=== PATIENT | female | born 1935 ===

== ENCOUNTER 2018-05-12 12:08 | Inpatient (IN) | payer MEDICARE, OTHER ==
[2018-05-12 12:21] VITALS: BMI 42.3
[2018-05-12 13:46] LABS: BASO # 0.1 K/uL (0.0-0.2); BASO % 0.9 % (0.0-2.0); EOS # 0.1 K/uL (0.0-0.7); EOS % 0.6 % (0.0-4.0); LYMPH # 1.5 K/uL (1.0-4.3); LYMPH % 14.3 % (20.0-40.0); MEAN CELL VOLUME 92.8 fL (81.0-99.0); MEAN CORPUSCULAR HEMOGLOBIN 31.5 pg (27.0-31.0); MEAN PLATELET VOLUME 7.6 fL (7.2-11.7); MONO # 0.8 K/uL (0.0-0.8); MONO % 7.9 % (0.0-10.0); NEUT # 7.8 K/uL (1.8-7.0); NEUT % 76.3 % (50.0-75.0); RBC 3.17 Mil/uL (3.80-5.20); RED CELL DISTRIBUTION WIDTH 16.7 % (11.5-14.5); WHITE BLOOD COUNT 10.3 K/uL (4.8-10.8)
[2018-05-12 14:08] LABS: B-TYPE NATRIURETIC PEPTIDE 803 pg/mL (0-900); CK-MB 1.58 ng/mL (0.0-3.38)
[2018-05-12 14:21] LABS: ALB/GLOB RATIO 1.4 (1.0-2.1); ALBUMIN 4.3 g/dL (3.5-5.0); ALT/SGPT 25 U/L (9-52); AST/SGOT 23 U/L (14-36); BLOOD UREA NITROGEN 62 mg/dL (7-17); CALCIUM 10.1 mg/dl (8.6-10.4); GFR NON-AFRICAN AMERICAN 21
[2018-05-12] MEDS ORDERED: Calcium Gluconate 4.65 MEQ in Dextrose 5% In Water 100 ML IV ONE (14:22)
[2018-05-12] MEDS ORDERED: (Novolin R) Insulin Human Regular 100 units/ml vial IVP ONE (14:23)
[2018-05-12] MEDS ORDERED: Sodium Chloride 0.9% 500 ML IV ONE (14:23)
[2018-05-12] MEDS ORDERED: Dextrose 50% SYRINGE Inj (50 ml) IVP STA (14:23)
--- NOTE | 2018-05-12 14:28 | C.PDOC ---
History Of Present Illness Patient presents to ED c/o feeling generalized weakness for the past 2 weeks. She states her blood pressure and blood sugars have been labile as well. Patient admits to occasional SOB, but denies chest pain, palpitations, cough, fever, abdominal pain, nausea/vomiting/diarrhea, dysuria. PMD Dr. Bee Time Seen by Provider: 05/12/18 12:23 Chief Complaint (Nursing): Weakness/Neurological Deficit History Per: Patient History/Exam Limitations: no limitations Onset/Duration Of Symptoms: Days (2 weeks) Current Symptoms Are (Timing): Still Present Past Medical History Reviewed: Historical Data, Nursing Documentation, Vital Signs Vital Signs: Last Vital Signs Temp 98.3 F 05/14/18 15:00 Pulse 93 H 05/14/18 16:00 Resp 18 05/14/18 15:00 BP 155/78 H 05/14/18 17:27 Pulse Ox 100 05/14/18 15:00 - Medical History PMH: Diabetes, HTN Surgical History: No Surg Hx Family History: States: No Known Family Hx - Social History Hx Alcohol Use: No Hx Substance Use: No - Immunization History Hx Tetanus Toxoid Vaccination: No Hx Influenza Vaccination: No Hx Pneumococcal Vaccination: No Review Of Systems Constitutional: Positive for: Weakness, Malaise. Negative for: Fever, Chills Cardiovascular: Negative for: Chest Pain, Palpitations Respiratory: Positive for: Shortness of Breath Gastrointestinal: Negative for: Nausea, Vomiting, Abdominal Pain, Diarrhea Genitourinary: Negative for: Dysuria Neurological: Negative for: Weakness, Numbness, Headache, Dizziness Physical Exam - Physical Exam Appears: Non-toxic, In Acute Distress (uncomfortable appearing ) Skin: Normal Color, Warm, Dry Eye(s): bilateral: Normal Inspection Oral Mucosa: Moist Cardiovascular: Rhythm Regular, Murmur (3/6 holosystolic murmur) Respiratory: Normal Breath Sounds, No Rales, No Rhonchi, No Wheezing Gastrointestinal/Abdominal: Normal Exam, Bowel Sounds, Soft, No Tenderness, Other (obese) Neurological/Psych: Oriented x3 ED Course And Treatment - Laboratory Results Result Diagrams: 05/14/18 07:40 05/14/18 07:40 ECG: Interpreted By Me, Viewed By Me (sinus rhythm 84 bpm, first degree AV block , left axis deviation, Q waves III, aVF, no acute ST changes) ECG Interpretation: Abnormal O2 Sat by Pulse Oximetry: 99 (RA) Pulse Ox Interpretation: Normal - Radiology CXR: Interpreted by Me, Viewed By Me CXR Interpretation: Yes: No Acute Disease, Cardiomegaly. No: Infiltrates Progress Note: Blood work, EKG, UA ordered and reviewed. Patient given IV NS bolus. Blood work shows hyperkalemia, nonhemolyzed specimen. Hyperkalemia cocktail ordered. - Physician Consult Information Physician Contacted: Júnior Bee Outcome Of Conversation: Discussed patient with PMD, agrees with obs telemetry for hyperkalemia, generalized weakness, CRF. Disposition - Disposition Disposition: HOSPITALIZED Disposition Time: 14:37 Condition: STABLE - Clinical Impression Clinical Impression: Hyperkalemia, Generalized weakness, CRF (chronic renal failure)
[2018-05-12] MEDS ORDERED: (Novolin R) Insulin Human Regular 100 units/ml vial ONE (14:53)
[2018-05-12] MEDS ORDERED: Calcium Gluconate 4.65 mEq/10 ml Inj ONE (14:53)
[2018-05-12] MEDS ORDERED: Dextrose 50% SYRINGE Inj (50 ml) ONE (14:54)
[2018-05-12] MEDS ORDERED: Sodium Chloride 0.9% 1,000 ML ONE (14:54)
[2018-05-12] MEDS ORDERED: Sod Polystyrene Sulf 15 gm/60 ml Susp PO ONE (17:35)
[2018-05-12 20:54] LABS: IRON 51 ug/dL (37-170)
[2018-05-12 21:04] LABS: % IRON SATURATION 16 (20-55); TOTAL IRON BINDING CAPACITY 320 ug/dL (250-450)
[2018-05-12 21:25] LABS: CREATININE, RANDOM URINE 40.3 mg/dL
--- NOTE | 2018-05-12 22:12 | CP.PCM.HP ---
Present on Admission - Present on Admission Any Indicators Present on Admission: No Past Patient History - Past Social History Smoking Status: Never Smoked - CARDIAC Hx Hypertension: Yes - ENDOCRINE/METABOLIC Hx Endocrine Disorders: Yes Hx Diabetes Mellitus Type 2: Yes - PSYCHIATRIC Hx Substance Use: No - SURGICAL HISTORY Hx Surgeries: No Meds Allergies/Adverse Reactions: Allergies Allergy/AdvReac Type Severity Reaction Status Date / Time EGG Allergy PAIN Verified 05/13/18 11:15 Results - Vital Signs Recent Vital Signs: Last Vital Signs Temp 98.4 F 05/12/18 16:45 Pulse 98 H 05/12/18 16:45 Resp 20 05/12/18 16:45 BP 163/74 H 05/12/18 16:45 Pulse Ox 98 05/12/18 16:45 - Labs Result Diagrams: 05/16/18 09:01 05/17/18 07:49 Labs: Laboratory Results - last 24 hr 05/12/18 05/12/18 05/12/18 12:33 13:40 13:40 WBC 10.3 RBC 3.17 L Hgb 10.0 L Hct 29.4 L MCV 92.8 MCH 31.5 H MCHC 34.0 RDW 16.7 H Plt Count 326 MPV 7.6 Neut % (Auto) 76.3 H Lymph % (Auto) 14.3 L [place] % (Auto) 7.9 Eos % (Auto) 0.6 Baso % (Auto) 0.9 Neut # (Auto) 7.8 H Lymph # (Auto) 1.5 [place] # (Auto) 0.8 Eos # (Auto) 0.1 Baso # (Auto) 0.1 Sodium 130 L Potassium 6.2 H* Chloride 97 L Carbon Dioxide 20 L Anion Gap 20 BUN 62 H Creatinine 2.2 H Est GFR ( Amer) 26 Est GFR (Non-Af Amer) 21 POC Glucose (mg/dL) 148 H Random Glucose 145 H Calcium 10.1 Iron TIBC % Saturation Total Bilirubin 0.4 AST 23 ALT 25 Alkaline Phosphatase 50 Total Creatine Kinase 102 CK-MB (Mass) 1.58 Troponin I < 0.0120 NT-Pro-B Natriuret Pep 803 Total Protein 7.4 Albumin 4.3 Globulin 3.1 Albumin/Globulin Ratio 1.4 Ur Random Creatinine Ur Random Sodium 09/20/18 09/20/18 09/20/18 18:11 20:36 20:36 WBC RBC Hgb Hct MCV MCH MCHC RDW Plt Count MPV Neut % (Auto) Lymph % (Auto) [place] % (Auto) Eos % (Auto) Baso % (Auto) Neut # (Auto) Lymph # (Auto) [place] # (Auto) Eos # (Auto) Baso # (Auto) Sodium Potassium Chloride Carbon Dioxide Anion Gap BUN Creatinine Est GFR ( Amer) Est GFR (Non-Af Amer) POC Glucose (mg/dL) 192 H Random Glucose Calcium Iron 51 53 TIBC 320 % Saturation 16 L Total Bilirubin AST ALT Alkaline Phosphatase Total Creatine Kinase CK-MB (Mass) Troponin I NT-Pro-B Natriuret Pep Total Protein Albumin Globulin Albumin/Globulin Ratio Ur Random Creatinine Ur Random Sodium 05/12/18 05/12/18 21:08 22:00 WBC RBC Hgb Hct MCV MCH MCHC RDW Plt Count MPV Neut % (Auto) Lymph % (Auto) [place] % (Auto) Eos % (Auto) Baso % (Auto) Neut # (Auto) Lymph # (Auto) [place] # (Auto) Eos # (Auto) Baso # (Auto) Sodium Potassium Chloride Carbon Dioxide Anion Gap BUN Creatinine Est GFR ( Amer) Est GFR (Non-Af Amer) POC Glucose (mg/dL) 122 H Random Glucose Calcium Iron TIBC % Saturation Total Bilirubin AST ALT Alkaline Phosphatase Total Creatine Kinase CK-MB (Mass) Troponin I NT-Pro-B Natriuret Pep Total Protein Albumin Globulin Albumin/Globulin Ratio Ur Random Creatinine 40.3 Ur Random Sodium 47
[2018-05-12 22:31] LABS: SQUAMOUS EPITHIAL 20 /hpf (0-5); URINE BACTERIA MOD (<OCC); URINE BILIRUBIN NEGATIVE (NEGATIVE); URINE BLOOD 1+ (NEGATIVE); URINE CLARITY Hazy (Clear); URINE COLOR Yellow (YELLOW); URINE GLUCOSE (UA) NORMAL (Normal); URINE LEUKOCYTE ESTERASE 3+ Leu/uL (Negative); URINE PROTEIN NEGATIVE (NEGATIVE); URINE UROBILINOGEN NORMAL mg/dL (0.2-1.0)
[2018-05-12] MEDS: (Novolin R) Insulin Human Regular 100 units/ml vial SC SCH (22:53)
[2018-05-12] MEDS: Rosuvastatin Calcium 2.5 mg Tab PO SCH (22:55)
[2018-05-13 07:40] LABS: CALCIUM 9.5 mg/dl (8.6-10.4)
[2018-05-13] MEDS: (Novolin R) Insulin Human Regular 100 units/ml vial SC SCH ×4 (07:42→21:10)
[2018-05-13] MEDS: Levothyroxine 50 MCG TAB PO SCH (07:55)
--- NOTE | 2018-05-13 08:09 | RAD ---
Date of service: 05/12/2018 HISTORY: Shortness of breath COMPARISON: No prior. FINDINGS: LUNGS: The lungs are well inflated and clear. PLEURA: No significant pleural effusion identified, no pneumothorax apparent. CARDIOVASCULAR: There is mild cardiomegaly. OSSEOUS STRUCTURES: No significant abnormalities. VISUALIZED UPPER ABDOMEN: Normal. OTHER FINDINGS: None. IMPRESSION: No active pulmonary disease.
--- NOTE | 2018-05-13 08:39 | US ---
Date of service: 05/12/2018 PROCEDURE: Ultrasound of the Kidneys HISTORY: renal failure COMPARISON: None available. TECHNIQUE: Sonogram of the kidneys. FINDINGS: RIGHT KIDNEY: Measures: 9.4 x 4.4 x 4.3 cm. Echogenic parenchyma. No obstructing calculus, hydronephrosis, or renal cyst identified. LEFT KIDNEY: Measures: 9.4 x 4.9 x 4.9 cm. Echogenic parenchyma. No obstructing calculus, hydronephrosis, or renal cyst identified. OTHER FINDINGS: Under distended urinary bladder limits evaluation. IMPRESSION: Echogenic renal parenchyma may be seen in the setting of medical renal disease.
--- NOTE | 2018-05-13 10:33 | HP ---
CHIEF COMPLAINT: Weakness for the last one week. HISTORY OF PRESENT ILLNESS: This is an 82-year-old female well known to me with history of obesity, diabetes, hypertension, hyperlipidemia, CKD, not on hemodialysis. She is compliant with her diet, medication, and followup. She has chronic osteoarthritis, low back pain and diabetic neuropathy. The patient has been seen by me and she was evaluated. The patient's medications were adjusted and the patient had a workup done which showed mild CKD stage 3, and the patient was not doing fine. She was feeling generalized weakness, tiredness, anorexia, malaise and fatigue. She denies any chest pain, shortness of breath, palpitations. She had no nausea, vomiting or diarrhea. She denies any history of dysuria, hematuria, pyuria. She has knee pain, hip pain, bilateral foot pain. She has tingling, numbness and burning in the feet. There is no history of trauma, fall, loss of consciousness. No history of seizure disorder. The patient denies any abdominal pain. She denies any rectal bleed. PAST MEDICAL HISTORY: CKD, diabetes, hypertension, hyperlipidemia, osteoarthritis. SOCIAL HISTORY: Nonsmoker, non-ETOH user. CURRENT MEDICATIONS: She is on Prevacid, Plavix, Pravachol, Jentadueto, Levoxyl, Actos. PHYSICAL EXAMINATION: GENERAL: An elderly female in no acute distress. VITAL SIGNS: Blood pressure 163/74, pulse 98, respiratory rate 20, temperature 98.4. SKIN: Pale. No bruises. No purpura, no petechiae. HEENT: Atraumatic. Normocephalic. Positive pallor. Negative jaundice. Extraocular movements are intact. NECK: Supple. No JVD. No lymph node. No thyromegaly. No carotid bruits. CHEST WALL: Bilateral symmetrical expansion. LUNGS: Clear. No rale, no rhonchi. CVS: S1, S2 regular. No heave. No thrill. ABDOMEN: Soft, nontender. Bowel sounds are positive. RECTAL: No masses. No bleed. EXTREMITIES: No clubbing, cyanosis or edema. 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 Cranial nerves II through XII were normal. Power 5/5 x4. ASSESSMENT: 1. Hyperkalemia. 2. Chronic kidney disease, dehydration. 3. Urinary tract infection. 4. Hypertension. 5. Diabetes. PLAN: Admit. Detailed orders written. Seen and examined. Júnior Bee MD
[2018-05-13] MEDS: Brimonidine 0.2% Opth Sol (5ml) OU SCH (19:14)
--- NOTE | 2018-05-13 19:43 | CP.PCM.CON ---
History of Present Illness - History of Present Illness History of Present Illness: pt is seen and examined, full consult is dictated #[id number] Past Patient History - Past Social History Smoking Status: Never Smoked - CARDIAC Hx Hypertension: Yes - ENDOCRINE/METABOLIC Hx Endocrine Disorders: Yes Hx Diabetes Mellitus Type 2: Yes - PSYCHIATRIC Hx Substance Use: No - SURGICAL HISTORY Hx Surgeries: No Meds Allergies/Adverse Reactions: Allergies Allergy/AdvReac Type Severity Reaction Status Date / Time EGG Allergy PAIN Verified 05/13/18 11:15 - Medications Medications: Current Medications Alprazolam (Xanax) 0.5 mg PO HS [facility] Brimonidine Tartrate (Alphagan 0.2% Opht) 1 ml OU BID [facility] Last Admin: 05/13/18 19:14 Dose: 1 drop Clopidogrel Bisulfate (Plavix) 75 mg PO DAILY [facility] Last Admin: 05/13/18 10:00 Dose: 75 mg Heparin Sodium (Porcine) (Heparin) 5,000 units SC Q8 [facility] Last Admin: 05/13/18 13:31 Dose: 5,000 units Hydralazine HCl (Apresoline) 25 mg PO Q8 [facility] Last Admin: 05/13/18 13:31 Dose: 25 mg Ceftriaxone Sodium 1 gm/ (Sodium Chloride) 100 mls @ 100 mls/hr IVPB Q24H [facility] PRN Reason: Protocol Last Admin: 05/13/18 00:11 Dose: 100 mls/hr Insulin Human Regular (Novolin R) 0 unit SC ACHS [facility] PRN Reason: Protocol Last Admin: 05/13/18 19:14 Dose: 1 unit Levothyroxine Sodium (Synthroid) 50 mcg PO DAILY@0630 [facility] Last Admin: 05/13/18 07:55 Dose: 50 mcg Metformin HCl (Glucophage) 850 mg PO BID [facility] Last Admin: 05/12/18 18:44 Dose: Not Given Pioglitazone HCl (Actos) 15 mg PO DAILY [facility] Last Admin: 05/13/18 10:00 Dose: 15 mg Rosuvastatin Calcium (Crestor) 2.5 mg PO HS [facility] Last Admin: 05/12/18 22:55 Dose: 2.5 mg Results - Vital Signs Recent Vital Signs: Last Vital Signs Temp 98.2 F 05/13/18 16:00 Pulse 95 H 05/13/18 16:00 Resp 20 05/13/18 16:00 BP 138/75 05/13/18 16:00 Pulse Ox 97 05/13/18 16:00 - Labs Result Diagrams: 05/12/18 13:40 05/13/18 07:01 Labs: Laboratory Results - last 24 hr 05/12/18 05/12/18 05/12/18 20:36 20:36 21:08 Sodium Potassium Chloride Carbon Dioxide Anion Gap BUN Creatinine Est GFR ( Amer) Est GFR (Non-Af Amer) POC Glucose (mg/dL) Random Glucose Calcium Iron 51 53 TIBC 320 % Saturation 16 L 25-OH Vitamin D Total Urine Color Urine Clarity Urine pH Ur Specific [place] Urine Protein Urine Glucose (UA) Urine Ketones Urine Blood Urine Nitrate Urine Bilirubin Urine Urobilinogen Ur Leukocyte Esterase Urine WBC (Auto) Urine RBC (Auto) Ur Squamous Epith Cells Ur Transition Epith Cell Urine Bacteria Urine Osmolality Ur Random Creatinine 40.3 Ur Random Sodium 47 Ur Random Urea Nitrogn 05/12/18 05/12/18 05/12/18 22:00 22:22 22:22 Sodium Potassium Chloride Carbon Dioxide Anion Gap BUN Creatinine Est GFR ( Amer) Est GFR (Non-Af Amer) POC Glucose (mg/dL) 122 H Random Glucose Calcium Iron TIBC % Saturation 25-OH Vitamin D Total Urine Color Yellow Urine Clarity Hazy Urine pH 7.0 Ur Specific [place] 1.006 Urine Protein Negative Urine Glucose (UA) Normal Urine Ketones Negative Urine Blood 1+ H Urine Nitrate Negative Urine Bilirubin Negative Urine Urobilinogen Normal Ur Leukocyte Esterase 3+ H Urine WBC (Auto) 60 H Urine RBC (Auto) 5 H Ur Squamous Epith Cells 20 H Ur Transition Epith Cell < 1 Urine Bacteria Mod H Urine Osmolality Ur Random Creatinine Ur Random Sodium Ur Random Urea Nitrogn 381 05/13/18 05/13/18 05/13/18 06:07 07:01 07:01 Sodium 135 Potassium 5.4 H Chloride 104 Carbon Dioxide 20 L Anion Gap 17 BUN 57 H Creatinine 2.0 H Est GFR ( Amer) 29 Est GFR (Non-Af Amer) 24 POC Glucose (mg/dL) 114 H Random Glucose 111 H Calcium 9.5 Iron TIBC % Saturation 25-OH Vitamin D Total 48.0 Urine Color Urine Clarity Urine pH Ur Specific [place] Urine Protein Urine Glucose (UA) Urine Ketones Urine Blood Urine Nitrate Urine Bilirubin Urine Urobilinogen Ur Leukocyte Esterase Urine WBC (Auto) Urine RBC (Auto) Ur Squamous Epith Cells Ur Transition Epith Cell Urine Bacteria Urine Osmolality Ur Random Creatinine Ur Random Sodium Ur Random Urea Nitrogn 05/13/18 05/13/18 05/13/18 11:40 11:57 17:27 Sodium Potassium Chloride Carbon Dioxide Anion Gap BUN Creatinine Est GFR ( Amer) Est GFR (Non-Af Amer) POC Glucose (mg/dL) 208 H 184 H Random Glucose Calcium Iron TIBC % Saturation 25-OH Vitamin D Total Urine Color Urine Clarity Urine pH Ur Specific [place] Urine Protein Urine Glucose (UA) Urine Ketones Urine Blood Urine Nitrate Urine Bilirubin Urine Urobilinogen Ur Leukocyte Esterase Urine WBC (Auto) Urine RBC (Auto) Ur Squamous Epith Cells Ur Transition Epith Cell Urine Bacteria Urine Osmolality 289 L Ur Random Creatinine Ur Random Sodium Ur Random Urea Nitrogn
[2018-05-13] MEDS: Rosuvastatin Calcium 2.5 mg Tab PO SCH (22:18)
--- NOTE | 2018-05-13 23:04 | CP.PCM.PN ---
Objective - Vital Signs/Intake and Output Vital Signs (last 24 hours): Temp Pulse Resp BP Pulse Ox 98.2 F 95 H 20 138/75 97 05/13/18 16:00 05/13/18 16:00 05/13/18 16:00 05/13/18 16:00 05/13/18 16:00 - Medications Medications: Current Medications Alprazolam (Xanax) 0.5 mg PO HS [facility] Last Admin: 05/13/18 22:21 Dose: 0.5 mg Brimonidine Tartrate (Alphagan 0.2% Opht) 1 ml OU BID [facility] Last Admin: 05/13/18 19:14 Dose: 1 drop Clopidogrel Bisulfate (Plavix) 75 mg PO DAILY [facility] Last Admin: 05/13/18 10:00 Dose: 75 mg Heparin Sodium (Porcine) (Heparin) 5,000 units SC Q8 [facility] Last Admin: 05/13/18 22:23 Dose: 5,000 units Hydralazine HCl (Apresoline) 25 mg PO Q8 [facility] Last Admin: 05/13/18 22:19 Dose: 25 mg Ceftriaxone Sodium 1 gm/ (Sodium Chloride) 100 mls @ 100 mls/hr IVPB Q24H [facility] PRN Reason: Protocol Last Admin: 05/13/18 22:44 Dose: 100 mls/hr Insulin Human Regular (Novolin R) 0 unit SC ACHS [facility] PRN Reason: Protocol Last Admin: 05/13/18 21:10 Dose: Not Given Levothyroxine Sodium (Synthroid) 50 mcg PO DAILY@0630 [facility] Last Admin: 05/13/18 07:55 Dose: 50 mcg Metformin HCl (Glucophage) 850 mg PO BID [facility] Last Admin: 05/12/18 18:44 Dose: Not Given Pioglitazone HCl (Actos) 15 mg PO DAILY [facility] Last Admin: 05/13/18 10:00 Dose: 15 mg Rosuvastatin Calcium (Crestor) 2.5 mg PO HS [facility] Last Admin: 05/13/18 22:18 Dose: 2.5 mg - Labs Labs: 05/12/18 13:40 05/13/18 07:01
--- NOTE | 2018-05-14 03:15 | PN ---
DATE: 05/13/2018 SUBJECTIVE: The patient, Ce, is feeling chills, rigors, body aches. PHYSICAL EXAMINATION: VITAL SIGNS: She is afebrile. Blood pressure 138/75, pulse 99, respiratory rate 20, temperature 98.2. LUNGS: Clear. CARDIOVASCULAR SYSTEM: S1 and S2 are regular. ABDOMEN: Soft. ASSESSMENT: 1. Urinary tract infection, rule out sepsis. 2. Chronic kidney disease, hyperkalemia. 3. Hypertension. 4. Osteoarthritis. PLAN: Medical management. Monitor the patient. Júnior Bee MD
[2018-05-14] MEDS: Levothyroxine 50 MCG TAB PO SCH (06:51)
[2018-05-14 07:55] LABS: BASO # 0.1 K/uL (0.0-0.2); BASO % 0.5 % (0.0-2.0); EOS # 0.2 K/uL (0.0-0.7); EOS % 1.8 % (0.0-4.0); HEMOGLOBIN 9.5 g/dL (11.0-16.0); LYMPH # 2.2 K/uL (1.0-4.3); LYMPH % 20.3 % (20.0-40.0); MEAN CELL VOLUME 93.2 fL (81.0-99.0); MEAN CORPUSCULAR HEMOGLOBIN 32.2 pg (27.0-31.0); MEAN CORPUSCULAR HGB CONC 34.5 g/dL (33.0-37.0); MEAN PLATELET VOLUME 7.8 fL (7.2-11.7); MONO # 1.1 K/uL (0.0-0.8); MONO % 10.1 % (0.0-10.0); NEUT # 7.4 K/uL (1.8-7.0); NEUT % 67.3 % (50.0-75.0); RBC 2.96 Mil/uL (3.80-5.20); RED CELL DISTRIBUTION WIDTH 17.1 % (11.5-14.5); WHITE BLOOD COUNT 10.9 K/uL (4.8-10.8)
[2018-05-14] MEDS: (Novolin R) Insulin Human Regular 100 units/ml vial SC SCH ×4 (08:05→21:16)
[2018-05-14 08:19] LABS: ALB/GLOB RATIO 1.2 (1.0-2.1); ALBUMIN 3.5 g/dL (3.5-5.0); CALCIUM 9.3 mg/dl (8.6-10.4)
--- NOTE | 2018-05-14 09:17 | CON ---
DATE: 05/13/2018 LOCATION: The patient is located in room 564, bed A. REQUESTED BY: Júnior Bee MD The patient is seen and dictated for Rubens Graves MD REASON FOR EVALUATION: Increased BUN and creatinine, hyperkalemia, and anemia. HISTORY OF PRESENT ILLNESS: Mrs. Encinas is about 82-year-old female with a past medical history significant for hypertension, diabetes, and glaucoma who was admitted with chief complaints of generalized weakness for the last 2 weeks and also complains of lower abdominal discomfort and occasional dysuria. Denies any chest pain, palpitation. Denies any fever or cough. Denies any nausea, vomiting, diarrhea. Denies any skin rash. Denies any bleeding per rectum. The patient has complains of occasional shortness of breath. PAST MEDICAL HISTORY: Her past medical history is significant for longstanding hypertension, diabetes, and glaucoma. PAST SURGICAL HISTORY: Hysterectomy long time ago. ALLERGIES: ALLERGIC TO EGG. SOCIAL HISTORY: Denies any smoking, alcohol, or drugs. PERSONAL HISTORY: She is . She has one child. FAMILY HISTORY: Nonsignificant. MEDICATIONS: Her current medications include as follows: Actos 50 mg p.o. daily; Alphagan eyedrops 2 times daily; hydralazine 25 mg p.o. every 8 hours; Rocephin 1 g every 24 hours; Crestor 2.5 mg at bedtime; metformin 850 mg p.o. 2 times daily, on hold; subcu heparin 5000 units every 8 hours; Plavix 75 mg daily; levothyroxine 50 mcg p.o. daily; Xanax 0.5 mg at bedtime. REVIEW OF SYSTEMS: Significant for generalized weakness and occasional shortness of breath and lower abdominal discomfort and occasional dysuria. All other review of systems are reviewed and are negative. PHYSICAL EXAMINATION: VITAL SIGNS: As follows: Blood pressure 138/75, pulse 99, respirations 20, temperature 98.2, saturation 97%. Height 5 feet 1 inch and weight is 224 pounds. GENERAL: Mrs. Encinas is an 82-year-old elderly female, moderately built, moderately nourished, not in acute distress. HEENT: Pupils normal and reactive to light and accommodation. Conjunctivae pink. Sclerae anicteric. Tongue is moist. Trachea is midline. LUNGS: Symmetric on both sides. Bilateral breath sounds present. Clear to auscultation. CVS: [place]wagen at the fifth intercostal space, half inch medial to midclavicular line. S1, S2 audible. No murmur or gallop. ABDOMEN: Normal in appearance, soft, tympanitic. No guarding. No rigidity. No hepatosplenomegaly. 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 Nonfocal neuro examination. Cranial nerves II through XII grossly intact. Sensory and motor system is within normal limits. EXTREMITIES: No cyanosis, no clubbing, no edema. LABORATORY DATA: Include as follows: As of 05/13/2018, sodium 135, potassium 5.4, chloride 104, CO2 of 20, BUN 57, creatinine 2, glucose 111, calcium 9.5, vitamin D total is 48, and urine osmolality 289. Other laboratory data as of 05/12/2018, urine yellow, hazy, pH 7, specific gravity 1.006, protein negative, glucose normal, ketones negative, blood 1+, nitrites negative, bilirubin negative, urobilinogen normal, leukocyte esterase 3+, wbc 60, rbc 5, squamous epithelial 20 bacteria moderate. Urine creatinine 40.3, urine sodium 47, urea nitrogen 381. Iron 53 and TIBC 320 and saturation 16. As of 05/12/2018, WBC 10.3, hemoglobin 10, hematocrit is 29.4, platelets 326. Sodium 130, potassium 6.2, chloride 97, CO2 of 20, BUN 62, creatinine 2.2, glucose 145, calcium 10.1. Total bili 0.4, AST 23, ALT 25, alkaline phosphatase 50, CPK 102 and CK-MB of 1.58. Troponin 0.012, proBNP 803, total protein 7.4, albumin is 4.3. No cultures are available at this time. Ultrasound of the kidneys as of 05/12/2018, right kidney 9.4 x 4.4 x 4.3 cm, left kidney 9.4 x 4.9 x 4.9 cm, echogenic parenchyma, no obstructing calculus, hydronephrosis or renal cyst identified. IMPRESSION: In summary, Mrs. Encinas is an 82-year-old elderly female with a history of hypertension, diabetes, hypothyroidism, hyperlipidemia, glaucoma who was admitted with generalized weakness and occasional shortness of breath and lower abdominal discomfort with increased BUN and creatinine, hyperkalemia. 1. Renal failure, most likely acute on chronic kidney disease, cannot rule out acute renal failure. 2. Hyperkalemia, rule out type 4 renal tubular acidosis secondary to diabetes. 3. Rule out urinary tract infection. 4. Hypertension. 5. Diabetes. 6. Hypothyroidism. PLAN: Continue current medication. Continue IV antibiotics as per Dr. Bee, and followup culture reports and suggest antibiotics as per the cultures. Continue DVT prophylaxis. Continue eyedrops for glaucoma. The patient is seen and examined. Dictated for Dr. Graves. Covering Dr. Graves, today. Zi Roach MD
--- NOTE | 2018-05-14 09:34 | CP.PCM.PN ---
Subjective - Date & Time of Evaluation Date of Evaluation: 05/14/18 Time of Evaluation: 09:00 - Subjective Subjective: chronic kidney dis. Objective - Vital Signs/Intake and Output Vital Signs (last 24 hours): Temp Pulse Resp BP Pulse Ox 98.1 F 89 20 149/74 98 05/14/18 07:00 05/14/18 07:00 05/14/18 07:00 05/14/18 07:00 05/14/18 07:00 Intake and Output: 05/14/18 05/14/18 06:59 18:59 Output Total 600 Balance -600 - Medications Medications: Current Medications Alprazolam (Xanax) 0.5 mg PO HS [facility] Last Admin: 05/13/18 22:21 Dose: 0.5 mg Brimonidine Tartrate (Alphagan 0.2% Opht) 1 ml OU BID [facility] Last Admin: 05/13/18 19:14 Dose: 1 drop Clopidogrel Bisulfate (Plavix) 75 mg PO DAILY [facility] Last Admin: 05/13/18 10:00 Dose: 75 mg Heparin Sodium (Porcine) (Heparin) 5,000 units SC Q8 [facility] Last Admin: 05/14/18 06:51 Dose: 5,000 units Hydralazine HCl (Apresoline) 25 mg PO Q8 [facility] Last Admin: 05/14/18 06:51 Dose: 25 mg Ceftriaxone Sodium 1 gm/ (Sodium Chloride) 100 mls @ 100 mls/hr IVPB Q24H [facility] PRN Reason: Protocol Last Admin: 05/13/18 22:44 Dose: 100 mls/hr Insulin Human Regular (Novolin R) 0 unit SC ACHS [facility] PRN Reason: Protocol Last Admin: 05/14/18 08:05 Dose: Not Given Levothyroxine Sodium (Synthroid) 50 mcg PO DAILY@0630 [facility] Last Admin: 05/14/18 06:51 Dose: 50 mcg Metformin HCl (Glucophage) 850 mg PO BID [facility] Last Admin: 05/12/18 18:44 Dose: Not Given Pioglitazone HCl (Actos) 15 mg PO DAILY [facility] Last Admin: 05/13/18 10:00 Dose: 15 mg Rosuvastatin Calcium (Crestor) 2.5 mg PO HS [facility] Last Admin: 05/13/18 22:18 Dose: 2.5 mg - Labs Labs: 05/14/18 07:40 05/14/18 07:40 Assessment and Plan - Assessment and Plan (Free Text) Assessment: I was notified of renal consult yesteday afternoon. Pt is already evaluated by Dr Carlos in renal consultation Plan: Per Dr Glass
[2018-05-14] MEDS: Brimonidine 0.2% Opth Sol (5ml) OU SCH ×2 (10:14→17:27)
[2018-05-14] MEDS ORDERED: POLYETHYLENE GLYCOL 3350 17 GM/Dose PACKET PO ONE (12:40)
[2018-05-14] MEDS: Metoprolol Succinate 50 mg XL Tab PO SCH (17:28)
[2018-05-14] MEDS: Rosuvastatin Calcium 2.5 mg Tab PO SCH (21:17)
--- NOTE | 2018-05-14 23:06 | CP.PCM.PN ---
Objective - Vital Signs/Intake and Output Vital Signs (last 24 hours): Temp Pulse Resp BP Pulse Ox 98.3 F 74 18 139/77 99 05/14/18 15:00 05/14/18 21:16 05/14/18 15:00 05/14/18 21:16 05/14/18 18:58 Intake and Output: 05/14/18 05/15/18 18:59 06:59 Intake Total 500 Output Total 2000 250 Balance -1500 -250 - Medications Medications: Current Medications Alprazolam (Xanax) 0.5 mg PO HS [facility] Last Admin: 05/14/18 21:17 Dose: 0.5 mg Brimonidine Tartrate (Alphagan 0.2% Opht) 1 ml OU BID [facility] Last Admin: 05/14/18 17:27 Dose: 1 drop Clopidogrel Bisulfate (Plavix) 75 mg PO DAILY [facility] Last Admin: 05/14/18 10:13 Dose: 75 mg Docusate Sodium (Colace) 100 mg PO BID [facility] Last Admin: 05/14/18 17:28 Dose: 100 mg Furosemide (Lasix) 20 mg PO DAILY [facility] Last Admin: 05/14/18 17:27 Dose: 20 mg Heparin Sodium (Porcine) (Heparin) 5,000 units SC Q12H [facility] Last Admin: 05/14/18 21:17 Dose: 5,000 units Hydralazine HCl (Apresoline) 25 mg PO Q8 [facility] Last Admin: 05/14/18 21:17 Dose: 25 mg Ceftriaxone Sodium 1 gm/ (Sodium Chloride) 100 mls @ 100 mls/hr IVPB Q24H [facility] PRN Reason: Protocol Last Admin: 05/13/18 22:44 Dose: 100 mls/hr Insulin Human Regular (Novolin R) 0 unit SC ACHS [facility] PRN Reason: Protocol Last Admin: 05/14/18 21:16 Dose: Not Given Levothyroxine Sodium (Synthroid) 50 mcg PO DAILY@0630 [facility] Last Admin: 05/14/18 06:51 Dose: 50 mcg Metformin HCl (Glucophage) 850 mg PO BID [facility] Last Admin: 05/12/18 18:44 Dose: Not Given Metoprolol Succinate (Toprol Xl) 50 mg PO DAILY [facility] Last Admin: 05/14/18 17:28 Dose: 50 mg Pioglitazone HCl (Actos) 15 mg PO DAILY [facility] Last Admin: 05/14/18 10:13 Dose: 15 mg Rosuvastatin Calcium (Crestor) 2.5 mg PO HS [facility] Last Admin: 05/14/18 21:17 Dose: 2.5 mg - Labs Labs: 05/14/18 07:40 05/14/18 07:40
[2018-05-15 01:37] VITALS: RESP 20
--- NOTE | 2018-05-15 02:13 | PN ---
DATE: 05/14/2018 SUBJECTIVE: The patient is feeling better. No shortness of breath. No chest pain. PHYSICAL EXAMINATION: VITAL SIGNS: BP 139/77, pulse 74, respiratory rate is 18, temperature 98.3. LUNGS: Bilateral basal rales. CVS: S1 and S2 are regular. ABDOMEN: Soft. ASSESSMENT: 1. 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 2. Hypertension. 3. Urinary tract infection. PLAN: Continue current medication. Monitor the patient. Júnior Bee MD
[2018-05-15] MEDS: Levothyroxine 50 MCG TAB PO SCH (05:32)
--- NOTE | 2018-05-15 07:24 | CP.PCM.PN ---
Subjective - Date & Time of Evaluation Date of Evaluation: 05/14/18 Time of Evaluation: 15:00 - Subjective Subjective: Patient without BM since several days; no nausea/vomiting; intermittent dyspnea and leg swelling; ambulates with assistance; Objective - Vital Signs/Intake and Output Vital Signs (last 24 hours): Temp Pulse Resp BP Pulse Ox 98.1 F 69 20 143/72 98 05/14/18 23:40 05/14/18 23:40 05/14/18 23:40 05/15/18 05:32 05/14/18 23:40 Intake and Output: 05/15/18 05/15/18 06:59 18:59 Output Total 950 Balance -950 - Medications Medications: Current Medications Alprazolam (Xanax) 0.5 mg PO HS [facility] Last Admin: 05/14/18 21:17 Dose: 0.5 mg Brimonidine Tartrate (Alphagan 0.2% Opht) 1 ml OU BID [facility] Last Admin: 05/14/18 17:27 Dose: 1 drop Clopidogrel Bisulfate (Plavix) 75 mg PO DAILY [facility] Last Admin: 05/14/18 10:13 Dose: 75 mg Docusate Sodium (Colace) 100 mg PO BID [facility] Last Admin: 05/14/18 17:28 Dose: 100 mg Furosemide (Lasix) 20 mg PO DAILY [facility] Last Admin: 05/14/18 17:27 Dose: 20 mg Heparin Sodium (Porcine) (Heparin) 5,000 units SC Q12H [facility] Last Admin: 05/14/18 21:17 Dose: 5,000 units Hydralazine HCl (Apresoline) 25 mg PO Q8 [facility] Last Admin: 05/15/18 05:32 Dose: 25 mg Ceftriaxone Sodium 1 gm/ (Sodium Chloride) 100 mls @ 100 mls/hr IVPB Q24H [facility] PRN Reason: Protocol Last Admin: 05/14/18 23:53 Dose: 100 mls/hr Insulin Human Regular (Novolin R) 0 unit SC ACHS [facility] PRN Reason: Protocol Last Admin: 05/14/18 21:16 Dose: Not Given Levothyroxine Sodium (Synthroid) 50 mcg PO DAILY@0630 [facility] Last Admin: 05/15/18 05:32 Dose: 50 mcg Metformin HCl (Glucophage) 850 mg PO BID [facility] Last Admin: 09/20/18 18:44 Dose: Not Given Metoprolol Succinate (Toprol Xl) 50 mg PO DAILY [facility] Last Admin: 05/14/18 17:28 Dose: 50 mg Pioglitazone HCl (Actos) 15 mg PO DAILY [facility] Last Admin: 05/14/18 10:13 Dose: 15 mg Rosuvastatin Calcium (Crestor) 2.5 mg PO HS [facility] Last Admin: 05/14/18 21:17 Dose: 2.5 mg - Labs Labs: 05/14/18 07:40 05/14/18 07:40 - Constitutional Appears: Non-toxic, No Acute Distress - Eye Exam Eye Exam: Normal appearance - ENT Exam ENT Exam: Mucous Membranes Moist - Respiratory Exam Respiratory Exam: Clear to Ausculation Bilateral. absent: Respiratory Distress - Cardiovascular Exam Cardiovascular Exam: JVD, RRR, +S1, +S2 - GI/Abdominal Exam GI & Abdominal Exam: Soft, Hyperactive Bowel Sounds. absent: Distended, Tenderness - Extremities Exam Additional comments: trace lower leg edema b/l - Neurological Exam Neurological Exam: Alert, Awake - Psychiatric Exam Psychiatric exam: Normal Mood. absent: Agitated - Skin Skin Exam: Warm. absent: Cyanosis Assessment and Plan (1) CKD (chronic kidney disease) Assessment & Plan: Exact baseline renal function unclear; serum creatinine stable since last 2 days ; mild microalbuminuria, awaiting random urine for total protein/creatinine; high BUN/creat ratio indicative of pre-renal/cardiorenal etiology of CKD; only received 1L IVF but appears volume replete on exam; -avoid nephrotoxic agents (use mineral enema instead of phosphate enema if needed) -obtain echo to look for evidence of cardiorenal etiology of CKD (pulmonary htn/ CHF?) -starting lasix 20 mg daily, will help with hyperkalemia; -low K diet; Status: Chronic (2) Hyperkalemia Assessment & Plan: Persistent, see above; would avoid any more kayexalate as patient with hyperactive BS and without BM since several days; decreasing subcu heparin to q12h; Status: Acute (3) Anemia Assessment & Plan: Likely due to CKD; hgb slightly below goal (10-11g); low iron sat; will obtain ferritin level; may need IV iron/EPO; Status: Chronic
[2018-05-15] MEDS: (Novolin R) Insulin Human Regular 100 units/ml vial SC SCH ×4 (07:59→21:36)
[2018-05-15] MEDS: Brimonidine 0.2% Opth Sol (5ml) OU SCH ×2 (09:33→17:28)
[2018-05-15] MEDS: Metoprolol Succinate 50 mg XL Tab PO SCH (09:39)
[2018-05-15] MEDS ORDERED: Magnesium Hydroxide Susp 30 ml UD PO ONE (10:37)
[2018-05-15] MEDS ORDERED: Sod Polystyrene Sulf 15 gm/60 ml Susp PO ONE (10:38)
[2018-05-15 11:07] LABS: BASO # 0.1 K/uL (0.0-0.2); BASO % 1.1 % (0.0-2.0); EOS # 0.1 K/uL (0.0-0.7); EOS % 1.4 % (0.0-4.0); HEMOGLOBIN 9.1 g/dL (11.0-16.0); LYMPH % 11.2 % (20.0-40.0); MEAN CELL VOLUME 93.1 fL (81.0-99.0); MEAN CORPUSCULAR HEMOGLOBIN 31.7 pg (27.0-31.0); MEAN CORPUSCULAR HGB CONC 34.1 g/dL (33.0-37.0); MEAN PLATELET VOLUME 7.8 fL (7.2-11.7); MONO # 0.8 K/uL (0.0-0.8); MONO % 8.4 % (0.0-10.0); NEUT # 7.1 K/uL (1.8-7.0); NEUT % 77.9 % (50.0-75.0); RBC 2.87 Mil/uL (3.80-5.20); RED CELL DISTRIBUTION WIDTH 16.5 % (11.5-14.5); WHITE BLOOD COUNT 9.1 K/uL (4.8-10.8)
[2018-05-15 11:26] LABS: ALB/GLOB RATIO 1.1 (1.0-2.1); ALBUMIN 3.5 g/dL (3.5-5.0); CALCIUM 8.5 mg/dl (8.6-10.4)
[2018-05-15] MEDS: Albuterol-Ipratrop 3 mg / 0.5 (3 ml) UD INH SCH ×2 (18:24→19:49)
[2018-05-15] MEDS ORDERED: Albuterol-Ipratrop 3 mg / 0.5 (3 ml) UD ONE (18:26)
--- NOTE | 2018-05-15 19:51 | CP.PCM.PN ---
Objective - Vital Signs/Intake and Output Vital Signs (last 24 hours): Temp Pulse Resp BP Pulse Ox 98.5 F 85 20 160/67 H 99 05/15/18 15:00 05/15/18 16:02 05/15/18 15:00 05/15/18 15:00 05/15/18 15:00 Intake and Output: 05/15/18 05/16/18 18:59 06:59 Intake Total 400 Output Total 700 Balance -300 - Medications Medications: Current Medications Albuterol/Ipratropium (Duoneb 3 Mg/0.5 Mg (3 Ml) Ud) 3 ml INH RQ6 [facility] Last Admin: 05/15/18 19:49 Dose: 3 ml Alprazolam (Xanax) 0.5 mg PO HS [facility] Last Admin: 05/14/18 21:17 Dose: 0.5 mg Brimonidine Tartrate (Alphagan 0.2% Opht) 1 ml OU BID [facility] Last Admin: 05/15/18 17:28 Dose: 1 drop Clopidogrel Bisulfate (Plavix) 75 mg PO DAILY [facility] Last Admin: 05/15/18 09:34 Dose: 75 mg Docusate Sodium (Colace) 100 mg PO BID [facility] Last Admin: 05/15/18 19:16 Dose: Not Given Furosemide (Lasix) 20 mg PO DAILY [facility] Last Admin: 05/15/18 09:39 Dose: 20 mg Heparin Sodium (Porcine) (Heparin) 5,000 units SC Q12H [facility] Last Admin: 05/15/18 09:34 Dose: 5,000 units Hydralazine HCl (Apresoline) 25 mg PO Q8 [facility] Last Admin: 05/15/18 13:51 Dose: 25 mg Ceftriaxone Sodium 1 gm/ (Sodium Chloride) 100 mls @ 100 mls/hr IVPB Q24H [facility] PRN Reason: Protocol Last Admin: 05/14/18 23:53 Dose: 100 mls/hr Insulin Human Regular (Novolin R) 0 unit SC ACHS [facility] PRN Reason: Protocol Last Admin: 05/15/18 17:28 Dose: 1 unit Levothyroxine Sodium (Synthroid) 50 mcg PO DAILY@0630 [facility] Last Admin: 05/15/18 05:32 Dose: 50 mcg Metformin HCl (Glucophage) 850 mg PO BID [facility] Last Admin: 05/12/18 18:44 Dose: Not Given Metoprolol Succinate (Toprol Xl) 50 mg PO DAILY [facility] Last Admin: 05/15/18 09:39 Dose: 50 mg Pioglitazone HCl (Actos) 15 mg PO DAILY [facility] Last Admin: 05/15/18 09:34 Dose: 15 mg Rosuvastatin Calcium (Crestor) 2.5 mg PO [facility] Last Admin: 05/14/18 21:17 Dose: 2.5 mg - Labs Labs: 05/15/18 11:04 05/15/18 11:04
[2018-05-15] MEDS ORDERED: Magnesium Sulfate 1 gm in D5W 1 GM/100 ML BAG IVPB ONE (22:00)
[2018-05-15] MEDS: Rosuvastatin Calcium 2.5 mg Tab PO SCH (22:09)
[2018-05-16] MEDS: Albuterol-Ipratrop 3 mg / 0.5 (3 ml) UD INH SCH ×3 (01:47→19:31)
[2018-05-16] MEDS: Levothyroxine 50 MCG TAB PO SCH (06:16)
[2018-05-16] MEDS: (Novolin R) Insulin Human Regular 100 units/ml vial SC SCH ×3 (08:01→17:52)
--- NOTE | 2018-05-16 08:33 | CP.PCM.PN ---
<Eagle Gerard - Last Filed: 05/16/18 14:07> Subjective - Date & Time of Evaluation Date of Evaluation: 05/16/18 Time of Evaluation: 08:33 - Subjective Subjective: Eagle Gerard DO, PGY-2: Nephrology Progress Note for Dr. Graves Patient was seen and examined at bedside. She denies any nausea, vomiting, diarrhea, lower extremity swelling, anorexia, or changes in taste. Chart review indicates no adverse overnight. Objective - Vital Signs/Intake and Output Vital Signs (last 24 hours): Temp Pulse Resp BP Pulse Ox 98.1 F 87 20 137/67 97 05/16/18 07:00 05/16/18 07:00 05/16/18 07:00 05/16/18 07:00 05/16/18 07:00 Intake and Output: 05/16/18 05/16/18 06:59 18:59 Intake Total 500 Output Total 500 Balance 0 - Medications Medications: Current Medications Albuterol/Ipratropium (Duoneb 3 Mg/0.5 Mg (3 Ml) Ud) 3 ml INH RQ6 [facility] Last Admin: 05/16/18 07:16 Dose: Not Given Alprazolam (Xanax) 0.5 mg PO HS [facility] Last Admin: 05/15/18 22:09 Dose: 0.5 mg Brimonidine Tartrate (Alphagan 0.2% Opht) 1 ml OU BID [facility] Last Admin: 05/15/18 17:28 Dose: 1 drop Clopidogrel Bisulfate (Plavix) 75 mg PO DAILY [facility] Last Admin: 05/15/18 09:34 Dose: 75 mg Docusate Sodium (Colace) 100 mg PO BID [facility] Last Admin: 05/15/18 19:16 Dose: Not Given Furosemide (Lasix) 20 mg PO DAILY [facility] Last Admin: 05/15/18 09:39 Dose: 20 mg Heparin Sodium (Porcine) (Heparin) 5,000 units SC Q12H [facility] Last Admin: 05/15/18 22:09 Dose: 5,000 units Hydralazine HCl (Apresoline) 25 mg PO Q8 [facility] Last Admin: 05/16/18 06:16 Dose: 25 mg Ceftriaxone Sodium 1 gm/ (Sodium Chloride) 100 mls @ 100 mls/hr IVPB Q24H [facility] PRN Reason: Protocol Last Admin: 05/15/18 23:47 Dose: 100 mls/hr Insulin Human Regular (Novolin R) 0 unit SC ACHS [facility] PRN Reason: Protocol Last Admin: 05/16/18 08:01 Dose: Not Given Levothyroxine Sodium (Synthroid) 50 mcg PO DAILY@0630 [facility] Last Admin: 05/16/18 06:16 Dose: 50 mcg Metformin HCl (Glucophage) 850 mg PO BID [facility] Last Admin: 05/12/18 18:44 Dose: Not Given Metoprolol Succinate (Toprol Xl) 50 mg PO DAILY [facility] Last Admin: 05/15/18 09:39 Dose: 50 mg Pioglitazone HCl (Actos) 15 mg PO DAILY [facility] Last Admin: 05/15/18 09:34 Dose: 15 mg Rosuvastatin Calcium (Crestor) 2.5 mg PO HS [facility] Last Admin: 05/15/18 22:09 Dose: 2.5 mg - Labs Labs: 05/15/18 11:04 05/15/18 11:04 - Constitutional Appears: Well, Non-toxic - Head Exam Head Exam: ATRAUMATIC, NORMOCEPHALIC - Eye Exam Eye Exam: EOMI, Normal appearance - ENT Exam ENT Exam: Mucous Membranes Moist - Neck Exam Neck Exam: Normal Inspection - Respiratory Exam Respiratory Exam: NORMAL BREATHING PATTERN. absent: Accessory Muscle Use - Cardiovascular Exam Cardiovascular Exam: RRR, +S1, +S2. absent: Tachycardia - GI/Abdominal Exam GI & Abdominal Exam: Soft, Normal Bowel Sounds - Extremities Exam Extremities Exam: Normal Inspection. absent: Calf Tenderness - Neurological Exam Neurological Exam: Alert, Awake, Oriented x3 - Psychiatric Exam Psychiatric exam: Normal Affect, Normal Mood - Skin Skin Exam: Dry, Intact, Normal Color, Warm Assessment and Plan - Assessment and Plan (Free Text) Assessment: Assessment and Plan (1) CKD (chronic kidney disease) Assessment & Plan: Exact baseline renal function unclear; serum creatinine stable since last 2 days ; mild microalbuminuria, random urine for total protein/creatinine is ; high BUN/creat ratio indicative of pre-renal/cardiorenal etiology of CKD; only received 1L IVF but appears volume replete on exam; -avoid nephrotoxic agents (use mineral enema instead of phosphate enema if needed) -obtain echo to look for evidence of cardiorenal etiology of CKD (pulmonary htn/ CHF?) - Starting Torsemide will help with hyperkalemia as well -low K diet Status: Chronic (2) Hyperkalemia Assessment & Plan: Persistent, see above; would avoid any more kayexalate as patient with hyperactive BS and without BM since several days; decreasing subcu heparin to q12h; Status: Acute (3) Anemia Assessment & Plan: Likely due to CKD; hgb slightly below goal (10-11g); low iron sat; ferritin level 103; may need IV iron/EPO; Status: Chronic Case was reviewed and discussed with attending physician, Dr. Graves <Rubens Graves - Last Filed: 05/17/18 01:27> Objective - Vital Signs/Intake and Output Vital Signs (last 24 hours): Temp Pulse Resp BP Pulse Ox 98.4 F 74 20 128/62 97 05/16/18 15:00 05/16/18 16:01 05/16/18 15:00 05/16/18 15:00 05/16/18 15:00 Intake and Output: 05/16/18 05/17/18 18:59 06:59 Output Total 400 Balance -400 - Medications Medications: Current Medications Acetaminophen (Tylenol 325mg Tab) 650 mg PO Q6 [facility] PRN Reason: Pain, Mild (1-3) Albuterol/Ipratropium (Duoneb 3 Mg/0.5 Mg (3 Ml) Ud) 3 ml INH RQ6 [facility] Last Admin: 05/17/18 01:17 Dose: Not Given Alprazolam (Xanax) 0.5 mg PO HS [facility] Last Admin: 05/16/18 22:35 Dose: 0.5 mg Brimonidine Tartrate (Alphagan 0.2% Opht) 1 ml OU BID [facility] Last Admin: 05/16/18 17:53 Dose: 1 drop Clopidogrel Bisulfate (Plavix) 75 mg PO DAILY [facility] Last Admin: 05/16/18 11:42 Dose: 75 mg Docusate Sodium (Colace) 100 mg PO BID [facility] Last Admin: 05/16/18 17:53 Dose: 100 mg Epoetin Monico (Procrit) 10,000 unit SC ONCE ONE Stop: 05/17/18 10:01 Guaifenesin/Dextromethorphan (Robitussin Dm) 10 ml PO Q4H PRN PRN Reason: Cough and congestion Last Admin: 05/16/18 22:08 Dose: 10 ml Heparin Sodium (Porcine) (Heparin) 5,000 units SC Q12H [facility] Last Admin: 05/16/18 22:08 Dose: 5,000 units Hydralazine HCl (Apresoline) 25 mg PO Q8 [facility] Last Admin: 05/16/18 22:08 Dose: 25 mg Ceftriaxone Sodium 1 gm/ (Sodium Chloride) 100 mls @ 100 mls/hr IVPB Q24H [facility] PRN Reason: Protocol Last Admin: 05/16/18 22:33 Dose: 100 mls/hr Ferric Sodium Gluconate Complex 125 mg/ Sodium Chloride 110 mls @ 110 mls/hr IVPB Q24H [facility] Stop: 05/25/18 10:01 Insulin Human Regular (Novolin R) 0 unit SC ACHS [facility] PRN Reason: Protocol Last Admin: 05/16/18 17:52 Dose: 1 unit Levothyroxine Sodium (Synthroid) 50 mcg PO DAILY@0630 [facility] Last Admin: 05/16/18 06:16 Dose: 50 mcg Metformin HCl (Glucophage) 850 mg PO BID [facility] Last Admin: 05/12/18 18:44 Dose: Not Given Metoprolol Succinate (Toprol Xl) 50 mg PO DAILY [facility] Last Admin: 05/16/18 11:42 Dose: 50 mg Pioglitazone HCl (Actos) 15 mg PO DAILY [facility] Last Admin: 05/16/18 11:42 Dose: 15 mg Rosuvastatin Calcium (Crestor) 2.5 mg PO HS [facility] Last Admin: 05/16/18 22:08 Dose: 2.5 mg Torsemide (Demadex) 5 mg PO DAILY [facility] Last Admin: 05/16/18 13:12 Dose: 5 mg - Labs Labs: 05/16/18 09:01 05/16/18 09:01 Assessment and Plan (1) CKD (chronic kidney disease) Status: Chronic (2) Hyperkalemia Status: Acute (3) Anemia Status: Chronic Attending/Attestation - Attestation I have personally seen and examined this patient.: Yes I have fully participated in the care of the patient.: Yes I have reviewed all pertinent clinical information, including history, physical exam and plan: Yes Notes (Text): Patient seen and examined; I agree with the resident's note as above with the following additions/edits: Patient with htn, dm, ashtma, CKD, admitted with AMS likely secondary to UTI, mental status improved; CKD IIIB/IV with renal function stable but has persistent, mild hyperkalemia; family gives history of being instructed regarding low K diet previously; Echo report reviewed; mild pulm htn noted, possibly secondary to underlying lung condition; may explain mild leg edema (currently resolved); -changing lasix 20 mg to torsemide 5 mg daily (longer lasting effect), and giving single dose of florinef 0.1 mg, will help with potassium excretion; -will arrange for veltassa as outpatient (potassium exchange resin; has benefit of avoiding sodium load from kayexalate); continue low potassium diet; -should consider discontinuing metformin altogether (eGFR already just under 30 ml/min, increased risk of lactic acidosis); -anemia of CKD, may have iron deficiency component; will give IV iron and dose of EPO; -BP controlled, continue current meds;
[2018-05-16 09:12] LABS: CREATININE, RANDOM URINE 50.6 mg/dL
[2018-05-16 09:15] LABS: BASO % 0.5 % (0.0-2.0); EOS # 0.1 K/uL (0.0-0.7); HEMOGLOBIN 9.3 g/dL (11.0-16.0); LYMPH % 11.2 % (20.0-40.0); MEAN CELL VOLUME 92.6 fL (81.0-99.0); MEAN CORPUSCULAR HEMOGLOBIN 31.3 pg (27.0-31.0); MEAN CORPUSCULAR HGB CONC 33.8 g/dL (33.0-37.0); MONO # 0.9 K/uL (0.0-0.8); MONO % 10.3 % (0.0-10.0); NEUT # 6.6 K/uL (1.8-7.0); NRBC % 0.1 % (0.0-2.0); RBC 2.97 Mil/uL (3.80-5.20); RED CELL DISTRIBUTION WIDTH 16.6 % (11.5-14.5); WHITE BLOOD COUNT 8.5 K/uL (4.8-10.8)
[2018-05-16 09:38] LABS: ALB/GLOB RATIO 1.2 (1.0-2.1); ALBUMIN 3.7 g/dL (3.5-5.0); CALCIUM 9.1 mg/dl (8.6-10.4)
[2018-05-16 10:35] LABS: FOLATE 8.7 ng/mL
[2018-05-16] MEDS: Metoprolol Succinate 50 mg XL Tab PO SCH (11:42)
[2018-05-16] MEDS: guaiFENesin DM 200 mg-20 mg/10 ml UD PO PRN ×3 (11:42→22:08)
[2018-05-16] MEDS: Brimonidine 0.2% Opth Sol (5ml) OU SCH ×2 (11:42→17:53)
--- NOTE | 2018-05-16 11:43 | CARD ---
APPROVED REPORT Date of service: 05/12/2018 EKG Measurement Heart [id number] <Conclusion> Sinus rhythm with 1st degree AV block Left axis deviation Minimal voltage criteria for LVH, may be normal variant Inferior infarct, age undetermined Possible Anterior infarct, age undetermined Abnormal ECG
[2018-05-16] MEDS ORDERED: Oxycodone/Acetaminophen 5/325 mg Tab PO ONE (14:00)
--- NOTE | 2018-05-16 15:59 | CARD ---
APPROVED REPORT Date of service: 05/16/2018 EXAM: Two-dimensional and M-mode echocardiogram with Doppler and color Doppler. Other Information Quality : GoodRhythm : INDICATION Dyspnea CRF RISK FACTORS Hypertension Diabetes 2D DIMENSIONS IVSd1.1 (0.7-1.1cm)LVDd3.4 (3.9-5.9cm) LVOT Diameter2.1 (1.8-2.4cm)PWd1.1 (0.7-1.1cm) LVDs2.2 (2.5-4.0cm)FS (%) 37.1 % LVEF (%)68.2 (>50%) M-Mode DIMENSIONS Left Atrium (MM)3.90 (2.5-4.0cm)Aortic Root3.11 (2.2-3.7cm) Aortic Cusp Exc.1.09 (1.5-2.0cm) Aortic Valve AoV Peak Hxhoaiqe547.7cm/sAoV VTI40.7cmAO Peak GR.23mmHg LVOT Peak Kfokjwut071.6cm/sLVOT VTI23.26cmAO Mean GR.15mmHg LUPE (VMAX)1.93jj8HLQ (VTI)2.01cm2 Mitral Valve MV E Tkdqyvzf651.6cm/sE/A ratio0.0 TDI E/Lateral E'0.0E/Medial E'0.0 Tricuspid Valve TR Peak Femtenit693wz/sTR Peak Gr.85vxBjOMNJ74dbJx LEFT VENTRICLE The left ventricle is normal size. There is normal left ventricular wall thickness. The left ventricular systolic function is normal. The left ventricular ejection fraction is within the normal range. There is normal LV segmental wall motion. The left ventricular diastolic function is normal. Normal left atrial pressure. RIGHT VENTRICLE The right ventricle is normal size. The right ventricular systolic function is normal. ATRIA The left atrium size is normal. The right atrium size is normal. The interatrial septum is intact with no evidence for an atrial septal defect. AORTIC VALVE The aortic valve is slightly calcified with slightly decreased systolic excursion. No aortic regurgitation is present. Aortic valve sclerosis to marginal stenosis MITRAL VALVE The mitral valve is normal in structure. There is no mitral valve regurgitation noted. TRICUSPID VALVE The tricuspid valve is normal in structure. There is mild to moderate tricuspid regurgitation. Right ventricular systolic pressure is estimated at - 35 mmHg. PULMONIC VALVE The pulmonary valve is normal in structure. GREAT VESSELS The aortic root displays mild sclerocalcific changes The IVC is normal in size and collapses >50% with inspiration. PERICARDIAL EFFUSION There is no pericardial effusion. <Conclusion> The left ventricular systolic function is normal. There is normal LV segmental wall motion. The left ventricular diastolic function is normal. Normal left atrial pressure. The right ventricular systolic function is normal. The aortic valve is slightly calcified with slightly decreased systolic excursion compatible with aortic valve sclerosis to borderline stenosis There is mild to moderate tricuspid regurgitation. Right ventricular systolic pressure is estimated at - 35 mmHg compatible with mild pulmonary hypertension. The aortic root displays mild sclerocalcific changes There is no pericardial effusion.
[2018-05-16] MEDS: Rosuvastatin Calcium 2.5 mg Tab PO SCH (22:08)
--- NOTE | 2018-05-16 22:39 | CP.PCM.PN ---
Objective - Vital Signs/Intake and Output Vital Signs (last 24 hours): Temp Pulse Resp BP Pulse Ox 98.4 F 74 20 128/62 97 05/16/18 15:00 05/16/18 16:01 05/16/18 15:00 05/16/18 15:00 05/16/18 15:00 - Medications Medications: Current Medications Acetaminophen (Tylenol 325mg Tab) 650 mg PO Q6 PRN PRN Reason: Pain, Mild (1-3) Albuterol/Ipratropium (Duoneb 3 Mg/0.5 Mg (3 Ml) Ud) 3 ml INH RQ6 [facility] Last Admin: 05/16/18 19:31 Dose: 3 ml Alprazolam (Xanax) 0.5 mg PO HS [facility] Last Admin: 05/16/18 22:35 Dose: 0.5 mg Brimonidine Tartrate (Alphagan 0.2% Opht) 1 ml OU BID [facility] Last Admin: 05/16/18 17:53 Dose: 1 drop Clopidogrel Bisulfate (Plavix) 75 mg PO DAILY [facility] Last Admin: 05/16/18 11:42 Dose: 75 mg Docusate Sodium (Colace) 100 mg PO BID [facility] Last Admin: 05/16/18 17:53 Dose: 100 mg Guaifenesin/Dextromethorphan (Robitussin Dm) 10 ml PO Q4H PRN PRN Reason: Cough and congestion Last Admin: 05/16/18 22:08 Dose: 10 ml Heparin Sodium (Porcine) (Heparin) 5,000 units SC Q12H [facility] Last Admin: 05/16/18 22:08 Dose: 5,000 units Hydralazine HCl (Apresoline) 25 mg PO Q8 [facility] Last Admin: 05/16/18 22:08 Dose: 25 mg Ceftriaxone Sodium 1 gm/ (Sodium Chloride) 100 mls @ 100 mls/hr IVPB Q24H [facility] PRN Reason: Protocol Last Admin: 05/16/18 22:33 Dose: 100 mls/hr Insulin Human Regular (Novolin R) 0 unit SC ACHS [facility] PRN Reason: Protocol Last Admin: 05/16/18 17:52 Dose: 1 unit Levothyroxine Sodium (Synthroid) 50 mcg PO DAILY@0630 [facility] Last Admin: 05/16/18 06:16 Dose: 50 mcg Metformin HCl (Glucophage) 850 mg PO BID [facility] Last Admin: 05/12/18 18:44 Dose: Not Given Metoprolol Succinate (Toprol Xl) 50 mg PO DAILY [facility] Last Admin: 05/16/18 11:42 Dose: 50 mg Pioglitazone HCl (Actos) 15 mg PO DAILY [facility] Last Admin: 05/16/18 11:42 Dose: 15 mg Rosuvastatin Calcium (Crestor) 2.5 mg PO HS [facility] Last Admin: 05/16/18 22:08 Dose: 2.5 mg Torsemide (Demadex) 5 mg PO DAILY [facility] Last Admin: 05/16/18 13:12 Dose: 5 mg - Labs Labs: 05/16/18 09:01 05/16/18 09:01
[2018-05-17] MEDS: Albuterol-Ipratrop 3 mg / 0.5 (3 ml) UD INH SCH ×3 (01:17→20:55)
[2018-05-17] MEDS: Levothyroxine 50 MCG TAB PO SCH (06:32)
[2018-05-17 08:15] LABS: ALB/GLOB RATIO 1.2 (1.0-2.1); ALBUMIN 3.6 g/dL (3.5-5.0); CALCIUM 8.9 mg/dl (8.6-10.4)
[2018-05-17] MEDS: (Novolin R) Insulin Human Regular 100 units/ml vial SC SCH ×4 (08:21→21:45)
[2018-05-17] MEDS ORDERED: Ferric Sodium Gluconat Complex 62.5 mg/5 ml Vial IVPB SCH (10:00)
[2018-05-17] MEDS ORDERED: Epoetin Alfa 10,000 unit/ml Dialysis SC ONE (10:00)
[2018-05-17] MEDS ORDERED: Sod Polystyrene Sulf 15 gm/60 ml Susp PO ONE (10:15)
--- NOTE | 2018-05-17 11:44 | PN ---
DATE: 05/16/2018 SUBJECTIVE: The patient is afebrile. Decreased potassium. No nausea or vomiting. Her urinary symptoms not improved, but she feels much better. PHYSICAL EXAMINATION: VITAL SIGNS: BP 128/62, pulse 70, respiratory rate 20, temperature 98.4. LUNGS: Clear. No rales. No rhonchi. CVS: S1 and S2 regular. ABDOMEN: Soft. ASSESSMENT: 1. Hyperkalemia. 2. Urinary tract infection. 3. Hypertension. 4. Chronic kidney disease stage IV. PLAN: Medical management. Low potassium diet. Kayexalate as needed. Antibiotics were given. Repeat urinalysis. Júnior Bee MD
[2018-05-17] MEDS: Metoprolol Succinate 50 mg XL Tab PO SCH (11:45)
[2018-05-17] MEDS: Ferric Sodium Gluconat Complex 125 MG in Sodium Chloride 0.9% 100 ML IVPB SCH (11:45)
[2018-05-17] MEDS ORDERED: Sod Polystyrene Sulf 15 gm/60 ml Susp ONE (12:21)
[2018-05-17] MEDS: Brimonidine 0.2% Opth Sol (5ml) OU SCH ×2 (12:50→18:11)
[2018-05-17] MEDS: Magnesium Sulfate 1 gm in D5W 1 GM/100 ML BAG IVPB SCH ×2 (12:50→14:10)
--- NOTE | 2018-05-17 14:37 | CP.PCM.PN ---
Subjective - Date & Time of Evaluation Date of Evaluation: 05/17/18 Time of Evaluation: 09:35 - Subjective Subjective: Eagle Gerard DO, PGY-2: Nephrology Progress Note for Dr. Graves Patient seen and examined at bedside. Daughter was present on second encounter. Patient participated in physical therapy. Patient denied any dyspnea with exertion, chest pain, or urinary changes. Objective - Vital Signs/Intake and Output Vital Signs (last 24 hours): Temp Pulse Resp BP Pulse Ox 98.2 F 71 20 145/71 99 05/17/18 00:00 05/17/18 00:00 05/17/18 00:00 05/17/18 06:31 05/17/18 00:00 Intake and Output: 05/17/18 05/17/18 06:59 18:59 Output Total 450 Balance -450 - Medications Medications: Current Medications Acetaminophen (Tylenol 325mg Tab) 650 mg PO Q6 PRN PRN Reason: Pain, Mild (1-3) Albuterol/Ipratropium (Duoneb 3 Mg/0.5 Mg (3 Ml) Ud) 3 ml INH RQ6 [facility] Last Admin: 05/17/18 13:30 Dose: Not Given Alprazolam (Xanax) 0.5 mg PO HS [facility] Last Admin: 05/16/18 22:35 Dose: 0.5 mg Brimonidine Tartrate (Alphagan 0.2% Opht) 1 ml OU BID [facility] Last Admin: 05/17/18 12:50 Dose: 1 drop Clopidogrel Bisulfate (Plavix) 75 mg PO DAILY [facility] Last Admin: 05/16/18 11:42 Dose: 75 mg Docusate Sodium (Colace) 100 mg PO BID [facility] Last Admin: 05/16/18 17:53 Dose: 100 mg Guaifenesin/Dextromethorphan (Robitussin Dm) 10 ml PO Q4H PRN PRN Reason: Cough and congestion Last Admin: 05/16/18 22:08 Dose: 10 ml Heparin Sodium (Porcine) (Heparin) 5,000 units SC Q12H [facility] Last Admin: 05/16/18 22:08 Dose: 5,000 units Hydralazine HCl (Apresoline) 25 mg PO Q8 [facility] Last Admin: 05/17/18 14:09 Dose: 25 mg Ceftriaxone Sodium 1 gm/ (Sodium Chloride) 100 mls @ 100 mls/hr IVPB Q24H [facility]; Protocol Last Admin: 05/16/18 22:33 Dose: 100 mls/hr Ferric Sodium Gluconate Complex 125 mg/ Sodium Chloride 110 mls @ 110 mls/hr IVPB Q24H [facility] Stop: 05/25/18 10:01 Insulin Human Regular (Novolin R) 0 unit SC ACHS [facility]; Protocol Last Admin: 05/17/18 12:57 Dose: 1 unit Levothyroxine Sodium (Synthroid) 50 mcg PO DAILY@0630 [facility] Last Admin: 05/17/18 06:32 Dose: 50 mcg Metformin HCl (Glucophage) 850 mg PO BID [facility] Last Admin: 05/12/18 18:44 Dose: Not Given Metoprolol Succinate (Toprol Xl) 50 mg PO DAILY [facility] Last Admin: 05/16/18 11:42 Dose: 50 mg Pioglitazone HCl (Actos) 15 mg PO DAILY [facility] Last Admin: 05/16/18 11:42 Dose: 15 mg Rosuvastatin Calcium (Crestor) 2.5 mg PO HS [facility] Last Admin: 05/16/18 22:08 Dose: 2.5 mg Torsemide (Demadex) 5 mg PO DAILY [facility] Last Admin: 05/16/18 13:12 Dose: 5 mg - Labs Labs: 05/16/18 09:01 05/17/18 07:49 - Constitutional Appears: Well, Non-toxic - Head Exam Head Exam: ATRAUMATIC, NORMOCEPHALIC - Eye Exam Eye Exam: EOMI, Normal appearance - ENT Exam ENT Exam: Mucous Membranes Moist - Neck Exam Additional comments: JVD 4 cm above sternal notch - Respiratory Exam Respiratory Exam: Wheezes (expiratory) - Cardiovascular Exam Additional comments: Systolic Ejection Murmur 2/6 in right, 2nd intercostal space - GI/Abdominal Exam GI & Abdominal Exam: Soft, Normal Bowel Sounds - Extremities Exam Extremities Exam: Normal Inspection. absent: Calf Tenderness - Neurological Exam Neurological Exam: Alert, Awake, Oriented x3 - Psychiatric Exam Psychiatric exam: Normal Affect, Normal Mood - Skin Skin Exam: Dry, Intact, Normal Color, Warm Assessment and Plan (1) CKD (chronic kidney disease) Assessment & Plan: - Torsemide 5 mg daily - Fludrocortisone 0.1 administered today and yesterday to promote renal excretion of K - Kayexelate 15 - Discontinue Metformin altogether given patient's GFR is already below 30 and is at increased risk for lactic acidosis - As an outpatient, patient should take Veltassa every other day- script provided in chart Status: Chronic (2) Hyperkalemia Status: Chronic (3) Anemia Assessment & Plan: - IV Ferric Gluconate given - EPO Status: Chronic (4) Hypertension Assessment & Plan: Continue with current regiment Status: Chronic - Assessment and Plan (Free Text) Plan: Case reviewed and discussed with attending physician, Dr. Graves
[2018-05-17 15:27] LABS: SQUAMOUS EPITHIAL 1 /hpf (0-5); URINE BACTERIA RARE (<OCC); URINE BILIRUBIN NEGATIVE (NEGATIVE); URINE BLOOD NEGATIVE (NEGATIVE); URINE CLARITY Clear (Clear); URINE COLOR Straw (YELLOW); URINE GLUCOSE (UA) NORMAL (Normal); URINE LEUKOCYTE ESTERASE 2+ Leu/uL (Negative); URINE PROTEIN NEGATIVE (NEGATIVE); URINE UROBILINOGEN NORMAL mg/dL (0.2-1.0)
[2018-05-17] MEDS: Rosuvastatin Calcium 2.5 mg Tab PO SCH (21:44)
[2018-05-18] MEDS: guaiFENesin DM 200 mg-20 mg/10 ml UD PO PRN ×3 (00:36→22:32)
[2018-05-18] MEDS: Albuterol-Ipratrop 3 mg / 0.5 (3 ml) UD INH SCH ×4 (01:56→19:47)
[2018-05-18] MEDS: Levothyroxine 50 MCG TAB PO SCH (06:15)
[2018-05-18] MEDS: (Novolin R) Insulin Human Regular 100 units/ml vial SC SCH ×4 (08:34→22:15)
[2018-05-18] MEDS: Brimonidine 0.2% Opth Sol (5ml) OU SCH ×2 (11:04→17:42)
[2018-05-18] MEDS: Metoprolol Succinate 50 mg XL Tab PO SCH (11:04)
[2018-05-18] MEDS: Ferric Sodium Gluconat Complex 125 MG in Sodium Chloride 0.9% 100 ML IVPB SCH (12:14)
[2018-05-18 13:29] LABS: CALCIUM 9.3 mg/dl (8.6-10.4)
[2018-05-18] MEDS ORDERED: Oxycodone/Acetaminophen 5/325 mg Tab PO PRN (18:41)
--- NOTE | 2018-05-18 19:25 | CP.PCM.PN ---
Subjective - Date & Time of Evaluation Date of Evaluation: 05/18/18 Time of Evaluation: 13:00 - Subjective Subjective: Patient tolerating diet; no sob; no nausea/vomiting; constipated; Objective - Vital Signs/Intake and Output Vital Signs (last 24 hours): Temp Pulse Resp BP Pulse Ox 98.2 F 85 20 150/76 98 05/18/18 15:58 05/18/18 15:58 05/18/18 15:58 05/18/18 15:58 05/18/18 15:58 Intake and Output: 05/18/18 05/19/18 18:59 06:59 Intake Total 580 Output Total 450 Balance 130 - Medications Medications: Current Medications Acetaminophen (Tylenol 325mg Tab) 650 mg PO Q6 PRN PRN Reason: Pain, Mild (1-3) Albuterol/Ipratropium (Duoneb 3 Mg/0.5 Mg (3 Ml) Ud) 3 ml INH RQ6 [facility] Last Admin: 05/18/18 13:15 Dose: 3 ml Alprazolam (Xanax) 0.5 mg PO HS [facility] Last Admin: 05/17/18 21:02 Dose: 0.5 mg Brimonidine Tartrate (Alphagan 0.2% Opht) 1 ml OU BID [facility] Last Admin: 05/18/18 17:42 Dose: 1 drop Clopidogrel Bisulfate (Plavix) 75 mg PO DAILY [facility] Last Admin: 05/18/18 11:04 Dose: 75 mg Docusate Sodium (Colace) 100 mg PO BID [facility] Last Admin: 05/18/18 17:42 Dose: 100 mg Guaifenesin/Dextromethorphan (Robitussin Dm) 10 ml PO Q4H PRN PRN Reason: Cough and congestion Last Admin: 05/18/18 12:53 Dose: 10 ml Heparin Sodium (Porcine) (Heparin) 5,000 units SC Q12H [facility] Last Admin: 05/18/18 11:04 Dose: 5,000 units Hydralazine HCl (Apresoline) 25 mg PO Q8 [facility] Last Admin: 05/18/18 14:26 Dose: 25 mg Ceftriaxone Sodium 1 gm/ (Sodium Chloride) 100 mls @ 100 mls/hr IVPB Q24H [facility]; Protocol Last Admin: 05/17/18 23:59 Dose: 100 mls/hr Ferric Sodium Gluconate Complex 125 mg/ Sodium Chloride 110 mls @ 110 mls/hr IVPB Q24H [facility] Stop: 05/25/18 10:01 Last Admin: 05/18/18 12:14 Dose: 110 mls/hr Insulin Human Regular (Novolin R) 0 unit SC ACHS [facility]; Protocol Last Admin: 05/18/18 17:42 Dose: 2 unit Lactulose (Enulose) 20 gm PO [facility] Levothyroxine Sodium (Synthroid) 50 mcg PO DAILY@0630 [facility] Last Admin: 05/18/18 06:15 Dose: 50 mcg Metformin HCl (Glucophage) 850 mg PO BID [facility] Last Admin: 05/12/18 18:44 Dose: Not Given Metoprolol Succinate (Toprol Xl) 50 mg PO DAILY [facility] Last Admin: 05/18/18 11:04 Dose: 50 mg Oxycodone/Acetaminophen (Percocet 5/325 Mg Tab) 1 tab PO Q4H PRN PRN Reason: Pain, moderate (4-7) Stop: 05/21/18 18:42 Pioglitazone HCl (Actos) 15 mg PO DAILY [facility] Last Admin: 05/18/18 11:03 Dose: 15 mg Rosuvastatin Calcium (Crestor) 2.5 mg PO [facility] Last Admin: 05/17/18 21:44 Dose: 2.5 mg Torsemide (Demadex) 10 mg PO DAILY [facility] Last Admin: 05/18/18 11:02 Dose: 10 mg - Labs Labs: 05/16/18 09:01 05/18/18 13:11 - Constitutional Appears: Non-toxic, No Acute Distress - Eye Exam Eye Exam: Normal appearance - Respiratory Exam Respiratory Exam: Clear to Ausculation Bilateral. absent: Respiratory Distress - Cardiovascular Exam Cardiovascular Exam: RRR, +S1, +S2 - GI/Abdominal Exam GI & Abdominal Exam: Soft. absent: Distended, Tenderness - Extremities Exam Additional comments: no leg edema; - Neurological Exam Neurological Exam: Alert, Awake - Psychiatric Exam Psychiatric exam: Normal Mood. absent: Agitated - Skin Skin Exam: Warm. absent: Cyanosis Assessment and Plan (1) CKD (chronic kidney disease) Assessment & Plan: CKD IIIB; renal function improved on diuretics indicating cardiorenal etiology in the setting of mild pulm htn; hyperkalemia also improved; -continue diuretics with torsemide 10 mg daily; -avoid nephrotoxic agents; Status: Chronic (2) Hyperkalemia Assessment & Plan: See above; should continue low K diet; Status: Chronic (3) Anemia Assessment & Plan: Hgb below goal for CKD; giving IV iron, will give dose of EPO as well; Status: Chronic (4) Diabetes Assessment & Plan: On metformin combination pill at home; renal function improved but need to monitor GFR periodically and discontinue if less than 30 ml/min due to risk for lactic acidosis; Status: Chronic
[2018-05-18] MEDS: Rosuvastatin Calcium 2.5 mg Tab PO SCH (22:30)
--- NOTE | 2018-05-18 22:33 | CP.PCM.PN ---
Subjective - Date & Time of Evaluation Date of Evaluation: 05/18/18 Objective - Vital Signs/Intake and Output Vital Signs (last 24 hours): Temp Pulse Resp BP Pulse Ox 98.2 F 76 20 150/76 98 05/18/18 15:58 05/18/18 18:00 05/18/18 15:58 05/18/18 15:58 05/18/18 15:58 Intake and Output: 05/18/18 05/19/18 18:59 06:59 Intake Total 580 Output Total 450 500 Balance 130 -500 - Medications Medications: Current Medications Acetaminophen (Tylenol 325mg Tab) 650 mg PO Q6 PRN PRN Reason: Pain, Mild (1-3) Albuterol/Ipratropium (Duoneb 3 Mg/0.5 Mg (3 Ml) Ud) 3 ml INH RQ6 [facility] Last Admin: 05/18/18 19:47 Dose: 3 ml Alprazolam (Xanax) 0.5 mg PO HS [facility] Last Admin: 05/18/18 22:30 Dose: 0.5 mg Brimonidine Tartrate (Alphagan 0.2% Opht) 1 ml OU BID [facility] Last Admin: 05/18/18 17:42 Dose: 1 drop Clopidogrel Bisulfate (Plavix) 75 mg PO DAILY [facility] Last Admin: 05/18/18 11:04 Dose: 75 mg Docusate Sodium (Colace) 100 mg PO BID [facility] Last Admin: 05/18/18 17:42 Dose: 100 mg Guaifenesin/Dextromethorphan (Robitussin Dm) 10 ml PO Q4H PRN PRN Reason: Cough and congestion Last Admin: 05/18/18 22:32 Dose: 10 ml Heparin Sodium (Porcine) (Heparin) 5,000 units SC Q12H [facility] Last Admin: 05/18/18 22:14 Dose: Not Given Hydralazine HCl (Apresoline) 25 mg PO Q8 [facility] Last Admin: 05/18/18 22:30 Dose: 25 mg Ceftriaxone Sodium 1 gm/ (Sodium Chloride) 100 mls @ 100 mls/hr IVPB Q24H [facility]; Protocol Last Admin: 05/18/18 22:29 Dose: 100 mls/hr Ferric Sodium Gluconate Complex 125 mg/ Sodium Chloride 110 mls @ 110 mls/hr IVPB Q24H [facility] Stop: 05/25/18 10:01 Last Admin: 05/18/18 12:14 Dose: 110 mls/hr Insulin Human Regular (Novolin R) 0 unit SC [facility]; Protocol Last Admin: 05/18/18 22:15 Dose: Not Given Lactulose (Enulose) 20 gm PO HS [facility] Last Admin: 05/18/18 22:30 Dose: 20 gm Levothyroxine Sodium (Synthroid) 50 mcg PO DAILY@0630 [facility] Last Admin: 05/18/18 06:15 Dose: 50 mcg Metformin HCl (Glucophage) 850 mg PO BID [facility] Last Admin: 05/12/18 18:44 Dose: Not Given Metoprolol Succinate (Toprol Xl) 50 mg PO DAILY [facility] Last Admin: 05/18/18 11:04 Dose: 50 mg Oxycodone/Acetaminophen (Percocet 5/325 Mg Tab) 1 tab PO Q4H PRN PRN Reason: Pain, moderate (4-7) Stop: 05/21/18 18:42 Pioglitazone HCl (Actos) 15 mg PO DAILY [facility] Last Admin: 05/18/18 11:03 Dose: 15 mg Rosuvastatin Calcium (Crestor) 2.5 mg PO HS [facility] Last Admin: 05/18/18 22:30 Dose: 2.5 mg Torsemide (Demadex) 10 mg PO DAILY [facility] Last Admin: 05/18/18 11:02 Dose: 10 mg - Labs Labs: 05/16/18 09:01 05/18/18 13:11
[2018-05-19] MEDS: Albuterol-Ipratrop 3 mg / 0.5 (3 ml) UD INH SCH ×2 (01:30→08:17)
[2018-05-19] MEDS: Levothyroxine 50 MCG TAB PO SCH (05:48)
[2018-05-19] MEDS: (Novolin R) Insulin Human Regular 100 units/ml vial SC SCH ×3 (07:35→16:16)
[2018-05-19 07:42] LABS: CALCIUM 8.9 mg/dl (8.6-10.4)
[2018-05-19 07:44] VITALS: TEMP 98; O2SAT 97
[2018-05-19] MEDS ORDERED: Epoetin Alfa 10,000 unit/ml Dialysis SC ONE (09:00)
--- NOTE | 2018-05-19 09:07 | PN ---
DATE: 05/18/2018 SUBJECTIVE: The patient is less short of breath, less cough, less breathing. She is afebrile. Her H and H are stable. Her sodium is down. She denies any chest pain. PHYSICAL EXAMINATION: VITAL SIGNS: BP 150/76, pulse 55, respiratory rate 20, temperature 98.2. LUNGS: Bilateral scattered rhonchi, rales. CVS: S1 and S2, regular. ABDOMEN: Soft. ASSESSMENT: 1. Hyperkalemia, resolved. 2. Chronic kidney disease, stage 4. 3. Diabetes with renal failure. 4. Hypertension. PLAN: Continue current medication. The patient is waiting for a disposition. The patient is stable for now. Kidney ultrasound is negative. She is afebrile. Júnior Bee MD
[2018-05-19] MEDS: Ferric Sodium Gluconat Complex 125 MG in Sodium Chloride 0.9% 100 ML IVPB SCH (09:53)
[2018-05-19] MEDS: Brimonidine 0.2% Opth Sol (5ml) OU SCH (09:53)
[2018-05-19] MEDS: Metoprolol Succinate 50 mg XL Tab PO SCH (09:54)
[2018-05-19] MEDS: guaiFENesin DM 200 mg-20 mg/10 ml UD PO PRN (10:55)
[2018-05-19] MEDS ORDERED: EPOETIN ALFA 10,000 UNIT/ML ML SC ONE ×2 (13:04→13:30)
--- NOTE | 2018-05-19 13:44 | CP.PCM.PN ---
Subjective - Date & Time of Evaluation Date of Evaluation: 05/19/18 Time of Evaluation: 13:44 Objective - Vital Signs/Intake and Output Vital Signs (last 24 hours): Temp Pulse Resp BP Pulse Ox 98.0 F 96 H 20 159/74 H 97 05/19/18 07:00 05/19/18 08:25 05/19/18 07:00 05/19/18 07:00 05/19/18 07:00 Intake and Output: 05/19/18 05/19/18 06:59 18:59 Output Total 1150 Balance -1150 - Medications Medications: Current Medications Acetaminophen (Tylenol 325mg Tab) 650 mg PO Q6 PRN PRN Reason: Pain, Mild (1-3) Albuterol/Ipratropium (Duoneb 3 Mg/0.5 Mg (3 Ml) Ud) 3 ml INH RQ6 [facility] Last Admin: 05/19/18 08:17 Dose: 3 ml Alprazolam (Xanax) 0.5 mg PO HS [facility] Last Admin: 05/18/18 22:30 Dose: 0.5 mg Brimonidine Tartrate (Alphagan 0.2% Opht) 1 ml OU BID [facility] Last Admin: 05/19/18 09:53 Dose: 1 drop Clopidogrel Bisulfate (Plavix) 75 mg PO DAILY [facility] Last Admin: 05/19/18 09:55 Dose: 75 mg Docusate Sodium (Colace) 100 mg PO BID [facility] Last Admin: 05/19/18 09:54 Dose: 100 mg Guaifenesin/Dextromethorphan (Robitussin Dm) 10 ml PO Q4H PRN PRN Reason: Cough and congestion Last Admin: 05/19/18 10:55 Dose: 10 ml Heparin Sodium (Porcine) (Heparin) 5,000 units SC Q12H [facility] Last Admin: 05/19/18 09:55 Dose: 5,000 units Hydralazine HCl (Apresoline) 25 mg PO Q8 [facility] Last Admin: 05/19/18 13:41 Dose: 25 mg Ceftriaxone Sodium 1 gm/ (Sodium Chloride) 100 mls @ 100 mls/hr IVPB Q24H [facility]; Protocol Last Admin: 05/18/18 22:29 Dose: 100 mls/hr Ferric Sodium Gluconate Complex 125 mg/ Sodium Chloride 110 mls @ 110 mls/hr I VPB Q24H [facility] Stop: 05/25/18 10:01 Last Admin: 05/19/18 09:53 Dose: 110 mls/hr Insulin Human Regular (Novolin R) 0 unit SC ACHS [facility]; Protocol Last Admin: 05/19/18 12:54 Dose: 2 unit Lactulose (Enulose) 20 gm PO HS [facility] Last Admin: 05/18/18 22:30 Dose: 20 gm Levothyroxine Sodium (Synthroid) 50 mcg PO DAILY@0630 [facility] Last Admin: 05/19/18 05:48 Dose: 50 mcg Metformin HCl (Glucophage) 850 mg PO BID [facility] Last Admin: 05/12/18 18:44 Dose: Not Given Metoprolol Succinate (Toprol Xl) 50 mg PO DAILY [facility] Last Admin: 05/19/18 09:54 Dose: 50 mg Oxycodone/Acetaminophen (Percocet 5/325 Mg Tab) 1 tab PO Q4H PRN PRN Reason: Pain, moderate (4-7) Stop: 05/21/18 18:42 Pioglitazone HCl (Actos) 15 mg PO DAILY [facility] Last Admin: 05/19/18 09:55 Dose: 15 mg Rosuvastatin Calcium (Crestor) 2.5 mg PO [facility] Last Admin: 05/18/18 22:30 Dose: 2.5 mg Torsemide (Demadex) 10 mg PO DAILY [facility] Last Admin: 05/19/18 09:57 Dose: 10 mg - Labs Labs: 05/16/18 09:01 05/19/18 07:20 Assessment and Plan - Assessment and Plan (Free Text) Assessment: FOLLOW UP WITH DR RAMIREZ AT HIS OFFICE IN 1-2 WEEK ----CALL FOR APPOINTMENT FOLLOW UP WITH DR BERMUDEZ AT HIS OFFICE IN 1-2 WEEK ---CALL FOR APPOINTMENT ADDRESS BLOOD WORK AT YOUR VISIT TO MONITOR YOUR KIDNEY FUNCTION AND POTASSIUM LEVEL CONTINUE HOME MEDICATION NEW PRESCRIPTION GIVEN TORSEMIDE 10 MG PO DAILY COLACE 100 MG PO TID HYDRALAZINE 25 MG PO Q8H TOPROL XL 50 MG PO DAILY ACTIVITY TOLERATED AND HOME PHYSICAL THERAPY CALL DR DONG OR GO TO THE EMERGENCY ROOM IF SYMPTOM RETURN OR WORSENING
[2018-05-19 15:46] VITALS: BP 160/79
[2018-05-19 16:24] VITALS: PULSE 78
--- NOTE | 2018-05-19 23:51 | CP.PCM.DIS ---
Provider - Provider Date of Admission: 05/14/18 13:41 Attending physician: Júnior Bee MD Hospital Course - Lab Results Lab Results: Micro Results 05/13/18 20:15 Urine,Clean Catch Urine Culture - Final <10,000 CFU/ML. MULTIPLE SPECIES. PROBABLE CONTAMINATION. Most Recent Lab Values WBC 8.5 K/uL (4.8-10.8) 05/16/18 09:01 RBC 2.97 Mil/uL (3.80-5.20) L 05/16/18 09:01 Hgb 9.3 g/dL (11.0-16.0) L 05/16/18 09:01 Hct 27.5 % (34.0-47.0) L 05/16/18 09:01 MCV 92.6 fL (81.0-99.0) 05/16/18 09:01 MCH 31.3 pg (27.0-31.0) H 05/16/18 09:01 MCHC 33.8 g/dL (33.0-37.0) 05/16/18 09:01 RDW 16.6 % (11.5-14.5) H 05/16/18 09:01 Plt Count 302 K/uL (130-400) 05/16/18 09:01 MPV 8.0 fL (7.2-11.7) 05/16/18 09:01 Neut % (Auto) 77.0 % (50.0-75.0) H 05/16/18 09:01 Lymph % (Auto) 11.2 % (20.0-40.0) L 05/16/18 09:01 Randall % (Auto) 10.3 % (0.0-10.0) H 05/16/18 09:01 Eos % (Auto) 1.0 % (0.0-4.0) 05/16/18 09:01 Baso % (Auto) 0.5 % (0.0-2.0) 05/16/18 09:01 Neut # (Auto) 6.6 K/uL (1.8-7.0) 05/16/18 09:01 Lymph # (Auto) 1.0 K/uL (1.0-4.3) 05/16/18 09:01 Randall # (Auto) 0.9 K/uL (0.0-0.8) H 05/16/18 09:01 Eos # (Auto) 0.1 K/uL (0.0-0.7) 05/16/18 09:01 Baso # (Auto) 0.0 K/uL (0.0-0.2) 05/16/18 09:01 Sodium 130 mmol/L (132-148) L 05/19/18 07:20 Potassium 4.9 mmol/L (3.6-5.2) 05/19/18 07:20 Chloride 97 mmol/L (98-107) L 05/19/18 07:20 Carbon Dioxide 24 mmol/L (22-30) 05/19/18 07:20 Anion Gap 14 (10-20) 05/19/18 07:20 BUN 47 mg/dL (7-17) H 05/19/18 07:20 Creatinine 1.6 mg/dL (0.7-1.2) H 05/19/18 07:20 Est GFR ( Amer) 37 05/19/18 07:20 Est GFR (Non-Af Amer) 31 05/19/18 07:20 POC Glucose (mg/dL) 132 mg/dL (65-110) H 05/19/18 16:06 Random Glucose 137 mg/dL (65-105) H 05/19/18 07:20 Calcium 8.9 mg/dl (8.6-10.4) 05/19/18 07:20 Phosphorus 3.9 mg/dL (2.5-4.5) 05/17/18 07:49 Magnesium 1.5 mg/dL (1.6-2.3) L 05/17/18 07:49 Iron 53 ug/dL (37-170) 05/12/18 20:36 TIBC 320 ug/dL (250-450) 05/12/18 20:36 % Saturation 16 (20-55) L 05/12/18 20:36 Ferritin 103.0 ng/mL 05/15/18 11:04 Total Bilirubin 0.3 mg/dL (0.2-1.3) 05/17/18 07:49 AST 16 U/L (14-36) 05/17/18 07:49 ALT 19 U/L (9-52) 05/17/18 07:49 Alkaline Phosphatase 48 U/L (38-126) 05/17/18 07:49 Total Creatine Kinase 102 U/L (30-135) 05/12/18 13:40 CK-MB (Mass) 1.58 ng/mL (0.0-3.38) 05/12/18 13:40 Troponin I < 0.0120 ng/mL (0.00-0.120) 05/12/18 13:40 NT-Pro-B Natriuret Pep 803 pg/mL (0-900) 05/12/18 13:40 Total Protein 6.8 g/dL (6.3-8.3) 05/17/18 07:49 Albumin 3.6 g/dL (3.5-5.0) 05/17/18 07:49 Globulin 3.2 gm/dL (2.2-3.9) 05/17/18 07:49 Albumin/Globulin Ratio 1.2 (1.0-2.1) 05/17/18 07:49 Vitamin B12 711 pg/mL (239-931) 05/16/18 09:01 25-OH Vitamin D Total 48.0 NG/ML (30.0-100.0) 05/13/18 07:01 Folate 8.7 ng/mL 05/16/18 09:01 PTH Intact Whole Molec 41 pg/mL (14-64) 05/13/18 07:01 Urine Color Straw (YELLOW) 05/17/18 15:17 Urine Clarity Clear (Clear) 05/17/18 15:17 Urine pH 5.0 (5.0-8.0) 05/17/18 15:17 Ur Specific [place] 1.006 (1.003-1.030) 05/17/18 15:17 Urine Protein Negative mg/dL (NEGATIVE) 05/17/18 15:17 Urine Glucose (UA) Normal mg/dL (Normal) 05/17/18 15:17 Urine Ketones Negative mg/dL (NEGATIVE) 05/17/18 15:17 Urine Blood Negative (NEGATIVE) 05/17/18 15:17 Urine Nitrate Negative (NEGATIVE) 05/17/18 15:17 Urine Bilirubin Negative (NEGATIVE) 05/17/18 15:17 Urine Urobilinogen Normal mg/dL (0.2-1.0) 05/17/18 15:17 Ur Leukocyte Esterase 2+ Lotus/uL (Negative) H 05/17/18 15:17 Urine WBC (Auto) 16 /hpf (0-5) H 05/17/18 15:17 Urine RBC (Auto) 1 /hpf (0-3) 05/17/18 15:17 Ur Squamous Epith Cells 1 /hpf (0-5) 05/17/18 15:17 Ur Transition Epith Cell < 1 /hpf (0-3) 05/12/18 22:22 Urine Bacteria Rare (<OCC) 05/17/18 15:17 Urine Osmolality 251 mosm/kg (300-1000) L 05/15/18 08:28 Ur Random Creatinine 50.6 mg/dL 05/15/18 08:28 U Random Total Protein 186 mg/g creat (21-161) H 05/15/18 16:30 Ur Random Sodium 29 mmol/L 05/15/18 08:28 Ur Random Potassium 17.0 mmol/L 05/15/18 08:28 Ur Random Urea Nitrogn 381 mg/dL 05/12/18 22:22 Urine Creatinine 63 mg/dL (20-320) 05/13/18 11:57 Urine Total Volume 2.1 mg/dL 05/13/18 21:26 Urine Microalbumin 3.0 mg/dL 05/13/18 11:57 Microalb/Creat Ratio 27 (<30) 05/13/18 21:26 Discharge Exam - Head Exam Head Exam: ATRAUMATIC, NORMOCEPHALIC Discharge Plan - Discharge Medications Prescriptions: hydrALAZINE [Apresoline] 25 mg PO Q8 30 Days tab Docusate [Colace] 100 mg PO BID 15 Days cap Torsemide [Demadex] 10 mg PO DAILY 30 Days tab Metoprolol Succinate XL [Toprol XL] 50 mg PO DAILY 30 Days tab - Follow Up Plan Condition: STABLE Disposition: HOME/ ROUTINE Instructions: High Blood Pressure (DC), Hyperkalemia (DC), Kidney Disease Diet (For People Not on Dialysis), Diabetes Type 2 (DC), Hydralazine, Metoprolol, Torsemide, Chronic Kidney Disease (DC) Additional Instructions: FOLLOW UP WITH DR RAMIREZ AT HIS OFFICE IN 1-2 WEEK ----CALL FOR APPOINTMENT FOLLOW UP WITH DR GRAVES AT HIS OFFICE IN 1-2 WEEK ---CALL FOR APPOINTMENT ADDRESS BLOOD WORK AT YOUR VISIT TO MONITOR YOUR KIDNEY FUNCTION AND POTASSIUM LEVEL PLEASE DO NOT TAKE VELTASSA UNTIL YOU FOLLOW UP WITH DR GRAVES CONTINUE HOME MEDICATION NEW PRESCRIPTION GIVEN TORSEMIDE 10 MG PO DAILY COLACE 100 MG PO TID HYDRALAZINE 25 MG PO Q8H TOPROL XL 50 MG PO DAILY ACTIVITY TOLERATED AND HOME PHYSICAL THERAPY CALL DR BEE OR GO TO THE EMERGENCY ROOM IF SYMPTOM RETURN OR WORSENING SEGUIMIENTO CON DR RAMIREZ EN [place] EN 1-2 SEMANAS ---- [place] PARA ASUNCION SEGUIR CON EL DR GRAVES EN KERNS OFICINA EN 1-2 SEMANAS --- [place]AM[place] PARA ASUNCION DIRIGE EL TRABAJO DE CHARITY EN KERNS VISITA PARA MONITOREAR KERNS FUNCIN RENAL Y KERNS NIVEL DE POTASIO POR FAVOR NO LLEVES VELTASSA HASTA QUE SIGAS CON DR GRAVES CONTINUAR MEDICAMENTOS EN EL HOGAR NUEVA PRESCRIPCIN RADHA TORSEMIDE 10 MG PO DAILY COLACE 100 MG PO TID HYDRALAZINE 25 MG PO Q8H TOPROL XL 50 MG PO DAILY ACTIVIDAD TOLERADA Y TERAPIA FSICA HOGAREA LLAME AL DR. BEE O DIRJASE A LA IVA DE EMERGENCIAS SI EL SNTOMA REGRESA O EMPEORA Referrals: Júnior Bee MD [Staff Provider] - Rubens Graves MD [Staff Provider] -
--- NOTE | 2018-05-20 07:29 | CP.PCM.PN ---
Subjective - Date & Time of Evaluation Date of Evaluation: 05/19/18 Time of Evaluation: 13:00 - Subjective Subjective: Patient with no sob; had BM last night; Objective - Vital Signs/Intake and Output Vital Signs (last 24 hours): Temp Pulse Resp BP Pulse Ox 98.0 F 78 20 160/79 H 97 05/19/18 15:00 05/19/18 16:19 05/19/18 15:00 05/19/18 15:00 05/19/18 15:00 - Labs Labs: 05/16/18 09:01 05/19/18 07:20 - Constitutional Appears: Non-toxic, No Acute Distress - Eye Exam Eye Exam: Normal appearance - Respiratory Exam Respiratory Exam: Clear to Ausculation Bilateral. absent: Respiratory Distress - Cardiovascular Exam Cardiovascular Exam: RRR, +S1, +S2 - GI/Abdominal Exam GI & Abdominal Exam: Soft. absent: Distended, Tenderness - Extremities Exam Additional comments: no leg edema; - Neurological Exam Neurological Exam: Alert, Awake - Psychiatric Exam Psychiatric exam: Normal Mood. absent: Agitated - Skin Skin Exam: Warm. absent: Cyanosis Assessment and Plan (1) CKD (chronic kidney disease) Assessment & Plan: Stable volume and electrolyte status; renal function and hyperkalemia improved on diuretics, indicative of possible cardiorenal etiology; should continue torsemide 10 mg daily at home; should have f/u bmp in 1 week to assess need for potassium binding resin (kayexalate or veltassa); Status: Chronic (2) Hyperkalemia Status: Chronic (3) Anemia Assessment & Plan: Hgb stable, gave dose of EPO and got IV iron; monitor as outpatient for need for further EPO in CKD; Status: Chronic (4) Diabetes Assessment & Plan: Ok to continue metformin for now but need to monitor renal function carefully; Status: Chronic
== END 2018-05-19 17:59 | disposition home or self-care (01) | DRG 682 ==
LOC: C.ER 12:08 → C.9E 14:37 → C.5S 15:34 → OBSVTOIN 05-14 13:41
PROVIDERS: ADMIT Internal Medicine; ATTEND Internal Medicine
DX: I12.9 Hypertensive chronic kidney disease with stage 1 through stage 4 chronic kidney disease, or unspecified chronic kidney disease (principal); A41.9 Sepsis, unspecified organism; N39.0 Urinary tract infection, site not specified; N17.9 Acute kidney failure, unspecified; Z68.41 Body mass index [BMI] 40.0-44.9, adult; E11.22 Type 2 diabetes mellitus with diabetic chronic kidney disease; E86.0 Dehydration; E87.5 Hyperkalemia; N18.3 Chronic kidney disease, stage 3 (moderate); E11.40 Type 2 diabetes mellitus with diabetic neuropathy, unspecified; N25.89 Other disorders resulting from impaired renal tubular function; E03.9 Hypothyroidism, unspecified; D63.1 Anemia in chronic kidney disease; E66.9 Obesity, unspecified; M19.90 Unspecified osteoarthritis, unspecified site; Z90.710 Acquired absence of both cervix and uterus; I27.20 Pulmonary hypertension, unspecified; H40.9 Unspecified glaucoma; E78.5 Hyperlipidemia, unspecified

== ENCOUNTER 2018-05-26 02:06 | Inpatient (IN) | payer MEDICARE, OTHER ==
[2018-05-26 02:06] VITALS: BMI 42.3
[2018-05-26] MEDS ORDERED: Dextrose 50% SYRINGE Inj (50 ml) IV STA ×5 (02:41→21:44)
[2018-05-26] MEDS ORDERED: Dextrose 50% SYRINGE Inj (50 ml) ONE ×4 (02:45→21:20)
[2018-05-26 03:05] LABS: BASO % 0.4 % (0.0-2.0); EOS % 0.4 % (0.0-4.0); HEMOGLOBIN 10.3 g/dL (11.0-16.0); LYMPH # 0.7 K/uL (1.0-4.3); LYMPH % 5.8 % (20.0-40.0); MEAN CELL VOLUME 94.1 fL (81.0-99.0); MEAN CORPUSCULAR HEMOGLOBIN 30.1 pg (27.0-31.0); MEAN PLATELET VOLUME 7.4 fL (7.2-11.7); MONO # 0.9 K/uL (0.0-0.8); MONO % 7.3 % (0.0-10.0); NEUT # 10.9 K/uL (1.8-7.0); NEUT % 86.1 % (50.0-75.0); PLATELET COUNT 382 K/uL (130-400); RBC 3.42 Mil/uL (3.80-5.20); RED CELL DISTRIBUTION WIDTH 17.2 % (11.5-14.5); WHITE BLOOD COUNT 12.6 K/uL (4.8-10.8)
--- NOTE | 2018-05-26 03:19 | C.PDOC ---
Addendum entered and electronically signed by Shanthi Figueroa PA 05/26/18 06:39: Addendum Addendum: 05/26/18 06:36 Prior to discharge the blood sugar was rechecked and was 41. Another Amp of D50 ordered. Case was discussed with dr. Bee and patient was placed on tele obs Original Note: History Of Present Illness 82 year old female with PMHx of DM is brought to the ED by EMS for evaluation after she sustained a fall at home today [employer]. Patient's daughter states patient was complaining about her blood pressure and blood sugar being high at home. Patient's daughter reports patient took her diabetes medication at home, felt dizzy and fell. Contrary to triage patient denies shoulder pain, only complains of feet and abdominal pain. Patient denies fever, chills, nausea, vomit, rash, weakness, numbness. - HPI Time Seen by Provider: 05/26/18 02:28 Chief Complaint (Nursing): Trauma History Per: Patient History/Exam Limitations: no limitations Onset/Duration Of Symptoms: Hrs Injury Occurred (Timing): Just Before Arrival Location Of Injury: Anterior: Abdomen Recent travel outside of the [facility]: No Additional History Per: Patient - Fall Fall:Prior To Injury: [place] Lightheaded Past Medical History Reviewed: Historical Data, Nursing Documentation, Vital Signs Vital Signs: Last Vital Signs Temp 97.8 F 05/26/18 02:21 Pulse 20 L 05/26/18 02:21 Resp 18 05/26/18 02:21 BP 163/80 H 05/26/18 02:21 Pulse Ox 98 05/26/18 02:21 - Medical History PMH: Arthritis (chronic osteoarthritis, low back pain), Diabetes, HTN Surgical History: No Surg Hx Family History: States: Unknown Family Hx - Social History Hx Alcohol Use: No Hx Substance Use: No - Immunization History Hx Tetanus Toxoid Vaccination: No Hx Influenza Vaccination: No Hx Pneumococcal Vaccination: No Review Of Systems Constitutional: Negative for: Fever, Chills Cardiovascular: Negative for: Chest Pain, Palpitations Respiratory: Negative for: Shortness of Breath Gastrointestinal: Negative for: Nausea, Vomiting Skin: Negative for: Rash Neurological: Negative for: Weakness, Numbness, Dizziness Physical Exam - Physical Exam Appears: Non-toxic, No Acute Distress Skin: Normal Color, Warm, Dry, No Rash Head: Atraumatic, Normacephalic Eye(s): bilateral: Normal Inspection, PERRL, EOMI Oral Mucosa: Moist Neck: Normal ROM, Supple Chest: Symmetrical Cardiovascular: Rhythm Regular, No Friction Rub, No Murmur Respiratory: Normal Breath Sounds, No Rales, No Rhonchi, No Wheezing Gastrointestinal/Abdominal: Soft, No Tenderness, No Guarding, No Rebound Back: Normal Inspection, No CVA Tenderness Extremity: Normal ROM, No Tenderness, No Swelling Neurological/Psych: Oriented x3, Normal Speech, Normal Cognition, Normal Motor, Normal Sensation Gait: Steady ED Course And Treatment - Laboratory Results Result Diagrams: 05/26/18 02:52 05/26/18 04:15 O2 Sat by Pulse Oximetry: 98 (ON RA) Pulse Ox Interpretation: Normal Medical Decision Making Medical Decision Making: Plan: * EKG * Labs * Dextrose 50 ml IV labs are WNL's. The case was discussed with Dr. Bee (PMD) who states that the patient does not require admission at this time. Disposition - Disposition Referrals: Júnior Bee MD [Staff Provider] - Disposition: HOME/ ROUTINE Disposition Time: 05:20 Condition: STABLE Additional Instructions: Follow up with the medical doctor within 1-2 days. Return if worsened. Instructions: Low Blood Sugar in People With Diabetes Forms: [facility] (Arabic) - Clinical Impression Clinical Impression: Hypoglycemia - PA / UTILITY PERSON / Resident Statement MD/DO has reviewed & agrees with the documentation as recorded. - Scribe Statement The provider has reviewed the documentation as recorded by the Scribe [employer] All medical record entries made by the Scribe were at my direction and personally dictated by me. I have reviewed the chart and agree that the record accurately reflects my personal performance of the history, physical exam, medical decision making, and the department course for this patient. I have also personally directed, reviewed, and agree with the discharge instructions and disposition.
[2018-05-26 03:56] LABS: LYMPHOCYTE 7 % (20-40); MONOCYTE 1 % (0-10); NEUTROPHIL 92 % (50-75); PLATELET ESTIMATE NORMAL (NORMAL); TOTAL CELLS COUNTED 100
[2018-05-26 03:57] LABS: ANISOCYTOSIS MODERATE; OVALOCYTES SLIGHT; POLYCHROMIC SLIGHT
[2018-05-26 03:58] LABS: SCHISTOCYTES SLIGHT; TEARDROP CELLS SLIGHT
[2018-05-26 04:27] LABS: ALB/GLOB RATIO 1.3 (1.0-2.1); CALCIUM 8.8 mg/dl (8.6-10.4)
[2018-05-26] MEDS: (Novolin R) Insulin Human Regular 100 units/ml vial SC SCH ×4 (08:08→21:38)
[2018-05-26 08:38] LABS: CALCIUM 8.9 mg/dl (8.6-10.4)
[2018-05-26] MEDS ORDERED: Levothyroxine 50 MCG TAB PO SCH (10:00)
[2018-05-26] MEDS ORDERED: Home Med 1 UNIT (Brimonidine 0.15% [Alphagan P 0.15% Opht] 1 DROP) OU SCH (10:00)
[2018-05-26] MEDS: Metoprolol Succinate 50 mg XL Tab PO SCH (11:00)
--- NOTE | 2018-05-26 13:44 | RAD ---
Date of service: 05/26/2018 PROCEDURE: Right Knee Radiographs. HISTORY: pain COMPARISON: None. FINDINGS: BONES: No fracture or dislocation. JOINTS: Tricompartmental osteoarthrosis JOINT EFFUSION: Not suspect OTHER FINDINGS: There is limited contrast anterior to the patella and inferior to the patella to optimally assess this area Atherosclerotic vascular calcifications present. IMPRESSION: Tricompartmental osteoarthrosis. No fracture or lytic lesion appreciated
[2018-05-26] MEDS: Brimonidine 0.2% Opth Sol (5ml) OU SCH (17:07)
[2018-05-26] MEDS: Oxycodone/Acetaminophen 5/325 mg Tab PO PRN (18:48)
[2018-05-26] MEDS: Rosuvastatin Calcium 2.5 mg Tab PO SCH (21:40)
--- NOTE | 2018-05-26 22:08 | CP.PCM.HP ---
Past Patient History - Past Medical History & Family History Past Medical History?: Yes - Past Social History Smoking Status: Never Smoked - CARDIAC Hx Hypertension: Yes - RENAL Hx Chronic Kidney Disease: Yes - ENDOCRINE/METABOLIC Hx Diabetes Mellitus Type 2: Yes - MUSCULOSKELETAL/RHEUMATOLOGICAL Hx Arthritis: Yes (chronic osteoarthritis, low back pain) Hx Falls: Yes - PSYCHIATRIC Hx Substance Use: No - SURGICAL HISTORY Hx Surgeries: No - ANESTHESIA Hx Anesthesia: No Hx Anesthesia Reactions: No Hx Malignant Hyperthermia: No Meds Allergies/Adverse Reactions: Allergies Allergy/AdvReac Type Severity Reaction Status Date / Time EGG Allergy PAIN Verified 05/26/18 02:26 Results - Vital Signs Recent Vital Signs: Last Vital Signs Temp 98.9 F 05/26/18 12:00 Pulse 86 05/26/18 18:00 Resp 20 05/26/18 18:00 BP 140/64 05/26/18 18:00 Pulse Ox 97 05/26/18 18:00 - Labs Result Diagrams: 05/26/18 02:52 05/26/18 08:03 Labs: Laboratory Results - last 24 hr 05/26/18 05/26/18 05/26/18 02:24 02:27 02:39 WBC RBC Hgb Hct MCV MCH MCHC RDW Plt Count MPV Neut % (Auto) Lymph % (Auto) [place] % (Auto) Eos % (Auto) Baso % (Auto) Neut # (Auto) Lymph # (Auto) [place] # (Auto) Eos # (Auto) Baso # (Auto) Neutrophils % (Manual) Lymphocytes % (Manual) Monocytes % (Manual) Platelet Estimate Polychromasia Basophilic Stippling Anisocytosis (manual) Tear Drop Cells Ovalocytes Schistocytes Sodium Potassium Chloride Carbon Dioxide Anion Gap BUN Creatinine Est GFR ( Amer) Est GFR (Non-Af Amer) POC Glucose (mg/dL) 49 L 46 L 49 L Random Glucose Calcium Total Bilirubin AST ALT Alkaline Phosphatase Total Protein Albumin Globulin Albumin/Globulin Ratio 05/26/18 05/26/18 05/26/18 02:52 03:14 04:15 WBC 12.6 H RBC 3.42 L Hgb 10.3 L Hct 32.2 L MCV 94.1 MCH 30.1 MCHC 32.0 L RDW 17.2 H Plt Count 382 MPV 7.4 Neut % (Auto) 86.1 H Lymph % (Auto) 5.8 L [place] % (Auto) 7.3 Eos % (Auto) 0.4 Baso % (Auto) 0.4 Neut # (Auto) 10.9 H Lymph # (Auto) 0.7 L [place] # (Auto) 0.9 H Eos # (Auto) 0.0 Baso # (Auto) 0.0 Neutrophils % (Manual) 92 H Lymphocytes % (Manual) 7 L Monocytes % (Manual) 1 Platelet Estimate Normal Polychromasia Slight Basophilic Stippling Slight Anisocytosis (manual) Moderate Tear Drop Cells Slight Ovalocytes Slight Schistocytes Slight Sodium 129 L Potassium 4.9 Chloride 92 L Carbon Dioxide 22 Anion Gap 20 BUN 49 H Creatinine 2.3 H Est GFR ( Amer) 25 Est GFR (Non-Af Amer) 20 POC Glucose (mg/dL) 196 H Random Glucose 150 H Calcium 8.8 Total Bilirubin 0.3 AST 41 H D ALT 27 Alkaline Phosphatase 46 Total Protein 7.0 Albumin 4.0 Globulin 3.0 Albumin/Globulin Ratio 1.3 05/26/18 05/26/18 05/26/18 06:26 06:30 07:44 WBC RBC Hgb Hct MCV MCH MCHC RDW Plt Count MPV Neut % (Auto) Lymph % (Auto) [place] % (Auto) Eos % (Auto) Baso % (Auto) Neut # (Auto) Lymph # (Auto) [place] # (Auto) Eos # (Auto) Baso # (Auto) Neutrophils % (Manual) Lymphocytes % (Manual) Monocytes % (Manual) Platelet Estimate Polychromasia Basophilic Stippling Anisocytosis (manual) Tear Drop Cells Ovalocytes Schistocytes Sodium Potassium Chloride Carbon Dioxide Anion Gap BUN Creatinine Est GFR ( Amer) Est GFR (Non-Af Amer) POC Glucose (mg/dL) 52 L 41 L 64 L Random Glucose Calcium Total Bilirubin AST ALT Alkaline Phosphatase Total Protein Albumin Globulin Albumin/Globulin Ratio 05/26/18 05/26/18 05/26/18 07:46 08:03 08:32 WBC RBC Hgb Hct MCV MCH MCHC RDW Plt Count MPV Neut % (Auto) Lymph % (Auto) [place] % (Auto) Eos % (Auto) Baso % (Auto) Neut # (Auto) Lymph # (Auto) [place] # (Auto) Eos # (Auto) Baso # (Auto) Neutrophils % (Manual) Lymphocytes % (Manual) Monocytes % (Manual) Platelet Estimate Polychromasia Basophilic Stippling Anisocytosis (manual) Tear Drop Cells Ovalocytes Schistocytes Sodium 130 L Potassium 4.7 Chloride 95 L Carbon Dioxide 24 Anion Gap 16 BUN 51 H Creatinine 2.3 H Est GFR ( Amer) 25 Est GFR (Non-Af Amer) 20 POC Glucose (mg/dL) 53 L 122 H Random Glucose 45 L Calcium 8.9 Total Bilirubin AST ALT Alkaline Phosphatase Total Protein Albumin Globulin Albumin/Globulin Ratio 05/26/18 05/26/18 05/26/18 12:38 16:01 21:15 WBC RBC Hgb Hct MCV MCH MCHC RDW Plt Count MPV Neut % (Auto) Lymph % (Auto) [place] % (Auto) Eos % (Auto) Baso % (Auto) Neut # (Auto) Lymph # (Auto) [place] # (Auto) Eos # (Auto) Baso # (Auto) Neutrophils % (Manual) Lymphocytes % (Manual) Monocytes % (Manual) Platelet Estimate Polychromasia Basophilic Stippling Anisocytosis (manual) Tear Drop Cells Ovalocytes Schistocytes Sodium Potassium Chloride Carbon Dioxide Anion Gap BUN Creatinine Est GFR ( Amer) Est GFR (Non-Af Amer) POC Glucose (mg/dL) 88 107 30 L* Random Glucose Calcium Total Bilirubin AST ALT Alkaline Phosphatase Total Protein Albumin Globulin Albumin/Globulin Ratio 05/26/18 05/26/18 21:18 21:52 WBC RBC Hgb Hct MCV MCH MCHC RDW Plt Count MPV Neut % (Auto) Lymph % (Auto) [place] % (Auto) Eos % (Auto) Baso % (Auto) Neut # (Auto) Lymph # (Auto) [place] # (Auto) Eos # (Auto) Baso # (Auto) Neutrophils % (Manual) Lymphocytes % (Manual) Monocytes % (Manual) Platelet Estimate Polychromasia Basophilic Stippling Anisocytosis (manual) Tear Drop Cells Ovalocytes Schistocytes Sodium Potassium Chloride Carbon Dioxide Anion Gap BUN Creatinine Est GFR ( Amer) Est GFR (Non-Af Amer) POC Glucose (mg/dL) 28 L* 140 H Random Glucose Calcium Total Bilirubin AST ALT Alkaline Phosphatase Total Protein Albumin Globulin Albumin/Globulin Ratio
[2018-05-27] MEDS ORDERED: Dextrose 50% SYRINGE Inj (50 ml) IV STA ×2 (02:11→05:46)
[2018-05-27] MEDS: Oxycodone/Acetaminophen 5/325 mg Tab PO PRN ×3 (02:22→17:32)
[2018-05-27 04:10] LABS: BASO % 0.3 % (0.0-2.0); EOS # 0.1 K/uL (0.0-0.7); LYMPH # 1.1 K/uL (1.0-4.3); LYMPH % 10.3 % (20.0-40.0); MEAN CELL VOLUME 93.5 fL (81.0-99.0); MEAN CORPUSCULAR HEMOGLOBIN 31.6 pg (27.0-31.0); MEAN CORPUSCULAR HGB CONC 33.8 g/dL (33.0-37.0); MEAN PLATELET VOLUME 7.2 fL (7.2-11.7); MONO # 1.2 K/uL (0.0-0.8); MONO % 10.9 % (0.0-10.0); NEUT # 8.5 K/uL (1.8-7.0); NEUT % 77.5 % (50.0-75.0); NRBC % 0.1 % (0.0-2.0); RBC 2.84 Mil/uL (3.80-5.20); RED CELL DISTRIBUTION WIDTH 17.1 % (11.5-14.5)
[2018-05-27 04:20] LABS: CALCIUM 8.5 mg/dl (8.6-10.4)
[2018-05-27] MEDS: Levothyroxine 50 MCG TAB PO SCH ×2 (05:54)
--- NOTE | 2018-05-27 06:53 | HP ---
CHIEF COMPLAINT: Weakness. HISTORY OF PRESENT ILLNESS: This is an 82-year-old female with a history of diabetes, hypertension, hyperlipidemia, chronic kidney disease with hyperkalemia who is compliant with her diet, medication, and followup. The patient also has a history of bronchial asthma, anxiety, and insomnia and in her usual status of health, the patient is mostly homebound. She is wheelchair bound. She is able to ambulate with some assistance with wheelchair and walker. The patient was recently at [facility] where she was treated, stabilized, and discharged home. The patient at that time was admitted because of hyperkalemia. Later on, her medicines were adjusted and her hyperkalemia was resolved. The patient went home. The patient has been assisted by her daughter for activities of daily living. She has been compliant with diet and medications. The patient developed low sugar on the day of admission this morning. She was brought into the emergency room. She was hypoglycemic and she received D50, and she was hospitalized. Upon asking further questions, she complained of a fall with right knee injury with pain in the right knee and bruises. She denies any shortness of breath. She has some cough and nasal congestion. She denies any chest pain. She has palpitations and weakness. She denies any history of vertigo. No nausea. No vomiting. She denies any dysuria, hematuria, or pyuria. She used to have sneezing, but she denies any itchy eyes or itchy nose. She has cough. She has no history of fever, chills, rigors. She denies any abdominal pain. She is anxious. She has insomnia. PAST MEDICAL HISTORY: Hypertension, CKD, hyperlipidemia, bronchial asthma, allergic rhinitis, insomnia, anxiety. SOCIAL HISTORY: She is nonsmoker and non-EtOH user. CURRENT MEDICATIONS: At home, she is on hydralazine . ALLERGIES: UNKNOWN. PHYSICAL EXAMINATION: GENERAL: An elderly female, complaining of right knee pain, but she denies any cardiorespiratory distress. VITAL SIGNS: Blood pressure is 140/70, pulse 79, respiratory rate 20, temperature 99. SKIN: No turgor. No bruises. No purpura. No petechiae. HEENT EXAM: Atraumatic and normocephalic. Positive pallor. Negative jaundice. Extraocular movements are intact. NECK: Supple. Flat neck veins. No JVD. No lymph node. No thyromegaly. No carotid bruits. CHEST WALL: Bilateral symmetrical expansion. No breast mass. LUNGS: Bilateral scattered rhonchi. No crackles. CARDIOVASCULAR SYSTEM: S1 and S2, regular. ABDOMEN: Soft and nontender. Bowel sounds are positive. RECTAL: Refused. PELVIC: Refused. EXTREMITIES: She has right knee bruising and tenderness and crepitation. She has chronic changes on bilateral knees. CENTRAL NERVOUS SYSTEM: The patient is awake, alert, and oriented x3. Cranial nerves II through XII are normal. Power 5/5 x4. Plantars are downgoing. ASSESSMENT: 1. Fall with right knee injury. 2. Branchial asthma, stable. 3. Type 2 diabetes with persistent hypoglycemia. 4. Hypertension. PLAN: Admit. Neuro check. The patient will need right knee x-ray. Physical therapy. Rehab. Júnior Bee MD
[2018-05-27] MEDS: (Novolin R) Insulin Human Regular 100 units/ml vial SC SCH ×4 (07:50→21:00)
[2018-05-27] MEDS ORDERED: Dextrose 50% SYRINGE Inj (50 ml) IV PRN (07:52)
[2018-05-27] MEDS ORDERED: Glucagon Recombinant 1 mg Inj IM PRN (07:52)
[2018-05-27] MEDS ORDERED: Glucagon Recombinant 1 mg Inj IV ONE (08:00)
[2018-05-27] MEDS: Metoprolol Succinate 50 mg XL Tab PO SCH (10:16)
[2018-05-27] MEDS ORDERED: Dextrose 5%/0.9% NS 1,000 ML IV SCH (10:45)
[2018-05-27] MEDS: Brimonidine 0.2% Opth Sol (5ml) OU SCH ×2 (10:55→17:28)
--- NOTE | 2018-05-27 16:04 | CP.PCM.CON ---
<MikeydonnamichaelVignesh - Last Filed: 05/27/18 16:04> History of Present Illness - History of Present Illness History of Present Illness: CCU Consult Note HPI 82 yo female witha PMHx of DM, HTN, HLD CKD and chronic hyperkalemia. wheelchair bound and recent Tibia fracture. Pt admitted to ICU for hypoglycemia and complete 3rd degree heart block seen on EKG. Pt Recieved d50. Pt denies and CP, SOB, Dizziness, dysuria, fever chills. Pt admits to palpitations, fatigue and a cough. PMH: HTN, CKD, HLD, Asthma, DM Social: denies smoking or drinking ETOH FH: Home Meds: Adviar 250/50 pred 20mg 5 days metoprolol xl 50mg qd hydralazine 25 TID Demedex 10 jentadueto 2.12/999 percocet 5/325 alprazolam .5mg isidro synthroid 50mc Past Patient History - Past Medical History & Family History Past Medical History?: Yes - Past Social History Smoking Status: Never Smoked - CARDIAC Hx Hypertension: Yes - RENAL Hx Chronic Kidney Disease: Yes - ENDOCRINE/METABOLIC Hx Diabetes Mellitus Type 2: Yes - MUSCULOSKELETAL/RHEUMATOLOGICAL Hx Arthritis: Yes (chronic osteoarthritis, low back pain) Hx Falls: Yes - PSYCHIATRIC Hx Substance Use: No - SURGICAL HISTORY Hx Surgeries: No - ANESTHESIA Hx Anesthesia: No Hx Anesthesia Reactions: No Hx Malignant Hyperthermia: No Meds Allergies/Adverse Reactions: Allergies Allergy/AdvReac Type Severity Reaction Status Date / Time EGG Allergy PAIN Verified 05/26/18 02:26 - Medications Medications: Current Medications Alprazolam (Xanax) 0.5 mg PO DAILY [facility] Last Admin: 05/27/18 10:16 Dose: 0.5 mg Brimonidine Tartrate (Alphagan 0.2% Opht) 0.05 ml OU BID [facility] Last Admin: 05/27/18 10:55 Dose: 1 drop Clopidogrel Bisulfate (Plavix) 75 mg PO DAILY [facility] Last Admin: 05/27/18 10:16 Dose: 75 mg Dextrose (Dextrose 50% Inj) 0 ml IV STAT PRN; Protocol PRN Reason: Hypoglycemia Protocol Dextrose (Glutose 15) 0 gm PO ONCE PRN; Protocol PRN Reason: Hypoglycemia Protocol Docusate Sodium (Colace) 100 mg PO BID [facility] Last Admin: 05/27/18 10:16 Dose: 100 mg Glucagon (Glucagen Diagnostic Kit) 0 mg IM STAT PRN; Protocol PRN Reason: Hypoglycemia Protocol Heparin Sodium (Porcine) (Heparin) 5,000 units SC Q8 [facility] Last Admin: 05/27/18 06:18 Dose: 5,000 units Hydralazine HCl (Apresoline) 25 mg PO Q8 [facility] Last Admin: 05/27/18 13:35 Dose: Not Given Dextrose (Dextrose 5% In Water 1000 Ml) 1,000 mls @ 0 mls/hr IV .Q0M PRN; Protocol PRN Reason: Hypoglycemia Protocol Dextrose/Sodium Chloride (Dextrose 5%/0.9% Ns 1000 Ml) 1,000 mls @ 50 mls/hr IV .Q20H [facility] Last Admin: 05/27/18 13:19 Dose: 50 mls/hr Insulin Human Regular (Novolin R) 0 unit SC ACHS [facility]; Protocol Last Admin: 05/27/18 13:26 Dose: Not Given Levothyroxine Sodium (Synthroid) 50 mcg PO DAILY@0630 [facility] Last Admin: 05/27/18 05:54 Dose: 50 mcg Metoprolol Succinate (Toprol Xl) 50 mg PO DAILY [facility] Last Admin: 05/27/18 10:16 Dose: 50 mg Oxycodone/Acetaminophen (Percocet 5/325 Mg Tab) 1 tab PO Q4H PRN PRN Reason: Pain, moderate (4-7) Stop: 05/29/18 10:51 Last Admin: 05/27/18 10:16 Dose: 1 tab Rosuvastatin Calcium (Crestor) 2.5 mg PO HS [facility] Last Admin: 05/26/18 21:40 Dose: 2.5 mg Torsemide (Demadex) 10 mg PO DAILY [facility] Last Admin: 05/27/18 10:15 Dose: 10 mg Zolpidem Tartrate (Ambien) 5 mg PO HS PRN PRN Reason: Insomnia Last Admin: 05/26/18 21:40 Dose: 5 mg Results - Vital Signs Recent Vital Signs: Last Vital Signs Temp 97.6 F 05/27/18 12:00 Pulse 71 05/27/18 15:07 Resp 20 05/27/18 15:07 BP 129/65 05/27/18 15:07 Pulse Ox 99 10/05/18 15:07 - Labs Result Diagrams: 05/27/18 04:05 05/27/18 04:05 Labs: Laboratory Results - last 24 hr 05/26/18 05/26/18 05/26/18 16:01 21:15 21:18 WBC RBC Hgb Hct MCV MCH MCHC RDW Plt Count MPV Neut % (Auto) Lymph % (Auto) Blair % (Auto) Eos % (Auto) Baso % (Auto) Neut # (Auto) Lymph # (Auto) Blair # (Auto) Eos # (Auto) Baso # (Auto) Sodium Potassium Chloride Carbon Dioxide Anion Gap BUN Creatinine Est GFR ( Amer) Est GFR (Non-Af Amer) POC Glucose (mg/dL) 107 30 L* 28 L* Random Glucose Hemoglobin A1c Calcium Cortisol AM Sample 05/26/18 05/26/18 05/27/18 21:52 23:15 02:07 WBC RBC Hgb Hct MCV MCH MCHC RDW Plt Count MPV Neut % (Auto) Lymph % (Auto) Blair % (Auto) Eos % (Auto) Baso % (Auto) Neut # (Auto) Lymph # (Auto) Blair # (Auto) Eos # (Auto) Baso # (Auto) Sodium Potassium Chloride Carbon Dioxide Anion Gap BUN Creatinine Est GFR ( Amer) Est GFR (Non-Af Amer) POC Glucose (mg/dL) 140 H 82 22 L* Random Glucose Hemoglobin A1c Calcium Cortisol AM Sample 05/27/18 05/27/18 05/27/18 02:09 02:41 03:41 WBC RBC Hgb Hct MCV MCH MCHC RDW Plt Count MPV Neut % (Auto) Lymph % (Auto) Blair % (Auto) Eos % (Auto) Baso % (Auto) Neut # (Auto) Lymph # (Auto) Blair # (Auto) Eos # (Auto) Baso # (Auto) Sodium Potassium Chloride Carbon Dioxide Anion Gap BUN Creatinine Est GFR ( Amer) Est GFR (Non-Af Amer) POC Glucose (mg/dL) 20 L* 131 H 54 L Random Glucose Hemoglobin A1c Calcium Cortisol AM Sample 05/27/18 05/27/18 05/27/18 03:44 04:05 04:05 WBC RBC Hgb Hct MCV MCH MCHC RDW Plt Count MPV Neut % (Auto) Lymph % (Auto) Blair % (Auto) Eos % (Auto) Baso % (Auto) Neut # (Auto) Lymph # (Auto) Blair # (Auto) Eos # (Auto) Baso # (Auto) Sodium 128 L Potassium 5.1 Chloride 94 L Carbon Dioxide 22 Anion Gap 17 BUN 50 H Creatinine 2.1 H Est GFR ( Amer) 27 Est GFR (Non-Af Amer) 22 POC Glucose (mg/dL) 55 L Random Glucose 53 L Hemoglobin A1c 6.1 Calcium 8.5 L Cortisol AM Sample 05/27/18 05/27/18 05/27/18 04:05 04:18 05:41 WBC 11.0 H RBC 2.84 L Hgb 9.0 L Hct 26.5 L MCV 93.5 MCH 31.6 H MCHC 33.8 RDW 17.1 H Plt Count 341 MPV 7.2 Neut % (Auto) 77.5 H Lymph % (Auto) 10.3 L Blair % (Auto) 10.9 H Eos % (Auto) 1.0 Baso % (Auto) 0.3 Neut # (Auto) 8.5 H Lymph # (Auto) 1.1 Blair # (Auto) 1.2 H Eos # (Auto) 0.1 Baso # (Auto) 0.0 Sodium Potassium Chloride Carbon Dioxide Anion Gap BUN Creatinine Est GFR ( Amer) Est GFR (Non-Af Amer) POC Glucose (mg/dL) 72 54 L Random Glucose Hemoglobin A1c Calcium Cortisol AM Sample 05/27/18 05/27/18 05/27/18 05:43 06:17 07:42 WBC RBC Hgb Hct MCV MCH MCHC RDW Plt Count MPV Neut % (Auto) Lymph % (Auto) Blair % (Auto) Eos % (Auto) Baso % (Auto) Neut # (Auto) Lymph # (Auto) Blair # (Auto) Eos # (Auto) Baso # (Auto) Sodium Potassium Chloride Carbon Dioxide Anion Gap BUN Creatinine Est GFR ( Amer) Est GFR (Non-Af Amer) POC Glucose (mg/dL) 47 L 134 H 57 L Random Glucose Hemoglobin A1c Calcium Cortisol AM Sample 05/27/18 05/27/18 05/27/18 07:44 08:55 10:14 WBC RBC Hgb Hct MCV MCH MCHC RDW Plt Count MPV Neut % (Auto) Lymph % (Auto) Blair % (Auto) Eos % (Auto) Baso % (Auto) Neut # (Auto) Lymph # (Auto) Blair # (Auto) Eos # (Auto) Baso # (Auto) Sodium Potassium Chloride Carbon Dioxide Anion Gap BUN Creatinine Est GFR ( Amer) Est GFR (Non-Af Amer) POC Glucose (mg/dL) 58 L 126 H 139 H Random Glucose Hemoglobin A1c Calcium Cortisol AM Sample 05/27/18 05/27/18 05/27/18 11:07 12:08 12:32 WBC RBC Hgb Hct MCV MCH MCHC RDW Plt Count MPV Neut % (Auto) Lymph % (Auto) Blair % (Auto) Eos % (Auto) Baso % (Auto) Neut # (Auto) Lymph # (Auto) Blair # (Auto) Eos # (Auto) Baso # (Auto) Sodium Potassium Chloride Carbon Dioxide Anion Gap BUN Creatinine Est GFR ( Amer) Est GFR (Non-Af Amer) POC Glucose (mg/dL) 104 81 71 Random Glucose Hemoglobin A1c Calcium Cortisol AM Sample 05/27/18 05/27/18 05/27/18 13:48 14:16 15:15 WBC RBC Hgb Hct MCV MCH MCHC RDW Plt Count MPV Neut % (Auto) Lymph % (Auto) Blair % (Auto) Eos % (Auto) Baso % (Auto) Neut # (Auto) Lymph # (Auto) Blair # (Auto) Eos # (Auto) Baso # (Auto) Sodium Potassium Chloride Carbon Dioxide Anion Gap BUN Creatinine Est GFR ( Amer) Est GFR (Non-Af Amer) POC Glucose (mg/dL) 133 H 114 H Random Glucose Hemoglobin A1c Calcium Cortisol AM Sample 17.6 Assessment & Plan - Assessment and Plan (Free Text) Assessment: 82yo F with HYPOglycemia Plan: Neuro: -AAOx3 -monitor mental status -xanaz 0.5mg qd -zolpidem 5mg -percocet 5mg -brimodine 0.05ml ophtho drops -Pt consulted Pulm: -Maintain spO2 >90% -Nasal cannula PRN CardioVasc: -Plavix 75mg PO daily -metoprolol 50mg PO daily -Brillinta 90mg PO Daily -Rosuvastatin 40mg PO HS d/c LFTs elevated -currently hemodynamically stable Heme: -Monitor H/H -heparin 5000 q8 Renal: -monitor I&O -monitor and repleat electrolytes -hydralizine 25mg po q8 -torsemide 10mg po dialy Endo: -Maintain euglycemia 140-180 blood sugar -d50 -random 120 glucose today -synthroid 50mc -accuchex q1hr GI: -rosuvastatin 2.5mg hs -consistent carb diet ID: -Afebrile -WBCs 11 DVT PPX: -Heparin 5000 q8 <Kvng Ortega - Last Filed: 05/27/18 17:31> Meds - Medications Medications: Current Medications Alprazolam (Xanax) 0.5 mg PO DAILY [facility] Last Admin: 05/27/18 10:16 Dose: 0.5 mg Brimonidine Tartrate (Alphagan 0.2% Opht) 0.05 ml OU BID [facility] Last Admin: 05/27/18 10:55 Dose: 1 drop Clopidogrel Bisulfate (Plavix) 75 mg PO DAILY [facility] Last Admin: 05/27/18 10:16 Dose: 75 mg Dextrose (Dextrose 50% Inj) 0 ml IV STAT PRN; Protocol PRN Reason: Hypoglycemia Protocol Dextrose (Glutose 15) 0 gm PO ONCE PRN; Protocol PRN Reason: Hypoglycemia Protocol Docusate Sodium (Colace) 100 mg PO BID [facility] Last Admin: 05/27/18 10:16 Dose: 100 mg Glucagon (Glucagen Diagnostic Kit) 0 mg IM STAT PRN; Protocol PRN Reason: Hypoglycemia Protocol Heparin Sodium (Porcine) (Heparin) 5,000 units SC Q8 [facility] Last Admin: 05/27/18 06:18 Dose: 5,000 units Hydralazine HCl (Apresoline) 25 mg PO Q8 [facility] Last Admin: 05/27/18 13:35 Dose: Not Given Dextrose (Dextrose 5% In Water 1000 Ml) 1,000 mls @ 0 mls/hr IV .Q0M PRN; Protocol PRN Reason: Hypoglycemia Protocol Dextrose/Sodium Chloride (Dextrose 5%/0.9% Ns 1000 Ml) 1,000 mls @ 50 mls/hr IV .Q20H [facility] Last Admin: 05/27/18 13:19 Dose: 50 mls/hr Insulin Human Regular (Novolin R) 0 unit SC ACHS [facility]; Protocol Last Admin: 05/27/18 13:26 Dose: Not Given Levothyroxine Sodium (Synthroid) 50 mcg PO DAILY@0630 [facility] Last Admin: 05/27/18 05:54 Dose: 50 mcg Metoprolol Succinate (Toprol Xl) 50 mg PO DAILY [facility] Last Admin: 05/27/18 10:16 Dose: 50 mg Oxycodone/Acetaminophen (Percocet 5/325 Mg Tab) 1 tab PO Q4H PRN PRN Reason: Pain, moderate (4-7) Stop: 05/29/18 10:51 Last Admin: 05/27/18 10:16 Dose: 1 tab Rosuvastatin Calcium (Crestor) 2.5 mg PO HS [facility] Last Admin: 05/26/18 21:40 Dose: 2.5 mg Torsemide (Demadex) 10 mg PO DAILY [facility] Last Admin: 05/27/18 10:15 Dose: 10 mg Zolpidem Tartrate (Ambien) 5 mg PO HS PRN PRN Reason: Insomnia Last Admin: 05/26/18 21:40 Dose: 5 mg Results - Vital Signs Recent Vital Signs: Last Vital Signs Temp 97.8 F 05/27/18 16:00 Pulse 68 05/27/18 16:07 Resp 24 05/27/18 16:07 BP 136/60 05/27/18 16:07 Pulse Ox 99 05/27/18 16:07 - Labs Result Diagrams: 05/27/18 04:05 05/27/18 04:05 Labs: Laboratory Results - last 24 hr 05/26/18 05/26/18 05/26/18 21:15 21:18 21:52 WBC RBC Hgb Hct MCV MCH MCHC RDW Plt Count MPV Neut % (Auto) Lymph % (Auto) Blair % (Auto) Eos % (Auto) Baso % (Auto) Neut # (Auto) Lymph # (Auto) Blair # (Auto) Eos # (Auto) Baso # (Auto) Sodium Potassium Chloride Carbon Dioxide Anion Gap BUN Creatinine Est GFR ( Amer) Est GFR (Non-Af Amer) POC Glucose (mg/dL) 30 L* 28 L* 140 H Random Glucose Hemoglobin A1c Calcium Cortisol AM Sample 05/26/18 05/27/18 05/27/18 23:15 02:07 02:09 WBC RBC Hgb Hct MCV MCH MCHC RDW Plt Count MPV Neut % (Auto) Lymph % (Auto) Blair % (Auto) Eos % (Auto) Baso % (Auto) Neut # (Auto) Lymph # (Auto) Blair # (Auto) Eos # (Auto) Baso # (Auto) Sodium Potassium Chloride Carbon Dioxide Anion Gap BUN Creatinine Est GFR ( Amer) Est GFR (Non-Af Amer) POC Glucose (mg/dL) 82 22 L* 20 L* Random Glucose Hemoglobin A1c Calcium Cortisol AM Sample 05/27/18 05/27/18 05/27/18 02:41 03:41 03:44 WBC RBC Hgb Hct MCV MCH MCHC RDW Plt Count MPV Neut % (Auto) Lymph % (Auto) Blair % (Auto) Eos % (Auto) Baso % (Auto) Neut # (Auto) Lymph # (Auto) Blair # (Auto) Eos # (Auto) Baso # (Auto) Sodium Potassium Chloride Carbon Dioxide Anion Gap BUN Creatinine Est GFR ( Amer) Est GFR (Non-Af Amer) POC Glucose (mg/dL) 131 H 54 L 55 L Random Glucose Hemoglobin A1c Calcium Cortisol AM Sample 05/27/18 05/27/18 05/27/18 04:05 04:05 04:05 WBC 11.0 H RBC 2.84 L Hgb 9.0 L Hct 26.5 L MCV 93.5 MCH 31.6 H MCHC 33.8 RDW 17.1 H Plt Count 341 MPV 7.2 Neut % (Auto) 77.5 H Lymph % (Auto) 10.3 L Blair % (Auto) 10.9 H Eos % (Auto) 1.0 Baso % (Auto) 0.3 Neut # (Auto) 8.5 H Lymph # (Auto) 1.1 Blair # (Auto) 1.2 H Eos # (Auto) 0.1 Baso # (Auto) 0.0 Sodium 128 L Potassium 5.1 Chloride 94 L Carbon Dioxide 22 Anion Gap 17 BUN 50 H Creatinine 2.1 H Est GFR ( Amer) 27 Est GFR (Non-Af Amer) 22 POC Glucose (mg/dL) Random Glucose 53 L Hemoglobin A1c 6.1 Calcium 8.5 L Cortisol AM Sample 05/27/18 05/27/18 05/27/18 04:18 05:41 05:43 WBC RBC Hgb Hct MCV MCH MCHC RDW Plt Count MPV Neut % (Auto) Lymph % (Auto) Blair % (Auto) Eos % (Auto) Baso % (Auto) Neut # (Auto) Lymph # (Auto) Blair # (Auto) Eos # (Auto) Baso # (Auto) Sodium Potassium Chloride Carbon Dioxide Anion Gap BUN Creatinine Est GFR ( Amer) Est GFR (Non-Af Amer) POC Glucose (mg/dL) 72 54 L 47 L Random Glucose Hemoglobin A1c Calcium Cortisol AM Sample 05/27/18 05/27/18 05/27/18 06:17 07:42 07:44 WBC RBC Hgb Hct MCV MCH MCHC RDW Plt Count MPV Neut % (Auto) Lymph % (Auto) Blair % (Auto) Eos % (Auto) Baso % (Auto) Neut # (Auto) Lymph # (Auto) Blair # (Auto) Eos # (Auto) Baso # (Auto) Sodium Potassium Chloride Carbon Dioxide Anion Gap BUN Creatinine Est GFR ( Amer) Est GFR (Non-Af Amer) POC Glucose (mg/dL) 134 H 57 L 58 L Random Glucose Hemoglobin A1c Calcium Cortisol AM Sample 05/27/18 05/27/18 05/27/18 08:55 10:14 11:07 WBC RBC Hgb Hct MCV MCH MCHC RDW Plt Count MPV Neut % (Auto) Lymph % (Auto) Blair % (Auto) Eos % (Auto) Baso % (Auto) Neut # (Auto) Lymph # (Auto) Blair # (Auto) Eos # (Auto) Baso # (Auto) Sodium Potassium Chloride Carbon Dioxide Anion Gap BUN Creatinine Est GFR ( Amer) Est GFR (Non-Af Amer) POC Glucose (mg/dL) 126 H 139 H 104 Random Glucose Hemoglobin A1c Calcium Cortisol AM Sample 05/27/18 05/27/18 05/27/18 12:08 12:32 13:48 WBC RBC Hgb Hct MCV MCH MCHC RDW Plt Count MPV Neut % (Auto) Lymph % (Auto) Blair % (Auto) Eos % (Auto) Baso % (Auto) Neut # (Auto) Lymph # (Auto) Blair # (Auto) Eos # (Auto) Baso # (Auto) Sodium Potassium Chloride Carbon Dioxide Anion Gap BUN Creatinine Est GFR ( Amer) Est GFR (Non-Af Amer) POC Glucose (mg/dL) 81 71 133 H Random Glucose Hemoglobin A1c Calcium Cortisol AM Sample 05/27/18 05/27/18 05/27/18 14:16 15:15 16:03 WBC RBC Hgb Hct MCV MCH MCHC RDW Plt Count MPV Neut % (Auto) Lymph % (Auto) Blair % (Auto) Eos % (Auto) Baso % (Auto) Neut # (Auto) Lymph # (Auto) Blair # (Auto) Eos # (Auto) Baso # (Auto) Sodium Potassium Chloride Carbon Dioxide Anion Gap BUN Creatinine Est GFR ( Amer) Est GFR (Non-Af Amer) POC Glucose (mg/dL) 114 H 109 Random Glucose Hemoglobin A1c Calcium Cortisol AM Sample 17.6 05/27/18 17:01 WBC RBC Hgb Hct MCV MCH MCHC RDW Plt Count MPV Neut % (Auto) Lymph % (Auto) Blair % (Auto) Eos % (Auto) Baso % (Auto) Neut # (Auto) Lymph # (Auto) Blair # (Auto) Eos # (Auto) Baso # (Auto) Sodium Potassium Chloride Carbon Dioxide Anion Gap BUN Creatinine Est GFR ( Amer) Est GFR (Non-Af Amer) POC Glucose (mg/dL) 94 Random Glucose Hemoglobin A1c Calcium Cortisol AM Sample Attending/Attestation - Attestation I have personally seen and examined this patient.: Yes I have fully participated in the care of the patient.: Yes I have reviewed all pertinent clinical information: Yes Notes (Text): 05/27/18 17:14 I have seen and examined the patient. Medical records, lab studies, and imaging were reviewed by me and a management plan was formulated on multidisciplinary rounds with resident Dr. Banuelos. I agree with their documented assessment and plan. Patient is persistently hypoglycemic. It is believed that this is a side effect of the glitazone drug she was on. Gave Glucagon, continue D5NS, will titrate down while monitoring glucose q1h accucheck. Critical Care Time 35 minutes. Multi-disciplinary rounds were performed with house staff, nursing, speech therapy, respiratory therapy, pharmacy and nutrition with integrated input from the primary team/attending and other consulting services. The documented time is cumulative and includes review of patient data/exams/labs/chart review and examination of the patient on rounds and throughout the day; time is exclusive of any procedures or teaching time.
[2018-05-27 21:21] LABS: ALB/GLOB RATIO 1.1 (1.0-2.1); ALBUMIN 3.3 g/dL (3.5-5.0); CALCIUM 8.3 mg/dl (8.6-10.4)
[2018-05-27] MEDS ORDERED: Sod Polystyrene Sulf 15 gm/60 ml Susp PO ONE (21:31)
[2018-05-27] MEDS: Rosuvastatin Calcium 2.5 mg Tab PO SCH (21:32)
[2018-05-27] MEDS ORDERED: Magnesium Sulfate 1 gm in D5W 1 GM/100 ML BAG IVPB ONE (21:32)
--- NOTE | 2018-05-27 23:38 | CP.PCM.PN ---
Subjective - Subjective Subjective: dictated Objective - Vital Signs/Intake and Output Vital Signs (last 24 hours): Temp Pulse Resp BP Pulse Ox 97.8 F 70 14 126/53 L 97 05/27/18 16:00 05/27/18 22:00 05/27/18 22:00 05/27/18 21:07 05/27/18 22:00 Intake and Output: 05/27/18 05/28/18 18:59 06:59 Intake Total 1510 300 Balance 1510 300 - Medications Medications: Current Medications Brimonidine Tartrate (Alphagan 0.2% Opht) 0.05 ml OU BID [facility] Last Admin: 05/27/18 17:28 Dose: 1 drop Clopidogrel Bisulfate (Plavix) 75 mg PO DAILY [facility] Last Admin: 05/27/18 10:16 Dose: 75 mg Dextrose (Dextrose 50% Inj) 0 ml IV STAT PRN; Protocol PRN Reason: Hypoglycemia Protocol Dextrose (Glutose 15) 0 gm PO ONCE PRN; Protocol PRN Reason: Hypoglycemia Protocol Docusate Sodium (Colace) 100 mg PO BID [facility] Last Admin: 05/27/18 17:30 Dose: 100 mg Glucagon (Glucagen Diagnostic Kit) 0 mg IM STAT PRN; Protocol PRN Reason: Hypoglycemia Protocol Heparin Sodium (Porcine) (Heparin) 5,000 units SC Q8 [facility] Last Admin: 05/27/18 21:32 Dose: 5,000 units Hydralazine HCl (Apresoline) 25 mg PO Q8 [facility] Last Admin: 05/27/18 21:32 Dose: 25 mg Dextrose (Dextrose 5% In Water 1000 Ml) 1,000 mls @ 0 mls/hr IV .Q0M PRN; Protocol PRN Reason: Hypoglycemia Protocol Dextrose/Sodium Chloride (Dextrose 5%/0.9% Ns 1000 Ml) 1,000 mls @ 50 mls/hr IV .Q20H [facility] Last Admin: 05/27/18 13:19 Dose: 50 mls/hr Insulin Human Regular (Novolin R) 0 unit SC ACHS [facility]; Protocol Last Admin: 05/27/18 21:00 Dose: Not Given Levothyroxine Sodium (Synthroid) 50 mcg PO DAILY@0630 [facility] Last Admin: 05/27/18 05:54 Dose: 50 mcg Metoprolol Succinate (Toprol Xl) 50 mg PO DAILY [facility] Last Admin: 05/27/18 10:16 Dose: 50 mg Oxycodone/Acetaminophen (Percocet 5/325 Mg Tab) 1 tab PO Q4H PRN PRN Reason: Pain, moderate (4-7) Stop: 05/29/18 10:51 Last Admin: 05/27/18 17:32 Dose: 1 tab Rosuvastatin Calcium (Crestor) 2.5 mg PO HS [facility] Last Admin: 05/27/18 21:32 Dose: 2.5 mg Torsemide (Demadex) 10 mg PO DAILY [facility] Last Admin: 05/27/18 10:15 Dose: 10 mg Zolpidem Tartrate (Ambien) 5 mg PO HS PRN PRN Reason: Insomnia Last Admin: 05/27/18 21:32 Dose: 5 mg - Labs Labs: 05/27/18 04:05 05/27/18 20:58
[2018-05-28] MEDS: Levothyroxine 50 MCG TAB PO SCH (05:45)
[2018-05-28] MEDS: (Novolin R) Insulin Human Regular 100 units/ml vial SC SCH ×4 (07:30→22:11)
--- NOTE | 2018-05-28 10:25 | CP.PCM.CON ---
History of Present Illness - History of Present Illness History of Present Illness: CONSULT FOR HYPONATREMIA HPI: 82 yo female witha PMHx of htn, dm, ckd, hyperlipid, hx of hyper k that presented w/ persistent hypoglycemia. She is unable to give much history as she doesn't recall al lthe events besides having low sugar yesterday. She was apparently in 3rd degree block yesterday on EKG. She was started on d5w and and sugars appear improved today. In the setting of the fluids overnight she developed worsening hyponatremia. She is not confused. SHe refused blood work this am. ros: a full detailed ROS is negativ except as in my hpi PMH: HTN, CKD, HLD, Asthma, DM, hyperkalemia Social: denies smoking or drinking ETOH FH:noesrd meds: as below all: as below pe: vs as below gen: nad sclera: anicteric op: clear neck: supple no thyromegaly cv: +S1+s2 no rub lungs: cta b/l abd: soft nt/ + obese no organomegaly ext: no edema neuro: A+Ox3 psych: nml affect skin no rash imp: hyponatremia/ hyperkalemia/ hypoglycemia/ diabetic kidney disease /hypomag/ ckd III plan: Na dropped in setting of getting d5w - perhaps from iatrogenic hypotonic fluid. will check serum / urine osm and urine lytes recc recheck na - last check was 10 pm last night discussed w/ nursing can tx k medicall replete mag recheck lytes ckd III will monitor likely underlying diabetic kidney disease will hold diuretics for now Past Patient History - Past Medical History & Family History Past Medical History?: Yes - Past Social History Smoking Status: Never Smoked - CARDIAC Hx Hypertension: Yes - RENAL Hx Chronic Kidney Disease: Yes - ENDOCRINE/METABOLIC Hx Diabetes Mellitus Type 2: Yes - MUSCULOSKELETAL/RHEUMATOLOGICAL Hx Arthritis: Yes (chronic osteoarthritis, low back pain) Hx Falls: Yes - PSYCHIATRIC Hx Substance Use: No - SURGICAL HISTORY Hx Surgeries: No - ANESTHESIA Hx Anesthesia: No Hx Anesthesia Reactions: No Hx Malignant Hyperthermia: No Meds Allergies/Adverse Reactions: Allergies Allergy/AdvReac Type Severity Reaction Status Date / Time EGG Allergy PAIN Verified 05/26/18 02:26 - Medications Medications: Current Medications Brimonidine Tartrate (Alphagan 0.2% Opht) 0.05 ml OU BID [facility] Last Admin: 05/27/18 17:28 Dose: 1 drop Clopidogrel Bisulfate (Plavix) 75 mg PO DAILY [facility] Last Admin: 05/27/18 10:16 Dose: 75 mg Dextrose (Dextrose 50% Inj) 0 ml IV STAT PRN; Protocol PRN Reason: Hypoglycemia Protocol Dextrose (Glutose 15) 0 gm PO ONCE PRN; Protocol PRN Reason: Hypoglycemia Protocol Docusate Sodium (Colace) 100 mg PO BID [facility] Last Admin: 05/27/18 17:30 Dose: 100 mg Glucagon (Glucagen Diagnostic Kit) 0 mg IM STAT PRN; Protocol PRN Reason: Hypoglycemia Protocol Heparin Sodium (Porcine) (Heparin) 5,000 units SC Q8 [facility] Last Admin: 05/28/18 05:43 Dose: Not Given Hydralazine HCl (Apresoline) 25 mg PO Q8 [facility] Last Admin: 05/28/18 05:45 Dose: 25 mg Dextrose (Dextrose 5% In Water 1000 Ml) 1,000 mls @ 0 mls/hr IV .Q0M PRN; Protocol PRN Reason: Hypoglycemia Protocol Insulin Human Regular (Novolin R) 0 unit SC ACHS [facility]; Protocol Last Admin: 05/27/18 21:00 Dose: Not Given Levothyroxine Sodium (Synthroid) 50 mcg PO DAILY@0630 [facility] Last Admin: 05/28/18 05:45 Dose: 50 mcg Metoprolol Succinate (Toprol Xl) 50 mg PO DAILY [facility] Last Admin: 05/27/18 10:16 Dose: 50 mg Oxycodone/Acetaminophen (Percocet 5/325 Mg Tab) 1 tab PO Q4H PRN PRN Reason: Pain, moderate (4-7) Stop: 05/29/18 10:51 Last Admin: 05/27/18 17:32 Dose: 1 tab Rosuvastatin Calcium (Crestor) 2.5 mg PO HS [facility] Last Admin: 05/27/18 21:32 Dose: 2.5 mg Torsemide (Demadex) 10 mg PO DAILY [facility] Last Admin: 05/27/18 10:15 Dose: 10 mg Zolpidem Tartrate (Ambien) 5 mg PO HS PRN PRN Reason: Insomnia Last Admin: 05/27/18 21:32 Dose: 5 mg Results - Vital Signs Recent Vital Signs: Last Vital Signs Temp 97.9 F 05/28/18 08:00 Pulse 108 H 05/28/18 09:00 Resp 24 05/28/18 09:00 BP 149/81 05/28/18 08:07 Pulse Ox 96 05/28/18 09:00 - Labs Result Diagrams: 05/27/18 04:05 05/27/18 20:58 Labs: Laboratory Results - last 24 hr 05/27/18 05/27/18 05/27/18 11:07 12:08 12:32 Sodium Potassium Chloride Carbon Dioxide Anion Gap BUN Creatinine Est GFR ( Amer) Est GFR (Non-Af Amer) POC Glucose (mg/dL) 104 81 71 Random Glucose Calcium Phosphorus Magnesium Total Bilirubin AST ALT Alkaline Phosphatase Total Protein Albumin Globulin Albumin/Globulin Ratio Cortisol AM Sample 05/27/18 05/27/18 05/27/18 13:48 14:16 15:15 Sodium Potassium Chloride Carbon Dioxide Anion Gap BUN Creatinine Est GFR ( Amer) Est GFR (Non-Af Amer) POC Glucose (mg/dL) 133 H 114 H Random Glucose Calcium Phosphorus Magnesium Total Bilirubin AST ALT Alkaline Phosphatase Total Protein Albumin Globulin Albumin/Globulin Ratio Cortisol AM Sample 17.6 05/27/18 05/27/18 05/27/18 16:03 17:01 17:58 Sodium Potassium Chloride Carbon Dioxide Anion Gap BUN Creatinine Est GFR ( Amer) Est GFR (Non-Af Amer) POC Glucose (mg/dL) 109 94 111 H Random Glucose Calcium Phosphorus Magnesium Total Bilirubin AST ALT Alkaline Phosphatase Total Protein Albumin Globulin Albumin/Globulin Ratio Cortisol AM Sample 05/27/18 05/27/18 05/27/18 19:21 20:58 21:25 Sodium 123 L Potassium 5.3 H Chloride 92 L Carbon Dioxide 22 Anion Gap 15 BUN 57 H Creatinine 2.4 H Est GFR ( Amer) 23 Est GFR (Non-Af Amer) 19 POC Glucose (mg/dL) 141 H 118 H Random Glucose 130 H Calcium 8.3 L Phosphorus 3.4 Magnesium 1.3 L Total Bilirubin 0.2 AST 31 ALT 29 Alkaline Phosphatase 56 Total Protein 6.3 Albumin 3.3 L Globulin 3.0 Albumin/Globulin Ratio 1.1 Cortisol AM Sample 05/28/18 05/28/18 05/28/18 02:15 05:49 08:03 Sodium Potassium Chloride Carbon Dioxide Anion Gap BUN Creatinine Est GFR ( Amer) Est GFR (Non-Af Amer) POC Glucose (mg/dL) 275 H 323 H 335 H Random Glucose Calcium Phosphorus Magnesium Total Bilirubin AST ALT Alkaline Phosphatase Total Protein Albumin Globulin Albumin/Globulin Ratio Cortisol AM Sample
[2018-05-28] MEDS: Metoprolol Succinate 50 mg XL Tab PO SCH (10:28)
[2018-05-28] MEDS: Brimonidine 0.2% Opth Sol (5ml) OU SCH ×2 (10:28→18:09)
[2018-05-28 12:35] LABS: ALB/GLOB RATIO 1.1 (1.0-2.1); ALBUMIN 3.5 g/dL (3.5-5.0); CALCIUM 8.5 mg/dl (8.6-10.4)
[2018-05-28] MEDS: Rosuvastatin Calcium 2.5 mg Tab PO SCH (21:15)
--- NOTE | 2018-05-28 22:10 | CP.PCM.PN ---
Subjective - Subjective Subjective: dictated Objective - Vital Signs/Intake and Output Vital Signs (last 24 hours): Temp Pulse Resp BP Pulse Ox 98.5 F 86 20 137/72 97 05/28/18 16:00 05/28/18 16:00 05/28/18 16:00 05/28/18 16:00 05/28/18 16:00 Intake and Output: 05/28/18 05/29/18 18:59 06:59 Intake Total 720 Output Total 1400 Balance -680 - Medications Medications: Current Medications Brimonidine Tartrate (Alphagan 0.2% Opht) 0.05 ml OU BID [facility] Last Admin: 05/28/18 18:09 Dose: 1 drop Clopidogrel Bisulfate (Plavix) 75 mg PO DAILY [facility] Last Admin: 05/28/18 10:28 Dose: 75 mg Dextrose (Dextrose 50% Inj) 0 ml IV STAT PRN; Protocol PRN Reason: Hypoglycemia Protocol Dextrose (Glutose 15) 0 gm PO ONCE PRN; Protocol PRN Reason: Hypoglycemia Protocol Docusate Sodium (Colace) 100 mg PO BID [facility] Last Admin: 05/28/18 18:09 Dose: 100 mg Glucagon (Glucagen Diagnostic Kit) 0 mg IM STAT PRN; Protocol PRN Reason: Hypoglycemia Protocol Heparin Sodium (Porcine) (Heparin) 5,000 units SC Q8 [facility] Last Admin: 05/28/18 21:15 Dose: 5,000 units Hydralazine HCl (Apresoline) 25 mg PO Q8 [facility] Last Admin: 05/28/18 21:15 Dose: 25 mg Insulin Human Regular (Novolin R) 0 unit SC [facility]; Protocol Last Admin: 05/28/18 17:11 Dose: Not Given Levothyroxine Sodium (Synthroid) 50 mcg PO DAILY@0630 [facility] Last Admin: 05/28/18 05:45 Dose: 50 mcg Metoprolol Succinate (Toprol Xl) 50 mg PO DAILY [facility] Last Admin: 05/28/18 10:28 Dose: 50 mg Oxycodone/Acetaminophen (Percocet 5/325 Mg Tab) 1 tab PO Q4H PRN PRN Reason: Pain, moderate (4-7) Stop: 05/29/18 10:51 Last Admin: 05/27/18 17:32 Dose: 1 tab Pantoprazole Sodium (Protonix Ec Tab) 40 mg PO DAILY [facility] Rosuvastatin Calcium (Crestor) 2.5 mg PO HS [facility] Last Admin: 05/28/18 21:15 Dose: 2.5 mg Torsemide (Demadex) 10 mg PO DAILY [facility] Last Admin: 05/27/18 10:15 Dose: 10 mg Zolpidem Tartrate (Ambien) 5 mg PO HS PRN PRN Reason: Insomnia Last Admin: 05/27/18 21:32 Dose: 5 mg - Labs Labs: 05/27/18 04:05 05/28/18 11:59
[2018-05-29] MEDS: Levothyroxine 50 MCG TAB PO SCH (06:04)
[2018-05-29] MEDS: (Novolin R) Insulin Human Regular 100 units/ml vial SC SCH ×4 (07:58→22:08)
[2018-05-29] MEDS: Pantoprazole 40 mg EC Tab PO SCH (09:38)
[2018-05-29] MEDS: Metoprolol Succinate 50 mg XL Tab PO SCH (09:38)
[2018-05-29] MEDS: Brimonidine 0.2% Opth Sol (5ml) OU SCH ×2 (09:39→17:02)
--- NOTE | 2018-05-29 10:51 | CP.PCM.PN ---
Subjective - Date & Time of Evaluation Date of Evaluation: 05/29/18 Time of Evaluation: 10:49 - Subjective Subjective: RENAL FOLLOW UP s: seen and examined , pt states she feels better pe: vs as below gen: nad sclera: anicteric op: clear neck: supple no thyromegaly cv: +S1+s2 no rub lungs: cta b/l abd: soft nt/ + obese no organomegaly ext: 1+ edema neuro: A+Ox3 psych: nml affect skin no rash imp: hyponatremia/ hyperkalemia/ hypoglycemia/ diabetic kidney disease /hypomag/ ckd III/hypertensvie kidney disease plan: Na dropped in setting of getting d5w - perhaps from iatrogenic hypotonic fluid. Discussed w/ rn to recheck na now recheck K w/ bmp - discussed w/ nursing sugars per primary team check mag ckd III likely diabetic bp stable Objective - Vital Signs/Intake and Output Vital Signs (last 24 hours): Temp Pulse Resp BP Pulse Ox 99.1 F 90 20 155/0 H 95 05/29/18 08:00 05/29/18 08:00 05/29/18 08:00 05/29/18 08:00 05/29/18 08:00 Intake and Output: 05/29/18 05/29/18 06:59 18:59 Intake Total 200 120 Output Total 200 Balance 200 -80 - Medications Medications: Current Medications Brimonidine Tartrate (Alphagan 0.2% Opht) 0.05 ml OU BID [facility] Last Admin: 05/29/18 09:39 Dose: 1 drop Clopidogrel Bisulfate (Plavix) 75 mg PO DAILY [facility] Last Admin: 05/29/18 09:38 Dose: 75 mg Dextrose (Dextrose 50% Inj) 0 ml IV STAT PRN; Protocol PRN Reason: Hypoglycemia Protocol Dextrose (Glutose 15) 0 gm PO ONCE PRN; Protocol PRN Reason: Hypoglycemia Protocol Docusate Sodium (Colace) 100 mg PO BID [facility] Last Admin: 05/29/18 09:38 Dose: 100 mg Glucagon (Glucagen Diagnostic Kit) 0 mg IM STAT PRN; Protocol PRN Reason: Hypoglycemia Protocol Heparin Sodium (Porcine) (Heparin) 5,000 units SC Q8 [facility] Last Admin: 05/29/18 06:04 Dose: 5,000 units Hydralazine HCl (Apresoline) 25 mg PO Q8 [facility] Last Admin: 05/29/18 06:04 Dose: 25 mg Insulin Human Regular (Novolin R) 0 unit SC ACHS [facility]; Protocol Last Admin: 05/29/18 07:58 Dose: Not Given Levothyroxine Sodium (Synthroid) 50 mcg PO DAILY@0630 [facility] Last Admin: 05/29/18 06:04 Dose: 50 mcg Metoprolol Succinate (Toprol Xl) 50 mg PO DAILY [facility] Last Admin: 05/29/18 09:38 Dose: 50 mg Oxycodone/Acetaminophen (Percocet 5/325 Mg Tab) 1 tab PO Q4H PRN PRN Reason: Pain, moderate (4-7) Stop: 05/29/18 10:51 Last Admin: 05/27/18 17:32 Dose: 1 tab Pantoprazole Sodium (Protonix Ec Tab) 40 mg PO DAILY [facility] Last Admin: 05/29/18 09:38 Dose: 40 mg Rosuvastatin Calcium (Crestor) 2.5 mg PO HS [facility] Last Admin: 05/28/18 21:15 Dose: 2.5 mg Torsemide (Demadex) 10 mg PO DAILY [facility] Last Admin: 05/27/18 10:15 Dose: 10 mg Zolpidem Tartrate (Ambien) 5 mg PO HS PRN PRN Reason: Insomnia Last Admin: 05/27/18 21:32 Dose: 5 mg - Labs Labs: 05/27/18 04:05 05/28/18 11:59
[2018-05-29 14:00] LABS: CALCIUM 8.1 mg/dl (8.6-10.4)
--- NOTE | 2018-05-29 19:16 | CP.PCM.PN ---
Subjective - Subjective Subjective: dictated Objective - Vital Signs/Intake and Output Vital Signs (last 24 hours): Temp Pulse Resp BP Pulse Ox 98.2 F 68 20 151/73 H 97 05/29/18 16:00 05/29/18 16:00 05/29/18 16:00 05/29/18 16:00 05/29/18 16:00 Intake and Output: 05/29/18 05/30/18 18:59 06:59 Intake Total 720 Output Total 1200 Balance -480 - Medications Medications: Current Medications Brimonidine Tartrate (Alphagan 0.2% Opht) 0.05 ml OU BID [facility] Last Admin: 05/29/18 17:02 Dose: 1 drop Clopidogrel Bisulfate (Plavix) 75 mg PO DAILY [facility] Last Admin: 05/29/18 09:38 Dose: 75 mg Dextrose (Dextrose 50% Inj) 0 ml IV STAT PRN; Protocol PRN Reason: Hypoglycemia Protocol Dextrose (Glutose 15) 0 gm PO ONCE PRN; Protocol PRN Reason: Hypoglycemia Protocol Docusate Sodium (Colace) 100 mg PO BID [facility] Last Admin: 05/29/18 17:02 Dose: 100 mg Glucagon (Glucagen Diagnostic Kit) 0 mg IM STAT PRN; Protocol PRN Reason: Hypoglycemia Protocol Hydralazine HCl (Apresoline) 25 mg PO Q8 [facility] Last Admin: 05/29/18 14:02 Dose: 25 mg Insulin Human Regular (Novolin R) [address] [facility]; Protocol Last Admin: 05/29/18 17:02 Dose: 3 u Levothyroxine Sodium (Synthroid) 50 mcg PO DAILY@0630 [facility] Last Admin: 05/29/18 06:04 Dose: 50 mcg Metoprolol Succinate (Toprol Xl) 50 mg PO DAILY [facility] Last Admin: 05/29/18 09:38 Dose: 50 mg Pantoprazole Sodium (Protonix Ec Tab) 40 mg PO DAILY [facility] Last Admin: 05/29/18 09:38 Dose: 40 mg Rosuvastatin Calcium (Crestor) 2.5 mg PO HS [facility] Last Admin: 05/28/18 21:15 Dose: 2.5 mg Torsemide (Demadex) 10 mg PO DAILY [facility] Last Admin: 05/27/18 10:15 Dose: 10 mg Zolpidem Tartrate (Ambien) 5 mg PO HS PRN PRN Reason: Insomnia Last Admin: 05/27/18 21:32 Dose: 5 mg - Labs Labs: 05/27/18 04:05 05/29/18 13:41
[2018-05-29 21:57] LABS: HDL CHOLESTEROL 61 mg/dL (30-70)
[2018-05-29 22:08] LABS: LDL CHOLESTEROL 43 mg/dL (0-129)
[2018-05-29] MEDS: Rosuvastatin Calcium 2.5 mg Tab PO SCH (22:10)
[2018-05-30] MEDS: Levothyroxine 50 MCG TAB PO SCH (05:30)
[2018-05-30] MEDS: (Novolin R) Insulin Human Regular 100 units/ml vial SC SCH ×4 (08:28→21:38)
--- NOTE | 2018-05-30 09:02 | PN ---
DATE: 05/28/2018 SUBJECTIVE: Blood sugar went up. Sodium is improving as well. The patient is on the floor. The patient denies any cough, congestion, or shortness of breath. She denies any chest pain, nausea, or vomiting. She has some right knee pain. She feels a lot better. She is not anxious. No chest pain. No dizziness. PHYSICAL EXAMINATION: VITAL SIGNS: Blood pressure 137/72, pulse 86, respiratory rate 20, and temperature 98.5. LUNGS: Clear. No rales. No rhonchi. CARDIOVASCULAR SYSTEM: S1 and S2, regular. ABDOMEN: Soft. Nontender. Bowel sound positive. ASSESSMENT: 1. Hypoglycemia, resolved. Right now hyperglycemia. Most likely, it is due to intravenous D5 water. 2. Hypertension. 3. Chronic kidney disease. 4. Hyponatremia. 5. Type 2 diabetes. PLAN: Continue current management. Discontinue IV fluids. Monitor sodium. Follow up renal consult. Tight sugar control. Júnior Bee MD
[2018-05-30] MEDS: Pantoprazole 40 mg EC Tab PO SCH (10:33)
[2018-05-30] MEDS: Metoprolol Succinate 50 mg XL Tab PO SCH (10:33)
[2018-05-30] MEDS: Brimonidine 0.2% Opth Sol (5ml) OU SCH ×2 (10:33→17:14)
[2018-05-30] MEDS ORDERED: EPOETIN ALFA 4,000 UNIT/ML ML Dialysis SC SCH (11:30)
--- NOTE | 2018-05-30 13:04 | CP.PCM.PN ---
Subjective - Date & Time of Evaluation Date of Evaluation: 05/30/18 Time of Evaluation: 13:00 - Subjective Subjective: Nephrology Consultation Note Assessment: Stable Acute Kidney Injury (N17.9) stable Hyponatremia likely due to polydipsia and hypotonic fluid Diabetic chronic Kidney Disease (E11.22) Hypertensive Chronic Kidney Disease (I12.9) Chronic Kidney Disease (N18.4) Stage 4 with 280 mg proteinuria (R80.9) likely due to age/HTN vascular disease Anemia (D64.9), HTN (I12.9) acidosis Plan No acute need for renal replacement therapy at this time. Hypertension control with meds as ordered. Maintain hemodynamics stable. Avoid hypotension. Patient not on ACEI/ARB due to recent [place] Monitor Input/Output, daily weights and renal function with basic metabolic panel started iron, MVI, epogen and sodium bicarb continue with oral fluid restriction. no need for hypertonic saline. consider samsca if Na stays low. avoid correction in serum Na >6-8 meq/24 hrs check serum protein electrophoresis with immunofixation, serum free light chain assay ([place] Line/Lambda) Dose meds/antibiotics for reduced GFR. Avoid fleets enema/magnesium based laxatives. Avoid nephrotoxins/NSAIDs/ iodinated contrast (unless needed emergently) Glycemic control Further work up for as per primary team Thanks for allowing me to participate in care of your patient. Will follow patient with you. Please call if any Qs. had d/w team. Dr Tu Clements Office: [phone] Subjective: Noted events overnight. Patients feels okay. Denies chest pain, palpitation, shortness of breath, leg swelling. All other negative c/o constipation Physical Examination: General Appearance: Comfortable, in no acute respiratory distress, co-operative . Vitals reviewed and noted as below Head; Atraumatic, normocephalic ENT: no ulcers no thrush. Tongue is midline. Oropharynx: no rash or ulcers. EYES: Pupils are equal, round and reactive to light accommodation. Eye muscles and extraocular movement intact. Sclera is anicteric. Neck; supple no lymphadenopathy, no thyromegaly or bruit Lungs: Normal respiratory rate/effort. Breath sounds bilateral equal and clear Heart: Normal rate. s1s2 normal. No rub or gallop. Extremities: no edema. No varicose veins Neurological: Patient is alert, awake and oriented to person, place and time. No focal deficit. Strength bilateral appropriate and equal Skin: Warm and dry. Normal turgor. No rash. Palpitation: Normal elasticity for age Abdomen: Abdomen is soft. Bowel sounds +. There is no abdominal tenderness, no guarding/rigidity no organomegaly Psych: normal insight and normal affect/mood MSK: no joint tenderness or swelling. Digits and nails normal, no deformity : kidney or bladder not palpable Labs/imaging reviewed. Past medical history, past surgical history, family history, social history, allergy reviewed and noted as below Family hx: no hx of CKD. Rest non-contributory work up: Urine Osmol 265 Na 25 urine pr/cr : 280 mg/g and alb/cr 27 TSAT 16% Ferriitn 103 Vit D 48 PTH 41 renal sono: b/l echogenic kidneys Objective - Vital Signs/Intake and Output Vital Signs (last 24 hours): Temp Pulse Resp BP Pulse Ox 98.4 F 76 18 130/67 97 05/30/18 07:12 05/30/18 07:12 05/30/18 07:12 05/30/18 07:12 05/30/18 07:12 Intake and Output: 05/30/18 05/30/18 06:59 18:59 Intake Total 520 Output Total 700 Balance -180 - Medications Medications: Current Medications Brimonidine Tartrate (Alphagan 0.2% Opht) 0.05 ml OU BID [facility] Last Admin: 05/30/18 10:33 Dose: 1 drop Clopidogrel Bisulfate (Plavix) 75 mg PO DAILY [facility] Last Admin: 05/30/18 10:33 Dose: 75 mg Dextrose (Dextrose 50% Inj) 0 ml IV STAT PRN; Protocol PRN Reason: Hypoglycemia Protocol Dextrose (Glutose 15) 0 gm PO ONCE PRN; Protocol PRN Reason: Hypoglycemia Protocol Docusate Sodium (Colace) 100 mg PO BID [facility] Last Admin: 05/30/18 10:34 Dose: 100 mg Epoetin Moncio (Procrit) 4,000 unit SC MWF [facility] Ferrous Gluconate (Fergon) 324 mg PO TID [facility] Glucagon (Glucagen Diagnostic Kit) 0 mg IM STAT PRN; Protocol PRN Reason: Hypoglycemia Protocol Hydralazine HCl (Apresoline) 25 mg PO Q8 [facility] Last Admin: 05/30/18 05:28 Dose: 25 mg Insulin Human Regular (Novolin R) 0 unit SC [facility]; Protocol Last Admin: 05/30/18 08:28 Dose: 2 u Levothyroxine Sodium (Synthroid) 50 mcg PO DAILY@0630 [facility] Last Admin: 05/30/18 05:30 Dose: 50 mcg Metoprolol Succinate (Toprol Xl) 50 mg PO DAILY [facility] Last Admin: 05/30/18 10:33 Dose: 50 mg Pantoprazole Sodium (Protonix Ec Tab) 40 mg PO DAILY [facility] Last Admin: 05/30/18 10:33 Dose: 40 mg Rosuvastatin Calcium (Crestor) 2.5 mg PO HS [facility] Last Admin: 05/29/18 22:10 Dose: 2.5 mg Sodium Bicarbonate (Sodium Bicarbonate Tab) 650 mg PO BID [facility] Torsemide (Demadex) 10 mg PO DAILY [facility] Last Admin: 05/30/18 10:33 Dose: 10 mg Vitamin B Complex/Vit C/Folic Acid (Nephro-Pili) 1 tab PO 0800 [facility] Zolpidem Tartrate (Ambien) 5 mg PO HS PRN PRN Reason: Insomnia Last Admin: 05/29/18 22:10 Dose: 5 mg - Labs Labs: 05/27/18 04:05 05/29/18 13:41
[2018-05-30] MEDS ORDERED: Bisacodyl 5mg EC Tab PO ONE (14:48)
[2018-05-30] MEDS ORDERED: Albuterol 0.083% Inhal Sol (2.5 mg/3 mL) UD INH PRN (14:52)
[2018-05-30 14:54] LABS: BASO # 0.1 K/uL (0.0-0.2); BASO % 0.9 % (0.0-2.0); EOS # 0.2 K/uL (0.0-0.7); EOS % 1.8 % (0.0-4.0); HEMOGLOBIN 8.6 g/dL (11.0-16.0); LYMPH # 1.3 K/uL (1.0-4.3); LYMPH % 13.3 % (20.0-40.0); MEAN CELL VOLUME 93.8 fL (81.0-99.0); MEAN CORPUSCULAR HEMOGLOBIN 31.6 pg (27.0-31.0); MEAN CORPUSCULAR HGB CONC 33.6 g/dL (33.0-37.0); MEAN PLATELET VOLUME 8.1 fL (7.2-11.7); MONO % 9.6 % (0.0-10.0); NEUT # 7.4 K/uL (1.8-7.0); NEUT % 74.4 % (50.0-75.0); NRBC % 0.2 % (0.0-2.0); RBC 2.74 Mil/uL (3.80-5.20)
[2018-05-30] MEDS ORDERED: Sod Polystyrene Sulf 15 gm/60 ml Susp PO ONE (14:57)
[2018-05-30] MEDS ORDERED: EPOETIN ALFA 4,000 UNIT/ML ML Dialysis SC ONE ×2 (15:15→16:30)
[2018-05-30] MEDS: Rosuvastatin Calcium 2.5 mg Tab PO SCH (21:24)
--- NOTE | 2018-05-30 22:02 | CP.PCM.PN ---
Subjective - Subjective Subjective: dictated Objective - Vital Signs/Intake and Output Vital Signs (last 24 hours): Temp Pulse Resp BP Pulse Ox 98.4 F 76 18 130/67 97 05/30/18 07:12 05/30/18 07:12 05/30/18 07:12 05/30/18 07:12 05/30/18 07:12 - Medications Medications: Current Medications Albuterol Sulfate (Albuterol 0.083% Inhal [place] (2.5 Mg/3 Ml) Ud) 2.5 mg INH RQ6 PRN PRN Reason: Wheezing Brimonidine Tartrate (Alphagan 0.2% Opht) 0.05 ml OU BID [facility] Last Admin: 05/30/18 17:14 Dose: 1 drop Clopidogrel Bisulfate (Plavix) 75 mg PO DAILY [facility] Last Admin: 05/30/18 10:33 Dose: 75 mg Dextrose (Dextrose 50% Inj) 0 ml IV STAT PRN; Protocol PRN Reason: Hypoglycemia Protocol Dextrose (Glutose 15) 0 gm PO ONCE PRN; Protocol PRN Reason: Hypoglycemia Protocol Docusate Sodium (Colace) 100 mg PO BID [facility] Last Admin: 05/30/18 17:14 Dose: 100 mg Epoetin Monico (Procrit) 10,000 unit SC [facility] Ferrous Gluconate (Fergon) 324 mg PO TID [facility] Last Admin: 05/30/18 17:14 Dose: 324 mg Glucagon (Glucagen Diagnostic Kit) 0 mg IM STAT PRN; Protocol PRN Reason: Hypoglycemia Protocol Hydralazine HCl (Apresoline) 25 mg PO Q8 [facility] Last Admin: 05/30/18 21:24 Dose: 25 mg Insulin Human Regular (Novolin R) 0 unit SC [facility]; Protocol Last Admin: 05/30/18 21:38 Dose: Not Given Levothyroxine Sodium (Synthroid) 50 mcg PO DAILY@0630 [facility] Last Admin: 05/30/18 05:30 Dose: 50 mcg Metoprolol Succinate (Toprol Xl) 50 mg PO DAILY [facility] Last Admin: 05/30/18 10:33 Dose: 50 mg Pantoprazole Sodium (Protonix Ec Tab) 40 mg PO DAILY [facility] Last Admin: 05/30/18 10:33 Dose: 40 mg Rosuvastatin Calcium (Crestor) 2.5 mg PO HS [facility] Last Admin: 05/30/18 21:24 Dose: 2.5 mg Sodium Bicarbonate (Sodium Bicarbonate Tab) 650 mg PO BID [facility] Last Admin: 05/30/18 17:14 Dose: 650 mg Torsemide (Demadex) 10 mg PO DAILY [facility] Last Admin: 05/30/18 10:33 Dose: 10 mg Vitamin B Complex/Vit C/Folic Acid (Nephro-Pili) 1 tab PO 0800 [facility] Zolpidem Tartrate (Ambien) 5 mg PO HS PRN PRN Reason: Insomnia Last Admin: 05/30/18 21:35 Dose: 5 mg - Labs Labs: 05/30/18 13:45 05/30/18 13:45
[2018-05-31 01:21] VITALS: RESP 20
--- NOTE | 2018-05-31 06:52 | PN ---
DATE: 05/27/2018 SUBJECTIVE: Gita Encinas is afebrile. The patient's hemoglobin A1c is 6. We discontinued all her sugar medications. Her sodium is low. Her sugars have gone up. She is afebrile. No shortness of breath. Right knee pain. No nausea or vomiting. Some wheezing occasionally. PHYSICAL EXAMINATION: VITAL SIGNS: Blood pressure 126/53, pulse 70, respiratory rate 14, temperature 99. LUNGS: Bilateral wheezes, scattered rales and rhonchi. CVS: S1, S2 regular. ABDOMEN: Soft. ASSESSMENT: 1. Exacerbation of bronchial asthma. 2. Diabetes with hypoglycemia. 3. Chronic kidney disease with hyponatremia. 4. Hypertension. PLAN: Nephrology consult. Continue D5 and monitor the patient. Júnior Bee MD
--- NOTE | 2018-05-31 06:53 | PN ---
DATE: 05/29/2018 SUBJECTIVE: The patient has decreased nausea and vomiting. She denied any abdominal pain. No cough. No fever. No chills. Her sodium is still down, but her sugars are gone down. PHYSICAL EXAMINATION: VITAL SIGNS: Blood pressure 151/73, pulse 68, respiratory rate 20, temperature 98.2. LUNGS: Clear. CARDIOVASCULAR SYSTEM: S1 and S2, regular. ABDOMEN: Soft and nontender. Bowel sounds are positive. ASSESSMENT: 1. Hyponatremia, dilutional. 2. Poorly-controlled diabetes. The patient does not need any anti-diabetic medication except diet. 3. Chronic kidney disease. 4. Fall with right knee injury. PLAN: Continue current medication. Monitor the patient. Subacute rehab. Júnior Bee MD
--- NOTE | 2018-05-31 06:53 | PN ---
DATE: 05/30/2018 SUBJECTIVE: Ms. Gita Encinas is feeling better. She is more alert. She is afebrile. She denies any headaches, chest pain. Her blood sugar is more stable. No fever, no cough, no wheezing. PHYSICAL EXAMINATION: VITAL SIGNS: Blood pressure 130/67, pulse 76, respiratory rate 15, temperature 98.4. CARDIOPULMONARY: S1, S2, regular. LUNGS: Clear. No rales, no rhonchi. ABDOMEN: Soft, nontender. Bowel sounds are positive. ASSESSMENT: 1. Hyperkalemia. 2. Chronic kidney disease. 3. Hyponatremia, improving. 4. Hypoglycemia, resolved. The patient is off any oral anti-diabetic medications. 5. Hypertension. PLAN: Physical therapy, rehab, monitor patient. Júnior Bee MD
[2018-05-31] MEDS: Levothyroxine 50 MCG TAB PO SCH (07:27)
[2018-05-31 07:28] LABS: BASO # 0.1 K/uL (0.0-0.2); BASO % 0.9 % (0.0-2.0); EOS # 0.2 K/uL (0.0-0.7); EOS % 2.3 % (0.0-4.0); HEMOGLOBIN 8.8 g/dL (11.0-16.0); LYMPH # 1.6 K/uL (1.0-4.3); LYMPH % 18.8 % (20.0-40.0); MEAN CELL VOLUME 93.1 fL (81.0-99.0); MEAN CORPUSCULAR HEMOGLOBIN 31.7 pg (27.0-31.0); MEAN CORPUSCULAR HGB CONC 34.1 g/dL (33.0-37.0); MEAN PLATELET VOLUME 7.6 fL (7.2-11.7); MONO # 0.9 K/uL (0.0-0.8); MONO % 10.8 % (0.0-10.0); NEUT # 5.7 K/uL (1.8-7.0); NEUT % 67.2 % (50.0-75.0); NRBC % 0.1 % (0.0-2.0); RBC 2.76 Mil/uL (3.80-5.20); RED CELL DISTRIBUTION WIDTH 17.4 % (11.5-14.5); WHITE BLOOD COUNT 8.5 K/uL (4.8-10.8)
[2018-05-31 07:38] LABS: CALCIUM 9.4 mg/dl (8.6-10.4)
[2018-05-31 07:46] LABS: CALCIUM 9.4 mg/dl (8.6-10.4)
[2018-05-31] MEDS: (Novolin R) Insulin Human Regular 100 units/ml vial SC SCH ×4 (08:15→21:52)
[2018-05-31] MEDS: Multivitamin Vitamin B Complex (Nephro-Vite) Tab PO SCH (09:00)
[2018-05-31] MEDS: Pantoprazole 40 mg EC Tab PO SCH (09:21)
[2018-05-31] MEDS: Brimonidine 0.2% Opth Sol (5ml) OU SCH ×2 (09:22→17:46)
[2018-05-31] MEDS: Metoprolol Succinate 50 mg XL Tab PO SCH (09:22)
[2018-05-31 10:53] LABS: FREE KAPPA SERUM 76.2 mg/L (3.3-19.4)
--- NOTE | 2018-05-31 16:03 | CP.PCM.PN ---
Subjective - Date & Time of Evaluation Date of Evaluation: 05/31/18 Time of Evaluation: 16:02 - Subjective Subjective: Nephrology Consultation Note Assessment: Stable Acute Kidney Injury (N17.9) stable Hyponatremia likely due to polydipsia and hypotonic fluid Diabetic chronic Kidney Disease (E11.22) Hypertensive Chronic Kidney Disease (I12.9) Chronic Kidney Disease (N18.4) Stage 4 with 280 mg proteinuria (R80.9) likely due to age/HTN vascular disease Anemia (D64.9), HTN (I12.9) acidosis Plan No acute need for renal replacement therapy at this time. Hypertension control with meds as ordered. Maintain hemodynamics stable. Avoid hypotension. Patient not on ACEI/ARB due to recent [place] Monitor Input/Output, daily weights and renal function with basic metabolic panel started iron, MVI, epogen and d/c sodium bicarb continue with oral fluid restriction. no need for hypertonic saline. consider samsca if Na stays low. avoid correction in serum Na >6-8 meq/24 hrs check serum protein electrophoresis with immunofixation, serum free light chain assay ([place]/Lambda). consider heme eval Dose meds/antibiotics for reduced GFR. Avoid fleets enema/magnesium based laxatives. Avoid nephrotoxins/NSAIDs/ iodinated contrast (unless needed emergently) Glycemic control Further work up for as per primary team Thanks for allowing me to participate in care of your patient. Will follow patient with you. Please call if any Qs. had d/w team and daughter bedside Dr Tu Clements Office: [phone] Subjective: Noted events overnight. Patients feels okay. Denies chest pain, palpitation, shortness of breath, leg swelling. All other negative c/o constipation Physical Examination: General Appearance: Comfortable, in no acute respiratory distress, co-operative . Vitals reviewed and noted as below Head; Atraumatic, normocephalic ENT: no ulcers no thrush. Tongue is midline. Oropharynx: no rash or ulcers. EYES: Pupils are equal, round and reactive to light accommodation. Eye muscles and extraocular movement intact. Sclera is anicteric. Neck; supple no lymphadenopathy, no thyromegaly or bruit Lungs: Normal respiratory rate/effort. Breath sounds bilateral equal and clear Heart: Normal rate. s1s2 normal. No rub or gallop. Extremities: no edema. No varicose veins Neurological: Patient is alert, awake and oriented to person, place and time. No focal deficit. Strength bilateral appropriate and equal Skin: Warm and dry. Normal turgor. No rash. Palpitation: Normal elasticity for age Abdomen: Abdomen is soft. Bowel sounds +. There is no abdominal tenderness, no guarding/rigidity no organomegaly Psych: normal insight and normal affect/mood MSK: no joint tenderness or swelling. Digits and nails normal, no deformity : kidney or bladder not palpable Labs/imaging reviewed. Past medical history, past surgical history, family history, social history, al lergy reviewed and noted as below Family hx: no hx of CKD. Rest non-contributory work up: Urine Osmol 265 Na 25 urine pr/cr : 280 mg/g and alb/cr 27 TSAT 16% Ferriitn 103 Vit D 48 PTH 41 renal sono: b/l echogenic kidneys Objective - Vital Signs/Intake and Output Vital Signs (last 24 hours): Temp Pulse Resp BP Pulse Ox 99.1 F 91 H 20 145/81 95 05/31/18 08:00 05/31/18 08:00 05/31/18 08:00 05/31/18 08:00 05/31/18 08:00 Intake and Output: 05/31/18 05/31/18 06:59 18:59 Intake Total 460 Output Total 900 900 Balance -440 -900 - Medications Medications: Current Medications Albuterol Sulfate (Albuterol 0.083% Inhal Marianna (2.5 Mg/3 Ml) Ud) 2.5 mg INH RQ6 PRN PRN Reason: Wheezing Last Admin: 05/31/18 12:49 Dose: 2.5 mg Brimonidine Tartrate (Alphagan 0.2% Opht) 0.05 ml OU BID [facility] Last Admin: 05/31/18 09:22 Dose: 1 drop Clopidogrel Bisulfate (Plavix) 75 mg PO DAILY [facility] Last Admin: 05/31/18 09:22 Dose: 75 mg Dextrose (Dextrose 50% Inj) 0 ml IV STAT PRN; Protocol PRN Reason: Hypoglycemia Protocol Dextrose (Glutose 15) 0 gm PO ONCE PRN; Protocol PRN Reason: Hypoglycemia Protocol Docusate Sodium (Colace) 100 mg PO BID [facility] Last Admin: 05/31/18 09:21 Dose: 100 mg Epoetin Monico (Procrit) 10,000 unit SC MWF [facility] Ferrous Gluconate (Fergon) 324 mg PO TID [facility] Last Admin: 05/31/18 14:49 Dose: 324 mg Glucagon (Glucagen Diagnostic Kit) 0 mg IM STAT PRN; Protocol PRN Reason: Hypoglycemia Protocol Hydralazine HCl (Apresoline) 25 mg PO Q8 [facility] Last Admin: 05/31/18 14:49 Dose: 25 mg Insulin Human Regular (Novolin R) 0 unit SC ACHS [facility]; Protocol Last Admin: 05/31/18 12:27 Dose: 4 u Levothyroxine Sodium (Synthroid) 50 mcg PO DAILY@0630 [facility] Last Admin: 05/31/18 07:27 Dose: 50 mcg Metoprolol Succinate (Toprol Xl) 50 mg PO DAILY [facility] Last Admin: 05/31/18 09:22 Dose: 50 mg Pantoprazole Sodium (Protonix Ec Tab) 40 mg PO DAILY [facility] Last Admin: 05/31/18 09:21 Dose: 40 mg Rosuvastatin Calcium (Crestor) 2.5 mg PO HS [facility] Last Admin: 05/30/18 21:24 Dose: 2.5 mg Torsemide (Demadex) 10 mg PO DAILY [facility] Last Admin: 05/31/18 09:21 Dose: 10 mg Vitamin B Complex/Vit C/Folic Acid (Nephro-Pili) 1 tab PO 0800 [facility] Last Admin: 05/31/18 09:00 Dose: 1 tab Zolpidem Tartrate (Ambien) 5 mg PO HS PRN PRN Reason: Insomnia Last Admin: 05/30/18 21:35 Dose: 5 mg - Labs Labs: 05/31/18 07:12 05/31/18 07:12
[2018-05-31] MEDS: Rosuvastatin Calcium 2.5 mg Tab PO SCH (21:39)
--- NOTE | 2018-05-31 21:50 | CP.PCM.PN ---
Subjective - Subjective Subjective: dictated Objective - Vital Signs/Intake and Output Vital Signs (last 24 hours): Temp Pulse Resp BP Pulse Ox 99.2 F 85 20 125/69 96 05/31/18 16:00 05/31/18 16:00 05/31/18 16:00 05/31/18 16:00 05/31/18 16:00 Intake and Output: 05/31/18 06/01/18 18:59 06:59 Intake Total 200 Output Total 1200 Balance -1000 - Medications Medications: Current Medications Albuterol Sulfate (Albuterol 0.083% Inhal Marianna (2.5 Mg/3 Ml) Ud) 2.5 mg INH RQ6 PRN PRN Reason: Wheezing Last Admin: 05/31/18 12:49 Dose: 2.5 mg Brimonidine Tartrate (Alphagan 0.2% Opht) 0.05 ml OU BID [facility] Last Admin: 05/31/18 17:46 Dose: 1 drop Clopidogrel Bisulfate (Plavix) 75 mg PO DAILY [facility] Last Admin: 05/31/18 09:22 Dose: 75 mg Dextrose (Dextrose 50% Inj) 0 ml IV STAT PRN; Protocol PRN Reason: Hypoglycemia Protocol Dextrose (Glutose 15) 0 gm PO ONCE PRN; Protocol PRN Reason: Hypoglycemia Protocol Docusate Sodium (Colace) 100 mg PO BID [facility] Last Admin: 05/31/18 18:00 Dose: 100 mg Epoetin Monico (Procrit) 10,000 unit SC MWF [facility] Ferrous Gluconate (Fergon) 324 mg PO TID [facility] Last Admin: 05/31/18 17:45 Dose: 324 mg Glucagon (Glucagen Diagnostic Kit) 0 mg IM STAT PRN; Protocol PRN Reason: Hypoglycemia Protocol Hydralazine HCl (Apresoline) 25 mg PO Q8 [facility] Last Admin: 05/31/18 21:38 Dose: 25 mg Insulin Human Regular (Novolin R) 0 unit SC ACHS [facility]; Protocol Last Admin: 05/31/18 17:30 Dose: 3 u Levothyroxine Sodium (Synthroid) 50 mcg PO DAILY@0630 [facility] Last Admin: 05/31/18 07:27 Dose: 50 mcg Metoprolol Succinate (Toprol Xl) 50 mg PO DAILY [facility] Last Admin: 05/31/18 09:22 Dose: 50 mg Pantoprazole Sodium (Protonix Ec Tab) 40 mg PO DAILY [facility] Last Admin: 05/31/18 09:21 Dose: 40 mg Rosuvastatin Calcium (Crestor) 2.5 mg PO HS [facility] Last Admin: 05/31/18 21:39 Dose: 2.5 mg Torsemide (Demadex) 10 mg PO DAILY [facility] Last Admin: 05/31/18 09:21 Dose: 10 mg Vitamin B Complex/Vit C/Folic Acid (Nephro-Pili) 1 tab PO 0800 [facility] Last Admin: 05/31/18 09:00 Dose: 1 tab Zolpidem Tartrate (Ambien) 5 mg PO HS PRN PRN Reason: Insomnia Last Admin: 05/30/18 21:35 Dose: 5 mg - Labs Labs: 05/31/18 07:12 05/31/18 07:12
--- NOTE | 2018-05-31 23:39 | CARD ---
APPROVED REPORT Date of service: 05/26/2018 EKG Measurement Heart [id number] <Conclusion> Sinus rhythm with 1st degree AV block Otherwise normal ECG
[2018-06-01] MEDS: Levothyroxine 50 MCG TAB PO SCH (05:35)
--- NOTE | 2018-06-01 06:09 | PN ---
DATE: 05/31/2018 SUBJECTIVE: Gita Encinas is feeling better. She is more alert, less anxious. She is ambulated on physiotherapy. She needs subacute rehab. She denies any shortness of breath. PHYSICAL EXAMINATION: VITAL SIGNS: Blood pressure 125/69, pulse 85, respiratory rate 20, temperature 99.2. LUNGS: Clear. CARDIOVASCULAR SYSTEM: S1 and S2, regular. ABDOMEN: Soft. ASSESSMENT: 1. Chronic kidney disease, hyponatremia. 2. Type 2 diabetes. 3. Hypertension. 4. Generalized debility, difficulty walking. PLAN: Physiotherapy. Monitor the patient. Júnior Bee MD
[2018-06-01] MEDS ORDERED: cefTRIAXone IV 1 gm in Dextros 50 ML IVPB ONE (08:27)
--- NOTE | 2018-06-01 09:13 | RAD ---
Date of service: 06/01/2018 HISTORY: FEVER, R/O PNEUMONIA COMPARISON: 05/12/2018 TECHNIQUE: Chest PA and lateral FINDINGS: LUNGS: No active pulmonary disease. PLEURA: No significant pleural effusion identified. No pneumothorax apparent. CARDIOVASCULAR: Normal. OSSEOUS STRUCTURES: No significant abnormalities. VISUALIZED UPPER ABDOMEN: Normal. OTHER FINDINGS: None. IMPRESSION: No active disease.
[2018-06-01] MEDS ORDERED: cefTRIAXone IV 1 gm in Dextros 50 ML IVPB SCH (10:00)
[2018-06-01] MEDS: Metoprolol Succinate 50 mg XL Tab PO SCH (10:09)
[2018-06-01] MEDS: Pantoprazole 40 mg EC Tab PO SCH (10:09)
[2018-06-01] MEDS: Multivitamin Vitamin B Complex (Nephro-Vite) Tab PO SCH (10:09)
[2018-06-01] MEDS: (Novolin R) Insulin Human Regular 100 units/ml vial SC SCH ×4 (10:11→21:19)
[2018-06-01] MEDS: Brimonidine 0.2% Opth Sol (5ml) OU SCH ×2 (10:13→17:24)
[2018-06-01 11:50] LABS: BASO # 0.2 K/uL (0.0-0.2); BASO % 1.6 % (0.0-2.0); EOS # 0.1 K/uL (0.0-0.7); EOS % 0.7 % (0.0-4.0); HEMOGLOBIN 9.3 g/dL (11.0-16.0); LYMPH # 1.2 K/uL (1.0-4.3); LYMPH % 9.2 % (20.0-40.0); MEAN CELL VOLUME 94.2 fL (81.0-99.0); MEAN CORPUSCULAR HEMOGLOBIN 30.6 pg (27.0-31.0); MEAN CORPUSCULAR HGB CONC 32.5 g/dL (33.0-37.0); MEAN PLATELET VOLUME 7.5 fL (7.2-11.7); MONO # 1.2 K/uL (0.0-0.8); MONO % 9.3 % (0.0-10.0); NEUT % 79.2 % (50.0-75.0); NRBC % 0.1 % (0.0-2.0); PLATELET COUNT 427 K/uL (130-400); RBC 3.05 Mil/uL (3.80-5.20); RED CELL DISTRIBUTION WIDTH 17.2 % (11.5-14.5); WHITE BLOOD COUNT 12.5 K/uL (4.8-10.8)
[2018-06-01 12:13] LABS: CALCIUM 9.7 mg/dl (8.6-10.4)
[2018-06-01 12:43] LABS: ANISOCYTOSIS SLIGHT; EOSINOPHIL 1 % (0-4); LYMPHOCYTE 11 % (20-40); MONOCYTE 7 % (0-10); NEUTROPHIL 81 % (50-75); PLATELET ESTIMATE NORMAL (NORMAL); POIKILOCYTOSIS SLIGHT; TOTAL CELLS COUNTED 100
[2018-06-01 12:44] LABS: HYPOCHROMIC SLIGHT; OVALOCYTES SLIGHT; TARGET CELLS SLIGHT
[2018-06-01] MEDS: Albuterol 0.083% Inhal Sol (2.5 mg/3 mL) UD INH SCH ×2 (13:15→19:04)
[2018-06-01] MEDS: EPOETIN ALFA 10,000 UNIT/ML ML SC SCH (13:20)
[2018-06-01 14:58] LABS: SQUAMOUS EPITHIAL 2 /hpf (0-5); URINE BACTERIA OCC (<OCC); URINE BILIRUBIN NEGATIVE (NEGATIVE); URINE BLOOD NEGATIVE (NEGATIVE); URINE CLARITY Clear (Clear); URINE COLOR Yellow (YELLOW); URINE GLUCOSE (UA) NORMAL (Normal); URINE LEUKOCYTE ESTERASE 3+ Leu/uL (Negative); URINE PROTEIN NEGATIVE (NEGATIVE); URINE UROBILINOGEN NORMAL mg/dL (0.2-1.0)
--- NOTE | 2018-06-01 15:10 | CP.PCM.PN ---
Subjective - Date & Time of Evaluation Date of Evaluation: 06/01/18 Time of Evaluation: 15:09 - Subjective Subjective: Nephrology Consultation Note Assessment: Stable Acute Kidney Injury (N17.9) stable Hyponatremia likely due to polydipsia and hypotonic fluid Diabetic chronic Kidney Disease (E11.22) Hypertensive Chronic Kidney Disease (I12.9) Chronic Kidney Disease (N18.4) Stage 4 with 280 mg proteinuria (R80.9) likely due to age/HTN vascular disease Anemia (D64.9), HTN (I12.9) acidosis sepsis ? UTI Plan No acute need for renal replacement therapy at this time. Hypertension control with meds as ordered. Maintain hemodynamics stable. Avoid hypotension. Patient not on ACEI/ARB due to recent [place] Monitor Input/Output, daily weights and renal function with basic metabolic panel started iron, MVI, epogen and d/c sodium bicarb continue with oral fluid restriction. no need for hypertonic saline. consider samsca if Na stays low. avoid correction in serum Na >6-8 meq/24 hrs sepsis management as per primary team. possible UTI. pt on IV abx check serum protein electrophoresis with immunofixation, serum free light chain assay ([place]/Lambda). consider heme eval Dose meds/antibiotics for reduced GFR. Avoid fleets enema/magnesium based laxatives. Avoid nephrotoxins/NSAIDs/ iodinated contrast (unless needed emergently) Glycemic control Further work up for as per primary team Thanks for allowing me to participate in care of your patient. Will follow patient with you. Please call if any Qs. had d/w team and daughter bedside Dr Tu Clements Office: [phone] Subjective: Noted events overnight. Patients feels okay. Denies chest pain, palpitation, shortness of breath, leg swelling. All other negative had fever today Physical Examination: General Appearance: Comfortable, in no acute respiratory distress, co-operative . Vitals reviewed and noted as below Head; Atraumatic, normocephalic ENT: no ulcers no thrush. Tongue is midline. Oropharynx: no rash or ulcers. EYES: Pupils are equal, round and reactive to light accommodation. Eye muscles and extraocular movement intact. Sclera is anicteric. Neck; supple no lymphadenopathy, no thyromegaly or bruit Lungs: Normal respiratory rate/effort. Breath sounds bilateral equal and clear Heart: Normal rate. s1s2 normal. No rub or gallop. Extremities: no edema. No varicose veins Neurological: Patient is alert, awake and oriented to person, place and time. No focal deficit. Strength bilateral appropriate and equal Skin: Warm and dry. Normal turgor. No rash. Palpitation: Normal elasticity for age Abdomen: Abdomen is soft. Bowel sounds +. There is no abdominal tenderness, no guarding/rigidity no organomegaly Psych: normal insight and normal affect/mood MSK: no joint tenderness or swelling. Digits and nails normal, no deformity : kidney or bladder not palpable Labs/imaging reviewed. Past medical history, past surgical history, family history, social history, allergy reviewed and noted as below Family hx: no hx of CKD. Rest non-contributory work up: Urine Osmol 265 Na 25 urine pr/cr : 280 mg/g and alb/cr 27 TSAT 16% Ferriitn 103 Vit D 48 PTH 41 renal sono: b/l echogenic kidneys Objective - Vital Signs/Intake and Output Vital Signs (last 24 hours): Temp Pulse Resp BP Pulse Ox 101.6 F H 120 H 20 154/81 H 96 06/01/18 10:09 06/01/18 07:46 06/01/18 07:46 06/01/18 07:46 06/01/18 07:46 - Medications Medications: Current Medications Acetaminophen (Tylenol 325mg Tab) 650 mg PO Q6 PRN PRN Reason: Fever >100.4 F Albuterol Sulfate (Albuterol 0.083% Inhal Marianna (2.5 Mg/3 Ml) Ud) 2.5 mg INH RQ6 [facility] Last Admin: 06/01/18 13:15 Dose: 2.5 mg Brimonidine Tartrate (Alphagan 0.2% Opht) 0.05 ml OU BID [facility] Last Admin: 06/01/18 10:13 Dose: 1 drop Clopidogrel Bisulfate (Plavix) 75 mg PO DAILY [facility] Last Admin: 06/01/18 10:09 Dose: 75 mg Dextrose (Dextrose 50% Inj) 0 ml IV STAT PRN; Protocol PRN Reason: Hypoglycemia Protocol Dextrose (Glutose 15) 0 gm PO ONCE PRN; Protocol PRN Reason: Hypoglycemia Protocol Docusate Sodium (Colace) 100 mg PO BID [facility] Last Admin: 06/01/18 10:14 Dose: 100 mg Epoetin Monico (Procrit) 10,000 unit SC MWF [facility] Last Admin: 06/01/18 13:20 Dose: 10,000 unit Ferrous Gluconate (Fergon) 324 mg PO TID [facility] Last Admin: 06/01/18 13:46 Dose: 324 mg Glucagon (Glucagen Diagnostic Kit) 0 mg IM STAT PRN; Protocol PRN Reason: Hypoglycemia Protocol Hydralazine HCl (Apresoline) 25 mg PO Q8 [facility] Last Admin: 06/01/18 13:46 Dose: 25 mg Ceftriaxone Sodium 1 gm/ (Sodium Chloride) 100 mls @ 100 mls/hr IVPB DAILY [facility]; Protocol Insulin Human Regular (Novolin R) 0 unit SC ACHS [facility]; Protocol Last Admin: 06/01/18 12:36 Dose: 4 u Levothyroxine Sodium (Synthroid) 50 mcg PO DAILY@0630 [facility] Last Admin: 06/01/18 05:35 Dose: 50 mcg Metoprolol Succinate (Toprol Xl) 50 mg PO DAILY [facility] Last Admin: 06/01/18 10:09 Dose: 50 mg Pantoprazole Sodium (Protonix Ec Tab) 40 mg PO DAILY [facility] Last Admin: 06/01/18 10:09 Dose: 40 mg Rosuvastatin Calcium (Crestor) 2.5 mg PO HS [facility] Last Admin: 05/31/18 21:39 Dose: 2.5 mg Torsemide (Demadex) 10 mg PO DAILY [facility] Last Admin: 06/01/18 10:13 Dose: 10 mg Vitamin B Complex/Vit C/Folic Acid (Nephro-Pili) 1 tab PO 0800 [facility] Last Admin: 06/01/18 10:09 Dose: 1 tab Zolpidem Tartrate (Ambien) 5 mg PO HS PRN PRN Reason: Insomnia Last Admin: 05/30/18 21:35 Dose: 5 mg - Labs Labs: 06/01/18 11:42 06/01/18 11:42
[2018-06-01] MEDS: Rosuvastatin Calcium 2.5 mg Tab PO SCH (21:18)
--- NOTE | 2018-06-01 23:58 | CP.PCM.PN ---
Subjective - Subjective Subjective: dictated Objective - Vital Signs/Intake and Output Vital Signs (last 24 hours): Temp Pulse Resp BP Pulse Ox 99.4 F 91 H 20 132/75 96 06/01/18 17:00 06/01/18 17:00 06/01/18 17:00 06/01/18 17:00 06/01/18 17:00 Intake and Output: 06/01/18 06/02/18 18:59 06:59 Output Total 900 Balance -900 - Medications Medications: Current Medications Acetaminophen (Tylenol 325mg Tab) 650 mg PO Q6 PRN PRN Reason: Fever >100.4 F Albuterol Sulfate (Albuterol 0.083% Inhal Marianna (2.5 Mg/3 Ml) Ud) 2.5 mg INH RQ6 [facility] Last Admin: 06/01/18 19:04 Dose: 2.5 mg Brimonidine Tartrate (Alphagan 0.2% Opht) 0.05 ml OU BID [facility] Last Admin: 06/01/18 17:24 Dose: 1 drop Clopidogrel Bisulfate (Plavix) 75 mg PO DAILY [facility] Last Admin: 06/01/18 10:09 Dose: 75 mg Dextrose (Dextrose 50% Inj) 0 ml IV STAT PRN; Protocol PRN Reason: Hypoglycemia Protocol Dextrose (Glutose 15) 0 gm PO ONCE PRN; Protocol PRN Reason: Hypoglycemia Protocol Docusate Sodium (Colace) 100 mg PO BID [facility] Last Admin: 06/01/18 17:21 Dose: 100 mg Epoetin Monico (Procrit) 10,000 unit SC MWF [facility] Last Admin: 06/01/18 13:20 Dose: 10,000 unit Ferrous Gluconate (Fergon) 324 mg PO TID [facility] Last Admin: 06/01/18 17:21 Dose: 324 mg Glucagon (Glucagen Diagnostic Kit) 0 mg IM STAT PRN; Protocol PRN Reason: Hypoglycemia Protocol Hydralazine HCl (Apresoline) 25 mg PO Q8 [facility] Last Admin: 06/01/18 21:18 Dose: 25 mg Ceftriaxone Sodium 1 gm/ (Sodium Chloride) 100 mls @ 100 mls/hr IVPB DAILY [facility]; Protocol Insulin Human Regular (Novolin R) 0 unit SC ACHS [facility]; Protocol Last Admin: 06/01/18 21:19 Dose: Not Given Levothyroxine Sodium (Synthroid) 50 mcg PO DAILY@0630 [facility] Last Admin: 06/01/18 05:35 Dose: 50 mcg Metoprolol Succinate (Toprol Xl) 50 mg PO DAILY [facility] Last Admin: 06/01/18 10:09 Dose: 50 mg Pantoprazole Sodium (Protonix Ec Tab) 40 mg PO DAILY [facility] Last Admin: 06/01/18 10:09 Dose: 40 mg Rosuvastatin Calcium (Crestor) 2.5 mg PO HS [facility] Last Admin: 06/01/18 21:18 Dose: 2.5 mg Torsemide (Demadex) 10 mg PO DAILY [facility] Last Admin: 06/01/18 10:13 Dose: 10 mg Vitamin B Complex/Vit C/Folic Acid (Nephro-Pili) 1 tab PO 0800 [facility] Last Admin: 06/01/18 10:09 Dose: 1 tab Zolpidem Tartrate (Ambien) 5 mg PO HS PRN PRN Reason: Insomnia Last Admin: 05/30/18 21:35 Dose: 5 mg - Labs Labs: 06/01/18 11:42 06/01/18 11:42
[2018-06-02] MEDS: Albuterol 0.083% Inhal Sol (2.5 mg/3 mL) UD INH SCH ×4 (01:12→19:08)
[2018-06-02] MEDS: Levothyroxine 50 MCG TAB PO SCH (06:15)
--- NOTE | 2018-06-02 06:37 | PN ---
DATE: 06/01/2018 SUBJECTIVE: Gita Encinas had fever this morning and with fever, she became tachycardic. Her T-max is 101.6. She denies any cough, dysuria, nausea, or vomiting. She denies any hematuria or pyuria. She denies any sneezing, itchy eyes, or itchy nose. PHYSICAL EXAMINATION: VITAL SIGNS: Temperature maximum 101.6, blood pressure 154/81, pulse 120, respiratory rate 20. LUNGS: Bilateral clear. No rales. No rhonchi. CARDIOVASCULAR SYSTEM: S1 and S2, regular. ABDOMEN: Soft, nontender. Bowel sounds are positive. ASSESSMENT: 1. Fever. It seems like it is due to urinary tract infection, pending culture. 2. Hypertension. 3. Type 2 diabetes, well controlled now. The patient is off all the antidiabetic medication. 4. Hypothyroidism. PLAN: Monitor temperature. Continue Rocephin. Urine cultures and blood cultures, reports pending. Júnior Bee MD
[2018-06-02] MEDS: Metoprolol Succinate 50 mg XL Tab PO SCH (10:00)
[2018-06-02] MEDS: Brimonidine 0.2% Opth Sol (5ml) OU SCH ×2 (10:11→18:13)
[2018-06-02] MEDS: Multivitamin Vitamin B Complex (Nephro-Vite) Tab PO SCH (10:11)
[2018-06-02] MEDS: Pantoprazole 40 mg EC Tab PO SCH (10:11)
[2018-06-02] MEDS: (Novolin R) Insulin Human Regular 100 units/ml vial SC SCH ×4 (10:11→21:10)
[2018-06-02 11:02] LABS: BASO # 0.1 K/uL (0.0-0.2); EOS # 0.1 K/uL (0.0-0.7); EOS % 1.6 % (0.0-4.0); HEMOGLOBIN 8.3 g/dL (11.0-16.0); LYMPH # 1.1 K/uL (1.0-4.3); LYMPH % 11.7 % (20.0-40.0); MEAN CELL VOLUME 94.1 fL (81.0-99.0); MEAN CORPUSCULAR HEMOGLOBIN 31.7 pg (27.0-31.0); MEAN CORPUSCULAR HGB CONC 33.7 g/dL (33.0-37.0); MEAN PLATELET VOLUME 7.7 fL (7.2-11.7); MONO # 0.9 K/uL (0.0-0.8); MONO % 9.4 % (0.0-10.0); NEUT # 7.3 K/uL (1.8-7.0); NEUT % 76.3 % (50.0-75.0); NRBC % 0.1 % (0.0-2.0); RBC 2.62 Mil/uL (3.80-5.20); RED CELL DISTRIBUTION WIDTH 17.3 % (11.5-14.5); WHITE BLOOD COUNT 9.6 K/uL (4.8-10.8)
[2018-06-02 11:32] LABS: CALCIUM 9.1 mg/dl (8.6-10.4)
[2018-06-02] MEDS ORDERED: Bisacodyl 5mg EC Tab PO ONE (13:03)
--- NOTE | 2018-06-02 13:34 | CP.PCM.PN ---
Subjective - Date & Time of Evaluation Date of Evaluation: 06/02/18 Time of Evaluation: 13:33 - Subjective Subjective: Nephrology Consultation Note Assessment: Stable Acute Kidney Injury (N17.9) stable Hyponatremia likely due to polydipsia and hypotonic fluid Diabetic chronic Kidney Disease (E11.22) Hypertensive Chronic Kidney Disease (I12.9) Chronic Kidney Disease (N18.4) Stage 4 with 280 mg proteinuria (R80.9) likely due to age/HTN vascular disease Anemia (D64.9), HTN (I12.9) acidosis sepsis ? UTI Plan No acute need for renal replacement therapy at this time. Hypertension control with meds as ordered. Maintain hemodynamics stable. Avoid hypotension. Patient not on ACEI/ARB due to recent [place] Monitor Input/Output, daily weights and renal function with basic metabolic panel started iron, MVI, epogen continue with oral fluid restriction. sepsis management as per primary team. possible UTI. pt on IV abx check serum protein electrophoresis with immunofixation, serum free light chain assay ([place]/Lambda). consider heme eval Dose meds/antibiotics for reduced GFR. Avoid fleets enema/magnesium based laxatives. Avoid nephrotoxins/NSAIDs/ iodinated contrast (unless needed emergently) Glycemic control Further work up for as per primary team Thanks for allowing me to participate in care of your patient. Will follow patient with you. Please call if any Qs. had d/w team and daughter bedside Dr Tu Clements Office: [phone] Subjective: Noted events overnight. Patients feels okay. Denies chest pain, palpitation, shortness of breath, leg swelling. All other negative had fever today Physical Examination: General Appearance: Comfortable, in no acute respiratory distress, co-operative . Vitals reviewed and noted as below Head; Atraumatic, normocephalic ENT: no ulcers no thrush. Tongue is midline. Oropharynx: no rash or ulcers. EYES: Pupils are equal, round and reactive to light accommodation. Eye muscles and extraocular movement intact. Sclera is anicteric. Neck; supple no lymphadenopathy, no thyromegaly or bruit Lungs: Normal respiratory rate/effort. Breath sounds bilateral equal and clear Heart: Normal rate. s1s2 normal. No rub or gallop. Extremities: no edema. No varicose veins Neurological: Patient is alert, awake and oriented to person, place and time. No focal deficit. Strength bilateral appropriate and equal Skin: Warm and dry. Normal turgor. No rash. Palpitation: Normal elasticity for age Abdomen: Abdomen is soft. Bowel sounds +. There is no abdominal tenderness, no guarding/rigidity no organomegaly Psych: normal insight and normal affect/mood MSK: no joint tenderness or swelling. Digits and nails normal, no deformity : kidney or bladder not palpable Labs/imaging reviewed. Past medical history, past surgical history, family history, social history, allergy reviewed and noted as below Family hx: no hx of CKD. Rest non-contributory work up: Urine Osmol 265 Na 25 urine pr/cr : 280 mg/g and alb/cr 27 TSAT 16% Ferriitn 103 Vit D 48 PTH 41 renal sono: b/l echogenic kidneys Objective - Vital Signs/Intake and Output Vital Signs (last 24 hours): Temp Pulse Resp BP Pulse Ox 97.8 F 99 H 20 126/77 96 06/02/18 07:46 06/02/18 07:46 06/02/18 07:46 06/02/18 07:46 06/02/18 07:46 Intake and Output: 06/02/18 06/02/18 06:59 18:59 Intake Total 200 Output Total 1250 Balance -1050 - Medications Medications: Current Medications Acetaminophen (Tylenol 325mg Tab) 650 mg PO Q6 PRN PRN Reason: Fever >100.4 F Last Admin: 06/02/18 00:32 Dose: 650 mg Albuterol Sulfate (Albuterol 0.083% Inhal [place] (2.5 Mg/3 Ml) Ud) 2.5 mg INH RQ6 [facility] Last Admin: 06/02/18 07:15 Dose: 2.5 mg Brimonidine Tartrate (Alphagan 0.2% Opht) 0.05 ml OU BID [facility] Last Admin: 06/02/18 10:11 Dose: 1 drop Clopidogrel Bisulfate (Plavix) 75 mg PO DAILY [facility] Last Admin: 06/02/18 10:11 Dose: 75 mg Dextrose (Dextrose 50% Inj) 0 ml IV STAT PRN; Protocol PRN Reason: Hypoglycemia Protocol Dextrose (Glutose 15) 0 gm PO ONCE PRN; Protocol PRN Reason: Hypoglycemia Protocol Docusate Sodium (Colace) 100 mg PO BID [facility] Last Admin: 06/02/18 10:11 Dose: 100 mg Epoetin Monico (Procrit) 10,000 unit SC MWF [facility] Last Admin: 06/01/18 13:20 Dose: 10,000 unit Ferrous Gluconate (Fergon) 324 mg PO TID [facility] Last Admin: 06/02/18 13:30 Dose: 324 mg Glucagon (Glucagen Diagnostic Kit) 0 mg IM STAT PRN; Protocol PRN Reason: Hypoglycemia Protocol Hydralazine HCl (Apresoline) 25 mg PO Q8 [facility] Last Admin: 06/02/18 13:32 Dose: 25 mg Ceftriaxone Sodium 1 gm/ (Sodium Chloride) 100 mls @ 100 mls/hr IVPB DAILY [facility]; Protocol Last Admin: 06/02/18 10:21 Dose: 100 mls/hr Insulin Human Regular (Novolin R) 0 unit SC ACHS [facility]; Protocol Last Admin: 06/02/18 11:30 Dose: 4 u Levothyroxine Sodium (Synthroid) 50 mcg PO DAILY@0630 [facility] Last Admin: 06/02/18 06:15 Dose: 50 mcg Metoprolol Succinate (Toprol Xl) 50 mg PO DAILY [facility] Last Admin: 06/01/18 10:09 Dose: 50 mg Pantoprazole Sodium (Protonix Ec Tab) 40 mg PO DAILY [facility] Last Admin: 06/02/18 10:11 Dose: 40 mg Rosuvastatin Calcium (Crestor) 2.5 mg PO HS [facility] Last Admin: 06/01/18 21:18 Dose: 2.5 mg Torsemide (Demadex) 10 mg PO DAILY [facility] Last Admin: 06/02/18 10:11 Dose: 10 mg Vitamin B Complex/Vit C/Folic Acid (Nephro-Pili) 1 tab PO 0800 [facility] Last Admin: 06/02/18 10:11 Dose: 1 tab Zolpidem Tartrate (Ambien) 5 mg PO HS PRN PRN Reason: Insomnia Last Admin: 05/30/18 21:35 Dose: 5 mg - Labs Labs: 06/02/18 10:47 06/02/18 10:47
[2018-06-02] MEDS: Rosuvastatin Calcium 2.5 mg Tab PO SCH (21:11)
--- NOTE | 2018-06-02 22:54 | CP.PCM.PN ---
Subjective - Subjective Subjective: dictated Objective - Vital Signs/Intake and Output Vital Signs (last 24 hours): Temp Pulse Resp BP Pulse Ox 99.3 F 89 20 143/69 97 06/02/18 16:00 06/02/18 16:00 06/02/18 16:00 06/02/18 16:00 06/02/18 16:00 Intake and Output: 06/02/18 06/03/18 18:59 06:59 Output Total 800 Balance -800 - Medications Medications: Current Medications Acetaminophen (Tylenol 325mg Tab) 650 mg PO Q6 PRN PRN Reason: Fever >100.4 F Last Admin: 06/02/18 00:32 Dose: 650 mg Albuterol Sulfate (Albuterol 0.083% Inhal [place] (2.5 Mg/3 Ml) Ud) 2.5 mg INH RQ6 [facility] Last Admin: 06/02/18 19:08 Dose: 2.5 mg Brimonidine Tartrate (Alphagan 0.2% Opht) 0.05 ml OU BID [facility] Last Admin: 06/02/18 18:13 Dose: 1 drop Clopidogrel Bisulfate (Plavix) 75 mg PO DAILY [facility] Last Admin: 06/02/18 10:11 Dose: 75 mg Dextrose (Dextrose 50% Inj) 0 ml IV STAT PRN; Protocol PRN Reason: Hypoglycemia Protocol Dextrose (Glutose 15) 0 gm PO ONCE PRN; Protocol PRN Reason: Hypoglycemia Protocol Docusate Sodium (Colace) 100 mg PO BID [facility] Last Admin: 06/02/18 18:12 Dose: 100 mg Epoetin Monico (Procrit) 10,000 unit SC MWF [facility] Last Admin: 06/01/18 13:20 Dose: 10,000 unit Ferrous Gluconate (Fergon) 324 mg PO TID [facility] Last Admin: 06/02/18 18:12 Dose: 324 mg Glucagon (Glucagen Diagnostic Kit) 0 mg IM STAT PRN; Protocol PRN Reason: Hypoglycemia Protocol Hydralazine HCl (Apresoline) 25 mg PO Q8 [facility] Last Admin: 06/02/18 21:11 Dose: 25 mg Ceftriaxone Sodium 1 gm/ (Sodium Chloride) 100 mls @ 100 mls/hr IVPB DAILY [facility]; Protocol Last Admin: 06/02/18 10:21 Dose: 100 mls/hr Insulin Human Regular (Novolin R) 0 unit SC ACHS [facility]; Protocol Last Admin: 06/02/18 21:10 Dose: Not Given Levothyroxine Sodium (Synthroid) 50 mcg PO DAILY@0630 [facility] Last Admin: 06/02/18 06:15 Dose: 50 mcg Metoprolol Succinate (Toprol Xl) 50 mg PO DAILY [facility] Last Admin: 06/02/18 10:00 Dose: 50 mg Pantoprazole Sodium (Protonix Ec Tab) 40 mg PO DAILY [facility] Last Admin: 06/02/18 10:11 Dose: 40 mg Rosuvastatin Calcium (Crestor) 2.5 mg PO HS [facility] Last Admin: 06/02/18 21:11 Dose: 2.5 mg Torsemide (Demadex) 10 mg PO DAILY [facility] Last Admin: 06/02/18 10:11 Dose: 10 mg Vitamin B Complex/Vit C/Folic Acid (Nephro-Pili) 1 tab PO 0800 [facility] Last Admin: 06/02/18 10:11 Dose: 1 tab Zolpidem Tartrate (Ambien) 5 mg PO HS PRN PRN Reason: Insomnia Last Admin: 05/30/18 21:35 Dose: 5 mg - Labs Labs: 06/02/18 10:47 06/02/18 10:47
[2018-06-03] MEDS: Albuterol 0.083% Inhal Sol (2.5 mg/3 mL) UD INH SCH ×4 (01:45→19:34)
[2018-06-03] MEDS: Levothyroxine 50 MCG TAB PO SCH (06:13)
--- NOTE | 2018-06-03 09:11 | PN ---
DATE: 06/02/2018 SUBJECTIVE: Gita Encinas is waiting for subacute rehab. She is afebrile. No shortness of breath. Blood cultures are negative. Chest x-ray is negative. PHYSICAL EXAMINATION: VITAL SIGNS: BP is 143/69, pulse , respiratory rate 20, temperature 99.3. LUNGS: Clear. CARDIOVASCULAR SYSTEM: S1 and S2, regular. ABDOMEN: Soft. ASSESSMENT: 1. Type 2 diabetes. 2. Hypertension. 3. Hyperlipidemia. 4. Chronic kidney disease. PLAN: Continue antibiotics. Follow up culture results. Monitor the patient. Júnior Bee MD
[2018-06-03] MEDS: Multivitamin Vitamin B Complex (Nephro-Vite) Tab PO SCH (09:12)
[2018-06-03] MEDS: (Novolin R) Insulin Human Regular 100 units/ml vial SC SCH ×4 (09:12→21:55)
[2018-06-03] MEDS: Pantoprazole 40 mg EC Tab PO SCH (09:17)
[2018-06-03] MEDS: EPOETIN ALFA 10,000 UNIT/ML ML SC SCH (09:17)
[2018-06-03] MEDS: Brimonidine 0.2% Opth Sol (5ml) OU SCH ×2 (09:18→17:28)
[2018-06-03] MEDS: Metoprolol Succinate 50 mg XL Tab PO SCH (09:22)
--- NOTE | 2018-06-03 13:20 | CP.PCM.PN ---
Subjective - Date & Time of Evaluation Date of Evaluation: 06/03/18 Time of Evaluation: 13:19 - Subjective Subjective: Nephrology Consultation Note Assessment: Stable Acute Kidney Injury (N17.9) stable Hyponatremia likely due to polydipsia and hypotonic fluid Diabetic chronic Kidney Disease (E11.22) Hypertensive Chronic Kidney Disease (I12.9) Chronic Kidney Disease (N18.4) Stage 4 with 280 mg proteinuria (R80.9) likely due to age/HTN vascular disease Anemia (D64.9), HTN (I12.9) acidosis sepsis ? UTI Plan No acute need for renal replacement therapy at this time. Hypertension control with meds as ordered. Maintain hemodynamics stable. Avoid hypotension. Patient not on ACEI/ARB due to recent [place] Monitor Input/Output, daily weights and renal function with basic metabolic panel started iron, MVI, epogen continue with oral fluid restriction. sepsis management as per primary team. possible UTI. pt on IV abx check serum protein electrophoresis with immunofixation, serum free light chain assay ([place]/Lambda). consider heme eval Dose meds/antibiotics for reduced GFR. Avoid fleets enema/magnesium based laxatives. Avoid nephrotoxins/NSAIDs/ iodinated contrast (unless needed emergently) Glycemic control Further work up for as per primary team Thanks for allowing me to participate in care of your patient. Will follow patient with you. Please call if any Qs. had d/w team and daughter bedside Dr Tu Clements Office: [phone] Subjective: Noted events overnight. Patients feels okay. Denies chest pain, palpitation, shortness of breath, leg swelling. All other negative c/o constipation Physical Examination: General Appearance: Comfortable, in no acute respiratory distress, co-operative . Vitals reviewed and noted as below Head; Atraumatic, normocephalic ENT: no ulcers no thrush. Tongue is midline. Oropharynx: no rash or ulcers. EYES: Pupils are equal, round and reactive to light accommodation. Eye muscles and extraocular movement intact. Sclera is anicteric. Neck; supple no lymphadenopathy, no thyromegaly or bruit Lungs: Normal respiratory rate/effort. Breath sounds bilateral equal and clear Heart: Normal rate. s1s2 normal. No rub or gallop. Extremities: no edema. No varicose veins Neurological: Patient is alert, awake and oriented to person, place and time. No focal deficit. Strength bilateral appropriate and equal Skin: Warm and dry. Normal turgor. No rash. Palpitation: Normal elasticity for age Abdomen: Abdomen is soft. Bowel sounds +. There is no abdominal tenderness, no guarding/rigidity no organomegaly Psych: normal insight and normal affect/mood MSK: no joint tenderness or swelling. Digits and nails normal, no deformity : kidney or bladder not palpable Labs/imaging reviewed. Past medical history, past surgical history, family history, social history, allergy reviewed and noted as below Family hx: no hx of CKD. Rest non-contributory work up: Urine Osmol 265 Na 25 urine pr/cr : 280 mg/g and alb/cr 27 TSAT 16% Ferriitn 103 Vit D 48 PTH 41 renal sono: b/l echogenic kidneys Objective - Vital Signs/Intake and Output Vital Signs (last 24 hours): Temp Pulse Resp BP Pulse Ox 99.8 F H 91 H 20 148/81 100 06/03/18 09:22 06/03/18 07:31 06/03/18 07:31 06/03/18 07:31 06/03/18 07:31 Intake and Output: 06/03/18 06/03/18 06:59 18:59 Intake Total 250 Output Total 1100 Balance -850 - Medications Medications: Current Medications Acetaminophen (Tylenol 325mg Tab) 650 mg PO Q6 PRN PRN Reason: Fever >100.4 F Last Admin: 06/03/18 09:22 Dose: 650 mg Albuterol Sulfate (Albuterol 0.083% Inhal [place] (2.5 Mg/3 Ml) Ud) 2.5 mg INH RQ6 [facility] Last Admin: 06/03/18 07:39 Dose: 2.5 mg Brimonidine Tartrate (Alphagan 0.2% Opht) 0.05 ml OU BID [facility] Last Admin: 06/03/18 09:18 Dose: 1 drop Clopidogrel Bisulfate (Plavix) 75 mg PO DAILY [facility] Last Admin: 06/03/18 09:17 Dose: 75 mg Dextrose (Dextrose 50% Inj) 0 ml IV STAT PRN; Protocol PRN Reason: Hypoglycemia Protocol Dextrose (Glutose 15) 0 gm PO ONCE PRN; Protocol PRN Reason: Hypoglycemia Protocol Docusate Sodium (Colace) 100 mg PO BID [facility] Last Admin: 06/03/18 09:17 Dose: 100 mg Epoetin Monico (Procrit) 10,000 unit SC MWF [facility] Last Admin: 06/03/18 09:17 Dose: 10,000 unit Ferrous Gluconate (Fergon) 324 mg PO TID [facility] Last Admin: 06/03/18 09:18 Dose: 324 mg Glucagon (Glucagen Diagnostic Kit) 0 mg IM STAT PRN; Protocol PRN Reason: Hypoglycemia Protocol Hydralazine HCl (Apresoline) 25 mg PO Q8 [facility] Last Admin: 06/03/18 06:02 Dose: 25 mg Ceftriaxone Sodium 1 gm/ (Sodium Chloride) 100 mls @ 100 mls/hr IVPB DAILY [facility]; Protocol Last Admin: 06/03/18 10:05 Dose: 100 mls/hr Insulin Human Regular (Novolin R) 0 unit SC ACHS [facility]; Protocol Last Admin: 06/03/18 12:31 Dose: 4 u Levothyroxine Sodium (Synthroid) 50 mcg PO DAILY@0630 [facility] Last Admin: 06/03/18 06:13 Dose: 50 mcg Metoprolol Succinate (Toprol Xl) 50 mg PO DAILY [facility] Last Admin: 06/03/18 09:22 Dose: 50 mg Pantoprazole Sodium (Protonix Ec Tab) 40 mg PO DAILY [facility] Last Admin: 06/03/18 09:17 Dose: 40 mg Rosuvastatin Calcium (Crestor) 2.5 mg PO HS [facility] Last Admin: 06/02/18 21:11 Dose: 2.5 mg Torsemide (Demadex) 10 mg PO DAILY [facility] Last Admin: 06/03/18 09:18 Dose: 10 mg Vitamin B Complex/Vit C/Folic Acid (Nephro-Pili) 1 tab PO 0800 [facility] Last Admin: 06/03/18 09:12 Dose: 1 tab Zolpidem Tartrate (Ambien) 5 mg PO HS PRN PRN Reason: Insomnia Last Admin: 05/30/18 21:35 Dose: 5 mg - Labs Labs: 06/02/18 10:47 06/02/18 10:47
--- NOTE | 2018-06-03 14:59 | CARD ---
APPROVED REPORT Date of service: 06/01/2018 EKG Measurement Heart [id number] <Conclusion> Sinus tachycardia with 1st degree AV block Left axis deviation Minimal voltage criteria for LVH, may be normal variant Abnormal ECG
[2018-06-03] MEDS: Rosuvastatin Calcium 2.5 mg Tab PO SCH (21:54)
--- NOTE | 2018-06-03 23:22 | CP.PCM.PN ---
Subjective - Subjective Subjective: dictated Objective - Vital Signs/Intake and Output Vital Signs (last 24 hours): Temp Pulse Resp BP Pulse Ox 98.3 F 81 20 133/68 95 06/03/18 16:00 06/03/18 16:00 06/03/18 16:00 06/03/18 16:00 06/03/18 16:00 Intake and Output: 06/03/18 06/04/18 18:59 06:59 Output Total 600 Balance -600 - Medications Medications: Current Medications Acetaminophen (Tylenol 325mg Tab) 650 mg PO Q6 PRN PRN Reason: Fever >100.4 F Last Admin: 06/03/18 09:22 Dose: 650 mg Albuterol Sulfate (Albuterol 0.083% Inhal [place] (2.5 Mg/3 Ml) Ud) 2.5 mg INH RQ6 [facility] Last Admin: 06/03/18 19:34 Dose: Not Given Brimonidine Tartrate (Alphagan 0.2% Opht) 0.05 ml OU BID [facility] Last Admin: 06/03/18 17:28 Dose: 1 drop Clopidogrel Bisulfate (Plavix) 75 mg PO DAILY [facility] Last Admin: 06/03/18 09:17 Dose: 75 mg Dextrose (Dextrose 50% Inj) 0 ml IV STAT PRN; Protocol PRN Reason: Hypoglycemia Protocol Dextrose (Glutose 15) 0 gm PO ONCE PRN; Protocol PRN Reason: Hypoglycemia Protocol Docusate Sodium (Colace) 100 mg PO BID [facility] Last Admin: 06/03/18 17:26 Dose: 100 mg Epoetin Monico (Procrit) 10,000 unit SC MWF [facility] Last Admin: 06/03/18 09:17 Dose: 10,000 unit Ferrous Gluconate (Fergon) 324 mg PO TID [facility] Last Admin: 06/03/18 17:26 Dose: 324 mg Glucagon (Glucagen Diagnostic Kit) 0 mg IM STAT PRN; Protocol PRN Reason: Hypoglycemia Protocol Hydralazine HCl (Apresoline) 25 mg PO Q8 [facility] Last Admin: 06/03/18 21:54 Dose: 25 mg Ceftriaxone Sodium 1 gm/ (Sodium Chloride) 100 mls @ 100 mls/hr IVPB DAILY [facility]; Protocol Last Admin: 06/03/18 10:05 Dose: 100 mls/hr Insulin Human Regular (Novolin R) 0 unit SC ACHS [facility]; Protocol Last Admin: 06/03/18 21:55 Dose: Not Given Lactulose (Enulose) 20 gm PO HS PRN PRN Reason: Constipation Levothyroxine Sodium (Synthroid) 50 mcg PO DAILY@0630 [facility] Last Admin: 06/03/18 06:13 Dose: 50 mcg Metoprolol Succinate (Toprol Xl) 50 mg PO DAILY [facility] Last Admin: 06/03/18 09:22 Dose: 50 mg Pantoprazole Sodium (Protonix Ec Tab) 40 mg PO DAILY [facility] Last Admin: 06/03/18 09:17 Dose: 40 mg Rosuvastatin Calcium (Crestor) 2.5 mg PO HS [facility] Last Admin: 06/03/18 21:54 Dose: 2.5 mg Torsemide (Demadex) 10 mg PO DAILY [facility] Last Admin: 06/03/18 09:18 Dose: 10 mg Vitamin B Complex/Vit C/Folic Acid (Nephro-Pili) 1 tab PO 0800 [facility] Last Admin: 06/03/18 09:12 Dose: 1 tab Zolpidem Tartrate (Ambien) 5 mg PO HS PRN PRN Reason: Insomnia Last Admin: 05/30/18 21:35 Dose: 5 mg - Labs Labs: 06/02/18 10:47 06/02/18 10:47
[2018-06-04] MEDS: Albuterol 0.083% Inhal Sol (2.5 mg/3 mL) UD INH SCH ×4 (02:53→19:27)
[2018-06-04] MEDS: Levothyroxine 50 MCG TAB PO SCH (06:36)
[2018-06-04 07:29] LABS: BASO # 0.1 K/uL (0.0-0.2); BASO % 1.1 % (0.0-2.0); EOS # 0.2 K/uL (0.0-0.7); EOS % 2.9 % (0.0-4.0); HEMOGLOBIN 8.5 g/dL (11.0-16.0); LYMPH # 1.5 K/uL (1.0-4.3); MEAN CELL VOLUME 93.1 fL (81.0-99.0); MEAN CORPUSCULAR HEMOGLOBIN 30.6 pg (27.0-31.0); MEAN CORPUSCULAR HGB CONC 32.9 g/dL (33.0-37.0); MEAN PLATELET VOLUME 7.3 fL (7.2-11.7); MONO # 0.7 K/uL (0.0-0.8); MONO % 8.8 % (0.0-10.0); NEUT # 5.7 K/uL (1.8-7.0); NEUT % 69.2 % (50.0-75.0); NRBC % 0.1 % (0.0-2.0); RBC 2.78 Mil/uL (3.80-5.20); RED CELL DISTRIBUTION WIDTH 17.2 % (11.5-14.5); WHITE BLOOD COUNT 8.2 K/uL (4.8-10.8)
[2018-06-04] MEDS: (Novolin R) Insulin Human Regular 100 units/ml vial SC SCH ×4 (08:30→21:25)
[2018-06-04 08:33] LABS: CALCIUM 9.2 mg/dl (8.6-10.4)
[2018-06-04] MEDS: Multivitamin Vitamin B Complex (Nephro-Vite) Tab PO SCH (08:46)
[2018-06-04] MEDS: Pantoprazole 40 mg EC Tab PO SCH (10:05)
[2018-06-04] MEDS: Metoprolol Succinate 50 mg XL Tab PO SCH (10:05)
[2018-06-04] MEDS: Brimonidine 0.2% Opth Sol (5ml) OU SCH ×2 (10:05→17:18)
--- NOTE | 2018-06-04 15:17 | CP.PCM.PN ---
Subjective - Date & Time of Evaluation Date of Evaluation: 06/04/18 Time of Evaluation: 15:16 - Subjective Subjective: Nephrology Consultation Note Assessment: Stable Acute Kidney Injury (N17.9) stable cr stable Hyponatremia likely due to polydipsia and hypotonic fluid.. stable improving Diabetic chronic Kidney Disease (E11.22) Hypertensive Chronic Kidney Disease (I12.9) Chronic Kidney Disease (N18.4) Stage 4 with 280 mg proteinuria (R80.9) likely due to age/HTN vascular disease Anemia (D64.9), HTN (I12.9) acidosis sepsis ? UTI Plan No acute need for renal replacement therapy at this time. Hypertension control with meds as ordered. Monitor Input/Output, daily weights on iron, MVI, epogen continue free water restriction abx per primary team, for reduced gfr check serum protein electrophoresis with immunofixation, serum free light chain assay ([place]/Lambda).pending Physical Examination: General Appearance: Comfortable, in no acute respiratory distress, co-operative . Vitals reviewed and noted as below Head; Atraumatic, normocephalic ENT: no ulcers no thrush. Tongue is midline. Oropharynx: no rash or ulcers. EYES: Eye muscles and extraocular movement intact. Sclera is anicteric. Neck; supple no thyromegaly or bruit Lungs: Normal respiratory rate/effort. Breath sounds bilateral equal and clear Heart: Normal rate. s1s2 normal. No rub or gallop. Extremities: no edema. No varicose veins Neurological: Patient is alert, awake and oriented to person, place and time. No focal deficit. Strength bilateral appropriate and equal Skin: Warm and dry. Normal turgor. No rash. Abdomen: Abdomen is soft. Bowel sounds +. There is no abdominal tenderness Psych: normal insight and normal affect/mood MSK: no joint tenderness or swelling. Objective - Vital Signs/Intake and Output Vital Signs (last 24 hours): Temp Pulse Resp BP Pulse Ox 99 F 71 20 137/81 100 06/04/18 13:54 06/04/18 13:54 06/04/18 13:54 06/04/18 13:54 06/04/18 13:54 Intake and Output: 06/04/18 06/04/18 06:59 18:59 Intake Total 700 Output Total 600 700 Balance -600 0 - Medications Medications: Current Medications Acetaminophen (Tylenol 325mg Tab) 650 mg PO Q6 PRN PRN Reason: Fever >100.4 F Last Admin: 06/03/18 09:22 Dose: 650 mg Albuterol Sulfate (Albuterol 0.083% Inhal [place] (2.5 Mg/3 Ml) Ud) 2.5 mg INH RQ6 [facility] Last Admin: 06/04/18 13:51 Dose: 2.5 mg Brimonidine Tartrate (Alphagan 0.2% Opht) 0.05 ml OU BID [facility] Last Admin: 06/04/18 10:05 Dose: 1 drop Clopidogrel Bisulfate (Plavix) 75 mg PO DAILY [facility] Last Admin: 06/04/18 10:05 Dose: 75 mg Dextrose (Dextrose 50% Inj) 0 ml IV STAT PRN; Protocol PRN Reason: Hypoglycemia Protocol Dextrose (Glutose 15) 0 gm PO ONCE PRN; Protocol PRN Reason: Hypoglycemia Protocol Docusate Sodium (Colace) 100 mg PO BID [facility] Last Admin: 06/04/18 10:05 Dose: 100 mg Epoetin Monico (Procrit) 10,000 unit SC MWF [facility] Last Admin: 06/03/18 09:17 Dose: 10,000 unit Ferrous Gluconate (Fergon) 324 mg PO TID [facility] Last Admin: 06/04/18 14:02 Dose: 324 mg Glucagon (Glucagen Diagnostic Kit) 0 mg IM STAT PRN; Protocol PRN Reason: Hypoglycemia Protocol Hydralazine HCl (Apresoline) 25 mg PO Q8 [facility] Last Admin: 06/04/18 14:02 Dose: 25 mg Ceftriaxone Sodium 1 gm/ (Sodium Chloride) 100 mls @ 100 mls/hr IVPB DAILY [facility]; Protocol Last Admin: 06/04/18 10:06 Dose: 100 mls/hr Insulin Human Regular (Novolin R) 0 unit SC ACHS [facility]; Protocol Last Admin: 06/04/18 12:30 Dose: 6 u Lactulose (Enulose) 20 gm PO HS PRN PRN Reason: Constipation Levothyroxine Sodium (Synthroid) 50 mcg PO DAILY@0630 [facility] Last Admin: 06/04/18 06:36 Dose: 50 mcg Metoprolol Succinate (Toprol Xl) 50 mg PO DAILY [facility] Last Admin: 06/04/18 10:05 Dose: 50 mg Pantoprazole Sodium (Protonix Ec Tab) 40 mg PO DAILY [facility] Last Admin: 06/04/18 10:05 Dose: 40 mg Rosuvastatin Calcium (Crestor) 2.5 mg PO HS [facility] Last Admin: 06/03/18 21:54 Dose: 2.5 mg Sitagliptin Phosphate (Januvia) 25 mg PO DAILY [facility] Last Admin: 06/04/18 10:05 Dose: 25 mg Torsemide (Demadex) 10 mg PO DAILY [facility] Last Admin: 06/04/18 10:05 Dose: 10 mg Vitamin B Complex/Vit C/Folic Acid (Nephro-Pili) 1 tab PO 0800 [facility] Last Admin: 06/04/18 08:46 Dose: 1 tab Zolpidem Tartrate (Ambien) 5 mg PO HS PRN PRN Reason: Insomnia Last Admin: 05/30/18 21:35 Dose: 5 mg - Labs Labs: 06/04/18 07:20 06/04/18 07:20
[2018-06-04] MEDS: guaiFENesin 200 mg/10 ml Syrup UD PO PRN (19:52)
--- NOTE | 2018-06-04 20:07 | CP.PCM.PN ---
Subjective - Subjective Subjective: dictated Objective - Vital Signs/Intake and Output Vital Signs (last 24 hours): Temp Pulse Resp BP Pulse Ox 98.1 F 82 20 116/68 95 06/04/18 15:00 06/04/18 15:00 06/04/18 15:00 06/04/18 15:00 06/04/18 15:00 Intake and Output: 06/04/18 06/05/18 18:59 06:59 Intake Total 700 Output Total 700 Balance 0 - Medications Medications: Current Medications Acetaminophen (Tylenol 325mg Tab) 650 mg PO Q6 PRN PRN Reason: Fever >100.4 F Last Admin: 06/03/18 09:22 Dose: 650 mg Albuterol Sulfate (Albuterol 0.083% Inhal [place] (2.5 Mg/3 Ml) Ud) 2.5 mg INH RQ6 [facility] Last Admin: 06/04/18 19:27 Dose: 2.5 mg Brimonidine Tartrate (Alphagan 0.2% Opht) 0.05 ml OU BID [facility] Last Admin: 06/04/18 17:18 Dose: 0.05 ml Clopidogrel Bisulfate (Plavix) 75 mg PO DAILY [facility] Last Admin: 06/04/18 10:05 Dose: 75 mg Dextrose (Dextrose 50% Inj) 0 ml IV STAT PRN; Protocol PRN Reason: Hypoglycemia Protocol Dextrose (Glutose 15) 0 gm PO ONCE PRN; Protocol PRN Reason: Hypoglycemia Protocol Docusate Sodium (Colace) 100 mg PO BID [facility] Last Admin: 06/04/18 17:20 Dose: 100 mg Epoetin Monico (Procrit) 10,000 unit SC MWF [facility] Last Admin: 06/03/18 09:17 Dose: 10,000 unit Ferrous Gluconate (Fergon) 324 mg PO TID [facility] Last Admin: 06/04/18 17:20 Dose: 324 mg Glucagon (Glucagen Diagnostic Kit) 0 mg IM STAT PRN; Protocol PRN Reason: Hypoglycemia Protocol Guaifenesin (Robitussin) 200 mg PO Q4H PRN PRN Reason: Cough and congestion Last Admin: 06/04/18 19:52 Dose: 200 mg Hydralazine HCl (Apresoline) 25 mg PO Q8 [facility] Last Admin: 06/04/18 14:02 Dose: 25 mg Ceftriaxone Sodium 1 gm/ (Sodium Chloride) 100 mls @ 100 mls/hr IVPB DAILY [facility]; Protocol Last Admin: 06/04/18 10:06 Dose: 100 mls/hr Insulin Human Regular (Novolin R) 0 unit SC ACHS [facility]; Protocol Last Admin: 06/04/18 17:20 Dose: 3 u Lactulose (Enulose) 20 gm PO HS PRN PRN Reason: Constipation Levothyroxine Sodium (Synthroid) 50 mcg PO DAILY@0630 [facility] Last Admin: 06/04/18 06:36 Dose: 50 mcg Metoprolol Succinate (Toprol Xl) 50 mg PO DAILY [facility] Last Admin: 06/04/18 10:05 Dose: 50 mg Pantoprazole Sodium (Protonix Ec Tab) 40 mg PO DAILY [facility] Last Admin: 06/04/18 10:05 Dose: 40 mg Rosuvastatin Calcium (Crestor) 2.5 mg PO HS [facility] Last Admin: 06/03/18 21:54 Dose: 2.5 mg Sitagliptin Phosphate (Januvia) 25 mg PO DAILY [facility] Last Admin: 06/04/18 10:05 Dose: 25 mg Torsemide (Demadex) 10 mg PO DAILY [facility] Last Admin: 06/04/18 10:05 Dose: 10 mg Vitamin B Complex/Vit C/Folic Acid (Nephro-Pili) 1 tab PO 0800 [facility] Last Admin: 06/04/18 08:46 Dose: 1 tab Zolpidem Tartrate (Ambien) 5 mg PO HS PRN PRN Reason: Insomnia Last Admin: 05/30/18 21:35 Dose: 5 mg - Labs Labs: 06/04/18 07:20 06/04/18 07:20
[2018-06-04] MEDS: Rosuvastatin Calcium 2.5 mg Tab PO SCH (21:25)
[2018-06-05] MEDS: Albuterol 0.083% Inhal Sol (2.5 mg/3 mL) UD INH SCH ×4 (02:00→20:22)
[2018-06-05] MEDS: Levothyroxine 50 MCG TAB PO SCH (06:03)
[2018-06-05] MEDS: (Novolin R) Insulin Human Regular 100 units/ml vial SC SCH ×4 (08:30→21:32)
[2018-06-05] MEDS: Multivitamin Vitamin B Complex (Nephro-Vite) Tab PO SCH (08:56)
[2018-06-05] MEDS: Brimonidine 0.2% Opth Sol (5ml) OU SCH ×2 (10:23→18:09)
[2018-06-05] MEDS: Metoprolol Succinate 50 mg XL Tab PO SCH (10:24)
[2018-06-05] MEDS: Pantoprazole 40 mg EC Tab PO SCH (10:24)
--- NOTE | 2018-06-05 18:04 | CP.PCM.PN ---
Subjective - Subjective Subjective: dictated Objective - Vital Signs/Intake and Output Vital Signs (last 24 hours): Temp Pulse Resp BP Pulse Ox 98.4 F 74 20 123/67 97 06/05/18 16:57 06/05/18 16:57 06/05/18 16:57 06/05/18 16:57 06/05/18 16:57 Intake and Output: 06/05/18 06/05/18 06:59 18:59 Intake Total 350 520 Output Total 400 700 Balance -50 -180 - Medications Medications: Current Medications Acetaminophen (Tylenol 325mg Tab) 650 mg PO Q6 PRN PRN Reason: Fever >100.4 F Last Admin: 06/03/18 09:22 Dose: 650 mg Albuterol Sulfate (Albuterol 0.083% Inhal [place] (2.5 Mg/3 Ml) Ud) 2.5 mg INH RQ6 [facility] Last Admin: 06/05/18 14:10 Dose: 2.5 mg Brimonidine Tartrate (Alphagan 0.2% Opht) 0.05 ml OU BID [facility] Last Admin: 06/05/18 10:23 Dose: 0.05 ml Clopidogrel Bisulfate (Plavix) 75 mg PO DAILY [facility] Last Admin: 06/05/18 10:24 Dose: 75 mg Dextrose (Dextrose 50% Inj) 0 ml IV STAT PRN; Protocol PRN Reason: Hypoglycemia Protocol Dextrose (Glutose 15) 0 gm PO ONCE PRN; Protocol PRN Reason: Hypoglycemia Protocol Docusate Sodium (Colace) 100 mg PO BID [facility] Last Admin: 06/05/18 14:01 Dose: 100 mg Epoetin Monico (Procrit) 10,000 unit SC MWF [facility] Last Admin: 06/03/18 09:17 Dose: 10,000 unit Ferrous Gluconate (Fergon) 324 mg PO TID [facility] Last Admin: 06/05/18 14:00 Dose: 324 mg Glucagon (Glucagen Diagnostic Kit) 0 mg IM STAT PRN; Protocol PRN Reason: Hypoglycemia Protocol Guaifenesin (Robitussin) 200 mg PO Q4H PRN PRN Reason: Cough and congestion Last Admin: 06/04/18 19:52 Dose: 200 mg Hydralazine HCl (Apresoline) 25 mg PO Q8 [facility] Last Admin: 06/05/18 14:01 Dose: 25 mg Ceftriaxone Sodium 1 gm/ (Sodium Chloride) 100 mls @ 100 mls/hr IVPB DAILY [facility]; Protocol Last Admin: 06/05/18 10:23 Dose: 100 mls/hr Insulin Human Regular (Novolin R) 0 unit SC ACHS [facility]; Protocol Last Admin: 06/05/18 12:30 Dose: 4 u Lactulose (Enulose) 20 gm PO HS PRN PRN Reason: Constipation Levothyroxine Sodium (Synthroid) 50 mcg PO DAILY@0630 [facility] Last Admin: 06/05/18 06:03 Dose: 50 mcg Metoprolol Succinate (Toprol Xl) 50 mg PO DAILY [facility] Last Admin: 06/05/18 10:24 Dose: 50 mg Pantoprazole Sodium (Protonix Ec Tab) 40 mg PO DAILY [facility] Last Admin: 06/05/18 10:24 Dose: 40 mg Rosuvastatin Calcium (Crestor) 2.5 mg PO HS [facility] Last Admin: 06/04/18 21:25 Dose: 2.5 mg Sitagliptin Phosphate (Januvia) 25 mg PO DAILY [facility] Last Admin: 06/05/18 10:24 Dose: 25 mg Torsemide (Demadex) 10 mg PO DAILY [facility] Last Admin: 06/05/18 10:24 Dose: 10 mg Vitamin B Complex/Vit C/Folic Acid (Nephro-Pili) 1 tab PO 0800 [facility] Last Admin: 06/05/18 08:56 Dose: 1 tab Zolpidem Tartrate (Ambien) 5 mg PO HS PRN PRN Reason: Insomnia Last Admin: 06/04/18 21:31 Dose: 5 mg - Labs Labs: 06/04/18 07:20 06/04/18 07:20
[2018-06-05] MEDS: Rosuvastatin Calcium 2.5 mg Tab PO SCH (21:32)
[2018-06-06] MEDS: Albuterol 0.083% Inhal Sol (2.5 mg/3 mL) UD INH SCH ×2 (01:40→10:24)
[2018-06-06] MEDS: Levothyroxine 50 MCG TAB PO SCH (05:29)
--- NOTE | 2018-06-06 06:27 | PN ---
DATE: 06/05/2018 SUBJECTIVE: Gita Encinas is waiting for subacute rehab. Medically, she is stable. She had cough. She was given Robitussin. Her blood sugar is stable. Blood pressure is stable. No acute intervention at this time. The patient is waiting for subacute rehab. PHYSICAL EXAMINATION: VITAL SIGNS: Blood pressure is 123/67, pulse 74, respiratory rate 20, temperature 98.4. LUNGS: Scattered rhonchi. CVS: S1 and S2, regular. ABDOMEN: Soft. ASSESSMENT: 1. Chronic kidney disease. 2. Hypoglycemia, fully controlled diabetes. 3. Hypertension. 4. Status post hyperkalemia. PLAN: Subacute rehab. No acute intervention at this point. Júnior Bee MD
--- NOTE | 2018-06-06 06:27 | PN ---
DATE: 06/04/2018 SUBJECTIVE: Gita Encinas is feeling better. No fever. No chills. She has some cough. PHYSICAL EXAMINATION: VITAL SIGNS: BP 116/68, pulse 82, respiratory rate 20, temperature 98.1. LUNGS: Bilateral scattered rhonchi. CVS: S1, S2 regular. ABDOMEN: Soft. ASSESSMENT: 1. Generalized debility, difficulty walking, on physical therapy, subacute rehab pending . 2. Anemia of chronic kidney disease. 3. Chronic kidney disease, status post hyperkalemia. 4. Type 2 diabetes, status post hypoglycemia. PLAN: Physical therapy, rehab. Monitor the patient. Júnior Bee MD
--- NOTE | 2018-06-06 06:27 | PN ---
DATE: 06/03/2018 SUBJECTIVE: Gita Encinas is awaiting for subacute rehab. She is afebrile. No shortness of breath. Blood sugars are somewhat elevated. No nausea or vomiting. Status post bowel movement. PHYSICAL EXAMINATION: VITAL SIGNS: Blood pressure 133/68, pulse 81, respiratory rate 20, temperature 98.3. LUNGS: Clear. CARDIOVASCULAR SYSTEM: S1 and S2, regular. ABDOMEN: Soft. ASSESSMENT: 1. Hypoglycemia, resolved. 2. Type 2 diabetes. 3. Chronic kidney disease. 4. Hypertension. PLAN: Continue current medications. Monitor the patient. Júnior Bee MD
[2018-06-06] MEDS: (Novolin R) Insulin Human Regular 100 units/ml vial SC SCH ×4 (08:30→21:52)
[2018-06-06] MEDS: Multivitamin Vitamin B Complex (Nephro-Vite) Tab PO SCH (08:42)
[2018-06-06] MEDS: EPOETIN ALFA 10,000 UNIT/ML ML SC SCH (08:42)
[2018-06-06] MEDS: Metoprolol Succinate 50 mg XL Tab PO SCH (11:00)
[2018-06-06] MEDS: Pantoprazole 40 mg EC Tab PO SCH (11:00)
[2018-06-06] MEDS: Brimonidine 0.2% Opth Sol (5ml) OU SCH ×2 (11:00→17:23)
--- NOTE | 2018-06-06 12:16 | CP.PCM.PN ---
Subjective - Date & Time of Evaluation Date of Evaluation: 06/06/18 Time of Evaluation: 12:16 - Subjective Subjective: Nephrology Consultation Note Assessment: Stable Acute Kidney Injury (N17.9) stable Hyponatremia likely due to polydipsia and hypotonic fluid Diabetic chronic Kidney Disease (E11.22) Hypertensive Chronic Kidney Disease (I12.9) Chronic Kidney Disease (N18.4) Stage 4 with 280 mg proteinuria (R80.9) likely due to age/HTN vascular disease Anemia (D64.9), HTN (I12.9) acidosis sepsis ? UTI Plan No acute need for renal replacement therapy at this time. Hypertension control with meds as ordered. Maintain hemodynamics stable. Avoid hypotension. Patient not on ACEI/ARB due to recent [place] Monitor Input/Output, daily weights and renal function with basic metabolic panel started iron, MVI, epogen continue with oral fluid restriction. sepsis management as per primary team. possible UTI. pt on IV abx reviewed serum protein electrophoresis with immunofixation, serum free light chain assay ([place]/Lambda). consider heme eval Dose meds/antibiotics for reduced GFR. Avoid fleets enema/magnesium based laxatives. Avoid nephrotoxins/NSAIDs/ iodinated contrast (unless needed emergently) Glycemic control Further work up for as per primary team pt stable for d/c from renal perspective when planned with outpt 1-2 week renal follow up Thanks for allowing me to participate in care of your patient. Will follow patient with you. Please call if any Qs. had d/w team and daughter bedside Dr Tu Clements Office: [phone] Subjective: Noted events overnight. Patients feels okay. Denies chest pain, palpitation, shortness of breath, leg swelling. All other negative c/o constipation Physical Examination: General Appearance: Comfortable, in no acute respiratory distress, co-operative . Vitals reviewed and noted as below Head; Atraumatic, normocephalic ENT: no ulcers no thrush. Tongue is midline. Oropharynx: no rash or ulcers. EYES: Pupils are equal, round and reactive to light accommodation. Eye muscles and extraocular movement intact. Sclera is anicteric. Neck; supple no lymphadenopathy, no thyromegaly or bruit Lungs: Normal respiratory rate/effort. Breath sounds bilateral equal and clear Heart: Normal rate. s1s2 normal. No rub or gallop. Extremities: no edema. No varicose veins Neurological: Patient is alert, awake and oriented to person, place and time. No focal deficit. Strength bilateral appropriate and equal Skin: Warm and dry. Normal turgor. No rash. Palpitation: Normal elasticity for age Abdomen: Abdomen is soft. Bowel sounds +. There is no abdominal tenderness, no guarding/rigidity no organomegaly Psych: normal insight and normal affect/mood MSK: no joint tenderness or swelling. Digits and nails normal, no deformity : kidney or bladder not palpable Labs/imaging reviewed. Past medical history, past surgical history, family history, social history, allergy reviewed and noted as below Family hx: no hx of CKD. Rest non-contributory work up: Urine Osmol 265 Na 25 urine pr/cr : 280 mg/g and alb/cr 27 TSAT 16% Ferriitn 103 Vit D 48 PTH 41 renal sono: b/l echogenic kidneys Objective - Vital Signs/Intake and Output Vital Signs (last 24 hours): Temp Pulse Resp BP Pulse Ox 98.9 F 96 H 20 145/79 95 06/06/18 08:00 06/06/18 08:00 06/06/18 08:00 06/06/18 08:00 06/06/18 08:00 Intake and Output: 06/06/18 06/06/18 06:59 18:59 Intake Total 120 Output Total 400 Balance -280 - Medications Medications: Current Medications Acetaminophen (Tylenol 325mg Tab) 650 mg PO Q6 PRN PRN Reason: Fever >100.4 F Last Admin: 06/03/18 09:22 Dose: 650 mg Brimonidine Tartrate (Alphagan 0.2% Opht) 0.05 ml OU BID [facility] Last Admin: 06/06/18 11:00 Dose: 0.05 ml Clopidogrel Bisulfate (Plavix) 75 mg PO DAILY [facility] Last Admin: 06/06/18 11:00 Dose: 75 mg Dextrose (Dextrose 50% Inj) 0 ml IV STAT PRN; Protocol PRN Reason: Hypoglycemia Protocol Dextrose (Glutose 15) 0 gm PO ONCE PRN; Protocol PRN Reason: Hypoglycemia Protocol Docusate Sodium (Colace) 100 mg PO BID [facility] Last Admin: 06/06/18 11:00 Dose: 100 mg Epoetin Monico (Procrit) 10,000 unit SC MW [facility] Last Admin: 06/06/18 08:42 Dose: 10,000 unit Ferrous Gluconate (Fergon) 324 mg PO TID [facility] Last Admin: 06/06/18 11:00 Dose: 324 mg Glucagon (Glucagen Diagnostic Kit) 0 mg IM STAT PRN; Protocol PRN Reason: Hypoglycemia Protocol Guaifenesin (Robitussin) 200 mg PO Q4H PRN PRN Reason: Cough and congestion Last Admin: 06/04/18 19:52 Dose: 200 mg Hydralazine HCl (Apresoline) 25 mg PO Q8 [facility] Last Admin: 06/06/18 05:30 Dose: 25 mg Ceftriaxone Sodium 1 gm/ (Sodium Chloride) 100 mls @ 100 mls/hr IVPB DAILY [facility]; Protocol Last Admin: 06/06/18 11:00 Dose: 100 mls/hr Insulin Human Regular (Novolin R) 0 unit SC ACHS [facility]; Protocol Last Admin: 06/06/18 08:30 Dose: 2 u Lactulose (Enulose) 20 gm PO HS PRN PRN Reason: Constipation Levothyroxine Sodium (Synthroid) 50 mcg PO DAILY@0630 [facility] Last Admin: 06/06/18 05:29 Dose: 50 mcg Metoprolol Succinate (Toprol Xl) 50 mg PO DAILY [facility] Last Admin: 06/06/18 11:00 Dose: 50 mg Pantoprazole Sodium (Protonix Ec Tab) 40 mg PO DAILY [facility] Last Admin: 06/06/18 11:00 Dose: 40 mg Rosuvastatin Calcium (Crestor) 2.5 mg PO HS [facility] Last Admin: 06/05/18 21:32 Dose: 2.5 mg Sitagliptin Phosphate (Januvia) 25 mg PO DAILY [facility] Last Admin: 06/06/18 11:00 Dose: 25 mg Torsemide (Demadex) 10 mg PO DAILY [facility] Last Admin: 06/06/18 11:00 Dose: 10 mg Vitamin B Complex/Vit C/Folic Acid (Nephro-Pili) 1 tab PO 0800 [facility] Last Admin: 06/06/18 08:42 Dose: 1 tab Zolpidem Tartrate (Ambien) 5 mg PO HS PRN PRN Reason: Insomnia Last Admin: 06/04/18 21:31 Dose: 5 mg - Labs Labs: 06/04/18 07:20 06/04/18 07:20
[2018-06-06] MEDS: guaiFENesin 200 mg/10 ml Syrup UD PO PRN (14:05)
[2018-06-06] MEDS: Oxycodone/Acetaminophen 5/325 mg Tab PO PRN (21:51)
[2018-06-06] MEDS: Rosuvastatin Calcium 2.5 mg Tab PO SCH (21:51)
--- NOTE | 2018-06-06 23:33 | CP.PCM.PN ---
Subjective - Subjective Subjective: dictated Objective - Vital Signs/Intake and Output Vital Signs (last 24 hours): Temp Pulse Resp BP Pulse Ox 98.3 F 69 20 137/78 96 06/06/18 16:00 06/06/18 16:00 06/06/18 16:00 06/06/18 16:00 06/06/18 16:00 Intake and Output: 06/06/18 06/07/18 18:59 06:59 Intake Total 500 Output Total 500 Balance 0 - Medications Medications: Current Medications Acetaminophen (Tylenol 325mg Tab) 650 mg PO Q6 PRN PRN Reason: Fever >100.4 F Last Admin: 06/06/18 14:10 Dose: 650 mg Brimonidine Tartrate (Alphagan 0.2% Opht) 0.05 ml OU BID [facility] Last Admin: 06/06/18 17:23 Dose: 0.05 ml Clopidogrel Bisulfate (Plavix) 75 mg PO DAILY [facility] Last Admin: 06/06/18 11:00 Dose: 75 mg Dextrose (Dextrose 50% Inj) 0 ml IV STAT PRN; Protocol PRN Reason: Hypoglycemia Protocol Dextrose (Glutose 15) 0 gm PO ONCE PRN; Protocol PRN Reason: Hypoglycemia Protocol Docusate Sodium (Colace) 100 mg PO BID [facility] Last Admin: 06/06/18 17:23 Dose: 100 mg Epoetin Monico (Procrit) 10,000 unit SC MWF [facility] Last Admin: 06/06/18 08:42 Dose: 10,000 unit Ferrous Gluconate (Fergon) 324 mg PO TID [facility] Last Admin: 06/06/18 17:23 Dose: 324 mg Glucagon (Glucagen Diagnostic Kit) 0 mg IM STAT PRN; Protocol PRN Reason: Hypoglycemia Protocol Guaifenesin (Robitussin) 200 mg PO Q4H PRN PRN Reason: Cough and congestion Last Admin: 06/06/18 14:05 Dose: 200 mg Hydralazine HCl (Apresoline) 25 mg PO Q8 [facility] Last Admin: 06/06/18 21:51 Dose: 25 mg Ceftriaxone Sodium 1 gm/ (Sodium Chloride) 100 mls @ 100 mls/hr IVPB DAILY [facility]; Protocol Last Admin: 06/06/18 11:00 Dose: 100 mls/hr Insulin Human Regular (Novolin R) 0 unit SC ACHS [facility]; Protocol Last Admin: 06/06/18 21:52 Dose: Not Given Lactulose (Enulose) 20 gm PO BID PRN PRN Reason: Constipation Last Admin: 06/06/18 17:23 Dose: 20 gm Levothyroxine Sodium (Synthroid) 50 mcg PO DAILY@0630 [facility] Last Admin: 06/06/18 05:29 Dose: 50 mcg Metoprolol Succinate (Toprol Xl) 50 mg PO DAILY [facility] Last Admin: 06/06/18 11:00 Dose: 50 mg Oxycodone/Acetaminophen (Percocet 5/325 Mg Tab) 1 tab PO Q4H PRN PRN Reason: Pain, severe (8-10) Stop: 06/09/18 21:28 Last Admin: 06/06/18 21:51 Dose: 1 tab Pantoprazole Sodium (Protonix Ec Tab) 40 mg PO DAILY [facility] Last Admin: 06/06/18 11:00 Dose: 40 mg Rosuvastatin Calcium (Crestor) 2.5 mg PO HS [facility] Last Admin: 06/06/18 21:51 Dose: 2.5 mg Sitagliptin Phosphate (Januvia) 25 mg PO DAILY [facility] Last Admin: 06/06/18 11:00 Dose: 25 mg Torsemide (Demadex) 10 mg PO DAILY [facility] Last Admin: 06/06/18 11:00 Dose: 10 mg Vitamin B Complex/Vit C/Folic Acid (Nephro-Pili) 1 tab PO 0800 [facility] Last Admin: 06/06/18 08:42 Dose: 1 tab Zolpidem Tartrate (Ambien) 5 mg PO HS PRN PRN Reason: Insomnia Last Admin: 06/04/18 21:31 Dose: 5 mg - Labs Labs: 06/04/18 07:20 06/04/18 07:20
[2018-06-07] MEDS: Levothyroxine 50 MCG TAB PO SCH (05:56)
--- NOTE | 2018-06-07 07:50 | PN ---
DATE: 06/06/2018 SUBJECTIVE: The patient, Ce, is having wheezing at times. She is on nebulizer treatment. She is waiting for subacute rehab. The patient is medically stable and no active issues. PHYSICAL EXAMINATION: VITAL SIGNS: Blood pressure is 137/78, pulse 69, respiratory rate 20, temperature 98.3. LUNGS: Bilateral scattered rhonchi. CARDIOVASCULAR SYSTEM: S1 and S2, regular. ABDOMEN: Soft. ASSESSMENT: 1. Status post hypoglycemia, resolved. 2. Poorly controlled diabetes. 3. Hypertension with chronic kidney disease. 4. Anemia of chronic kidney disease. PLAN: Continue Procrit, Accu-Cheks, sliding scale, physical therapy, pain mediation. Monitor the patient. Júnior Bee MD
[2018-06-07] MEDS: Multivitamin Vitamin B Complex (Nephro-Vite) Tab PO SCH (08:30)
[2018-06-07] MEDS: (Novolin R) Insulin Human Regular 100 units/ml vial SC SCH ×4 (08:30→21:29)
[2018-06-07] MEDS: Pantoprazole 40 mg EC Tab PO SCH (11:00)
[2018-06-07] MEDS: Metoprolol Succinate 50 mg XL Tab PO SCH (11:00)
[2018-06-07] MEDS: Brimonidine 0.2% Opth Sol (5ml) OU SCH ×2 (11:00→21:28)
[2018-06-07] MEDS: Oxycodone/Acetaminophen 5/325 mg Tab PO PRN ×2 (11:23→18:59)
--- NOTE | 2018-06-07 11:44 | CP.PCM.PN ---
Subjective - Date & Time of Evaluation Date of Evaluation: 06/07/18 Time of Evaluation: 11:43 - Subjective Subjective: Nephrology Consultation Note Assessment: Stable Acute Kidney Injury (N17.9) stable Hyponatremia likely due to polydipsia and hypotonic fluid Diabetic chronic Kidney Disease (E11.22) Hypertensive Chronic Kidney Disease (I12.9) Chronic Kidney Disease (N18.4) Stage 4 with 280 mg proteinuria (R80.9) likely due to age/HTN vascular disease Anemia (D64.9), HTN (I12.9) acidosis sepsis ? UTI Plan No acute need for renal replacement therapy at this time. Hypertension control with meds as ordered. Maintain hemodynamics stable. Avoid hypotension. Patient not on ACEI/ARB due to recent [place] Monitor Input/Output, daily weights and renal function with basic metabolic panel started iron, MVI, epogen continue with oral fluid restriction. pt advised to follow up with urology reviewed serum protein electrophoresis with immunofixation, serum free light chain assay ([place]/Lambda). Dose meds/antibiotics for reduced GFR. Avoid fleets enema/magnesium based laxatives. Avoid nephrotoxins/NSAIDs/ iodinated contrast (unless needed emergently) Glycemic control Further work up for as per primary team pt stable for d/c from renal perspective when planned with outpt 1-2 week renal follow up Thanks for allowing me to participate in care of your patient. Will follow patient with you. Please call if any Qs. had d/w team and daughter bedside Dr Tu Clements Office: [phone] Subjective: Noted events overnight. Patients feels okay. Denies chest pain, palpitation, shortness of breath, leg swelling. All other negative c/o constipation waiting for rehab Physical Examination: General Appearance: Comfortable, in no acute respiratory distress, co-operative . Vitals reviewed and noted as below Head; Atraumatic, normocephalic ENT: no ulcers no thrush. Tongue is midline. Oropharynx: no rash or ulcers. EYES: Pupils are equal, round and reactive to light accommodation. Eye muscles and extraocular movement intact. Sclera is anicteric. Neck; supple no lymphadenopathy, no thyromegaly or bruit Lungs: Normal respiratory rate/effort. Breath sounds bilateral equal and clear Heart: Normal rate. s1s2 normal. No rub or gallop. Extremities: no edema. No varicose veins Neurological: Patient is alert, awake and oriented to person, place and time. No focal deficit. Strength bilateral appropriate and equal Skin: Warm and dry. Normal turgor. No rash. Palpitation: Normal elasticity for age Abdomen: Abdomen is soft. Bowel sounds +. There is no abdominal tenderness, no guarding/rigidity no organomegaly Psych: normal insight and normal affect/mood MSK: no joint tenderness or swelling. Digits and nails normal, no deformity : kidney or bladder not palpable Labs/imaging reviewed. Past medical history, past surgical history, family history, social history, allergy reviewed and noted as below Family hx: no hx of CKD. Rest non-contributory work up: Urine Osmol 265 Na 25 urine pr/cr : 280 mg/g and alb/cr 27 TSAT 16% Ferriitn 103 Vit D 48 PTH 41 renal sono: b/l echogenic kidneys Objective - Vital Signs/Intake and Output Vital Signs (last 24 hours): Temp Pulse Resp BP Pulse Ox 98.8 F 82 20 155/81 H 97 06/07/18 07:52 06/07/18 07:52 06/07/18 07:52 06/07/18 07:52 06/07/18 07:52 Intake and Output: 06/07/18 06/07/18 06:59 18:59 Intake Total 0 Output Total 400 Balance -400 - Medications Medications: Current Medications Acetaminophen (Tylenol 325mg Tab) 650 mg PO Q6 PRN PRN Reason: Fever >100.4 F Last Admin: 06/06/18 14:10 Dose: 650 mg Brimonidine Tartrate (Alphagan 0.2% Opht) 0.05 ml OU BID [facility] Last Admin: 06/07/18 11:00 Dose: 0.05 ml Clopidogrel Bisulfate (Plavix) 75 mg PO DAILY [facility] Last Admin: 06/07/18 11:00 Dose: 75 mg Dextrose (Dextrose 50% Inj) 0 ml IV STAT PRN; Protocol PRN Reason: Hypoglycemia Protocol Dextrose (Glutose 15) 0 gm PO ONCE PRN; Protocol PRN Reason: Hypoglycemia Protocol Docusate Sodium (Colace) 100 mg PO BID [facility] Last Admin: 06/07/18 11:00 Dose: 100 mg Epoetin Monico (Procrit) 10,000 unit SC MWF [facility] Last Admin: 06/06/18 08:42 Dose: 10,000 unit Ferrous Gluconate (Fergon) 324 mg PO TID [facility] Last Admin: 06/07/18 11:00 Dose: 324 mg Glucagon (Glucagen Diagnostic Kit) 0 mg IM STAT PRN; Protocol PRN Reason: Hypoglycemia Protocol Guaifenesin (Robitussin) 200 mg PO Q4H PRN PRN Reason: Cough and congestion Last Admin: 06/06/18 14:05 Dose: 200 mg Hydralazine HCl (Apresoline) 25 mg PO Q8 [facility] Last Admin: 06/07/18 05:56 Dose: 25 mg Insulin Human Regular (Novolin R) 0 unit SC ACHS [facility]; Protocol Last Admin: 06/07/18 08:30 Dose: Not Given Lactulose (Enulose) 20 gm PO BID PRN PRN Reason: Constipation Last Admin: 06/07/18 11:11 Dose: 20 gm Levothyroxine Sodium (Synthroid) 50 mcg PO DAILY@0630 [facility] Last Admin: 06/07/18 05:56 Dose: 50 mcg Metoprolol Succinate (Toprol Xl) 50 mg PO DAILY [facility] Last Admin: 06/07/18 11:00 Dose: 50 mg Oxycodone/Acetaminophen (Percocet 5/325 Mg Tab) 1 tab PO Q4H PRN PRN Reason: Pain, severe (8-10) Stop: 06/09/18 21:28 Last Admin: 06/07/18 11:23 Dose: 1 tab Pantoprazole Sodium (Protonix Ec Tab) 40 mg PO DAILY [facility] Last Admin: 06/07/18 11:00 Dose: 40 mg Rosuvastatin Calcium (Crestor) 2.5 mg PO HS [facility] Last Admin: 06/06/18 21:51 Dose: 2.5 mg Sitagliptin Phosphate (Januvia) 25 mg PO DAILY [facility] Last Admin: 06/07/18 11:00 Dose: 25 mg Torsemide (Demadex) 10 mg PO DAILY [facility] Last Admin: 06/07/18 11:00 Dose: 10 mg Vitamin B Complex/Vit C/Folic Acid (Nephro-Pili) 1 tab PO 0800 [facility] Last Admin: 06/07/18 08:30 Dose: 1 tab Zolpidem Tartrate (Ambien) 5 mg PO HS PRN PRN Reason: Insomnia Last Admin: 06/04/18 21:31 Dose: 5 mg - Labs Labs: 06/04/18 07:20 06/04/18 07:20
[2018-06-07] MEDS: Rosuvastatin Calcium 2.5 mg Tab PO SCH (21:31)
--- NOTE | 2018-06-07 22:31 | CP.PCM.PN ---
Subjective - Subjective Subjective: dictated Objective - Vital Signs/Intake and Output Vital Signs (last 24 hours): Temp Pulse Resp BP Pulse Ox 98.8 F 66 20 133/70 95 06/07/18 16:02 06/07/18 16:02 06/07/18 16:02 06/07/18 16:02 06/07/18 16:02 Intake and Output: 06/07/18 06/08/18 18:59 06:59 Intake Total 400 Output Total 800 Balance -400 - Medications Medications: Current Medications Acetaminophen (Tylenol 325mg Tab) 650 mg PO Q6 PRN PRN Reason: Fever >100.4 F Last Admin: 06/06/18 14:10 Dose: 650 mg Brimonidine Tartrate (Alphagan 0.2% Opht) 0.05 ml OU BID [facility] Last Admin: 06/07/18 21:28 Dose: 0.05 ml Clopidogrel Bisulfate (Plavix) 75 mg PO DAILY [facility] Last Admin: 06/07/18 11:00 Dose: 75 mg Dextrose (Dextrose 50% Inj) 0 ml IV STAT PRN; Protocol PRN Reason: Hypoglycemia Protocol Dextrose (Glutose 15) 0 gm PO ONCE PRN; Protocol PRN Reason: Hypoglycemia Protocol Docusate Sodium (Colace) 100 mg PO BID [facility] Last Admin: 06/07/18 17:31 Dose: 100 mg Epoetin Monico (Procrit) 10,000 unit SC MWF [facility] Last Admin: 06/06/18 08:42 Dose: 10,000 unit Ferrous Gluconate (Fergon) 324 mg PO TID [facility] Last Admin: 06/07/18 17:31 Dose: 324 mg Glucagon (Glucagen Diagnostic Kit) 0 mg IM STAT PRN; Protocol PRN Reason: Hypoglycemia Protocol Guaifenesin (Robitussin) 200 mg PO Q4H PRN PRN Reason: Cough and congestion Last Admin: 06/06/18 14:05 Dose: 200 mg Hydralazine HCl (Apresoline) 25 mg PO Q8 [facility] Last Admin: 06/07/18 21:30 Dose: 25 mg Insulin Human Regular (Novolin R) 0 unit SC ACHS [facility]; Protocol Last Admin: 06/07/18 21:29 Dose: Not Given Lactulose (Enulose) 20 gm PO BID PRN PRN Reason: Constipation Last Admin: 06/07/18 11:11 Dose: 20 gm Levothyroxine Sodium (Synthroid) 50 mcg PO DAILY@0630 [facility] Last Admin: 06/07/18 05:56 Dose: 50 mcg Metoprolol Succinate (Toprol Xl) 50 mg PO DAILY [facility] Last Admin: 06/07/18 11:00 Dose: 50 mg Oxycodone/Acetaminophen (Percocet 5/325 Mg Tab) 1 tab PO Q4H PRN PRN Reason: Pain, severe (8-10) Stop: 06/09/18 21:28 Last Admin: 06/07/18 18:59 Dose: 1 tab Pantoprazole Sodium (Protonix Ec Tab) 40 mg PO DAILY [facility] Last Admin: 06/07/18 11:00 Dose: 40 mg Rosuvastatin Calcium (Crestor) 2.5 mg PO HS [facility] Last Admin: 06/07/18 21:31 Dose: 2.5 mg Sitagliptin Phosphate (Januvia) 25 mg PO DAILY [facility] Last Admin: 06/07/18 11:00 Dose: 25 mg Torsemide (Demadex) 10 mg PO DAILY [facility] Last Admin: 06/07/18 11:00 Dose: 10 mg Vitamin B Complex/Vit C/Folic Acid (Nephro-Pili) 1 tab PO 0800 [facility] Last Admin: 06/07/18 08:30 Dose: 1 tab Zolpidem Tartrate (Ambien) 5 mg PO HS PRN PRN Reason: Insomnia Last Admin: 06/04/18 21:31 Dose: 5 mg - Labs Labs: 06/04/18 07:20 06/04/18 07:20
[2018-06-08] MEDS: Levothyroxine 50 MCG TAB PO SCH (05:54)
--- NOTE | 2018-06-08 08:24 | PN ---
DATE: 06/07/2018 SUBJECTIVE: The patient, Gita Encinas, is doing well. Her H and H, BUN, creatinine, and glucose are stable. She is afebrile, waiting for subacute rehab. PHYSICAL EXAMINATION: VITAL SIGNS: Blood pressure 132/70, pulse 66, respiratory rate 20, temperature 98.8. LUNGS: Clear. CARDIOVASCULAR SYSTEM: S1 and S2, regular. ABDOMEN: Soft. ASSESSMENT: 1. Chronic kidney disease, not on hemodialysis. 2. Poorly controlled diabetes. 3. Hypertension. 4. Anemia of chronic kidney disease. PLAN: Continue current medication. Monitor the patient. Júnior Bee MD
[2018-06-08] MEDS: (Novolin R) Insulin Human Regular 100 units/ml vial SC SCH ×2 (08:30→12:32)
[2018-06-08] MEDS: Multivitamin Vitamin B Complex (Nephro-Vite) Tab PO SCH (08:58)
[2018-06-08] MEDS: Oxycodone/Acetaminophen 5/325 mg Tab PO PRN ×2 (09:02→14:24)
[2018-06-08] MEDS ORDERED: Albuterol-Ipratrop 3 mg / 0.5 (3 ml) UD INH STA (09:37)
[2018-06-08] MEDS ORDERED: MethylPREDNISolone 40 mg Vial IVP STA (09:38)
[2018-06-08] MEDS: Brimonidine 0.2% Opth Sol (5ml) OU SCH (09:58)
[2018-06-08] MEDS: Pantoprazole 40 mg EC Tab PO SCH (09:59)
[2018-06-08] MEDS: EPOETIN ALFA 10,000 UNIT/ML ML SC SCH (09:59)
[2018-06-08] MEDS: Metoprolol Succinate 50 mg XL Tab PO SCH (10:04)
--- NOTE | 2018-06-08 11:36 | RAD ---
Date of service: 06/08/2018 HISTORY: sob/ r/o chf COMPARISON: 06/01/2018 FINDINGS: LUNGS: No active pulmonary disease. PLEURA: No significant pleural effusion identified, no pneumothorax apparent. CARDIOVASCULAR: Normal. OSSEOUS STRUCTURES: No significant abnormalities. VISUALIZED UPPER ABDOMEN: Normal. OTHER FINDINGS: None. IMPRESSION: No active disease.
[2018-06-08 11:37] LABS: BASO # 0.1 K/uL (0.0-0.2); BASO % 0.8 % (0.0-2.0); EOS # 0.2 K/uL (0.0-0.7); EOS % 1.7 % (0.0-4.0); HEMOGLOBIN 9.5 g/dL (11.0-16.0); LYMPH # 1.2 K/uL (1.0-4.3); LYMPH % 12.6 % (20.0-40.0); MEAN CELL VOLUME 93.8 fL (81.0-99.0); MEAN CORPUSCULAR HEMOGLOBIN 30.5 pg (27.0-31.0); MEAN CORPUSCULAR HGB CONC 32.5 g/dL (33.0-37.0); MEAN PLATELET VOLUME 7.6 fL (7.2-11.7); MONO # 0.6 K/uL (0.0-0.8); MONO % 6.8 % (0.0-10.0); NEUT # 7.2 K/uL (1.8-7.0); NEUT % 78.1 % (50.0-75.0); NRBC % 0.2 % (0.0-2.0); RBC 3.13 Mil/uL (3.80-5.20); RED CELL DISTRIBUTION WIDTH 17.1 % (11.5-14.5); WHITE BLOOD COUNT 9.2 K/uL (4.8-10.8)
[2018-06-08 11:51] LABS: CALCIUM 9.2 mg/dl (8.6-10.4)
[2018-06-08] MEDS ORDERED: Albuterol-Ipratrop 3 mg / 0.5 (3 ml) UD INH SCH (14:00)
--- NOTE | 2018-06-08 15:29 | CP.PCM.PN ---
Subjective - Date & Time of Evaluation Date of Evaluation: 06/08/18 Time of Evaluation: 11:40 - Subjective Subjective: Patient seen today denies any abdominal pain, N/V/D, sob, chest pain, c/o LE pain improved with pain medication BS- stable no further hypoglycemic events reported vss and labs - reviewed Objective - Vital Signs/Intake and Output Vital Signs (last 24 hours): Temp Pulse Resp BP Pulse Ox 98.9 F 79 20 129/77 97 06/08/18 07:45 06/08/18 07:45 06/08/18 07:45 06/08/18 07:45 06/08/18 07:45 Intake and Output: 06/08/18 06/08/18 06:59 18:59 Intake Total 480 480 Output Total 300 150 Balance 180 330 - Medications Medications: Current Medications Acetaminophen (Tylenol 325mg Tab) 650 mg PO Q6 PRN PRN Reason: Fever >100.4 F Last Admin: 06/06/18 14:10 Dose: 650 mg Albuterol/Ipratropium (Duoneb 3 Mg/0.5 Mg (3 Ml) Ud) 3 ml INH RQ6 [facility] Last Admin: 06/08/18 13:16 Dose: 3 ml Brimonidine Tartrate (Alphagan 0.2% Opht) 0.05 ml OU BID [facility] Last Admin: 06/08/18 09:58 Dose: 0.05 ml Clopidogrel Bisulfate (Plavix) 75 mg PO DAILY [facility] Last Admin: 06/08/18 09:59 Dose: 75 mg Dextrose (Dextrose 50% Inj) 0 ml IV STAT PRN; Protocol PRN Reason: Hypoglycemia Protocol Dextrose (Glutose 15) 0 gm PO ONCE PRN; Protocol PRN Reason: Hypoglycemia Protocol Docusate Sodium (Colace) 100 mg PO BID [facility] Last Admin: 06/08/18 09:59 Dose: 100 mg Epoetin Monico (Procrit) 10,000 unit SC MWF [facility] Last Admin: 06/08/18 09:59 Dose: 10,000 unit Ferrous Gluconate (Fergon) 324 mg PO TID [facility] Last Admin: 06/08/18 14:04 Dose: 324 mg Glucagon (Glucagen Diagnostic Kit) 0 mg IM STAT PRN; Protocol PRN Reason: Hypoglycemia Protocol Guaifenesin (Robitussin) 200 mg PO Q4H PRN PRN Reason: Cough and congestion Last Admin: 06/06/18 14:05 Dose: 200 mg Hydralazine HCl (Apresoline) 25 mg PO Q8 [facility] Last Admin: 06/08/18 14:04 Dose: 25 mg Insulin Human Regular (Novolin R) 0 unit SC ACHS [facility]; Protocol Last Admin: 06/08/18 12:32 Dose: 4 u Lactulose (Enulose) 20 gm PO BID PRN PRN Reason: Constipation Last Admin: 06/07/18 11:11 Dose: 20 gm Levothyroxine Sodium (Synthroid) 50 mcg PO DAILY@0630 [facility] Last Admin: 06/08/18 05:54 Dose: 50 mcg Metoprolol Succinate (Toprol Xl) 50 mg PO DAILY [facility] Last Admin: 06/08/18 10:04 Dose: 50 mg Oxycodone/Acetaminophen (Percocet 5/325 Mg Tab) 1 tab PO Q4H PRN PRN Reason: Pain, severe (8-10) Stop: 06/09/18 21:28 Last Admin: 06/08/18 14:24 Dose: 1 tab Pantoprazole Sodium (Protonix Ec Tab) 40 mg PO DAILY [facility] Last Admin: 06/08/18 09:59 Dose: 40 mg Rosuvastatin Calcium (Crestor) 2.5 mg PO HS [facility] Last Admin: 06/07/18 21:31 Dose: 2.5 mg Sitagliptin Phosphate (Januvia) 25 mg PO DAILY [facility] Last Admin: 06/08/18 09:59 Dose: 25 mg Torsemide (Demadex) 10 mg PO DAILY [facility] Last Admin: 06/08/18 09:59 Dose: 10 mg Vitamin B Complex/Vit C/Folic Acid (Nephro-Pili) 1 tab PO 0800 [facility] Last Admin: 06/08/18 08:58 Dose: 1 tab Zolpidem Tartrate (Ambien) 5 mg PO HS PRN PRN Reason: Insomnia Last Admin: 06/04/18 21:31 Dose: 5 mg - Labs Labs: 06/08/18 11:26 06/08/18 11:26 - Constitutional Appears: Non-toxic, No Acute Distress - Respiratory Exam Respiratory Exam: Wheezes, NORMAL BREATHING PATTERN - Neurological Exam Neurological Exam: Alert, Awake, Oriented x3 Assessment and Plan - Assessment and Plan (Free Text) Assessment: A/P 82 yr old female with pmhx of chronic osteoarthritis, low back pain, Diabetes, HTN admitted with hypoglycemia a nd s/p mechanical fall at home blood sugar stabilized with d10 and ivf and stable Patient accepted at [facility] for rehabilitation for weakness and patient and family in agreement repeat cxr done and no active disease D/W Dr. Bee, stable for discharge to [facility] today and Dr. Bee will follow the patient at [facility] will repeat labs weekly at rehab and further management as per Dr. Bee at rehab
--- NOTE | 2018-06-08 16:02 | CP.PCM.PN ---
Subjective - Date & Time of Evaluation Date of Evaluation: 06/08/18 Time of Evaluation: 16:01 - Subjective Subjective: Nephrology Consultation Note Assessment: Stable Acute Kidney Injury (N17.9) stable Hyponatremia likely due to polydipsia and hypotonic fluid Diabetic chronic Kidney Disease (E11.22) Hypertensive Chronic Kidney Disease (I12.9) Chronic Kidney Disease (N18.4) Stage 4 with 280 mg proteinuria (R80.9) likely due to age/HTN vascular disease Anemia (D64.9), HTN (I12.9) Plan No acute need for renal replacement therapy at this time. Hypertension control with meds as ordered. Maintain hemodynamics stable. Avoid hypotension. Patient not on ACEI/ARB due to recent [place] Monitor Input/Output, daily weights and renal function with basic metabolic panel started iron, MVI, epogen continue with oral fluid restriction. lower diuretic to q2 day reviewed serum protein electrophoresis with immunofixation, serum free light chain assay ([place]/Lambda). Dose meds/antibiotics for reduced GFR. Avoid fleets enema/magnesium based laxatives. Avoid nephrotoxins/NSAIDs/ iodinated contrast (unless needed emergently) Glycemic control Further work up for as per primary team pt stable for d/c from renal perspective when planned with outpt 1-2 week renal follow up Thanks for allowing me to participate in care of your patient. Will follow patient with you. Please call if any Qs. had d/w team and daughter bedside Dr Tu Clements Office: [phone] Subjective: Noted events overnight. Patients feels okay. Denies chest pain, palpitation, shortness of breath, leg swelling. All other negative c/o constipation waiting for rehab Physical Examination: General Appearance: Comfortable, in no acute respiratory distress, co-operative . Vitals reviewed and noted as below Head; Atraumatic, normocephalic ENT: no ulcers no thrush. Tongue is midline. Oropharynx: no rash or ulcers. EYES: Pupils are equal, round and reactive to light accommodation. Eye muscles and extraocular movement intact. Sclera is anicteric. Neck; supple no lymphadenopathy, no thyromegaly or bruit Lungs: Normal respiratory rate/effort. Breath sounds bilateral equal and clear Heart: Normal rate. s1s2 normal. No rub or gallop. Extremities: no edema. No varicose veins Neurological: Patient is alert, awake and oriented to person, place and time. No focal deficit. Strength bilateral appropriate and equal Skin: Warm and dry. Normal turgor. No rash. Palpitation: Normal elasticity for age Abdomen: Abdomen is soft. Bowel sounds +. There is no abdominal tenderness, no guarding/rigidity no organomegaly Psych: normal insight and normal affect/mood MSK: no joint tenderness or swelling. Digits and nails normal, no deformity : kidney or bladder not palpable Labs/imaging reviewed. Past medical history, past surgical history, family history, social history, allergy reviewed and noted as below Family hx: no hx of CKD. Rest non-contributory work up: Urine Osmol 265 Na 25 urine pr/cr : 280 mg/g and alb/cr 27 TSAT 16% Ferriitn 103 Vit D 48 PTH 41 renal sono: b/l echogenic kidneys Objective - Vital Signs/Intake and Output Vital Signs (last 24 hours): Temp Pulse Resp BP Pulse Ox 98.9 F 79 20 129/77 97 06/08/18 07:45 06/08/18 07:45 06/08/18 07:45 06/08/18 07:45 06/08/18 07:45 Intake and Output: 06/08/18 06/08/18 06:59 18:59 Intake Total 480 480 Output Total 300 150 Balance 180 330 - Medications Medications: Current Medications Acetaminophen (Tylenol 325mg Tab) 650 mg PO Q6 PRN PRN Reason: Fever >100.4 F Last Admin: 06/06/18 14:10 Dose: 650 mg Albuterol/Ipratropium (Duoneb 3 Mg/0.5 Mg (3 Ml) Ud) 3 ml INH RQ6 [facility] Last Admin: 06/08/18 13:16 Dose: 3 ml Brimonidine Tartrate (Alphagan 0.2% Opht) 0.05 ml OU BID [facility] Last Admin: 06/08/18 09:58 Dose: 0.05 ml Clopidogrel Bisulfate (Plavix) 75 mg PO DAILY [facility] Last Admin: 06/08/18 09:59 Dose: 75 mg Dextrose (Dextrose 50% Inj) 0 ml IV STAT PRN; Protocol PRN Reason: Hypoglycemia Protocol Dextrose (Glutose 15) 0 gm PO ONCE PRN; Protocol PRN Reason: Hypoglycemia Protocol Docusate Sodium (Colace) 100 mg PO BID [facility] Last Admin: 06/08/18 09:59 Dose: 100 mg Epoetin Monico (Procrit) 10,000 unit SC MWF [facility] Last Admin: 06/08/18 09:59 Dose: 10,000 unit Ferrous Gluconate (Fergon) 324 mg PO TID [facility] Last Admin: 06/08/18 14:04 Dose: 324 mg Glucagon (Glucagen Diagnostic Kit) 0 mg IM STAT PRN; Protocol PRN Reason: Hypoglycemia Protocol Guaifenesin (Robitussin) 200 mg PO Q4H PRN PRN Reason: Cough and congestion Last Admin: 06/06/18 14:05 Dose: 200 mg Hydralazine HCl (Apresoline) 25 mg PO Q8 [facility] Last Admin: 06/08/18 14:04 Dose: 25 mg Insulin Human Regular (Novolin R) 0 unit SC ACHS [facility]; Protocol Last Admin: 06/08/18 12:32 Dose: 4 u Lactulose (Enulose) 20 gm PO BID PRN PRN Reason: Constipation Last Admin: 06/07/18 11:11 Dose: 20 gm Levothyroxine Sodium (Synthroid) 50 mcg PO DAILY@0630 [facility] Last Admin: 06/08/18 05:54 Dose: 50 mcg Metoprolol Succinate (Toprol Xl) 50 mg PO DAILY [facility] Last Admin: 06/08/18 10:04 Dose: 50 mg Oxycodone/Acetaminophen (Percocet 5/325 Mg Tab) 1 tab PO Q4H PRN PRN Reason: Pain, severe (8-10) Stop: 06/09/18 21:28 Last Admin: 06/08/18 14:24 Dose: 1 tab Pantoprazole Sodium (Protonix Ec Tab) 40 mg PO DAILY [facility] Last Admin: 06/08/18 09:59 Dose: 40 mg Rosuvastatin Calcium (Crestor) 2.5 mg PO HS [facility] Last Admin: 06/07/18 21:31 Dose: 2.5 mg Sitagliptin Phosphate (Januvia) 25 mg PO DAILY [facility] Last Admin: 06/08/18 09:59 Dose: 25 mg Torsemide (Demadex) 10 mg PO DAILY [facility] Last Admin: 06/08/18 09:59 Dose: 10 mg Vitamin B Complex/Vit C/Folic Acid (Nephro-Pili) 1 tab PO 0800 [facility] Last Admin: 06/08/18 08:58 Dose: 1 tab Zolpidem Tartrate (Ambien) 5 mg PO HS PRN PRN Reason: Insomnia Last Admin: 06/04/18 21:31 Dose: 5 mg - Labs Labs: 06/08/18 11:26 06/08/18 11:26
[2018-06-08 16:59] VITALS: BP 139/75; PULSE 69; TEMP 98.2; O2SAT 96
--- NOTE | 2018-06-08 19:07 | CP.PCM.DIS ---
Provider - Provider Date of Admission: 05/27/18 13:46 Attending physician: Júnior Bee MD Hospital Course - Lab Results Lab Results: Micro Results 06/01/18 10:45 Blood-Venous Blood Culture - Final NO GROWTH AFTER 5 DAYS 06/01/18 10:45 Blood-Venous Gram Stain - Final TEST NOT PERFORMED 06/01/18 11:15 Blood-Venous Blood Culture - Final NO GROWTH AFTER 5 DAYS 06/01/18 11:15 Blood-Venous Gram Stain - Final TEST NOT PERFORMED 06/03/18 04:58 Urine,Gillis Urine Culture - Final 10-50,000 CFU/ML. MULTIPLE SPECIES. PROBABLE CONTAMINATION. 06/01/18 14:50 Urine,Gillis Urine Culture - Final 50-100,000 CFU/ML. MULTIPLE SPECIES. SUGGEST REPEAT SPECIMEN. 05/28/18 13:51 Nose MRSA Culture - Final MRSA NOT DETECTED 05/26/18 10:11 Naris MRSA Culture (Admit) - Final MRSA NOT DETECTED Most Recent Lab Values WBC 9.2 K/uL (4.8-10.8) 06/08/18 11:26 RBC 3.13 Mil/uL (3.80-5.20) L 06/08/18 11:26 Hgb 9.5 g/dL (11.0-16.0) L 06/08/18 11:26 Hct 29.3 % (34.0-47.0) L 06/08/18 11:26 MCV 93.8 fL (81.0-99.0) 06/08/18 11:26 MCH 30.5 pg (27.0-31.0) 06/08/18 11:26 MCHC 32.5 g/dL (33.0-37.0) L 06/08/18 11:26 RDW 17.1 % (11.5-14.5) H 06/08/18 11:26 Plt Count 467 K/uL (130-400) H 06/08/18 11:26 MPV 7.6 fL (7.2-11.7) 06/08/18 11:26 Neut % (Auto) 78.1 % (50.0-75.0) H 06/08/18 11:26 Lymph % (Auto) 12.6 % (20.0-40.0) L 06/08/18 11:26 [place] % (Auto) 6.8 % (0.0-10.0) 06/08/18 11:26 Eos % (Auto) 1.7 % (0.0-4.0) 06/08/18 11:26 Baso % (Auto) 0.8 % (0.0-2.0) 06/08/18 11:26 Neut # (Auto) 7.2 K/uL (1.8-7.0) H 06/08/18 11:26 Lymph # (Auto) 1.2 K/uL (1.0-4.3) 06/08/18 11:26 [place] # (Auto) 0.6 K/uL (0.0-0.8) 06/08/18 11:26 Eos # (Auto) 0.2 K/uL (0.0-0.7) 06/08/18 11:26 Baso # (Auto) 0.1 K/uL (0.0-0.2) 06/08/18 11:26 Neutrophils % (Manual) 81 % (50-75) H 06/01/18 11:42 Lymphocytes % (Manual) 11 % (20-40) L 06/01/18 11:42 Monocytes % (Manual) 7 % (0-10) 06/01/18 11:42 Eosinophils % (Manual) 1 % (0-4) 06/01/18 11:42 Platelet Estimate Normal (NORMAL) 06/01/18 11:42 Polychromasia Slight 05/26/18 02:52 Hypochromasia (manual) Slight 06/01/18 11:42 Poikilocytosis (manual Slight 06/01/18 11:42 Basophilic Stippling Slight 05/26/18 02:52 Anisocytosis (manual) Slight 06/01/18 11:42 Target Cells Slight 06/01/18 11:42 Tear Drop Cells Slight 05/26/18 02:52 Ovalocytes Slight 06/01/18 11:42 Schistocytes Slight 05/26/18 02:52 Sodium 135 mmol/L (132-148) 06/08/18 11:26 Potassium 4.7 mmol/L (3.6-5.2) 06/08/18 11:26 Chloride 100 mmol/L (98-107) 06/08/18 11:26 Carbon Dioxide 22 mmol/L (22-30) 06/08/18 11:26 Anion Gap 18 (10-20) 06/08/18 11:26 BUN 62 mg/dL (7-17) H 06/08/18 11:26 Creatinine 2.3 mg/dL (0.7-1.2) H 06/08/18 11:26 Est GFR ( Amer) 25 06/08/18 11:26 Est GFR (Non-Af Amer) 20 06/08/18 11:26 POC Glucose (mg/dL) 277 mg/dL (65-110) H 06/08/18 16:07 Random Glucose 285 mg/dL (65-105) H 06/08/18 11:26 Hemoglobin A1c 6.1 % (4.2-6.5) 05/27/18 04:05 Serum Osmolality 300 mosm/kg (272-300) 05/28/18 11:52 Calcium 9.2 mg/dl (8.6-10.4) 06/08/18 11:26 Phosphorus 3.5 mg/dL (2.5-4.5) 05/31/18 07:12 Magnesium 1.6 mg/dL (1.6-2.3) 05/29/18 13:41 Total Bilirubin 0.2 mg/dL (0.2-1.3) 05/28/18 11:59 AST 27 U/L (14-36) 05/28/18 11:59 ALT 28 U/L (9-52) 05/28/18 11:59 Alkaline Phosphatase 60 U/L (38-126) 05/28/18 11:59 Total Protein 6.5 g/dL (6.3-8.3) 05/28/18 11:59 Albumin 3.5 g/dL (3.5-5.0) 05/28/18 11:59 Globulin 3.0 gm/dL (2.2-3.9) 05/28/18 11:59 Albumin/Globulin Ratio 1.1 (1.0-2.1) 05/28/18 11:59 Triglycerides 88 mg/dL (0-149) 05/29/18 21:34 Cholesterol 126 mg/dL (0-199) 05/29/18 21:34 LDL Cholesterol Direct 43 mg/dL (0-129) 05/29/18 21:34 HDL Cholesterol 61 mg/dL (30-70) 05/29/18 21:34 Cortisol AM Sample 17.6 ug/dL (4.46-22.7) 05/27/18 14:16 Urine Color Yellow (YELLOW) 06/01/18 14:50 Urine Clarity Clear (Clear) 06/01/18 14:50 Urine pH 5.0 (5.0-8.0) 06/01/18 14:50 Ur Specific [place] 1.011 (1.003-1.030) 06/01/18 14:50 Urine Protein Negative mg/dL (NEGATIVE) 06/01/18 14:50 Urine Glucose (UA) Normal mg/dL (Normal) 06/01/18 14:50 Urine Ketones Negative mg/dL (NEGATIVE) 06/01/18 14:50 Urine Blood Negative (NEGATIVE) 06/01/18 14:50 Urine Nitrate Negative (NEGATIVE) 06/01/18 14:50 Urine Bilirubin Negative (NEGATIVE) 06/01/18 14:50 Urine Urobilinogen Normal mg/dL (0.2-1.0) 06/01/18 14:50 Ur Leukocyte Esterase 3+ [place]/uL (Negative) H 06/01/18 14:50 Urine WBC (Auto) 6 /hpf (0-5) H 06/01/18 14:50 Urine RBC (Auto) 1 /hpf (0-3) 06/01/18 14:50 Ur Squamous Epith Cells 2 /hpf (0-5) 06/01/18 14:50 Urine Bacteria Occ (<OCC) H 06/01/18 14:50 Urine Osmolality 265 mosm/kg (300-1000) L 05/28/18 13:51 Ur Random Sodium 25 mmol/L 05/28/18 13:51 Ur Random Potassium 12.2 mmol/L 05/28/18 13:51 Serum Immunofixation Not detected (Not Detected) 05/29/18 22:05 Urine Immunofixation Not detected (Not Detected) 05/30/18 07:18 Free [place] Light Chains 76.2 mg/L (3.3-19.4) H 05/29/18 22:05 Free [place] Light Chain 32.2 mg/L (5.7-26.3) H 05/29/18 22:05 Free [place]/Lambda Ratio 2.37 (0.26-1.65) H 05/29/18 22:05 Discharge Plan - Follow Up Plan Condition: STABLE Disposition: REHAB FACILITY/REHAB UNIT Instructions: Hyperkalemia (DC), Low Blood Sugar in People With Diabetes Additional Instructions: Please admit patient under Dr. Gutiérrez service- call Dr. Bee upon patient arrival to the facility Continue medication as per Med. rec. Repeat cbc, bmp wednesday Oxygen via nasal canula to keep spo2>95% Referrals: Júnior Bee MD [Staff Provider] -
--- NOTE | 2018-06-09 03:08 | DS ---
ADMISSION DIAGNOSIS: Hypoglycemia. DISCHARGE DIAGNOSES: 1. Hypoglycemia. 2. Poorly controlled diabetes. 3. Chronic kidney disease. 4. Hypertension. 5. Difficulty walking. HOSPITAL COURSE: This is an 82-year-old female, well known to me with history of diabetes, hypertension, hyperlipidemia, CKD, not on hemodialysis, anemia of chronic kidney disease who was admitted with hypoglycemia persistent. The patient improved with D10 and D5 IV. The patient subsequently did well. She was evaluated by Renal because of low sodium. The patient's sodium has been corrected. She is feeling better. She is afebrile. No shortness of breath. PHYSICAL EXAMINATION: VITAL SIGNS: Blood pressure 139/75, pulse 69, respiratory rate 20, temperature 98.2. LUNGS: Bilateral rhonchi. CARDIOVASCULAR SYSTEM: S1 and S2, regular. ABDOMEN: Soft. PLAN: [facility]charge the patient to [facility]. Follow up with me. Júnior Bee MD
== END 2018-06-08 17:07 | DRG 638 ==
LOC: C.ER 02:06 → C.9E 06:34 → C.9I 07:51 → OBSVTOIN 05-27 13:46 → C.3T 05-28 13:52
PROVIDERS: ADMIT Internal Medicine; ATTEND Internal Medicine
DX: E11.649 Type 2 diabetes mellitus with hypoglycemia without coma (principal); E87.1 Hypo-osmolality and hyponatremia; E87.2 Acidosis; I44.2 Atrioventricular block, complete; J45.901 Unspecified asthma with (acute) exacerbation; N39.0 Urinary tract infection, site not specified; E11.22 Type 2 diabetes mellitus with diabetic chronic kidney disease; E78.5 Hyperlipidemia, unspecified; E83.42 Hypomagnesemia; E03.9 Hypothyroidism, unspecified; G47.00 Insomnia, unspecified; E87.5 Hyperkalemia; I12.9 Hypertensive chronic kidney disease with stage 1 through stage 4 chronic kidney disease, or unspecified chronic kidney disease; N17.9 Acute kidney failure, unspecified; N18.4 Chronic kidney disease, stage 4 (severe); D63.1 Anemia in chronic kidney disease; Z99.3 Dependence on wheelchair; Z91.81 History of falling; E66.9 Obesity, unspecified; Z68.36 Body mass index [BMI] 36.0-36.9, adult

== ENCOUNTER 2018-12-11 17:08 | Inpatient (IN) | payer MEDICARE, OTHER ==
[2018-12-11 17:09] VITALS: BMI 42.3
[2018-12-11] MEDS ORDERED: Albuterol-Ipratrop 3 mg / 0.5 (3 ml) UD INH STA (17:38)
[2018-12-11] MEDS ORDERED: Albuterol-Ipratrop 3 mg / 0.5 (3 ml) UD ONE (18:15)
--- NOTE | 2018-12-11 18:35 | C.PDOC ---
History Of Present Illness 83-year-old female presents to the emergency department with complaints of left knee pain. Patient states that she tripped on carpet and fell on her left knee. Patient denies head injury, was not able to ambulate. In the ED patient is noticeably short of breath. Patient has a history of asthma but denies loss of consciousness. According to patients daughter patient fell a few times last week. Time Seen by Provider: 12/11/18 17:26 Chief Complaint (Nursing): Lower Extremity Problem/Injury History Per: Patient History/Exam Limitations: no limitations Onset/Duration Of Symptoms: Hrs Current Symptoms Are (Timing): Still Present - Knee Description Of Injury: Fell Past Medical History Reviewed: Historical Data, Nursing Documentation, Vital Signs Vital Signs: Last Vital Signs Temp 100.4 F H 12/11/18 17:28 Pulse 109 H 12/11/18 17:28 Resp 39 H 12/11/18 18:01 BP 165/75 H 12/11/18 17:28 Pulse Ox 97 12/11/18 17:28 - Medical History PMH: Arthritis (chronic osteoarthritis, low back pain), Asthma, Diabetes, HTN, Chronic Kidney Disease Surgical History: No Surg Hx Family History: States: No Known Family Hx - Social History Hx Alcohol Use: No Hx Substance Use: No - Immunization History Hx Tetanus Toxoid Vaccination: No Hx Influenza Vaccination: Yes Hx Pneumococcal Vaccination: Yes Review Of Systems Except As Marked, All Systems Reviewed And Found Negative. Constitutional: Negative for: Fever, Chills Cardiovascular: Negative for: Chest Pain Respiratory: Positive for: Shortness of Breath Musculoskeletal: Positive for: Leg Pain (left knee) Physical Exam - Physical Exam Appears: Non-toxic, No Acute Distress Skin: Normal Color, Warm, Dry Head: Atraumatic, Normacephalic Eye(s): bilateral: Normal Inspection, PERRL, EOMI Nose: Normal Oral Mucosa: Moist Neck: Normal, Supple Chest: Symmetrical, No Tenderness Cardiovascular: Rhythm Regular, No Murmur Respiratory: No Rales, No Rhonchi, Wheezing (mild wheezing), Other (dyspnea) Gastrointestinal/Abdominal: Soft, No Tenderness, No Guarding, No Rebound Extremity: Tenderness (left knee tenderness), No Deformity Pulses: Left Dorsalis Pedis: Normal, Right Dorsalis Pedis: Normal Neurological/Psych: Oriented x3, Normal Speech, Normal Cognition, Normal Motor, Normal Sensation ED Course And Treatment - Laboratory Results Result Diagrams: 12/11/18 18:31 O2 Sat by Pulse Oximetry: 97 (RA) Pulse Ox Interpretation: Normal Interpretation Of Abnormal: Sinus tachycardia at 108bpm with 1st degree AV block. Q-waves. - Radiology CXR: Interpreted by Me CXR Interpretation: Yes: No Acute Disease Progress Note: XR pelvis, knee, tib/fib no fracture. Medical Decision Making Medical Decision Making: Plan: EKG Chemistry Bloodwork CXR Glucose POC Albuterol XR Left Knee XR Pelvis XR Tib/Fib Left 18:46: Spoke top Dr. Bee, who recommended the patient be admitted, accepted for admission. Disposition Discussed With : Júnior Bee Doctor Will See Patient In The: Hospital Counseled Patient/Family Regarding: Studies Performed, Diagnosis - Disposition Disposition: HOSPITALIZED Disposition Time: 18:51 Condition: STABLE Forms: [facility] ([place]) - Clinical Impression Clinical Impression: Exacerbation of asthma, Gait disturbance, Knee contusion - Scribe Statement The provider has reviewed the documentation as recorded by the Scribe (Rubens Webb) Provider Attestation: All medical record entries made by the Scribe were at my direction and personally dictated by me. I have reviewed the chart and agree that the record accurately reflects my personal performance of the history, physical exam, medical decision making, and the department course for this patient. I have also personally directed, reviewed, and agree with the discharge instructions and disposition.
[2018-12-11 18:36] LABS: BASO # 0.1 K/uL (0.0-0.2); BASO % 0.4 % (0.0-2.0); EOS # 0.1 K/uL (0.0-0.7); EOS % 0.5 % (0.0-4.0); LYMPH # 0.9 K/uL (1.0-4.3); LYMPH % 7.4 % (20.0-40.0); MEAN CELL VOLUME 87.6 fL (81.0-99.0); MEAN CORPUSCULAR HEMOGLOBIN 28.9 pg (27.0-31.0); MEAN PLATELET VOLUME 8.1 fL (7.2-11.7); MONO # 0.9 K/uL (0.0-0.8); MONO % 7.4 % (0.0-10.0); NEUT % 84.3 % (50.0-75.0); PLATELET COUNT 451 K/uL (130-400); RBC 3.11 Mil/uL (3.80-5.20); WHITE BLOOD COUNT 11.8 K/uL (4.8-10.8)
[2018-12-11 18:47] LABS: INR 1.3; PROTHROMBIN TIME 14.6 SECONDS (9.7-12.2)
[2018-12-11] MEDS ORDERED: Morphine 4 MG/ML VIAL IV ONE (18:52)
[2018-12-11 18:55] LABS: LYMPHOCYTE 7 % (20-40); MONOCYTE 9 % (0-10); NEUTROPHIL 84 % (50-75); TOTAL CELLS COUNTED 100
[2018-12-11 18:57] LABS: ANISOCYTOSIS MODERATE; BURR CELLS SLIGHT; HYPOCHROMIC SLIGHT; POIKILOCYTOSIS SLIGHT; POLYCHROMIC SLIGHT
[2018-12-11 18:58] LABS: PLATELET ESTIMATE SLIGHTLY INCREASED (NORMAL)
[2018-12-11 19:00] LABS: ALB/GLOB RATIO 1.1 (1.0-2.1); ALBUMIN 3.9 g/dL (3.5-5.0); ALT/SGPT 14 U/L (9-52); AST/SGOT 44 U/L (14-36); BLOOD UREA NITROGEN 37 mg/dL (7-17); CALCIUM 9.5 mg/dl (8.6-10.4); GFR NON-AFRICAN AMERICAN 25
[2018-12-11 19:12] LABS: B-TYPE NATRIURETIC PEPTIDE 2460 pg/mL (0-900)
[2018-12-12 01:15] LABS: CK-MB 1.03 ng/mL (0.0-3.38); TROPONIN I 0.024 ng/mL (0.00-0.120)
[2018-12-12] MEDS: Albuterol 0.083% Inhal Sol (2.5 mg/3 mL) UD INH SCH ×4 (01:24→20:37)
[2018-12-12] MEDS: Levothyroxine 50 MCG TAB PO SCH (05:49)
[2018-12-12] MEDS: Oxycodone/Acetaminophen 5/325 mg Tab PO PRN ×3 (07:52→19:35)
[2018-12-12] MEDS: Multivitamin Vitamin B Complex (Nephro-Vite) Tab PO SCH (08:27)
[2018-12-12] MEDS: (Novolin R) Insulin Human Regular 100 units/ml vial SC SCH ×4 (08:28→21:43)
--- NOTE | 2018-12-12 09:19 | RAD ---
Date of service: 12/11/2018 PROCEDURE: CHEST RADIOGRAPH, 1 VIEW HISTORY: SOB COMPARISON: 06/08/2018. FINDINGS: LUNGS: The lungs are well inflated and clear. PLEURA: No pneumothorax or pleural effusion. CARDIOVASCULAR: There is mild cardiomegaly. There are aortic atherosclerotic calcifications present. OSSEOUS STRUCTURES: Within normal limits for the patient's age. VISUALIZED UPPER ABDOMEN: Normal. OTHER FINDINGS: None. IMPRESSION: No active pulmonary disease.
[2018-12-12] MEDS: Metoprolol Succinate 50 mg XL Tab PO SCH (10:04)
[2018-12-12] MEDS: Pantoprazole 40 mg EC Tab PO SCH (10:04)
[2018-12-12] MEDS: Enoxaparin 30 mg Syringe SC SCH (10:05)
[2018-12-12] MEDS: EPOETIN ALFA 10,000 UNIT/ML ML SC SCH (10:05)
--- NOTE | 2018-12-12 10:55 | CARD ---
APPROVED REPORT Date of service: 12/11/2018 EKG Measurement Heart [id number] <Conclusion> Sinus tachycardia with 1st degree AV block Inferior infarct, age undetermined Possible Anterior infarct, age undetermined Abnormal ECG
[2018-12-12 12:42] LABS: SQUAMOUS EPITHIAL 1 /hpf (0-5); URINE BACTERIA RARE (<OCC); URINE BILIRUBIN NEGATIVE (NEGATIVE); URINE BLOOD NEGATIVE (NEGATIVE); URINE CLARITY Clear (Clear); URINE COLOR Yellow (YELLOW); URINE GLUCOSE (UA) NORMAL (Normal); URINE HYALINE CAST 0-2 /lpf (0-2); URINE LEUKOCYTE ESTERASE NEG Leu/uL (Negative); URINE PROTEIN 1+ mg/dL (NEGATIVE); URINE UROBILINOGEN NORMAL mg/dL (0.2-1.0)
--- NOTE | 2018-12-12 15:14 | RAD ---
PROCEDURE: Left Knee Radiographs. Two views. HISTORY: trauma COMPARISON: None available FINDINGS: Rotated lateral view. BONES: Diffuse osseous demineralization limits evaluation for acute fracture lines. No acute displaced fracture. JOINTS: Severe degenerative changes including tricompartmental narrowing. No dislocation. JOINT EFFUSION: No significant joint effusion. OTHER FINDINGS: Vascular calcifications. IMPRESSION: Limited rotated lateral view. Osseous demineralization. Severe degenerative changes. No acute displaced fracture or dislocation identified. If high clinical index of suspicion, recommend further evaluation with cross-sectional imaging.
[2018-12-12] MEDS: Lidocaine 5% Patch TD SCH (15:16)
--- NOTE | 2018-12-12 15:46 | RAD ---
Date of service: 12/11/2018 PROCEDURE: Radiographs of the pelvis. HISTORY: Fall COMPARISON: None. TECHNIQUE: 1 view obtained. FINDINGS: BONES: The pelvic ring is intact. There is no acute displaced fracture or bone destruction. Bone alignment is normal. JOINTS: There is mild degenerative osteoarthrosis in the hip joints. Sacroiliac Joints: Mild degenerative osteoarthrosis in the sacroiliac joints. Pubic Symphysis: Unremarkable. OTHER FINDINGS: None. IMPRESSION: No acute displaced fracture or dislocation. Please note occult fractures cannot be excluded on plain radiographs. If there is a persistent clinical concern, an MRI of the hip may be performed for further evaluation.
--- NOTE | 2018-12-12 15:48 | RAD ---
Date of service: 12/11/2018 PROCEDURE: Radiographs of the left tibia and fibula. HISTORY: trauma COMPARISON: None available. TECHNIQUE: Frontal and lateral views obtained. 2 views obtained. FINDINGS: BONES: There is diffuse bone demineralization. No acute displaced fracture or bone destruction. JOINT SPACES: Degenerative osteoarthrosis. OTHER FINDINGS: There are atherosclerotic vascular calcifications. IMPRESSION: No acute fracture.
--- NOTE | 2018-12-12 18:10 | CP.PCM.HP ---
Present on Admission - Present on Admission Any Indicators Present on Admission: No Past Patient History - Infectious Disease Hx of Infectious Diseases: None - Past Medical History & Family History Past Medical History?: Yes - Past Social History Smoking Status: Never Smoked - CARDIAC Hx Hypertension: Yes - PULMONARY Hx Asthma: Yes - RENAL Hx Chronic Kidney Disease: Yes - ENDOCRINE/METABOLIC Hx Diabetes Mellitus Type 2: Yes - MUSCULOSKELETAL/RHEUMATOLOGICAL Hx Arthritis: Yes - PSYCHIATRIC Hx Substance Use: No - SURGICAL HISTORY Hx Surgeries: No - ANESTHESIA Hx Anesthesia: No Hx Anesthesia Reactions: No Hx Malignant Hyperthermia: No Meds Allergies/Adverse Reactions: Allergies Allergy/AdvReac Type Severity Reaction Status Date / Time EGG Allergy PAIN Verified 12/11/18 17:34 Results - Vital Signs Recent Vital Signs: Last Vital Signs Temp 98.4 F 12/12/18 15:11 Pulse 80 12/12/18 15:11 Resp 20 12/12/18 15:11 BP 128/73 12/12/18 15:11 Pulse Ox 99 12/12/18 15:11 - Labs Result Diagrams: 12/11/18 18:31 12/11/18 18:30 Labs: Laboratory Results - last 24 hr 12/11/18 12/11/18 12/11/18 12:15 18:30 18:30 WBC RBC Hgb Hct MCV MCH MCHC RDW Plt Count MPV Neut % (Auto) Lymph % (Auto) [place] % (Auto) Eos % (Auto) Baso % (Auto) Neut # (Auto) Lymph # (Auto) [place] # (Auto) Eos # (Auto) Baso # (Auto) Neutrophils % (Manual) Lymphocytes % (Manual) Monocytes % (Manual) Platelet Estimate Polychromasia Hypochromasia (manual) Poikilocytosis (manual Anisocytosis (manual) Jerry Cells PT 14.6 H INR 1.3 APTT 30 Sodium 134 Potassium 5.3 H Chloride 103 Carbon Dioxide 22 Anion Gap 15 BUN 37 H Creatinine 1.9 H Est GFR ( Amer) 30 Est GFR (Non-Af Amer) 25 POC Glucose (mg/dL) Random Glucose 316 H Calcium 9.5 Total Bilirubin 0.4 AST 44 H D ALT 14 Alkaline Phosphatase 86 Total Creatine Kinase CK-MB (Mass) Troponin I < 0.0120 NT-Pro-B Natriuret Pep 2460 H Total Protein 7.5 Albumin 3.9 Globulin 3.6 Albumin/Globulin Ratio 1.1 Urine Color Yellow Urine Clarity Clear Urine pH 5.0 Ur Specific [place] 1.012 Urine Protein 1+ H Urine Glucose (UA) Normal Urine Ketones Negative Urine Blood Negative Urine Nitrate Negative Urine Bilirubin Negative Urine Urobilinogen Normal Ur Leukocyte Esterase Neg Urine WBC (Auto) < 1 Urine RBC (Auto) 1 Ur Squamous Epith Cells 1 Urine Bacteria Rare Hyaline Casts 0-2 12/11/18 12/11/18 12/12/18 18:31 21:25 00:42 WBC 11.8 H RBC 3.11 L Hgb 9.0 L Hct 27.3 L MCV 87.6 D MCH 28.9 MCHC 33.0 RDW 18.0 H Plt Count 451 H MPV 8.1 Neut % (Auto) 84.3 H Lymph % (Auto) 7.4 L [place] % (Auto) 7.4 Eos % (Auto) 0.5 Baso % (Auto) 0.4 Neut # (Auto) 10.0 H Lymph # (Auto) 0.9 L [place] # (Auto) 0.9 H Eos # (Auto) 0.1 Baso # (Auto) 0.1 Neutrophils % (Manual) 84 H Lymphocytes % (Manual) 7 L Monocytes % (Manual) 9 Platelet Estimate Slightly increased H Polychromasia Slight Hypochromasia (manual) Slight Poikilocytosis (manual Slight Anisocytosis (manual) Moderate [place] Cells Slight PT INR APTT Sodium Potassium Chloride Carbon Dioxide Anion Gap BUN Creatinine Est GFR ( Amer) Est GFR (Non-Af Amer) POC Glucose (mg/dL) 263 H Random Glucose Calcium Total Bilirubin AST ALT Alkaline Phosphatase Total Creatine Kinase 251 H CK-MB (Mass) 1.03 Troponin I 0.0240 NT-Pro-B Natriuret Pep Total Protein Albumin Globulin Albumin/Globulin Ratio Urine Color Urine Clarity Urine pH Ur Specific [place] Urine Protein Urine Glucose (UA) Urine Ketones Urine Blood Urine Nitrate Urine Bilirubin Urine Urobilinogen Ur Leukocyte Esterase Urine WBC (Auto) Urine RBC (Auto) Ur Squamous Epith Cells Urine Bacteria Hyaline Casts 12/12/18 16:55 WBC RBC Hgb Hct MCV MCH MCHC RDW Plt Count MPV Neut % (Auto) Lymph % (Auto) [place] % (Auto) Eos % (Auto) Baso % (Auto) Neut # (Auto) Lymph # (Auto) [place] # (Auto) Eos # (Auto) Baso # (Auto) Neutrophils % (Manual) Lymphocytes % (Manual) Monocytes % (Manual) Platelet Estimate Polychromasia Hypochromasia (manual) Poikilocytosis (manual Anisocytosis (manual) [place] Cells PT INR APTT Sodium Potassium Chloride Carbon Dioxide Anion Gap BUN Creatinine Est GFR ( Amer) Est GFR (Non-Af Amer) POC Glucose (mg/dL) 225 H Random Glucose Calcium Total Bilirubin AST ALT Alkaline Phosphatase Total Creatine Kinase CK-MB (Mass) Troponin I NT-Pro-B Natriuret Pep Total Protein Albumin Globulin Albumin/Globulin Ratio Urine Color Urine Clarity Urine pH Ur Specific [place] Urine Protein Urine Glucose (UA) Urine Ketones Urine Blood Urine Nitrate Urine Bilirubin Urine Urobilinogen Ur Leukocyte Esterase Urine WBC (Auto) Urine RBC (Auto) Ur Squamous Epith Cells Urine Bacteria Hyaline Casts
[2018-12-12] MEDS: Rosuvastatin Calcium 2.5 mg Tab PO SCH (21:46)
[2018-12-13] MEDS: Albuterol 0.083% Inhal Sol (2.5 mg/3 mL) UD INH SCH ×3 (01:17→20:11)
--- NOTE | 2018-12-13 04:19 | HP ---
CHIEF COMPLAINT: Bilateral knee pain, more on the left side x2 days. HISTORY OF PRESENT ILLNESS: This is an 83-year-old female well known to me with history of type 2 diabetes, CKD, hypertension, hyperlipidemia, osteoarthritis, obesity, anxiety, chronic low back problems who is practically home bounded and she is fully dependent on her daughter for activities of daily living. She is compliant with her diet, medication, and followup. On the day of admission, she came in because 2 days ago, she had a fall with bilateral knee injury, more on the left knee, and she is having a hard time walking. She is virtually bedbound, homebound, and she is fully dependent on her daughter for activities of daily living. Pain became unbearable. She could not move and she decided to come to the hospital. There is no history of fever, chills, rigors. There is no history of dysuria, hematuria, pyuria. She has tingling, numbness in the feet. There is no history of trauma, fall, loss of consciousness. No history of seizure-like activity. There is no history of polyuria, polydipsia, polyphagia. There is no history of hematuria, pyuria. There is no history of sneezing, itchy eyes, itchy nose. There is no history of any other trauma recently. There is no history of seizure-like activity and she denies drinking. PAST MEDICAL HISTORY: Morbid obesity, diabetes, hypertension, hyperlipidemia, CKD. SOCIAL HISTORY: She is a nonsmoker, non-ETOH user. CURRENT MEDICATIONS: The patient is on multiple medications including Percocet, hydralazine, Ambien, multivitamin, Demadex, Januvia, Crestor, Toprol, Synthroid, and DuoNeb. PHYSICAL EXAMINATION: GENERAL: An elderly female, in distress with pain in the left knee. VITAL SIGNS: Blood pressure is 142/81, pulse 91, respiratory rate 20, temperature 98. SKIN: Senile turgor, pale. No bruises. No purpura. No petechiae. No ecchymosis. HEENT: Atraumatic and normocephalic. Positive pallor. Negative jaundice. Extraocular movements are intact. NECK: Supple. No JVD. No lymph node. No thyromegaly. No carotid bruits. CHEST WALL: Bilateral symmetrical expansion. No tenderness. No deformity. LUNGS: Bilaterally clear. No rales. No rhonchi. CARDIOVASCULAR: PMI not localized. S1, S2, regular. No heave noted. ABDOMEN: Soft and nontender. Bowel sounds are positive. RECTAL: No masses. No bleeding. EXTREMITIES: No clubbing, cyanosis, or edema. CENTRAL NERVOUS SYSTEM: Awake, alert and oriented x3. Cranial nerves II through XII are normal. Power 5/5 x4. Plantars are downgoing with tenderness in the left knee upon palpation. ASSESSMENT: 1. Fall with left knee injury, rule out fracture. 2. Hypertension. 3. Poorly controlled diabetes. 4. Osteoarthritis. PLAN: Admit. Detailed orders are written. Seen and examined. Júnior Bee MD
[2018-12-13] MEDS: Levothyroxine 50 MCG TAB PO SCH (05:32)
[2018-12-13 06:43] LABS: BASO % 0.3 % (0.0-2.0); EOS # 0.1 K/uL (0.0-0.7); EOS % 1.4 % (0.0-4.0); LYMPH # 1.7 K/uL (1.0-4.3); LYMPH % 18.1 % (20.0-40.0); MEAN CELL VOLUME 86.9 fL (81.0-99.0); MEAN CORPUSCULAR HEMOGLOBIN 28.8 pg (27.0-31.0); MEAN CORPUSCULAR HGB CONC 33.2 g/dL (33.0-37.0); MEAN PLATELET VOLUME 7.9 fL (7.2-11.7); MONO # 0.9 K/uL (0.0-0.8); MONO % 9.7 % (0.0-10.0); NEUT # 6.6 K/uL (1.8-7.0); NEUT % 70.5 % (50.0-75.0); RBC 2.78 Mil/uL (3.80-5.20); RED CELL DISTRIBUTION WIDTH 17.7 % (11.5-14.5); WHITE BLOOD COUNT 9.4 K/uL (4.8-10.8)
[2018-12-13 07:23] LABS: CALCIUM 8.8 mg/dl (8.6-10.4)
[2018-12-13] MEDS: (Novolin R) Insulin Human Regular 100 units/ml vial SC SCH ×4 (08:00→22:23)
[2018-12-13] MEDS: Pantoprazole 40 mg EC Tab PO SCH (09:51)
[2018-12-13] MEDS: Multivitamin Vitamin B Complex (Nephro-Vite) Tab PO SCH (09:52)
[2018-12-13] MEDS: Enoxaparin 30 mg Syringe SC SCH (09:53)
[2018-12-13] MEDS: Metoprolol Succinate 50 mg XL Tab PO SCH (10:01)
[2018-12-13] MEDS: Lidocaine 5% Patch TD SCH (10:02)
[2018-12-13] MEDS: Oxycodone/Acetaminophen 5/325 mg Tab PO PRN (15:02)
[2018-12-13] MEDS ORDERED: Oxycodone/Acetaminophen 5/325 mg Tab PO PRN (18:52)
[2018-12-13] MEDS: Piperacill/Tazo 2.25gm in Dex 2.25 GM/50 ML BAG IVPB SCH (21:00)
[2018-12-13] MEDS ORDERED: Latanoprost 2.5 ml Opht Soln OU SCH (22:00)
[2018-12-13] MEDS: Rosuvastatin Calcium 2.5 mg Tab PO SCH (22:20)
--- NOTE | 2018-12-14 00:15 | PN ---
DATE: 12/13/2018 SUBJECTIVE: The patient, Ce, is having intense knee pain, bilateral difficulty walking. She is bed bound; and she is having fever, chills, rigors, body ache, tiredness, anorexia, malaise, and fatigue. She feels weak. She is dizzy. She is pale, and she looks sick. She is shaking. She gets nauseous at times, and she gets pruritus occasionally. She denies any chest pain. No cough. The patient denies any . PHYSICAL EXAMINATION: VITAL SIGNS: Blood pressure 150/86, pulse 96, respiratory rate 20, temperature 98.7, afebrile. LUNGS: Bilaterally clear. No rales. No rhonchi. CARDIOVASCULAR: S1, S2, regular. ABDOMEN: Soft, nontender. Bowel sounds are positive. EXTREMITIES: Left knee positive tenderness. ASSESSMENT: 1. Fall with knee injury, difficulty walking. She is practically bed bound. 2. Hypertension. 3. Fever, rule out sepsis. Pending blood culture. Urine cultures are negative. 4. Diabetes. 5. Hypertension. PLAN: DC Start Zosyn and infectious disease consult. Monitor the patient. Júnior Bee MD
[2018-12-14] MEDS: Albuterol 0.083% Inhal Sol (2.5 mg/3 mL) UD INH SCH ×4 (01:38→19:41)
[2018-12-14] MEDS: Piperacill/Tazo 2.25gm in Dex 2.25 GM/50 ML BAG IVPB SCH ×3 (04:08→21:24)
[2018-12-14] MEDS: Levothyroxine 50 MCG TAB PO SCH (05:33)
[2018-12-14] MEDS: (Novolin R) Insulin Human Regular 100 units/ml vial SC SCH ×4 (07:55→21:24)
[2018-12-14] MEDS ORDERED: Bisacodyl 5mg EC Tab PO ONE (08:45)
[2018-12-14] MEDS: Multivitamin Vitamin B Complex (Nephro-Vite) Tab PO SCH (09:11)
[2018-12-14] MEDS: Metoprolol Succinate 50 mg XL Tab PO SCH (09:11)
[2018-12-14] MEDS: Enoxaparin 30 mg Syringe SC SCH (09:12)
[2018-12-14] MEDS: EPOETIN ALFA 10,000 UNIT/ML ML SC SCH (09:12)
[2018-12-14] MEDS: Oxycodone/Acetaminophen 5/325 mg Tab PO PRN ×2 (09:13→18:17)
[2018-12-14] MEDS: Pantoprazole 40 mg EC Tab PO SCH (09:13)
[2018-12-14] MEDS: Lidocaine 5% Patch TD SCH (09:18)
[2018-12-14 11:16] LABS: BASO % 0.4 % (0.0-2.0); EOS # 0.1 K/uL (0.0-0.7); EOS % 0.9 % (0.0-4.0); HEMOGLOBIN 7.8 g/dL (11.0-16.0); LYMPH # 1.3 K/uL (1.0-4.3); LYMPH % 13.2 % (20.0-40.0); MEAN CELL VOLUME 87.1 fL (81.0-99.0); MEAN CORPUSCULAR HEMOGLOBIN 28.9 pg (27.0-31.0); MEAN CORPUSCULAR HGB CONC 33.1 g/dL (33.0-37.0); MEAN PLATELET VOLUME 8.1 fL (7.2-11.7); MONO # 0.8 K/uL (0.0-0.8); MONO % 7.9 % (0.0-10.0); NEUT # 7.6 K/uL (1.8-7.0); NEUT % 77.6 % (50.0-75.0); RBC 2.7 Mil/uL (3.80-5.20); RED CELL DISTRIBUTION WIDTH 17.5 % (11.5-14.5); WHITE BLOOD COUNT 9.8 K/uL (4.8-10.8)
[2018-12-14 12:19] LABS: CALCIUM 8.5 mg/dl (8.6-10.4)
[2018-12-14 14:28] LABS: IRON 14 ug/dL (37-170)
[2018-12-14 14:38] LABS: % IRON SATURATION 7 (20-55); TOTAL IRON BINDING CAPACITY 191 ug/dL (250-450)
--- NOTE | 2018-12-14 16:41 | CP.PCM.CON ---
History of Present Illness - History of Present Illness History of Present Illness: INFECTIOUS DISEASE CONSULT; REASON FOR CONSULT; FEVER/BILATERAL KNEE PAIN LT > RT/GAIT INSTABILITY. HPI; 83-year-old female with history of asthma, diabetes mellitus, hypertension, chronic kidney disease and chronic osteoarthritis with low back pain admitted for 11/09/18 with history off fall on the carpet when she tripped on her left knee. Patient was having difficulty ambulating and was brought to the ER. Patient also was complaining off shortness of breath but denied any cough. Patient was noted to have a fever OFF 101.3 LAST NIGHT Infectious disease consult was therefore requested for evaluation of fever and left knee pain. Patient continues to complain of pain off bilateral knees but states is better after putting the patches. Patient also complains of left shoulder pain. Patient very poor historian. History obtained mainly from the chart. CHEST X-RAY ON ADMISSION WAS UNREMARKABLE. x-RAY OF THE LEFT KNEE SHOWED SEVERE DEGENERATIVE CHANGES AND TRICOMPARTMENTAL NARROWING. nO DISLOCATION. tIBIA AND FIBULA X-RAYS WERE NEGATIVE FOR FRACTURE. PATIENT GOT A DOSE OF CEFTRIAXONE,LATER SWITCHED TO zOSYN. PMH: Arthritis (chronic osteoarthritis, low back pain), Asthma, Diabetes, HTN, Chronic Kidney Disease Surgical History: No Surg Hx Family History: States: No Known Family Hx - Social History Hx Alcohol Use: No Hx Substance Use: No - Immunization History Hx Tetanus Toxoid Vaccination: No Hx Influenza Vaccination: Yes Hx Pneumococcal Vaccination: Yes. ALLERGY; EGG Review of Systems - Review of Systems Systems not reviewed;Unavailable: Other (POOR HISTORIAN.) All systems: reviewed and no additional remarkable complaints except ( PER hpi.) Past Patient History - Infectious Disease Hx of Infectious Diseases: None - Past Medical History & Family History Past Medical History?: Yes - Past Social History Smoking Status: Never Smoked - CARDIAC Hx Cardiac Disorders: Yes Hx Hypercholesterolemia: Yes Hx Hypertension: Yes - PULMONARY Hx Respiratory Disorders: Yes Hx Asthma: Yes - NEUROLOGICAL Hx Neurological Disorder: No - HEENT Hx HEENT Problems: No - RENAL Hx Chronic Kidney Disease: No - ENDOCRINE/METABOLIC Hx Endocrine Disorders: Yes Hx Diabetes Mellitus Type 2: Yes - HEMATOLOGICAL/ONCOLOGICAL Hx Blood Disorders: No - MUSCULOSKELETAL/RHEUMATOLOGICAL Hx Musculoskeletal Disorders: Yes Hx Arthritis: Yes Hx Degenerative Joint Disease: Yes (Bilateral knees) Hx Falls: Yes (fell at home) - GASTROINTESTINAL Hx Gastrointestinal Disorders: No - GENITOURINARY/GYNECOLOGICAL Hx Genitourinary Disorders: No - PSYCHIATRIC Hx Psychophysiologic Disorder: No Hx Substance Use: No - SURGICAL HISTORY Hx Surgeries: No - ANESTHESIA Hx Anesthesia: No Hx Anesthesia Reactions: No Hx Malignant Hyperthermia: No Meds Allergies/Adverse Reactions: Allergies Allergy/AdvReac Type Severity Reaction Status Date / Time EGG Allergy PAIN Verified 12/11/18 17:34 - Medications Medications: Current Medications Acetaminophen (Tylenol 325mg Tab) 650 mg PO Q6 PRN PRN Reason: Fever >100.4 F Last Admin: 12/13/18 17:09 Dose: 650 mg Albuterol Sulfate (Albuterol 0.083% Inhal [place] (2.5 Mg/3 Ml) Ud) 2.5 mg INH RQ6 [facility] Last Admin: 12/14/18 13:29 Dose: 2.5 mg Docusate Sodium (Colace) 100 mg PO BID [facility] Last Admin: 12/14/18 09:12 Dose: 100 mg Enoxaparin Sodium (Lovenox) 30 mg SC DAILY [facility] Last Admin: 12/14/18 09:12 Dose: 30 mg Epoetin Monico (Procrit) 10,000 unit SC MWF [facility] Last Admin: 12/14/18 09:12 Dose: 10,000 unit Ferric Sodium Gluconate Complex (Ferrlecit) 125 mg IVPB DAILY [facility] Stop: 12/19/18 16:16 Home Med (Patient's Own Drops) 1 drop OU DAILY [facility] Home Med (Patient's Own Drops) 0 drop OU HS [facility] Hydralazine HCl (Apresoline) 25 mg PO Q8 [facility] Last Admin: 12/14/18 13:17 Dose: 25 mg Piperacillin Sod/Tazobactam Sod (Zosyn 2.25 Gm Iv Premix) 2.25 gm in 50 mls @ 2 00 mls/hr IVPB Q8H [facility]; Protocol Last Admin: 12/14/18 12:52 Dose: 200 mls/hr Insulin Human Regular (Novolin R) 0 unit SC ACHS [facility]; Protocol Last Admin: 12/14/18 12:51 Dose: 1 unit Levothyroxine Sodium (Synthroid) 50 mcg PO DAILY@0630 [facility] Last Admin: 12/14/18 05:33 Dose: 50 mcg Lidocaine (Lidoderm) 2 ea TD DAILY [facility] Last Admin: 12/14/18 09:18 Dose: 2 ea Metoprolol Succinate (Toprol Xl) 50 mg PO DAILY [facility] Last Admin: 12/14/18 09:11 Dose: 50 mg Oxycodone/Acetaminophen (Percocet 5/325 Mg Tab) 1 tab PO Q6H PRN PRN Reason: Pain, moderate (4-7) Stop: 12/17/18 08:34 Last Admin: 12/14/18 09:13 Dose: 1 tab Pantoprazole Sodium (Protonix Ec Tab) 40 mg PO DAILY [facility] Last Admin: 12/14/18 09:13 Dose: 40 mg Rosuvastatin Calcium (Crestor) 2.5 mg PO HS [facility] Last Admin: 12/13/18 22:20 Dose: 2.5 mg Sitagliptin Phosphate (Januvia) 25 mg PO DAILY [facility] Last Admin: 12/14/18 09:12 Dose: 25 mg Torsemide (Demadex) 10 mg PO DAILY [facility] Last Admin: 12/14/18 09:11 Dose: 10 mg Vitamin B Complex/Vit C/Folic Acid (Nephro-Pili) 1 tab PO 0800 [facility] Last Admin: 12/14/18 09:11 Dose: 1 tab Zolpidem Tartrate (Ambien) 5 mg PO HS PRN PRN Reason: Insomnia Last Admin: 12/13/18 22:19 Dose: 5 mg Physical Exam - Constitutional Appears: No Acute Distress - Head Exam Head Exam: NORMAL INSPECTION - Eye Exam Eye Exam: EOMI, PERRL - ENT Exam ENT Exam: Normal Oropharynx - Neck Exam Neck exam: Positive for: Normal Inspection - Respiratory Exam Respiratory Exam: Clear to Auscultation Bilateral, NORMAL BREATHING PATTERN - Cardiovascular Exam Cardiovascular Exam: REGULAR RHYTHM, +S1, +S2 - GI/Abdominal Exam GI & Abdominal Exam: Normal Bowel Sounds, Soft. absent: Organomegaly - Extremities Exam Extremities exam: Positive for: joint swelling (LT KNEE lIMITED RANGE OF MOTION AND SLIGHTLY WARM TO TOUCH.), pedal edema, pedal pulses present. Negative for: calf tenderness - Neurological Exam Neurological exam: Abnormal Gait, Alert, CN II-XII Intact, Oriented x3 - Psychiatric Exam Psychiatric exam: Normal Mood - Skin Skin Exam: Warm Results - Vital Signs Recent Vital Signs: Last Vital Signs Temp 98.0 F 12/14/18 07:00 Pulse 86 12/14/18 08:30 Resp 20 12/14/18 07:00 BP 126/76 04/24/19 13:18 Pulse Ox 96 12/14/18 07:00 - Labs Result Diagrams: 12/15/18 07:57 12/15/18 07:57 Labs: Laboratory Results - last 24 hr 12/13/18 12/13/18 12/14/18 16:47 21:05 05:57 WBC RBC Hgb Hct MCV MCH MCHC RDW Plt Count MPV Neut % (Auto) Lymph % (Auto) [place] % (Auto) Eos % (Auto) Baso % (Auto) Neut # (Auto) Lymph # (Auto) [place] # (Auto) Eos # (Auto) Baso # (Auto) Sodium Potassium Chloride Carbon Dioxide Anion Gap BUN Creatinine Est GFR ( Amer) Est GFR (Non-Af Amer) POC Glucose (mg/dL) 222 H 253 H 79 Random Glucose Calcium Iron TIBC % Saturation 12/14/18 12/14/18 12/14/18 11:09 11:09 11:28 WBC 9.8 RBC 2.70 L Hgb 7.8 L Hct 23.5 L MCV 87.1 MCH 28.9 MCHC 33.1 RDW 17.5 H Plt Count 482 H MPV 8.1 Neut % (Auto) 77.6 H Lymph % (Auto) 13.2 L [place] % (Auto) 7.9 Eos % (Auto) 0.9 Baso % (Auto) 0.4 Neut # (Auto) 7.6 H Lymph # (Auto) 1.3 [place] # (Auto) 0.8 Eos # (Auto) 0.1 Baso # (Auto) 0.0 Sodium 128 L Potassium 5.0 Chloride 95 L Carbon Dioxide 22 Anion Gap 16 BUN 40 H Creatinine 2.0 H Est GFR ( Amer) 29 Est GFR (Non-Af Amer) 24 POC Glucose (mg/dL) 169 H Random Glucose 166 H D Calcium 8.5 L Iron TIBC % Saturation 12/14/18 13:58 WBC RBC Hgb Hct MCV MCH MCHC RDW Plt Count MPV Neut % (Auto) Lymph % (Auto) [place] % (Auto) Eos % (Auto) Baso % (Auto) Neut # (Auto) Lymph # (Auto) [place] # (Auto) Eos # (Auto) Baso # (Auto) Sodium Potassium Chloride Carbon Dioxide Anion Gap BUN Creatinine Est GFR ( Amer) Est GFR (Non-Af Amer) POC Glucose (mg/dL) Random Glucose Calcium Iron 14 L TIBC 191 L % Saturation 7 L - Imaging and Cardiology Chest x-ray Status: Report reviewed by me (NO ACTIVE DISEASE) Assessment & Plan (1) Fever Assessment and Plan: AGREE WITH PANCULTURES. CONTINUE iv zOSYN 2.25 G EVERY 8 HOURLY. fOLLOW-UP FEVER CURVE. fOLLOW-UP CULTURES TO ADJUST ANTIBIOTICS. Status: Acute (2) Exacerbation of asthma Assessment and Plan: CHEST X-RAY NEGATIVE. pATIENT STARTED ON ANTIBIOTICS. Status: Acute (3) Gait disturbance Status: Acute (4) Knee contusion Assessment and Plan: PATIENT HAS CONTUSION TO THE LEFT KNEE. HAS BILATERAL DEGENERATIVE OSTEOARTHRITIS. ANALGESICS/ANTI-INFLAMMATORY PER PMD. MONITOR FEVER CURVE. dOUBT PATIENT HAS SEPTIC ARTHRITIS AT PRESENT. Status: Acute (5) CRF (chronic renal failure) Assessment and Plan: MONITOR RENAL FUNCTIONS CLOSELY SERUM CREATININE 2.7/bun 42 Status: Acute (6) Diabetes Status: Chronic
[2018-12-14] MEDS: Ferric Sodium Gluconat Complex 62.5 mg/5 ml Vial IVPB SCH (17:00)
[2018-12-14] MEDS: TRAVATAN OU SCH (21:23)
[2018-12-14] MEDS: Rosuvastatin Calcium 2.5 mg Tab PO SCH (21:23)
--- NOTE | 2018-12-14 22:15 | CP.PCM.PN ---
Subjective - Date & Time of Evaluation Date of Evaluation: 12/14/18 Time of Evaluation: 07:55 - Subjective Subjective: dict Objective - Vital Signs/Intake and Output Vital Signs (last 24 hours): Temp Pulse Resp BP Pulse Ox 99.4 F 85 20 139/77 97 12/14/18 21:22 12/14/18 21:22 12/14/18 16:00 12/14/18 21:22 12/14/18 16:00 Intake and Output: 12/14/18 12/15/18 18:59 06:59 Intake Total 600 Output Total 600 Balance 0 - Medications Medications: Current Medications Acetaminophen (Tylenol 325mg Tab) 650 mg PO Q6 PRN PRN Reason: Fever >100.4 F Last Admin: 12/13/18 17:09 Dose: 650 mg Albuterol Sulfate (Albuterol 0.083% Inhal [place] (2.5 Mg/3 Ml) Ud) 2.5 mg INH RQ6 [facility] Last Admin: 12/14/18 19:41 Dose: 2.5 mg Docusate Sodium (Colace) 100 mg PO BID [facility] Last Admin: 12/14/18 17:03 Dose: 100 mg Enoxaparin Sodium (Lovenox) 30 mg SC DAILY [facility] Last Admin: 12/14/18 09:12 Dose: 30 mg Epoetin Monico (Procrit) 10,000 unit SC MWF [facility] Last Admin: 12/14/18 09:12 Dose: 10,000 unit Ferric Sodium Gluconate Complex (Ferrlecit) 125 mg IVPB DAILY [facility] Stop: 12/19/18 16:16 Last Admin: 12/14/18 17:00 Dose: 125 mg Home Med (Patient's Own Drops) 1 drop OU DAILY [facility] Home Med (Patient's Own Drops) 0 drop OU HS [facility] Last Admin: 12/14/18 21:23 Dose: 1 drop Hydralazine HCl (Apresoline) 25 mg PO Q8 [facility] Last Admin: 12/14/18 21:23 Dose: 25 mg Piperacillin Sod/Tazobactam Sod (Zosyn 2.25 Gm Iv Premix) 2.25 gm in 50 mls @ 200 mls/hr IVPB Q8H [facility]; Protocol Last Admin: 12/14/18 21:24 Dose: 200 mls/hr Insulin Human Regular (Novolin R) 0 unit SC ACHS [facility]; Protocol Last Admin: 12/14/18 21:24 Dose: Not Given Levothyroxine Sodium (Synthroid) 50 mcg PO DAILY@0630 [facility] Last Admin: 12/14/18 05:33 Dose: 50 mcg Lidocaine (Lidoderm) 2 ea TD DAILY [facility] Last Admin: 12/14/18 09:18 Dose: 2 ea Metoprolol Succinate (Toprol Xl) 50 mg PO DAILY [facility] Last Admin: 12/14/18 09:11 Dose: 50 mg Oxycodone/Acetaminophen (Percocet 5/325 Mg Tab) 1 tab PO Q6H PRN PRN Reason: Pain, moderate (4-7) Stop: 12/17/18 08:34 Last Admin: 12/14/18 18:17 Dose: 1 tab Pantoprazole Sodium (Protonix Ec Tab) 40 mg PO DAILY [facility] Last Admin: 12/14/18 09:13 Dose: 40 mg Rosuvastatin Calcium (Crestor) 2.5 mg PO HS [facility] Last Admin: 12/14/18 21:23 Dose: 2.5 mg Sitagliptin Phosphate (Januvia) 25 mg PO DAILY [facility] Last Admin: 12/14/18 09:12 Dose: 25 mg Torsemide (Demadex) 10 mg PO DAILY [facility] Last Admin: 12/14/18 09:11 Dose: 10 mg Vitamin B Complex/Vit C/Folic Acid (Nephro-Pili) 1 tab PO 0800 [facility] Last Admin: 12/14/18 09:11 Dose: 1 tab Zolpidem Tartrate (Ambien) 5 mg PO HS PRN PRN Reason: Insomnia Last Admin: 12/14/18 21:23 Dose: 5 mg - Labs Labs: 12/14/18 11:09 12/14/18 11:09 PT 14.6 SECONDS (9.7-12.2) H 12/11/18 18:30 INR 1.3 12/11/18 18:30 APTT 30 SECONDS (21-34) 12/11/18 18:30
[2018-12-15] MEDS: Albuterol 0.083% Inhal Sol (2.5 mg/3 mL) UD INH SCH ×4 (01:08→19:20)
[2018-12-15] MEDS: Piperacill/Tazo 2.25gm in Dex 2.25 GM/50 ML BAG IVPB SCH ×3 (03:51→21:17)
[2018-12-15] MEDS: Levothyroxine 50 MCG TAB PO SCH (05:41)
[2018-12-15] MEDS: (Novolin R) Insulin Human Regular 100 units/ml vial SC SCH ×4 (08:00→21:17)
[2018-12-15] MEDS: Multivitamin Vitamin B Complex (Nephro-Vite) Tab PO SCH (08:13)
[2018-12-15 08:14] LABS: BASO % 0.4 % (0.0-2.0); EOS # 0.1 K/uL (0.0-0.7); EOS % 1.2 % (0.0-4.0); HEMOGLOBIN 7.7 g/dL (11.0-16.0); LYMPH # 1.5 K/uL (1.0-4.3); LYMPH % 15.1 % (20.0-40.0); MEAN CELL VOLUME 86.4 fL (81.0-99.0); MEAN CORPUSCULAR HEMOGLOBIN 28.7 pg (27.0-31.0); MEAN CORPUSCULAR HGB CONC 33.2 g/dL (33.0-37.0); MEAN PLATELET VOLUME 7.9 fL (7.2-11.7); NEUT # 7.3 K/uL (1.8-7.0); NEUT % 73.3 % (50.0-75.0); NRBC % 0.1 % (0.0-2.0); RBC 2.69 Mil/uL (3.80-5.20); RED CELL DISTRIBUTION WIDTH 17.6 % (11.5-14.5); WHITE BLOOD COUNT 9.9 K/uL (4.8-10.8)
[2018-12-15 08:28] LABS: CALCIUM 8.9 mg/dl (8.6-10.4)
--- NOTE | 2018-12-15 09:21 | PN ---
DATE: 12/15/2018 SUBJECTIVE: The patient is with bilateral knee pain and swelling. Now, she is afebrile. . The patient is on physiotherapy and she is improving. She is for subacute rehab. I discussed with daughter. PHYSICAL EXAMINATION: VITAL SIGNS: Blood pressure 131/70, pulse 74, respiratory rate 20, temperature 98.3. LUNGS: Clear. No rales. No rhonchi. CARDIOVASCULAR SYSTEM: S1 and S2, regular. ABDOMEN: Soft and nontender. Bowel sounds are positive. ASSESSMENT: 1. Iron deficiency, is most likely nutritional. Continue intravenous iron. 2. Fall with knee injuries. 3. Fever. Cultures are negative. 4. Chronic kidney disease, creatinine is stable. 5. Hypertension. PLAN: Physical therapy. Subacute rehab. Continue Zosyn. Monitor patient. Júnior Bee MD
[2018-12-15] MEDS: Metoprolol Succinate 50 mg XL Tab PO SCH (09:41)
[2018-12-15] MEDS: Lidocaine 5% Patch TD SCH (09:50)
[2018-12-15] MEDS: Ferric Sodium Gluconat Complex 62.5 mg/5 ml Vial IVPB SCH (09:53)
[2018-12-15] MEDS: Pantoprazole 40 mg EC Tab PO SCH (09:53)
[2018-12-15] MEDS: Enoxaparin 30 mg Syringe SC SCH (09:53)
[2018-12-15] MEDS: Oxycodone/Acetaminophen 5/325 mg Tab PO PRN (17:32)
[2018-12-15] MEDS: TRAVATAN OU SCH (21:17)
[2018-12-15] MEDS: Rosuvastatin Calcium 2.5 mg Tab PO SCH (21:17)
--- NOTE | 2018-12-15 22:40 | CP.PCM.PN ---
Subjective - Date & Time of Evaluation Date of Evaluation: 12/15/18 Time of Evaluation: 08:20 - Subjective Subjective: dict Objective - Vital Signs/Intake and Output Vital Signs (last 24 hours): Temp Pulse Resp BP Pulse Ox 99.1 F 83 20 151/80 H 96 12/15/18 22:02 12/15/18 21:16 12/15/18 16:00 12/15/18 21:16 12/15/18 16:00 Intake and Output: 12/15/18 12/16/18 18:59 06:59 Intake Total 580 Balance 580 - Medications Medications: Current Medications Acetaminophen (Tylenol 325mg Tab) 650 mg PO Q6 PRN PRN Reason: Fever >100.4 F Last Admin: 12/13/18 17:09 Dose: 650 mg Albuterol Sulfate (Albuterol 0.083% Inhal [place] (2.5 Mg/3 Ml) Ud) 2.5 mg INH RQ6 [facility] Last Admin: 12/15/18 19:20 Dose: 2.5 mg Docusate Sodium (Colace) 100 mg PO BID [facility] Last Admin: 12/15/18 17:30 Dose: 100 mg Enoxaparin Sodium (Lovenox) 30 mg SC DAILY [facility] Last Admin: 12/15/18 09:53 Dose: 30 mg Epoetin Monico (Procrit) 10,000 unit SC MWF [facility] Last Admin: 12/14/18 09:12 Dose: 10,000 unit Ferric Sodium Gluconate Complex (Ferrlecit) 125 mg IVPB DAILY [facility] Stop: 12/19/18 16:16 Last Admin: 12/15/18 09:53 Dose: 125 mg Home Med (Patient's Own Drops) 1 drop OU DAILY [facility] Last Admin: 12/15/18 09:52 Dose: 1 drop Home Med (Patient's Own Drops) 0 drop OU HS [facility] Last Admin: 12/15/18 21:17 Dose: 1 drop Hydralazine HCl (Apresoline) 25 mg PO Q8 [facility] Last Admin: 12/15/18 21:17 Dose: 25 mg Piperacillin Sod/Tazobactam Sod (Zosyn 2.25 Gm Iv Premix) 2.25 gm in 50 mls @ 200 mls/hr IVPB Q8H [facility]; Protocol Last Admin: 12/15/18 21:17 Dose: 200 mls/hr Insulin Human Regular (Novolin R) 0 unit SC ACHS [facility]; Protocol Last Admin: 12/15/18 21:17 Dose: Not Given Levothyroxine Sodium (Synthroid) 50 mcg PO DAILY@0630 [facility] Last Admin: 12/15/18 05:41 Dose: 50 mcg Lidocaine (Lidoderm) 3 ea TD DAILY [facility] Metoprolol Succinate (Toprol Xl) 50 mg PO DAILY [facility] Last Admin: 12/15/18 09:41 Dose: 50 mg Oxycodone/Acetaminophen (Percocet 5/325 Mg Tab) 1 tab PO Q6H PRN PRN Reason: Pain, moderate (4-7) Stop: 12/17/18 08:34 Last Admin: 12/15/18 17:32 Dose: 1 tab Pantoprazole Sodium (Protonix Ec Tab) 40 mg PO DAILY [facility] Last Admin: 12/15/18 09:53 Dose: 40 mg Rosuvastatin Calcium (Crestor) 2.5 mg PO HS [facility] Last Admin: 12/15/18 21:17 Dose: 2.5 mg Sitagliptin Phosphate (Januvia) 25 mg PO DAILY [facility] Last Admin: 12/15/18 09:41 Dose: 25 mg Torsemide (Demadex) 10 mg PO DAILY [facility] Last Admin: 12/15/18 09:54 Dose: 10 mg Vitamin B Complex/Vit C/Folic Acid (Nephro-Pili) 1 tab PO 0800 [facility] Last Admin: 12/15/18 08:13 Dose: 1 tab Zolpidem Tartrate (Ambien) 5 mg PO HS PRN PRN Reason: Insomnia Last Admin: 12/15/18 21:17 Dose: 5 mg - Labs Labs: 12/15/18 07:57 12/15/18 07:57 PT 14.6 SECONDS (9.7-12.2) H 12/11/18 18:30 INR 1.3 12/11/18 18:30 APTT 30 SECONDS (21-34) 12/11/18 18:30
--- NOTE | 2018-12-15 23:00 | CP.PCM.PN ---
Subjective - Date & Time of Evaluation Date of Evaluation: 12/15/18 Time of Evaluation: 22:59 - Subjective Subjective: AFEBRILE,TMAX 99.2 STILL C/O LT. KNEE PAIN. DECREASED ROM LT KNEE. ON IV ABX LABS REVIEWED Objective - Vital Signs/Intake and Output Vital Signs (last 24 hours): Temp Pulse Resp BP Pulse Ox 99.1 F 83 20 151/80 H 96 12/15/18 22:02 12/15/18 21:16 12/15/18 16:00 12/15/18 21:16 12/15/18 16:00 Intake and Output: 12/15/18 12/16/18 18:59 06:59 Intake Total 580 Balance 580 - Medications Medications: Current Medications Acetaminophen (Tylenol 325mg Tab) 650 mg PO Q6 PRN PRN Reason: Fever >100.4 F Last Admin: 12/13/18 17:09 Dose: 650 mg Albuterol Sulfate (Albuterol 0.083% Inhal [place] (2.5 Mg/3 Ml) Ud) 2.5 mg INH RQ6 [facility] Last Admin: 12/15/18 19:20 Dose: 2.5 mg Docusate Sodium (Colace) 100 mg PO BID [facility] Last Admin: 12/15/18 17:30 Dose: 100 mg Enoxaparin Sodium (Lovenox) 30 mg SC DAILY [facility] Last Admin: 12/15/18 09:53 Dose: 30 mg Epoetin Monico (Procrit) 10,000 unit SC MWF [facility] Last Admin: 12/14/18 09:12 Dose: 10,000 unit Ferric Sodium Gluconate Complex (Ferrlecit) 125 mg IVPB DAILY [facility] Stop: 12/19/18 16:16 Last Admin: 12/15/18 09:53 Dose: 125 mg Home Med (Patient's Own Drops) 1 drop OU DAILY [facility] Last Admin: 12/15/18 09:52 Dose: 1 drop Home Med (Patient's Own Drops) 0 drop OU HS [facility] Last Admin: 12/15/18 21:17 Dose: 1 drop Hydralazine HCl (Apresoline) 25 mg PO Q8 [facility] Last Admin: 12/15/18 21:17 Dose: 25 mg Piperacillin Sod/Tazobactam Sod (Zosyn 2.25 Gm Iv Premix) 2.25 gm in 50 mls @ 200 mls/hr IVPB Q8H [facility]; Protocol Last Admin: 12/15/18 21:17 Dose: 200 mls/hr Insulin Human Regular (Novolin R) 0 unit SC ACHS [facility]; Protocol Last Admin: 12/15/18 21:17 Dose: Not Given Levothyroxine Sodium (Synthroid) 50 mcg PO DAILY@0630 [facility] Last Admin: 12/15/18 05:41 Dose: 50 mcg Lidocaine (Lidoderm) 3 ea TD DAILY [facility] Metoprolol Succinate (Toprol Xl) 50 mg PO DAILY [facility] Last Admin: 12/15/18 09:41 Dose: 50 mg Oxycodone/Acetaminophen (Percocet 5/325 Mg Tab) 1 tab PO Q6H PRN PRN Reason: Pain, moderate (4-7) Stop: 12/17/18 08:34 Last Admin: 12/15/18 17:32 Dose: 1 tab Pantoprazole Sodium (Protonix Ec Tab) 40 mg PO DAILY [facility] Last Admin: 12/15/18 09:53 Dose: 40 mg Rosuvastatin Calcium (Crestor) 2.5 mg PO HS [facility] Last Admin: 12/15/18 21:17 Dose: 2.5 mg Sitagliptin Phosphate (Januvia) 25 mg PO DAILY [facility] Last Admin: 12/15/18 09:41 Dose: 25 mg Torsemide (Demadex) 10 mg PO DAILY [facility] Last Admin: 12/15/18 09:54 Dose: 10 mg Vitamin B Complex/Vit C/Folic Acid (Nephro-Pili) 1 tab PO 0800 [facility] Last Admin: 12/15/18 08:13 Dose: 1 tab Zolpidem Tartrate (Ambien) 5 mg PO HS PRN PRN Reason: Insomnia Last Admin: 12/15/18 21:17 Dose: 5 mg - Labs Labs: 12/15/18 07:57 12/15/18 07:57 PT 14.6 SECONDS (9.7-12.2) H 12/11/18 18:30 INR 1.3 12/11/18 18:30 APTT 30 SECONDS (21-34) 12/11/18 18:30 - Constitutional Appears: No Acute Distress - Head Exam Head Exam: NORMAL INSPECTION - Eye Exam Eye Exam: EOMI, PERRL - ENT Exam ENT Exam: Normal Oropharynx - Neck Exam Neck Exam: Normal Inspection - Respiratory Exam Respiratory Exam: Clear to Ausculation Bilateral, NORMAL BREATHING PATTERN - Cardiovascular Exam Cardiovascular Exam: REGULAR RHYTHM, +S1, +S2 - GI/Abdominal Exam GI & Abdominal Exam: Soft, Normal Bowel Sounds - Extremities Exam Extremities Exam: Pedal Edema. absent: Calf Tenderness, Full ROM (LT. KNEE LIMITED RANGE OF MOTION. ) - Neurological Exam Neurological Exam: Awake, CN II-XII Intact. absent: Abnormal Gait - Psychiatric Exam Psychiatric exam: Normal Mood - Skin Skin Exam: Normal Color, Warm Assessment and Plan (1) Fever Assessment & Plan: PT ON IV ABX. ALL CULTURES -VE. CXR -VE Status: Acute (2) Knee contusion Assessment & Plan: LT KNEE DECREASED ROM. HAS OA AND CONTUSION S/P FALL. CPM. PT AND ANALGESICSAS PER PMD Status: Acute (3) Anemia Assessment & Plan: ON IRON INFUSIONS Status: Chronic (4) CKD (chronic kidney disease) Assessment & Plan: RENAL FUNCTION IMPROVING Status: Chronic (5) Diabetes Status: Chronic
--- NOTE | 2018-12-16 01:54 | PN ---
DATE: 12/15/2018 SUBJECTIVE: The patient is complaining of bilateral knee pain, left shoulder pain. The patient gets dyspnea on exertion. She denies any chest pain. No nausea or vomiting. No rectal bleeding. No dysuria. No hematuria. No pyuria. Overall, the patient is feeling better. She is for subacute rehab. PHYSICAL EXAMINATION: VITAL SIGNS: Blood pressure 151/80, pulse 83, respiratory rate 20, and temperature 99.6. LUNGS: Clear. No rales. No rhonchi. CARDIOVASCULAR SYSTEM: S1 and S2, regular. ABDOMEN: Soft and nontender. Bowel sounds are positive. ASSESSMENT: 1. Fever. Septic workup is negative. 2. Fall with bilateral knee and left shoulder pain. The patient is on pain management. 3. Diabetes. 4. Chronic kidney disease. 5. Anemia of chronic kidney disease. PLAN: Continue current medication. Monitor the patient. Júnior Bee MD
[2018-12-16] MEDS: Albuterol 0.083% Inhal Sol (2.5 mg/3 mL) UD INH SCH ×3 (02:04→19:19)
[2018-12-16] MEDS: Piperacill/Tazo 2.25gm in Dex 2.25 GM/50 ML BAG IVPB SCH ×3 (03:44→21:13)
[2018-12-16] MEDS: Levothyroxine 50 MCG TAB PO SCH (06:20)
[2018-12-16] MEDS: (Novolin R) Insulin Human Regular 100 units/ml vial SC SCH ×4 (07:30→22:11)
[2018-12-16] MEDS: Metoprolol Succinate 50 mg XL Tab PO SCH (09:42)
[2018-12-16] MEDS: Pantoprazole 40 mg EC Tab PO SCH (09:42)
[2018-12-16] MEDS: Oxycodone/Acetaminophen 5/325 mg Tab PO PRN ×2 (09:44→21:12)
[2018-12-16] MEDS: Multivitamin Vitamin B Complex (Nephro-Vite) Tab PO SCH (09:44)
[2018-12-16] MEDS: Enoxaparin 30 mg Syringe SC SCH (09:46)
[2018-12-16] MEDS: Ferric Sodium Gluconat Complex 62.5 mg/5 ml Vial IVPB SCH (09:49)
[2018-12-16] MEDS: EPOETIN ALFA 10,000 UNIT/ML ML SC SCH (10:00)
[2018-12-16] MEDS: Lidocaine 5% Patch TD SCH (10:01)
--- NOTE | 2018-12-16 11:13 | VASCLAB ---
Date of service: 12/16/2018 PROCEDURE: Lower Extremity Venous Duplex Exam. HISTORY: r/o DVT ,pain in both legs PRIORS: None. TECHNIQUE: Bilateral common femoral, femoral, popliteal and posterior tibial, peroneal and great saphenous veins were evaluated. Flow was assessed with color Doppler, compressibility, assessment of phasic flow and augmentation response. Report prepared by Carla Kelley, FRANCK, RVS FINDINGS: RIGHT: 1. Common Femoral Vein: 1.1. Compressibility - Fully compressible: Thrombus - None : Flow - Phasic: Augmentation -Normal: Reflux - None. 2. Femoral Vein: 2.1. Compressibility - Fully compressible: Thrombus - None : Flow - Phasic: Augmentation -Normal: Reflux - None. 3. Popliteal Vein: 3.1. Compressibility - Fully compressible: Thrombus - None : Flow - Phasic: Augmentation -Normal: Reflux - None. 4. Posterior Tibial Vein: 4.1. Compressibility - Fully compressible: Thrombus - None: Flow - Phasic: Augmentation -Normal: Reflux - None. 5. Peroneal Vein: 5.1. Compressibility - Fully compressible: Thrombus - None: Flow - Phasic: Augmentation -Normal: Reflux - None. 6. Great Saphenous Vein: 6.1. Compressibility - Fully compressible: Thrombus - None: Flow - Phasic: Augmentation - Normal: Reflux - None. LEFT: 1. Common Femoral Vein: 1.1. Compressibility - Fully compressible: Thrombus - None: Flow - Phasic: Augmentation -Normal: Reflux - None. 2. Femoral Vein: 2.1. Compressibility - Fully compressible: Thrombus - None: Flow - Phasic: Augmentation -Normal: Reflux - None. 3. Popliteal Vein: 3.1. Compressibility - Fully compressible: Thrombus - None : Flow - Phasic: Augmentation -Normal: Reflux - None. 4. Posterior Tibial Vein: 4.1. Compressibility - Fully compressible: Thrombus - None: Flow - Phasic: Augmentation -Normal: Reflux - None. 5. Peroneal Vein: 5.1. Compressibility - Fully compressible: Thrombus - None: Flow - Phasic: Augmentation -Normal: Reflux - None. 6. Great Saphenous Vein: 6.1. Compressibility - Fully compressible: Thrombus - None: Flow - Phasic: Augmentation - Normal: Reflux - None. OTHER FINDINGS: Right: None significant. Left: None significant. IMPRESSION: Right: No evidence of deep or superficial vein thrombosis of the right lower extremity. Normal valve function noted of the right side. Left: No evidence of deep or superficial vein thrombosis of the left lower extremity. Normal valve function noted of the left side. Could not visualized left great saphenous vein in upper extremity.
[2018-12-16] MEDS: Rosuvastatin Calcium 2.5 mg Tab PO SCH (21:12)
[2018-12-16] MEDS: TRAVATAN OU SCH (22:17)
--- NOTE | 2018-12-16 23:03 | CP.PCM.PN ---
Subjective - Date & Time of Evaluation Date of Evaluation: 12/16/18 Time of Evaluation: 17:40 - Subjective Subjective: dict Objective - Vital Signs/Intake and Output Vital Signs (last 24 hours): Temp Pulse Resp BP Pulse Ox 99.0 F 89 20 146/86 95 12/16/18 21:07 12/16/18 21:07 12/16/18 15:00 12/16/18 21:07 12/16/18 15:00 Intake and Output: 12/16/18 12/17/18 18:59 06:59 Intake Total 400 Output Total 900 Balance 400 -900 - Medications Medications: Current Medications Acetaminophen (Tylenol 325mg Tab) 650 mg PO Q6 PRN PRN Reason: Fever >100.4 F Last Admin: 12/13/18 17:09 Dose: 650 mg Albuterol Sulfate (Albuterol 0.083% Inhal [place] (2.5 Mg/3 Ml) Ud) 2.5 mg INH RQ6 [facility] Last Admin: 12/16/18 19:19 Dose: 2.5 mg Docusate Sodium (Colace) 100 mg PO BID [facility] Last Admin: 12/16/18 17:36 Dose: 100 mg Enoxaparin Sodium (Lovenox) 30 mg SC DAILY [facility] Last Admin: 12/16/18 09:46 Dose: 30 mg Epoetin Monico (Procrit) 10,000 unit SC MWF [facility] Last Admin: 12/16/18 10:00 Dose: 10,000 unit Ferric Sodium Gluconate Complex (Ferrlecit) 125 mg IVPB DAILY [facility] Stop: 12/19/18 16:16 Last Admin: 12/16/18 09:49 Dose: 125 mg Home Med (Patient's Own Drops) 1 drop OU DAILY [facility] Last Admin: 12/16/18 10:03 Dose: 1 drop Home Med (Patient's Own Drops) 0 drop OU HS [facility] Last Admin: 12/16/18 22:17 Dose: 1 drop Hydralazine HCl (Apresoline) 25 mg PO Q8 [facility] Last Admin: 12/16/18 21:13 Dose: 25 mg Insulin Human Regular (Novolin R) 0 unit SC ACHS [facility]; Protocol Last Admin: 12/16/18 22:11 Dose: Not Given Levothyroxine Sodium (Synthroid) 50 mcg PO DAILY@0630 [facility] Last Admin: 12/16/18 06:20 Dose: 50 mcg Lidocaine (Lidoderm) 3 ea TD DAILY [facility] Last Admin: 12/16/18 10:01 Dose: 3 ea Metoprolol Succinate (Toprol Xl) 50 mg PO DAILY [facility] Last Admin: 12/16/18 09:42 Dose: 50 mg Oxycodone/Acetaminophen (Percocet 5/325 Mg Tab) 1 tab PO Q6H PRN PRN Reason: Pain, moderate (4-7) Stop: 12/17/18 08:34 Last Admin: 12/16/18 21:12 Dose: 1 tab Pantoprazole Sodium (Protonix Ec Tab) 40 mg PO DAILY [facility] Last Admin: 12/16/18 09:42 Dose: 40 mg Rosuvastatin Calcium (Crestor) 2.5 mg PO HS [facility] Last Admin: 12/16/18 21:12 Dose: 2.5 mg Sitagliptin Phosphate (Januvia) 25 mg PO DAILY [facility] Last Admin: 12/16/18 09:41 Dose: 25 mg Torsemide (Demadex) 10 mg PO DAILY [facility] Last Admin: 12/16/18 09:49 Dose: 10 mg Vitamin B Complex/Vit C/Folic Acid (Nephro-Pili) 1 tab PO 0800 [facility] Last Admin: 12/16/18 09:44 Dose: 1 tab Zolpidem Tartrate (Ambien) 5 mg PO HS PRN PRN Reason: Insomnia Last Admin: 12/16/18 21:12 Dose: 5 mg - Labs Labs: 12/15/18 07:57 12/15/18 07:57 PT 14.6 SECONDS (9.7-12.2) H 12/11/18 18:30 INR 1.3 12/11/18 18:30 APTT 30 SECONDS (21-34) 12/11/18 18:30
[2018-12-17] MEDS: Albuterol 0.083% Inhal Sol (2.5 mg/3 mL) UD INH SCH (01:12)
--- NOTE | 2018-12-17 02:43 | PN ---
DATE: 12/17/2018 SUBJECTIVE: The patient is feeling better. She is for subacute rehab. She has no fever. She has bilateral knee pain. No chest pain. No nausea, vomiting, diarrhea. She denies any history of polyuria, polydipsia, or polyphagia. She denies any cough, sore throat, or runny nose. Septic workup has been negative. She is on Procrit injection. She is seen by [facility]. PHYSICAL EXAMINATION: VITAL SIGNS: Blood pressure is 129/65, pulse 83, respiratory rate 20, and temperature 99.4. LUNGS: Clear. CARDIOVASCULAR SYSTEM: S1 and S2. Regular. ABDOMEN: Soft and nontender. Bowel sounds are positive. ASSESSMENT: 1. Fall with bilateral knee pain. 2. Chronic kidney disease with anemia due to chronic kidney disease. 3. Type 2 diabetes. 4. Hypothyroidism. PLAN: Physical therapy, rehab. The patient is waiting for acceptance to subacute rehab and then she will be transferred. Júnior Bee MD
[2018-12-17] MEDS: Levothyroxine 50 MCG TAB PO SCH (05:41)
[2018-12-17] MEDS: (Novolin R) Insulin Human Regular 100 units/ml vial SC SCH ×4 (08:00→22:05)
[2018-12-17] MEDS: Multivitamin Vitamin B Complex (Nephro-Vite) Tab PO SCH (08:09)
[2018-12-17] MEDS: Metoprolol Succinate 50 mg XL Tab PO SCH (09:30)
[2018-12-17] MEDS: Pantoprazole 40 mg EC Tab PO SCH (09:30)
[2018-12-17] MEDS: Lidocaine 5% Patch TD SCH (09:31)
[2018-12-17] MEDS: Enoxaparin 30 mg Syringe SC SCH (09:32)
[2018-12-17 14:34] LABS: BASO # 0.1 K/uL (0.0-0.2); BASO % 0.5 % (0.0-2.0); EOS # 0.1 K/uL (0.0-0.7); EOS % 0.9 % (0.0-4.0); HEMOGLOBIN 8.1 g/dL (11.0-16.0); LYMPH # 1.7 K/uL (1.0-4.3); LYMPH % 14.8 % (20.0-40.0); MEAN CELL VOLUME 87.3 fL (81.0-99.0); MEAN CORPUSCULAR HEMOGLOBIN 28.5 pg (27.0-31.0); MEAN CORPUSCULAR HGB CONC 32.6 g/dL (33.0-37.0); MEAN PLATELET VOLUME 7.5 fL (7.2-11.7); MONO % 8.6 % (0.0-10.0); NEUT # 8.6 K/uL (1.8-7.0); NEUT % 75.2 % (50.0-75.0); NRBC % 0.2 % (0.0-2.0); RBC 2.83 Mil/uL (3.80-5.20); RED CELL DISTRIBUTION WIDTH 17.6 % (11.5-14.5); WHITE BLOOD COUNT 11.4 K/uL (4.8-10.8)
[2018-12-17 14:55] LABS: CALCIUM 9.2 mg/dl (8.6-10.4)
[2018-12-17] MEDS: Oxycodone/Acetaminophen 5/325 mg Tab PO PRN (18:00)
--- NOTE | 2018-12-17 20:31 | CP.PCM.PN ---
Subjective - Date & Time of Evaluation Date of Evaluation: 12/17/18 Time of Evaluation: 07:40 - Subjective Subjective: dict Objective - Vital Signs/Intake and Output Vital Signs (last 24 hours): Temp Pulse Resp BP Pulse Ox 98 F 74 20 162/85 H 95 12/17/18 15:56 12/17/18 15:56 12/17/18 15:56 12/17/18 15:56 12/17/18 15:56 Intake and Output: 12/17/18 12/18/18 18:59 06:59 Intake Total 480 Balance 480 - Medications Medications: Current Medications Acetaminophen (Tylenol 325mg Tab) 650 mg PO Q6 PRN PRN Reason: Fever >100.4 F Last Admin: 12/13/18 17:09 Dose: 650 mg Albuterol Sulfate (Albuterol 0.083% Inhal [place] (2.5 Mg/3 Ml) Ud) 2.5 mg INH RQ6 [facility] Docusate Sodium (Colace) 100 mg PO BID [facility] Last Admin: 12/17/18 17:29 Dose: 100 mg Enoxaparin Sodium (Lovenox) 30 mg SC DAILY [facility] Last Admin: 12/17/18 09:32 Dose: 30 mg Epoetin Monico (Procrit) 10,000 unit SC MWF [facility] Last Admin: 12/16/18 10:00 Dose: 10,000 unit Home Med (Patient's Own Drops) 1 drop OU DAILY [facility] Last Admin: 12/17/18 09:29 Dose: 1 drop Home Med (Patient's Own Drops) 0 drop OU HS [facility] Last Admin: 12/16/18 22:17 Dose: 1 drop Hydralazine HCl (Apresoline) 25 mg PO Q8 [facility] Last Admin: 12/17/18 13:26 Dose: 25 mg Insulin Human Regular (Novolin R) 0 unit SC ACHS [facility]; Protocol Last Admin: 12/17/18 11:59 Dose: 1 unit Levothyroxine Sodium (Synthroid) 50 mcg PO DAILY@0630 [facility] Last Admin: 12/17/18 05:41 Dose: 50 mcg Lidocaine (Lidoderm) 3 ea TD DAILY [facility] Last Admin: 12/17/18 09:31 Dose: 3 ea Metoprolol Succinate (Toprol Xl) 50 mg PO DAILY [facility] Last Admin: 12/17/18 09:30 Dose: 50 mg Oxycodone/Acetaminophen (Percocet 5/325 Mg Tab) 1 tab PO Q6H PRN PRN Reason: Pain, moderate (4-7) Stop: 12/20/18 17:44 Last Admin: 12/17/18 18:00 Dose: 1 tab Pantoprazole Sodium (Protonix Ec Tab) 40 mg PO DAILY [facility] Last Admin: 12/17/18 09:30 Dose: 40 mg Rosuvastatin Calcium (Crestor) 2.5 mg PO HS [facility] Last Admin: 12/16/18 21:12 Dose: 2.5 mg Sitagliptin Phosphate (Januvia) 25 mg PO DAILY [facility] Last Admin: 12/17/18 09:30 Dose: 25 mg Torsemide (Demadex) 10 mg PO DAILY [facility] Last Admin: 12/17/18 09:30 Dose: 10 mg Vitamin B Complex/Vit C/Folic Acid (Nephro-Pili) 1 tab PO 0800 [facility] Last Admin: 12/17/18 08:09 Dose: 1 tab Zolpidem Tartrate (Ambien) 5 mg PO HS PRN PRN Reason: Insomnia Last Admin: 12/16/18 21:12 Dose: 5 mg - Labs Labs: 12/17/18 14:27 12/17/18 14:27 PT 14.6 SECONDS (9.7-12.2) H 12/11/18 18:30 INR 1.3 12/11/18 18:30 APTT 30 SECONDS (21-34) 12/11/18 18:30
[2018-12-17] MEDS: Rosuvastatin Calcium 2.5 mg Tab PO SCH (21:43)
[2018-12-17] MEDS: TRAVATAN OU SCH (21:44)
--- NOTE | 2018-12-18 01:01 | PN ---
DATE: 12/17/2018 SUBJECTIVE: The patient is feeling better. She is more cooperative with physiotherapy. No fever. No chills. No nausea or vomiting. She has bilateral knee and left shoulder pain. She does get some shortness of breath upon ambulating. PHYSICAL EXAMINATION: VITAL SIGNS: Blood pressure 162/85, pulse 74, respiratory rate 20, temperature 98. LUNGS: Bilateral basal crepitation. CARDIOVASCULAR: S1 and S2. Regular. ABDOMEN: Soft. Nontender. Bowel sounds are positive. ASSESSMENT: 1. Osteoarthritis, fall with knee injury. 2. Anemia of chronic kidney disease. 3. Chronic kidney disease. 4. Poorly controlled hypertension. 5. Poorly controlled diabetes. PLAN: Subacute rehab. Monitor patient. Júnior Bee MD
[2018-12-18] MEDS: Albuterol 0.083% Inhal Sol (2.5 mg/3 mL) UD INH SCH ×4 (02:58→19:35)
[2018-12-18] MEDS: Levothyroxine 50 MCG TAB PO SCH (05:42)
[2018-12-18] MEDS: Multivitamin Vitamin B Complex (Nephro-Vite) Tab PO SCH (08:03)
[2018-12-18] MEDS: (Novolin R) Insulin Human Regular 100 units/ml vial SC SCH ×4 (08:17→21:27)
[2018-12-18] MEDS: Pantoprazole 40 mg EC Tab PO SCH (09:55)
[2018-12-18] MEDS: Lidocaine 5% Patch TD SCH (09:55)
[2018-12-18] MEDS: Metoprolol Succinate 50 mg XL Tab PO SCH (09:55)
[2018-12-18] MEDS: Enoxaparin 30 mg Syringe SC SCH (09:56)
--- NOTE | 2018-12-18 10:55 | CP.PCM.PN ---
Subjective - Date & Time of Evaluation Date of Evaluation: 12/18/18 Time of Evaluation: 07:40 - Subjective Subjective: dict Objective - Vital Signs/Intake and Output Vital Signs (last 24 hours): Temp Pulse Resp BP Pulse Ox 98.0 F 79 20 159/60 H 98 12/18/18 07:00 12/18/18 07:00 12/18/18 07:00 12/18/18 07:00 12/18/18 07:00 Intake and Output: 12/18/18 12/18/18 06:59 18:59 Output Total 1150 Balance -1150 - Medications Medications: Current Medications Acetaminophen (Tylenol 325mg Tab) 650 mg PO Q6 PRN PRN Reason: Fever >100.4 F Last Admin: 12/13/18 17:09 Dose: 650 mg Albuterol Sulfate (Albuterol 0.083% Inhal [place] (2.5 Mg/3 Ml) Ud) 2.5 mg INH RQ6 [facility] Last Admin: 12/18/18 02:58 Dose: Not Given Docusate Sodium (Colace) 100 mg PO BID [facility] Last Admin: 12/18/18 09:55 Dose: 100 mg Enoxaparin Sodium (Lovenox) 30 mg SC DAILY [facility] Last Admin: 12/18/18 09:56 Dose: 30 mg Epoetin Monico (Procrit) 10,000 unit SC MWF [facility] Last Admin: 12/16/18 10:00 Dose: 10,000 unit Home Med (Patient's Own Drops) 1 drop OU DAILY [facility] Last Admin: 12/18/18 10:02 Dose: 1 drop Home Med (Patient's Own Drops) 0 drop OU HS [facility] Last Admin: 12/17/18 21:44 Dose: 1 drop Hydralazine HCl (Apresoline) 25 mg PO Q8 [facility] Last Admin: 12/18/18 05:42 Dose: 25 mg Insulin Human Regular (Novolin R) 0 unit SC ACHS [facility]; Protocol Last Admin: 12/18/18 08:17 Dose: 1 unit Levothyroxine Sodium (Synthroid) 50 mcg PO DAILY@0630 [facility] Last Admin: 12/18/18 05:42 Dose: 50 mcg Lidocaine (Lidoderm) 3 ea TD DAILY [facility] Last Admin: 12/18/18 09:55 Dose: 3 ea Metoprolol Succinate (Toprol Xl) 50 mg PO DAILY [facility] Last Admin: 12/18/18 09:55 Dose: 50 mg Oxycodone/Acetaminophen (Percocet 5/325 Mg Tab) 1 tab PO Q6H PRN PRN Reason: Pain, moderate (4-7) Stop: 12/20/18 17:44 Last Admin: 12/17/18 18:00 Dose: 1 tab Pantoprazole Sodium (Protonix Ec Tab) 40 mg PO DAILY [facility] Last Admin: 12/18/18 09:55 Dose: 40 mg Rosuvastatin Calcium (Crestor) 2.5 mg PO HS [facility] Last Admin: 12/17/18 21:43 Dose: 2.5 mg Sitagliptin Phosphate (Januvia) 25 mg PO DAILY [facility] Last Admin: 12/18/18 09:55 Dose: 25 mg Torsemide (Demadex) 10 mg PO DAILY [facility] Last Admin: 12/18/18 09:56 Dose: 10 mg Vitamin B Complex/Vit C/Folic Acid (Nephro-Pili) 1 tab PO 0800 [facility] Last Admin: 12/18/18 08:03 Dose: 1 tab Zolpidem Tartrate (Ambien) 5 mg PO HS PRN PRN Reason: Insomnia Last Admin: 12/17/18 21:48 Dose: 5 mg - Labs Labs: 12/17/18 14:27 12/17/18 14:27 PT 14.6 SECONDS (9.7-12.2) H 12/11/18 18:30 INR 1.3 12/11/18 18:30 APTT 30 SECONDS (21-34) 12/11/18 18:30
[2018-12-18] MEDS: Rosuvastatin Calcium 2.5 mg Tab PO SCH (21:50)
[2018-12-18] MEDS: Oxycodone/Acetaminophen 5/325 mg Tab PO PRN (21:52)
[2018-12-18] MEDS: TRAVATAN OU SCH (21:53)
[2018-12-19] MEDS: Albuterol 0.083% Inhal Sol (2.5 mg/3 mL) UD INH SCH ×4 (02:08→20:44)
[2018-12-19] MEDS: Levothyroxine 50 MCG TAB PO SCH (05:44)
--- NOTE | 2018-12-19 07:46 | PN ---
DATE: 12/18/2018 SUBJECTIVE: The patient is afebrile. No shortness of breath. No chest pain. No nausea or vomiting. She feels better. PHYSICAL EXAMINATION: VITAL SIGNS: Blood pressure is 120/80, pulse 70, respiratory rate 16, temperature 99. LUNGS: Clear. CARDIOVASCULAR SYSTEM: S1 and S2, regular. ABDOMEN: Soft. ASSESSMENT: 1. Chronic kidney disease. 2. Uncontrolled hypertension. 3. Poorly controlled diabetes. 4. Osteoarthritis. 5. Fall with knee injury. PLAN: Medical management. Monitor the patient. Júnior Bee MD
[2018-12-19] MEDS: Multivitamin Vitamin B Complex (Nephro-Vite) Tab PO SCH (08:18)
[2018-12-19] MEDS: (Novolin R) Insulin Human Regular 100 units/ml vial SC SCH ×4 (08:19→21:35)
[2018-12-19] MEDS: Enoxaparin 30 mg Syringe SC SCH (10:00)
[2018-12-19] MEDS: EPOETIN ALFA 10,000 UNIT/ML ML SC SCH (10:01)
[2018-12-19] MEDS: Metoprolol Succinate 50 mg XL Tab PO SCH (10:01)
[2018-12-19] MEDS: Pantoprazole 40 mg EC Tab PO SCH (10:01)
[2018-12-19] MEDS: Lidocaine 5% Patch TD SCH (10:03)
[2018-12-19 12:09] LABS: BASO # 0.1 K/uL (0.0-0.2); BASO % 0.8 % (0.0-2.0); EOS # 0.1 K/uL (0.0-0.7); EOS % 0.9 % (0.0-4.0); HEMOGLOBIN 7.9 g/dL (11.0-16.0); LYMPH # 2.1 K/uL (1.0-4.3); LYMPH % 16.2 % (20.0-40.0); MEAN CELL VOLUME 88.2 fL (81.0-99.0); MEAN CORPUSCULAR HEMOGLOBIN 28.4 pg (27.0-31.0); MEAN CORPUSCULAR HGB CONC 32.2 g/dL (33.0-37.0); MEAN PLATELET VOLUME 7.3 fL (7.2-11.7); MONO % 8.1 % (0.0-10.0); NEUT # 9.5 K/uL (1.8-7.0); NRBC % 0.3 % (0.0-2.0); RBC 2.77 Mil/uL (3.80-5.20); RED CELL DISTRIBUTION WIDTH 18.8 % (11.5-14.5); WHITE BLOOD COUNT 12.8 K/uL (4.8-10.8)
[2018-12-19 12:18] LABS: CALCIUM 9.1 mg/dl (8.6-10.4)
[2018-12-19] MEDS: Oxycodone/Acetaminophen 5/325 mg Tab PO PRN (15:03)
--- NOTE | 2018-12-19 20:25 | CP.PCM.PN ---
Subjective - Date & Time of Evaluation Date of Evaluation: 12/19/18 Time of Evaluation: 08:00 - Subjective Subjective: dict Objective - Vital Signs/Intake and Output Vital Signs (last 24 hours): Temp Pulse Resp BP Pulse Ox 98.5 F 68 20 144/67 96 12/19/18 15:00 12/19/18 15:00 12/19/18 15:00 12/19/18 15:00 12/19/18 15:00 - Medications Medications: Current Medications Acetaminophen (Tylenol 325mg Tab) 650 mg PO Q6 PRN PRN Reason: Fever >100.4 F Last Admin: 12/13/18 17:09 Dose: 650 mg Albuterol Sulfate (Albuterol 0.083% Inhal [place] (2.5 Mg/3 Ml) Ud) 2.5 mg INH RQ6 [facility] Last Admin: 12/19/18 13:11 Dose: 2.5 mg Docusate Sodium (Colace) 100 mg PO BID [facility] Last Admin: 12/19/18 17:27 Dose: 100 mg Epoetin Monico (Procrit) 10,000 unit SC MWF [facility] Last Admin: 12/19/18 10:01 Dose: 10,000 unit Home Med (Patient's Own Drops) 1 drop OU DAILY [facility] Last Admin: 12/19/18 10:00 Dose: 1 drop Home Med (Patient's Own Drops) 0 drop OU HS [facility] Last Admin: 12/18/18 21:53 Dose: 1 drop Hydralazine HCl (Apresoline) 25 mg PO Q8 [facility] Last Admin: 12/19/18 13:43 Dose: 25 mg Insulin Human Regular (Novolin R) 0 unit SC [facility]; Protocol Last Admin: 12/19/18 17:27 Dose: 2 unit Levothyroxine Sodium (Synthroid) 50 mcg PO DAILY@0630 [facility] Last Admin: 12/19/18 05:44 Dose: 50 mcg Lidocaine (Lidoderm) 3 ea TD DAILY [facility] Last Admin: 12/19/18 10:03 Dose: 3 ea Metoprolol Succinate (Toprol Xl) 50 mg PO DAILY [facility] Last Admin: 12/19/18 10:01 Dose: 50 mg Oxycodone/Acetaminophen (Percocet 5/325 Mg Tab) 1 tab PO Q6H PRN PRN Reason: Pain, moderate (4-7) Stop: 12/20/18 17:44 Last Admin: 12/19/18 15:03 Dose: 1 tab Pantoprazole Sodium (Protonix Ec Tab) 40 mg PO DAILY [facility] Last Admin: 12/19/18 10:01 Dose: 40 mg Rosuvastatin Calcium (Crestor) 2.5 mg PO HS [facility] Last Admin: 12/18/18 21:50 Dose: 2.5 mg Sitagliptin Phosphate (Januvia) 25 mg PO DAILY [facility] Last Admin: 12/19/18 10:01 Dose: 25 mg Torsemide (Demadex) 10 mg PO DAILY [facility] Last Admin: 12/19/18 10:00 Dose: 10 mg Vitamin B Complex/Vit C/Folic Acid (Nephro-Pili) 1 tab PO 0800 [facility] Last Admin: 12/19/18 08:18 Dose: 1 tab Zolpidem Tartrate (Ambien) 5 mg PO HS PRN PRN Reason: Insomnia Last Admin: 12/18/18 21:50 Dose: 5 mg - Labs Labs: 12/19/18 11:58 12/19/18 11:58 PT 14.6 SECONDS (9.7-12.2) H 12/11/18 18:30 INR 1.3 12/11/18 18:30 APTT 30 SECONDS (21-34) 12/11/18 18:30
[2018-12-19] MEDS: TRAVATAN OU SCH (21:42)
[2018-12-19] MEDS: Rosuvastatin Calcium 2.5 mg Tab PO SCH (21:42)
[2018-12-20] MEDS: Albuterol 0.083% Inhal Sol (2.5 mg/3 mL) UD INH SCH ×3 (01:04→19:50)
--- NOTE | 2018-12-20 03:38 | PN ---
DATE: 12/20/2018 SUBJECTIVE: The patient is coughing, wheezing although he is less short of breath. No nausea or vomiting. PHYSICAL EXAMINATION: VITAL SIGNS: Blood pressure 147/73, pulse 66, respiratory rate 20, temperature 98.5. LUNGS: Bilateral inspiratory and expiratory rhonchi. Decreased air entry. CARDIOVASCULAR SYSTEM: S1, S2 regular. ABDOMEN: Soft. ASSESSMENT: 1. Exacerbation of chronic obstructive pulmonary disease. 2. Depression, alcoholism. 3. Hypertension. 4. Coronary artery disease. PLAN: Medical management. Monitor the patient. Júnior Bee MD
--- NOTE | 2018-12-20 03:40 | PN ---
DATE: 12/20/2018 SUBJECTIVE: The patient is waiting for subacute rehab. She is afebrile. No shortness of breath. No chest pain. No nausea or vomiting. PHYSICAL EXAMINATION: VITAL SIGNS: Blood pressure 147/73, pulse 66, respiratory rate 20, temperature 98.5. LUNGS: Clear. CARDIOVASCULAR: S1, S2, regular. ABDOMEN: Soft. ASSESSMENT: 1. Chronic kidney disease, not on dialysis. 2. Anemia of chronic kidney disease. 3. Diabetes. 4. Hypertension. PLAN: Medical management. Monitor the patient. Júnior Bee MD
[2018-12-20 05:28] VITALS: RESP 20
[2018-12-20] MEDS: Levothyroxine 50 MCG TAB PO SCH (05:33)
[2018-12-20] MEDS: Oxycodone/Acetaminophen 5/325 mg Tab PO PRN (08:32)
[2018-12-20] MEDS: (Novolin R) Insulin Human Regular 100 units/ml vial SC SCH ×4 (08:33→21:42)
[2018-12-20] MEDS: Multivitamin Vitamin B Complex (Nephro-Vite) Tab PO SCH (08:34)
[2018-12-20] MEDS: Pantoprazole 40 mg EC Tab PO SCH (09:48)
[2018-12-20] MEDS: Metoprolol Succinate 50 mg XL Tab PO SCH (09:49)
[2018-12-20] MEDS: Lidocaine 5% Patch TD SCH (10:15)
[2018-12-20 11:31] LABS: BASO # 0.1 K/uL (0.0-0.2); EOS # 0.2 K/uL (0.0-0.7); EOS % 1.4 % (0.0-4.0)
[2018-12-20 11:46] LABS: CALCIUM 9.2 mg/dl (8.6-10.4)
[2018-12-20 11:47] LABS: BASO % 0.6 % (0.0-2.0); HEMOGLOBIN 8.1 g/dL (11.0-16.0); LYMPH % 14.4 % (20.0-40.0); MEAN CELL VOLUME 88.1 fL (81.0-99.0); MEAN CORPUSCULAR HEMOGLOBIN 28.3 pg (27.0-31.0); MEAN CORPUSCULAR HGB CONC 32.1 g/dL (33.0-37.0); MEAN PLATELET VOLUME 7.4 fL (7.2-11.7); MONO # 1.1 K/uL (0.0-0.8); MONO % 8.3 % (0.0-10.0); NEUT # 10.3 K/uL (1.8-7.0); NEUT % 75.3 % (50.0-75.0); RBC 2.86 Mil/uL (3.80-5.20); RED CELL DISTRIBUTION WIDTH 18.7 % (11.5-14.5); WHITE BLOOD COUNT 13.7 K/uL (4.8-10.8)
[2018-12-20] MEDS ORDERED: Ferric Sodium Gluconat Complex 62.5 mg/5 ml Vial IVPB SCH (12:00)
--- NOTE | 2018-12-20 15:37 | CP.PCM.PN ---
Subjective - Date & Time of Evaluation Date of Evaluation: 12/20/18 Time of Evaluation: 11:00 - Subjective Subjective: patient seen today denies any chest pain, sob, dizziness, c/o pain on b/l LE and shoulder area vss and labs reviewed- K- 5.7 - kayoxalate given Objective - Vital Signs/Intake and Output Vital Signs (last 24 hours): Temp Pulse Resp BP Pulse Ox 99.3 F 88 20 151/79 H 96 12/20/18 07:49 12/20/18 07:49 12/20/18 07:49 12/20/18 07:49 12/20/18 07:49 Intake and Output: 12/20/18 12/20/18 06:59 18:59 Intake Total 380 Output Total 250 150 Balance -250 230 - Medications Medications: Current Medications Acetaminophen (Tylenol 325mg Tab) 650 mg PO Q6 PRN PRN Reason: Fever >100.4 F Last Admin: 12/13/18 17:09 Dose: 650 mg Albuterol Sulfate (Albuterol 0.083% Inhal [place] (2.5 Mg/3 Ml) Ud) 2.5 mg INH RQ6 [facility] Last Admin: 12/20/18 11:57 Dose: 2.5 mg Docusate Sodium (Colace) 100 mg PO BID [facility] Last Admin: 12/20/18 09:48 Dose: 100 mg Epoetin Monico (Procrit) 10,000 unit SC MWF [facility] Last Admin: 12/19/18 10:01 Dose: 10,000 unit Ferric Sodium Gluconate Complex (Ferrlecit) 125 mg IVPB DAILY [facility] Stop: 12/22/18 12:01 Last Admin: 12/20/18 12:39 Dose: 125 mg Home Med (Patient's Own Drops) 1 drop OU DAILY [facility] Last Admin: 12/20/18 09:54 Dose: 1 drop Home Med (Patient's Own Drops) 0 drop OU HS [facility] Last Admin: 12/19/18 21:42 Dose: 1 drop Hydralazine HCl (Apresoline) 25 mg PO Q8 [facility] Last Admin: 12/20/18 13:44 Dose: 25 mg Insulin Human Regular (Novolin R) 0 unit SC ACHS [facility]; Protocol Last Admin: 12/20/18 12:26 Dose: 2 unit Levothyroxine Sodium (Synthroid) 50 mcg PO DAILY@0630 [facility] Last Admin: 12/20/18 05:33 Dose: 50 mcg Lidocaine (Lidoderm) 3 ea TD DAILY [facility] Last Admin: 12/20/18 10:15 Dose: 3 ea Metoprolol Succinate (Toprol Xl) 50 mg PO DAILY [facility] Last Admin: 12/20/18 09:49 Dose: 50 mg Oxycodone/Acetaminophen (Percocet 5/325 Mg Tab) 1 tab PO Q6H PRN PRN Reason: Pain, moderate (4-7) Stop: 12/20/18 17:44 Last Admin: 12/20/18 08:32 Dose: 1 tab Pantoprazole Sodium (Protonix Ec Tab) 40 mg PO DAILY [facility] Last Admin: 12/20/18 09:48 Dose: 40 mg Rosuvastatin Calcium (Crestor) 2.5 mg PO HS [facility] Last Admin: 12/19/18 21:42 Dose: 2.5 mg Sitagliptin Phosphate (Januvia) 25 mg PO DAILY [facility] Last Admin: 12/20/18 09:49 Dose: 25 mg Torsemide (Demadex) 10 mg PO DAILY [facility] Last Admin: 12/20/18 09:48 Dose: 10 mg Vitamin B Complex/Vit C/Folic Acid (Nephro-Pili) 1 tab PO 0800 [facility] Last Admin: 12/20/18 08:34 Dose: 1 tab Zolpidem Tartrate (Ambien) 5 mg PO HS PRN PRN Reason: Insomnia Last Admin: 12/19/18 21:41 Dose: 5 mg - Labs Labs: 12/20/18 11:15 12/20/18 11:15 PT 14.6 SECONDS (9.7-12.2) H 12/11/18 18:30 INR 1.3 12/11/18 18:30 APTT 30 SECONDS (21-34) 12/11/18 18:30 Assessment and Plan - Assessment and Plan (Free Text) Assessment: A/P 83 yr old female with pmhx of chronic osteoarthritis, low back pain, Asthma, Diabetes, HTN, Chronic Kidney Disease presented to ER WITH with complaints of \ B/L LE pain admitted with gait disturbances and knee contusion blood cultures and urine culture - negative K-5.7 today - kayoxalate given hgb stable 8.1 patient received ferrlicit and procrit today Patients accepted at [facility] for rehab and in agreement D/w Dr. Bee cleared for discharge home today and Dr. Bee will follow the patient at [facility] care will repeat cbc, bmp this Wednesday at rehab and then weekly SW will arrange transportation
[2018-12-20 16:38] VITALS: PULSE 73; TEMP 98.7; O2SAT 97
[2018-12-20] MEDS: Rosuvastatin Calcium 2.5 mg Tab PO SCH (21:25)
[2018-12-20] MEDS: TRAVATAN OU SCH (21:27)
[2018-12-20 22:02] VITALS: BP 159/74
--- NOTE | 2018-12-20 22:45 | CP.PCM.PN ---
Subjective - Date & Time of Evaluation Date of Evaluation: 12/20/18 Time of Evaluation: 07:40 - Subjective Subjective: dict Objective - Vital Signs/Intake and Output Vital Signs (last 24 hours): Temp Pulse Resp BP Pulse Ox 98.7 F 73 20 159/74 H 97 12/20/18 15:37 12/20/18 21:00 12/20/18 15:37 12/20/18 21:00 12/20/18 15:37 Intake and Output: 12/20/18 12/21/18 18:59 06:59 Intake Total 380 Output Total 150 Balance 230 - Medications Medications: Current Medications Acetaminophen (Tylenol 325mg Tab) 650 mg PO Q6 PRN PRN Reason: Fever >100.4 F Last Admin: 12/20/18 19:49 Dose: 650 mg Albuterol Sulfate (Albuterol 0.083% Inhal [place] (2.5 Mg/3 Ml) Ud) 2.5 mg INH RQ6 [facility] Last Admin: 12/20/18 19:50 Dose: Not Given Docusate Sodium (Colace) 100 mg PO BID [facility] Last Admin: 12/20/18 17:20 Dose: 100 mg Epoetin Monico (Procrit) 10,000 unit SC MWF [facility] Last Admin: 12/19/18 10:01 Dose: 10,000 unit Ferric Sodium Gluconate Complex (Ferrlecit) 125 mg IVPB DAILY [facility] Stop: 12/22/18 12:01 Last Admin: 12/20/18 12:39 Dose: 125 mg Home Med (Patient's Own Drops) 1 drop OU DAILY [facility] Last Admin: 12/20/18 09:54 Dose: 1 drop Home Med (Patient's Own Drops) 0 drop OU HS [facility] Last Admin: 12/20/18 21:27 Dose: 1 drop Hydralazine HCl (Apresoline) 25 mg PO Q8 [facility] Last Admin: 12/20/18 21:25 Dose: 25 mg Insulin Human Regular (Novolin R) 0 unit SC ACHS [facility]; Protocol Last Admin: 12/20/18 21:42 Dose: Not Given Levothyroxine Sodium (Synthroid) 50 mcg PO DAILY@0630 [facility] Last Admin: 12/20/18 05:33 Dose: 50 mcg Lidocaine (Lidoderm) 3 ea TD DAILY [facility] Last Admin: 12/20/18 10:15 Dose: 3 ea Metoprolol Succinate (Toprol Xl) 50 mg PO DAILY [facility] Last Admin: 12/20/18 09:49 Dose: 50 mg Pantoprazole Sodium (Protonix Ec Tab) 40 mg PO DAILY [facility] Last Admin: 12/20/18 09:48 Dose: 40 mg Rosuvastatin Calcium (Crestor) 2.5 mg PO HS [facility] Last Admin: 12/20/18 21:25 Dose: 2.5 mg Sitagliptin Phosphate (Januvia) 25 mg PO DAILY [facility] Last Admin: 12/20/18 09:49 Dose: 25 mg Torsemide (Demadex) 10 mg PO DAILY [facility] Last Admin: 12/20/18 09:48 Dose: 10 mg Vitamin B Complex/Vit C/Folic Acid (Nephro-Pili) 1 tab PO 0800 [facility] Last Admin: 12/20/18 08:34 Dose: 1 tab Zolpidem Tartrate (Ambien) 5 mg PO HS PRN PRN Reason: Insomnia Last Admin: 12/19/18 21:41 Dose: 5 mg - Labs Labs: 12/20/18 11:15 12/20/18 11:15 PT 14.6 SECONDS (9.7-12.2) H 12/11/18 18:30 INR 1.3 12/11/18 18:30 APTT 30 SECONDS (21-34) 12/11/18 18:30
--- NOTE | 2018-12-21 04:12 | CP.PCM.DIS ---
Provider - Provider Date of Admission: 12/13/18 15:39 Attending physician: Júnior Bee MD Consults: 12/11/18 21:15 Nursing Referral for Wound Care Routine Comment: Physician Instructions: Reason For Exam: sacral redness 12/13/18 16:58 Case Management Referral Routine Comment: Physician Instructions: Reason For Exam: Reason for Referral: Discharge Planning Nursing Referral for Wound Care Routine Comment: Physician Instructions: Reason For Exam: impaired mobility 12/13/18 21:33 Infectious Disease Consult Routine Comment: Consulting Provider: Jeison Wagner Consulting Physician: Jeison Wagner Reason for Consult: fever Time Spent in preparation of Discharge (in minutes): 30 Hospital Course - Lab Results Lab Results: Micro Results 12/13/18 06:30 Blood-Venous Blood Culture - Final NO GROWTH AFTER 5 DAYS 12/13/18 06:30 Blood-Venous Gram Stain - Final TEST NOT PERFORMED 12/13/18 06:00 Blood-Venous Blood Culture - Final NO GROWTH AFTER 5 DAYS 12/13/18 06:00 Blood-Venous Gram Stain - Final TEST NOT PERFORMED 12/12/18 12:15 Urine,Catheterized Urine Culture - Final No Growth (<1,000 CFU/ML) Most Recent Lab Values WBC 13.7 K/uL (4.8-10.8) H 12/20/18 11:15 RBC 2.86 Mil/uL (3.80-5.20) L 12/20/18 11:15 Hgb 8.1 g/dL (11.0-16.0) L 12/20/18 11:15 Hct 25.2 % (34.0-47.0) L 12/20/18 11:15 MCV 88.1 fL (81.0-99.0) 12/20/18 11:15 MCH 28.3 pg (27.0-31.0) 12/20/18 11:15 MCHC 32.1 g/dL (33.0-37.0) L 12/20/18 11:15 RDW 18.7 % (11.5-14.5) H 12/20/18 11:15 Plt Count 685 K/uL (130-400) H 12/20/18 11:15 MPV 7.4 fL (7.2-11.7) 12/20/18 11:15 Neut % (Auto) 75.3 % (50.0-75.0) H 12/20/18 11:15 Lymph % (Auto) 14.4 % (20.0-40.0) L 12/20/18 11:15 [place] % (Auto) 8.3 % (0.0-10.0) 12/20/18 11:15 Eos % (Auto) 1.4 % (0.0-4.0) 12/20/18 11:15 Baso % (Auto) 0.6 % (0.0-2.0) 12/20/18 11:15 Neut # (Auto) 10.3 K/uL (1.8-7.0) H 12/20/18 11:15 Lymph # (Auto) 2.0 K/uL (1.0-4.3) 12/20/18 11:15 [place] # (Auto) 1.1 K/uL (0.0-0.8) H 12/20/18 11:15 Eos # (Auto) 0.2 K/uL (0.0-0.7) 12/20/18 11:15 Baso # (Auto) 0.1 K/uL (0.0-0.2) 12/20/18 11:15 Neutrophils % (Manual) 84 % (50-75) H 12/11/18 18:31 Lymphocytes % (Manual) 7 % (20-40) L 12/11/18 18:31 Monocytes % (Manual) 9 % (0-10) 12/11/18 18:31 Differential Comment 12/19/18 11:58 Platelet Estimate Slightly increased (NORMAL) H 12/11/18 18:31 Polychromasia Slight 12/11/18 18:31 Hypochromasia (manual) Slight 12/11/18 18:31 Poikilocytosis (manual Slight 12/11/18 18:31 Anisocytosis (manual) Moderate 12/11/18 18:31 Jerry Cells Slight 12/11/18 18:31 PT 14.6 SECONDS (9.7-12.2) H 12/11/18 18:30 INR 1.3 12/11/18 18:30 APTT 30 SECONDS (21-34) 12/11/18 18:30 Sodium 129 mmol/L (132-148) L 12/20/18 11:15 Potassium 5.7 mmol/L (3.6-5.2) H 12/20/18 11:15 Chloride 94 mmol/L (98-107) L 12/20/18 11:15 Carbon Dioxide 23 mmol/L (22-30) 12/20/18 11:15 Anion Gap 18 (10-20) 12/20/18 11:15 BUN 43 mg/dL (7-17) H 12/20/18 11:15 Creatinine 1.5 mg/dL (0.7-1.2) H 12/20/18 11:15 Est GFR ( Amer) 40 12/20/18 11:15 Est GFR (Non-Af Amer) 33 12/20/18 11:15 POC Glucose (mg/dL) 202 mg/dL (65-110) H 12/20/18 20:57 Random Glucose 285 mg/dL (65-105) H 12/20/18 11:15 Calcium 9.2 mg/dl (8.6-10.4) 12/20/18 11:15 Iron 14 ug/dL (37-170) L 12/14/18 13:58 TIBC 191 ug/dL (250-450) L 12/14/18 13:58 % Saturation 7 (20-55) L 12/14/18 13:58 Total Bilirubin 0.4 mg/dL (0.2-1.3) 12/11/18 18:30 AST 44 U/L (14-36) H D 12/11/18 18:30 ALT 14 U/L (9-52) 12/11/18 18:30 Alkaline Phosphatase 86 U/L (38-126) 12/11/18 18:30 Total Creatine Kinase 251 U/L (30-135) H 12/12/18 00:42 CK-MB (Mass) 1.03 ng/mL (0.0-3.38) 12/12/18 00:42 Troponin I 0.0240 ng/mL (0.00-0.120) 12/12/18 00:42 NT-Pro-B Natriuret Pep 2460 pg/mL (0-900) H 12/11/18 18:30 Total Protein 7.5 g/dL (6.3-8.3) 12/11/18 18:30 Albumin 3.9 g/dL (3.5-5.0) 12/11/18 18:30 Globulin 3.6 gm/dL (2.2-3.9) 12/11/18 18:30 Albumin/Globulin Ratio 1.1 (1.0-2.1) 12/11/18 18:30 Urine Color Yellow (YELLOW) 12/11/18 12:15 Urine Clarity Clear (Clear) 12/11/18 12:15 Urine pH 5.0 (5.0-8.0) 12/11/18 12:15 Ur Specific [place] 1.012 (1.003-1.030) 12/11/18 12:15 Urine Protein 1+ mg/dL (NEGATIVE) H 12/11/18 12:15 Urine Glucose (UA) Normal mg/dL (Normal) 12/11/18 12:15 Urine Ketones Negative mg/dL (NEGATIVE) 12/11/18 12:15 Urine Blood Negative (NEGATIVE) 12/11/18 12:15 Urine Nitrate Negative (NEGATIVE) 12/11/18 12:15 Urine Bilirubin Negative (NEGATIVE) 12/11/18 12:15 Urine Urobilinogen Normal mg/dL (0.2-1.0) 12/11/18 12:15 Ur Leukocyte Esterase Neg Lotus/uL (Negative) 12/11/18 12:15 Urine WBC (Auto) < 1 /hpf (0-5) 12/11/18 12:15 Urine RBC (Auto) 1 /hpf (0-3) 12/11/18 12:15 Ur Squamous Epith Cells 1 /hpf (0-5) 12/11/18 12:15 Urine Bacteria Rare (<OCC) 12/11/18 12:15 Hyaline Casts 0-2 /lpf (0-2) 12/11/18 12:15 Discharge Exam - Head Exam Head Exam: NORMAL INSPECTION Discharge Plan - Follow Up Plan Condition: STABLE Disposition: REHAB FACILITY/REHAB UNIT Instructions: Heart Healthy Diet, Preventing Falls in the Older Adult, Asthma, Adult (DC), Avoiding Asthma Triggers, Preventing Falls, Contusion in Adults (DC) Additional Instructions: Please admit patietn under Dr. Bee service - Call Dr. Bee upon patient arrival to [facility] facility Please continue medication as per med. rec. Please do cbc BMP wednesday , then q weekly Referrals: Júnior Bee MD [Staff Provider] -
--- NOTE | 2018-12-21 06:57 | PN ---
DATE: 12/20/2018 SUBJECTIVE: The patient is feeling better. She has bilateral knee pain and left shoulder pain. No shortness of breath. No chest pain. No nausea or vomiting. PHYSICAL EXAMINATION: VITAL SIGNS: Blood pressure 151/79, pulse 88, respiratory rate 20, temperature 99.3. LUNGS: Clear. CARDIOVASCULAR SYSTEMS: S1 and S2, regular. ABDOMEN: Soft, nontender. Bowel sounds are positive. ASSESSMENT: 1. Fall with multiple injuries, difficulty walking, inability to thrive. 2. Chronic kidney disease with anemia. 3. Poorly controlled hypertension. 4. Poorly controlled diabetes. PLAN: Continue current medication. Subacute rehab. Júnior Bee MD
--- NOTE | 2018-12-21 10:44 | DS ---
DISCHARGE DIAGNOSES: 1. Fall with multiple injuries. 2. Chronic kidney disease, not on hemodialysis. 3. Type 2 diabetes, poorly controlled. 4. Hypertension, poorly controlled. HISTORY OF PRESENT ILLNESS: This is an 83-year-old female with history of diabetes, CKD, hypertension who had a fall with multiple injuries with knee and shoulder pain. She was admitted to the floor. The patient received Procrit, iron supplementation and the patient is well; and the patient is on physiotherapy and she needs subacute rehab because of difficulty walking, inability to . The patient is being discharged to subacute rehab. CONDITION UPON DISCHARGE: Stable. The patient will be followed up by me as outpatient. Júnior Bee MD
== END 2018-12-21 01:16 | DRG 605 ==
LOC: C.ER 17:08 → INTOOBSV 18:46 → C.9E 18:46 → C.3T 19:01 → C.9E 19:10 → C.6T 20:30 → OBSVTOIN 12-13 15:39
PROVIDERS: ADMIT Internal Medicine; ATTEND Internal Medicine
DX: S80.02XA Contusion of left knee, initial encounter (principal); J45.901 Unspecified asthma with (acute) exacerbation; J44.1 Chronic obstructive pulmonary disease with (acute) exacerbation; M17.0 Bilateral primary osteoarthritis of knee; M25.512 Pain in left shoulder; R50.9 Fever, unspecified; I12.9 Hypertensive chronic kidney disease with stage 1 through stage 4 chronic kidney disease, or unspecified chronic kidney disease; E11.22 Type 2 diabetes mellitus with diabetic chronic kidney disease; N18.9 Chronic kidney disease, unspecified; E11.65 Type 2 diabetes mellitus with hyperglycemia; W18.31XA Fall on same level due to stepping on an object, initial encounter; E61.1 Iron deficiency; D63.1 Anemia in chronic kidney disease; E03.9 Hypothyroidism, unspecified; I25.10 Atherosclerotic heart disease of native coronary artery without angina pectoris; R26.9 Unspecified abnormalities of gait and mobility; E78.5 Hyperlipidemia, unspecified; E78.00 Pure hypercholesterolemia, unspecified; G89.29 Other chronic pain; M54.5 Low back pain; L29.9 Pruritus, unspecified; E66.9 Obesity, unspecified; Z68.38 Body mass index [BMI] 38.0-38.9, adult; Y92.009 Unspecified place in unspecified non-institutional (private) residence as the place of occurrence of the external cause; Z91.81 History of falling; Z74.01 Bed confinement status; Z79.84 Long term (current) use of oral hypoglycemic drugs